=== PATIENT | female | born 1945 | race Caucasian/White ===

== ENCOUNTER 2019-07-19 06:43 | Outpatient (CLI) | payer MEDICARE, SELFPAY ==
[2019-07-19 07:26] LABS: Basophils Absolute Auto 0.1 K/mm3 (0.0-0.1); Basophils Percent Auto 2.1 % (0.2-1.2); Eosinophils Absolute Auto 0.4 K/mm3 (0-0.3); Eosinophils Percent Auto 8.1 % (0-4.4); Hematocrit 35.8 % (37.0-47.0); Hemoglobin 12.2 g/dL (12.0-15.0); Immature Granulocyte Absolute 0.01 K/mm3 (0.00-0.031); Immature Granulocyte Percent A 0.2 % (0-0.5); Lymphocytes Absolute Auto 1.81 K/mm3 (0.9-3.2); Lymphocytes Percent Auto 34.3 % (18.3-44.2); Mean Corpuscular HGB Conc 34.1 g/dl (32-36); Mean Corpuscular Hemoglobin 31.6 pg (26-34); Mean Corpuscular Volume 92.7 fl (80-100); Mean Platelet Volume 9.5 fl (7.4-10.4); Monocytes Absolute Auto 0.5 K/mm3 (0.1-0.6); Monocytes Percent Auto 9.8 % (2.6-8.5); Neutrophils Absolute Auto 2.4 K/mm3 (1.3-6.7); Neutrophils Percent Auto 45.5 % (45.5-73.1); Platelet Count Result 246 k/mm3 (150-375); Red Blood Count 3.86 M/mm3 (4.2-5.4); Red Cell Distribution Width 11.7 % (11.5-14.5); White Blood Count 5.3 K/mm3 (4.5-10.0)
[2019-07-19 07:35] LABS: Hemoglobin A1C 5.8 % (<5.7)
[2019-07-19 07:39] LABS: Alanine Aminotransferase 13 U/L (4-35); Albumin Level 4.2 g/dL (3.5-5.1); Alkaline Phosphatase 60 U/L (38-126); Aspartate Amino Transferase 22 U/L (14-36); Bilirubin,Total 0.3 mg/dL (0.2-1.3); Blood Urea Nitrogen 10 mg/dL (7-17); Calcium 9.3 mg/dL (8.4-10.2); Carbon Dioxide 30 mmol/L (22-30); Chloride 96 mmol/L (98-107); Cholesterol 202 mg/dL (0-200); Estimated Glomerular Filt Rate > 60; Glucose 93 mg/dL (65-105); HDL Direct 58 mg/dL; Potassium 4.7 mmol/L (3.4-5.0); Sodium 131 mmol/L (137-145); Triglycerides 64 mg/dL (<150)
[2019-07-19 07:50] LABS: LDL Cholesterol Direct 104 mg/dL
== END 2019-07-19 06:44 | disposition home or self-care (01) ==
PROVIDERS: PCP Internal Medicine; Visit Provider Internal Medicine
DX: E78.2 Mixed hyperlipidemia (principal); Z79.899 Other long term (current) drug therapy; I10 Essential (primary) hypertension
CPT/HCPCS: 36415; 80048; 80061; 80076; 82542; 83036; 85025

== ENCOUNTER 2019-09-07 06:54 | Outpatient (CLI) | payer MEDICARE, SELFPAY ==
[2019-09-07 07:30] LABS: Cholesterol 136 mg/dL (0-200); HDL Direct 59 mg/dL; Triglycerides 48 mg/dL (<150)
[2019-09-07 07:41] LABS: LDL Cholesterol Direct 55 mg/dL
== END 2019-09-07 06:55 | disposition home or self-care (01) ==
PROVIDERS: PCP Internal Medicine; Visit Provider Internal Medicine
DX: E78.2 Mixed hyperlipidemia (principal)
CPT/HCPCS: 36415; 80061

== ENCOUNTER 2020-01-17 06:39 | Outpatient (CLI) | payer MEDICARE, SELFPAY ==
[2020-01-17 07:44] LABS: Basophils Absolute Auto 0.1 K/mm3 (0.0-0.1); Basophils Percent Auto 1.2 % (0.2-1.2); Eosinophils Absolute Auto 0.3 K/mm3 (0-0.3); Eosinophils Percent Auto 4.8 % (0-4.4); Hematocrit 35.4 % (37.0-47.0); Hemoglobin 11.9 g/dL (12.0-15.0); Immature Granulocyte Absolute 0.02 K/mm3 (0.00-0.031); Immature Granulocyte Percent A 0.3 % (0-0.5); Lymphocytes Absolute Auto 1.72 K/mm3 (0.9-3.2); Lymphocytes Percent Auto 25.9 % (18.3-44.2); Mean Corpuscular HGB Conc 33.6 g/dl (32-36); Mean Corpuscular Hemoglobin 32.2 pg (26-34); Mean Corpuscular Volume 95.7 fl (80-100); Mean Platelet Volume 9.7 fl (7.4-10.4); Monocytes Absolute Auto 0.5 K/mm3 (0.1-0.6); Monocytes Percent Auto 7.5 % (2.6-8.5); Neutrophils Percent Auto 60.3 % (45.5-73.1); Platelet Count Result 222 k/mm3 (150-375); Red Cell Distribution Width 11.7 % (11.5-14.5); White Blood Count 6.6 K/mm3 (4.5-10.0)
[2020-01-17 07:53] LABS: Alanine Aminotransferase 13 U/L (4-35); Alkaline Phosphatase 46 U/L (38-126); Anion Gap 5 mmol/L (8-16); Aspartate Amino Transferase 30 U/L (14-36); Bilirubin,Total 0.5 mg/dL (0.2-1.3); Blood Urea Nitrogen 13 mg/dL (7-17); Calcium 9.4 mg/dL (8.4-10.2); Carbon Dioxide 28 mmol/L (22-30); Chloride 100 mmol/L (98-107); Cholesterol 156 mg/dL (0-200); Estimated Glomerular Filt Rate > 60; Glucose 96 mg/dL (65-105); HDL Direct 71 mg/dL; Sodium 133 mmol/L (137-145); Triglycerides 58 mg/dL (<150)
[2020-01-17 08:03] LABS: LDL Cholesterol Direct 62 mg/dL
[2020-01-17 08:09] LABS: Hemoglobin A1C 5.6 % (<5.7)
[2020-01-17 09:01] LABS: Folic Acid > 20.0 ng/mL (2.76->20)
[2020-01-20 23:06] LABS: Vitamin D 1,25 (OH)2 Total 26 pg/mL (18-72); Vitamin D2 1,25 (OH)2 <8 pg/mL; Vitamin D3 1,25 (OH)2 26 pg/mL
== END 2020-01-17 06:40 | disposition home or self-care (01) ==
PROVIDERS: PCP Internal Medicine; Visit Provider Internal Medicine
DX: E55.9 Vitamin D deficiency, unspecified (principal); I10 Essential (primary) hypertension; R73.03 Prediabetes; E78.2 Mixed hyperlipidemia; Z79.899 Other long term (current) drug therapy; E53.8 Deficiency of other specified B group vitamins
CPT/HCPCS: 36415; 80048; 80061; 80076; 82607; 82652; 82746; 83036; 84443; 85025

== ENCOUNTER 2020-02-05 07:24 | Outpatient (CLI) | payer MEDICARE, SELFPAY ==
--- NOTE | ~2020-02-05 | US_ITS ---
EXAMINATION: US carotid duplex BI DATE: 02/05/2020 08:30 INDICATION: Left carotid bruit TECHNIQUE: Grayscale, color Doppler, and pulsed Doppler images of the cervical carotid arteries were obtained. The degree of vessel stenosis is placed in one of the following categories: normal, <50%, 5 0-69%, >=70% but less than near-occlusion, near-occlusion, or total occlusion. Note that percent sten osis relative to normal distal artery lumen diameter is indirectly measured from velocity measurement s as described by Dilip, et al. Radiology 2003; 229:340-346. COMPARISON: None. FINDINGS: RIGHT: The right common carotid artery (CCA) peak systolic velocity (PSV) is 103 cm/s. The right internal ca rotid artery (ICA) PSV is 158 cm/s. The right ICA end-diastolic velocity (EDV) is 35 cm/s. The right ICA/CCA PSV ratio is 1.5. Grayscale and color Doppler images yield an estimate of <50% diameter reduc tion from plaque in the ICA. The external carotid artery (ECA) PSV is 110 cm/s. There is antegrade fl ow in the right vertebral artery. LEFT: The left CCA PSV is 105 cm/s. The left ICA PSV is 119 cm/s. The left ICA EDV is 27 cm/s. The left ICA /CCA PSV ratio is .1. Grayscale and color Doppler images yield an estimate of <50% diameter reduction from plaque in the ICA. The ECA PSV is 123 cm/s. There is antegrade flow in the left vertebral arter y. IMPRESSION: 1. <50% stenosis in the right internal carotid artery. 2. <50% stenosis in the left internal carotid artery. Reviewed, dictated and finalized at location H. P BREAKER
== END 2020-02-05 07:25 | disposition home or self-care (01) ==
PROVIDERS: PCP Internal Medicine; Visit Provider Internal Medicine
DX: R09.89 Other specified symptoms and signs involving the circulatory and respiratory systems (principal); I65.23 Occlusion and stenosis of bilateral carotid arteries
CPT/HCPCS: 93880

== ENCOUNTER 2020-03-06 10:34 | Outpatient (CLI) | payer MEDICARE, SELFPAY ==
--- NOTE | ~2020-03-06 | MM_ITS ---
EXAMINATION: MM screening juan BI w thu HISTORY: Screening mammogram TECHNIQUE: Craniocaudal and mediolateral oblique 3-D tomosynthesis images were obtained and synthetic 2-D images were generated. Bilateral rotated lateral CC views. CAD analysis was submitted and inter preted. COMPARISON: 11/29/2018, 04/06/2017, 02/26/2016 bilateral digital screening mammogram examinations BREAST PARENCHYMAL COMPOSITION: The breasts are heterogeneously dense, which may obscure small masses . FINDINGS: There is no evidence of suspicious mass, calcification, or architectural distortion to sugg est malignancy in either breast. There has been no suspicious interval change. IMPRESSION: 1. No mammographic evidence of malignancy. 2. Recommend routine screening mammography in one year. BI-RADS Category 1: Negative Reviewed, dictated and finalized at location A. S ASSOCIATE
== END 2020-03-06 10:35 | disposition home or self-care (01) ==
PROVIDERS: PCP Internal Medicine; Visit Provider Internal Medicine
DX: Z12.31 Encounter for screening mammogram for malignant neoplasm of breast (principal)
CPT/HCPCS: 77063; 77067

== ENCOUNTER 2020-07-13 07:15 | Outpatient (CLI) | payer MEDICARE, SELFPAY ==
[2020-07-13 08:07] LABS: Alanine Aminotransferase 15 U/L (4-35); Albumin Level 4.3 g/dL (3.5-5.1); Alkaline Phosphatase 62 U/L (38-126); Anion Gap 4 mmol/L (8-16); Aspartate Amino Transferase 25 U/L (14-36); Bilirubin,Total 0.3 mg/dL (0.2-1.3); Blood Urea Nitrogen 13 mg/dL (7-17); Calcium 9.2 mg/dL (8.4-10.2); Carbon Dioxide 32 mmol/L (22-30); Chloride 97 mmol/L (98-107); Cholesterol 156 mg/dL (0-200); Estimated Glomerular Filt Rate > 60; Glucose 96 mg/dL (65-105); HDL Direct 77 mg/dL; Potassium 4.5 mmol/L (3.4-5.0); Sodium 133 mmol/L (137-145); Triglycerides 56 mg/dL (<150)
[2020-07-13 08:18] LABS: LDL Cholesterol Direct 60 mg/dL
[2020-07-13 09:31] LABS: Hemoglobin A1C 5.7 % (<5.7)
== END 2020-07-13 07:16 | disposition home or self-care (01) ==
PROVIDERS: PCP Internal Medicine; Visit Provider Internal Medicine
DX: E55.9 Vitamin D deficiency, unspecified (principal); E78.2 Mixed hyperlipidemia; I10 Essential (primary) hypertension; Z79.899 Other long term (current) drug therapy
CPT/HCPCS: 36415; 80053; 80061; 82306; 83036

== ENCOUNTER 2020-10-29 16:31 | Outpatient (CLI) | payer MEDICARE, SELFPAY ==
--- NOTE | ~2020-10-29 | XR_ITS ---
XR knee RT min 4V DATE: 10/29/2020 16:55 INDICATION: Previous fall. Pain and swelling anteriorly and posteriorly TECHNIQUE: Eek and standing AP, Sherwood and lateral views COMPARISON: None FINDINGS: There is enthesopathy of the superior pole of the patella at the quadriceps tendon insertio n. There is slight periarticular spurring of the patella consistent with mild osteoarthritis. No fracture or dislocation or joint effusion, radiopaque intra-articular loose body or chondrocalcino sis is detected. No periosteal reaction or bone destruction. IMPRESSION: Mild patellofemoral osteoarthritis Reviewed, dictated and finalized at location A.
== END 2020-10-29 16:32 | disposition home or self-care (01) ==
LOC: ANHIMG 16:41
PROVIDERS: PCP Internal Medicine; Visit Provider Internal Medicine
DX: M25.461 Effusion, right knee (principal); M25.561 Pain in right knee; M17.11 Unilateral primary osteoarthritis, right knee
CPT/HCPCS: 73564

== ENCOUNTER 2020-11-12 09:27 | Outpatient (CLI) | payer MEDICARE, SELFPAY ==
--- NOTE | ~2020-11-12 | US_ITS ---
EXAMINATION: US soft tissue LE RT DATE: 11/12/2020 10:06 INDICATION: Right knee pain and swelling TECHNIQUE: Multiple grayscale and Doppler ultrasound images of the right knee were obtained. COMPARISON: None FINDINGS: No Allred's cyst or other abnormal fluid collections at the right popliteal fossa. No evident right kn ee joint effusion. The vessels at the right popliteal fossa are unremarkable with patent right poplit eal and gastrocnemius veins. IMPRESSION: 1. Unremarkable ultrasound of the right knee with no evident joint effusion or Allred's cyst. Reviewed, dictated and finalized at location A.
== END 2020-11-12 09:28 | disposition home or self-care (01) ==
LOC: ANHIMG 09:31
PROVIDERS: PCP Internal Medicine; Visit Provider Internal Medicine
DX: M25.461 Effusion, right knee (principal); M25.561 Pain in right knee
CPT/HCPCS: 76882

== ENCOUNTER 2020-12-03 07:45 | Outpatient (CLI) | payer MEDICARE, SELFPAY ==
--- NOTE | ~2020-12-03 | DEXA_ITS ---
Bone Density Report Name: Ngozi Zazueta Age: 75 Sex: Female Ethnicity: White Date of : 1945 Indication: postmenopausal; parental hip fracture; Referring Provider: Ann Garcia Study: Bone densitometry was performed. Exam Date: December 03, 2020 Accession number: [id number] Bone Density: Region BMD T-score Z-score Classification AP Spine (L1-L4) 0.833 -1.9 0.6 Osteopenia Femoral Neck (Left) 0.761 -0.8 1.4 Normal Total Hip (Left) 0.854 -0.7 1.2 Normal Total Hip Bilateral Avg 0.854 -0.7 1.2 Normal Femoral Neck (Right) 0.714 -1.2 1.0 Osteopenia Total Hip (Right) 0.853 -0.7 1.2 Normal World Health Organization criteria for BMD impression classify patients as: Normal (T-score at or above -1.0), Osteopenia (T-score between -1.0 and -2.5), or Osteoporosis (T-score at or below -2.5). 10-year Fracture Risk(1): Major Osteoporotic Fracture 17% Hip Fracture 8.8% Reported Risk Factors: [place] (), Neck BMD=0.714, BMI=21.0, parental fracture (1) FRAX(R) Version 3.08. Fracture probability calculated for an untreated patient. Fracture probability may be lower if the patient has received treatment. Clinical Information Provided by Patient: Parent has had a hip fracture Has used the following medications: Calcium Patient maximum height was 62 Menopause Age: 53 Does not regularly consume dairy products Onset of menses at age 10 Number of children 1 Impression: The patient has low bone mass, based on the Total Spine T-score. The patient has an estimated ten-year risk of hip fracture of 8.8% and an estimated ten-year risk of major fracture of 17%, based on the WHO FRAX algorithm. The patient has risk factors, including: parental hip fracture. Discussion: BONE DENSITY IS LOW AT ONE OR MORE SKELETAL SITES. THE PATIENT'S BMD AND CLINICAL RISK FACTORS CONTRIBUTE TO THIS PATIENT'S INCREASED RISK OF FRACTURE. This patient's lowest T-score is low at one or more skeletal sites. It meets the World Health Organization's (WHO) criteria for ?low bone mass? (T-score between -1.0 and -2.5). The patient's 10-year risk of hip fracture as calculated by FRAX exceeds the threshold where pharmacological therapy is recommended by the National Osteoporosis Foundation (NOF). However, all treatment decisions require clinical judgment and consideration of individual patient factors, including patient preferences, comorbidities, previous drug use, risk factors not captured in the FRAX model (e.g., frailty, falls, vitamin D deficiency, increased bone turnover, interval significant decline in bone density) and possible under or overestimation of fracture risk by FRAX. The patient should follow a healthful lifestyle (good nutrition with adequate calcium and vitamin D, and appropriate weight-bearing exercise). Follow-Up: Cons
== END 2020-12-03 07:46 | disposition home or self-care (01) ==
LOC: ANHIMG 07:47
PROVIDERS: PCP Internal Medicine; Visit Provider Student in an Organized Health Care Education/Training Program
DX: Z78.0 Asymptomatic menopausal state (principal); M85.88 Other specified disorders of bone density and structure, other site; M85.851 Other specified disorders of bone density and structure, right thigh
CPT/HCPCS: 77080

== ENCOUNTER 2020-12-06 06:47 | Outpatient (CLI) | payer MEDICARE, SELFPAY ==
[2020-12-06 08:00] LABS: Basophils Absolute Auto 0.1 K/mm3 (0.0-0.1); Basophils Percent Auto 1.6 % (0.2-1.2); Eosinophils Absolute Auto 0.4 K/mm3 (0-0.3); Eosinophils Percent Auto 8.1 % (0-4.4); Hematocrit 34.5 % (37.0-47.0); Hemoglobin 11.8 g/dL (12.0-15.0); Immature Granulocyte Absolute 0.01 K/mm3 (0.00-0.031); Immature Granulocyte Percent A 0.2 % (0-0.5); Lymphocytes Absolute Auto 1.74 K/mm3 (0.9-3.2); Lymphocytes Percent Auto 34.3 % (18.3-44.2); Mean Corpuscular HGB Conc 34.2 g/dl (32-36); Mean Corpuscular Hemoglobin 32.3 pg (26-34); Mean Corpuscular Volume 94.5 fl (80-100); Mean Platelet Volume 9.6 fl (7.4-10.4); Monocytes Absolute Auto 0.5 K/mm3 (0.1-0.6); Monocytes Percent Auto 10.7 % (2.6-8.5); Neutrophils Absolute Auto 2.3 K/mm3 (1.3-6.7); Neutrophils Percent Auto 45.1 % (45.5-73.1); Platelet Count Result 214 k/mm3 (150-375); Red Blood Count 3.65 M/mm3 (4.2-5.4); Red Cell Distribution Width 11.4 % (11.5-14.5); White Blood Count 5.1 K/mm3 (4.5-10.0)
[2020-12-06 08:01] LABS: Add Urine Microscopic? YES; Appearance Urine Clear (Clear); Bilirubin Urine Negative (Negative); Blood Urine 1+ (Negative); Color Urine Yellow (Yellow); Glucose Urine UA Negative (Negative); Ketones Urine Negative (Negative); Leukocyte Esterase Ur Negative LEU/UL (Negative); Mucus Urine Rare /lpf; Nitrate Urine Negative (Negative); Protein Urine Negative (Negative); Specific Grav Ur 1.015 (1.001-1.035); Squamous Epithelial Cell Urine Rare /hpf (Few); Urobilinogen Urine Negative mg/dL (<2.0); WBC Urine 0-3 /hpf
[2020-12-06 08:16] LABS: Anion Gap 7 mmol/L (8-16); Blood Urea Nitrogen 16 mg/dL (7-17); Calcium 9.4 mg/dL (8.4-10.2); Carbon Dioxide 28 mmol/L (22-30); Chloride 100 mmol/L (98-107); Cholesterol 151 mg/dL (0-200); Estimated Glomerular Filt Rate > 60; Glucose 102 mg/dL (65-110); HDL Direct 73 mg/dL; Potassium 4.4 mmol/L (3.4-5.0); Sodium 135 mmol/L (137-145); Triglycerides 51 mg/dL (<150)
[2020-12-06 08:27] LABS: LDL Cholesterol Direct 58 mg/dL
[2020-12-06 08:41] LABS: Hemoglobin A1C 5.6 % (<5.7)
[2020-12-06 08:54] LABS: Free T4 Free Thyroxine 0.91 ng/mL (0.78-2.19)
== END 2020-12-06 06:48 | disposition home or self-care (01) ==
LOC: ANHLAB 06:51
PROVIDERS: PCP Internal Medicine; Visit Provider Internal Medicine
DX: R73.03 Prediabetes (principal); E78.2 Mixed hyperlipidemia; Z51.81 Encounter for therapeutic drug level monitoring; Z79.899 Other long term (current) drug therapy; I10 Essential (primary) hypertension
CPT/HCPCS: 36415; 80048; 80061; 81001; 83036; 84439; 84443; 85025

== ENCOUNTER 2020-12-19 12:53 | Outpatient (CLI) | payer MEDICARE, SELFPAY ==
--- NOTE | ~2020-12-19 | CT_ITS ---
EXAMINATION: CT abdomen pelvis wo con DATE: 12/19/2020 13:11 INDICATION: Other microscopic hematuria. TECHNIQUE: Computed tomography (CT) of the abdomen and pelvis was performed without intravenous contr ast. Automated exposure control and iterative reconstruction technique were employed. The dose-length product was 197.18 mGy-cm. COMPARISON: CT abdomen and pelvis 03/27/2019 FINDINGS: The visualized portions of the lung bases demonstrate mild atelectasis. No pleural effusion . The heart size is normal. No pericardial effusion. The liver is normal. There are changes of cholec ystectomy. The spleen, pancreas, adrenal glands, and left kidney are normal. There is focal cortical thinning in right kidney. There is no urolithiasis. There are no dilated loops of bowel. The appendix is not visualized. There are no pathologically enlarged lymph nodes. There is no free intraperitonea l fluid. There is severe thoracic spondylosis and moderate lumbar spondylosis. IMPRESSION: 1. No etiology for hematuria. Reviewed, dictated and finalized at location A.
== END 2020-12-19 12:54 | disposition home or self-care (01) ==
LOC: ANHIMG 12:57
PROVIDERS: PCP Internal Medicine; Visit Provider Internal Medicine
DX: R31.29 Other microscopic hematuria (principal)
CPT/HCPCS: 74176

== ENCOUNTER 2021-02-11 07:02 | Outpatient (CLI) | payer MEDICARE, SELFPAY ==
--- NOTE | ~2021-02-11 | CT_ITS ---
EXAMINATION: CT abdomen pelvis w con DATE: 02/11/2021 08:00 INDICATION: Microscopic hematuria. TECHNIQUE: Computed tomography (CT) of the abdomen and pelvis was performed with 100 mL Omnipaque 350 intravenous contrast. Automated exposure control and iterative reconstruction technique were employe d. The dose-length product was 375.25 mGy-cm. COMPARISON: CT abdomen and pelvis 12/19/2020 FINDINGS: The visualized portions of the lung bases demonstrate mild atelectasis. No pleural effusion . The heart size is normal. No pericardial effusion. There is mild intrahepatic biliary duct dilatati on, likely secondary to cholecystectomy. The spleen, pancreas, and adrenal glands are normal. There i s focal cortical thinning of right kidney. There are cysts in left kidney measuring up to 5 mm. The u reters are not opacified, but are normal. There is diverticulosis of the colon without evidence of di verticulitis. There are no dilated loops of bowel. The appendix is not visualized. The periuterine ve ins and left ovarian vein are enlarged, consistent with pelvic venous insufficiency. There are no pat hologically enlarged lymph nodes. There is no free intraperitoneal fluid. There is moderate thoracolu mbar spondylosis. IMPRESSION: 1. No etiology for hematuria. Reviewed, dictated and finalized at location A. E CDL DRIVER
[2021-02-11 07:47] LABS: Estimated Glomerular Filt Rate > 60
== END 2021-02-11 07:03 | disposition home or self-care (01) ==
PROVIDERS: PCP Internal Medicine; Visit Provider Urology
DX: R31.29 Other microscopic hematuria (principal)
CPT/HCPCS: 74177; Q9967

== ENCOUNTER 2021-04-08 08:14 | Outpatient (CLI) | payer MEDICARE, SELFPAY ==
--- NOTE | ~2021-04-08 | MM_ITS ---
EXAMINATION: MM screening [facility] BI w thu HISTORY: Screening mammogram TECHNIQUE: Craniocaudal and mediolateral oblique 3-D tomosynthesis images were obtained and synthetic 2-D images were generated. CAD analysis was submitted and interpreted. COMPARISON: 03/06/2020, 11/29/2018, 04/06/2017 BREAST PARENCHYMAL COMPOSITION: There are scattered areas of fibroglandular density. FINDINGS: There is no evidence of suspicious mass, calcification, or architectural distortion to sugg est malignancy in either breast. There has been no suspicious interval change. IMPRESSION: 1. No mammographic evidence of malignancy. 2. Recommend routine screening mammography in one year. BI-RADS Category 1: Negative Reviewed, dictated and finalized at location A. EILLANCE SYSTEMS ENGINEER
== END 2021-04-08 08:15 | disposition home or self-care (01) ==
PROVIDERS: PCP Internal Medicine; Visit Provider Student in an Organized Health Care Education/Training Program
DX: Z12.31 Encounter for screening mammogram for malignant neoplasm of breast (principal)
CPT/HCPCS: 77063; 77067

== ENCOUNTER 2021-04-15 06:53 | Outpatient (CLI) | payer MEDICARE, OTHER, SELFPAY ==
[2021-04-15 08:39] LABS: Anion Gap 3 mmol/L (8-16); Blood Urea Nitrogen 13 mg/dL (7-17); Calcium 9.2 mg/dL (8.4-10.2); Carbon Dioxide 30 mmol/L (22-30); Chloride 98 mmol/L (98-107); Cholesterol 156 mg/dL (0-200); Estimated Glomerular Filt Rate > 60; Glucose 97 mg/dL (65-110); HDL Direct 64 mg/dL; Potassium 4.4 mmol/L (3.4-5.0); Sodium 131 mmol/L (137-145); Triglycerides 45 mg/dL (<150)
[2021-04-15 08:49] LABS: LDL Cholesterol Direct 58 mg/dL
[2021-04-15 08:50] LABS: Hemoglobin A1C 5.6 % (<5.7)
== END 2021-04-15 06:54 | disposition home or self-care (01) ==
PROVIDERS: PCP Internal Medicine; Visit Provider Internal Medicine
DX: R73.03 Prediabetes (principal); I10 Essential (primary) hypertension; E78.5 Hyperlipidemia, unspecified
CPT/HCPCS: 36415; 80048; 80061; 83036

== ENCOUNTER 2021-06-23 10:04 | Emergency (ER) | payer MEDICARE, OTHER, SELFPAY ==
--- NOTE | ~2021-06-23 | XR_ITS ---
EXAMINATION: XR hip LT min 2V EXAM DATE: 06/23/2021 10:50 INDICATION: No known recent injury provided at this time. Pain of the left hip. TECHNIQUE: Left hip frontal, 'frog leg' projections for interpretation. There is no prior study for comparison. FINDINGS: Smooth left hip femoral head contour, no radiographic evidence of avascular necrosis. Ther e is mild to moderate left hip primary osteoarthritis. There are no acute fractures or dislocations i dentified. There is no subcutaneous gas. The soft tissue is unremarkable. There are no radiopaque foreign bodies. IMPRESSION: Mild to moderate left hip osteoarthritis. No acute findings. Reviewed, dictated and finalized at location A.
[2021-06-23 10:17] VITALS: BP 169/59; PULSE 60; RESP 18; TEMP 37.1; O2SAT 98
[2021-06-23] MEDS: KETOROLAC 30 MG/ML VIAL (*BKC) IM (12:16)
--- NOTE | 2021-06-23 12:29 | ED.LOWEXIN ---
HPI - Extremity Injury (Lower) General Chief Complaint: Extremity Injury, Lower Stated Complaint: Left Hip Pain Time Seen by Provider: 06/23/21 11:45 Source: patient History of Present Illness HPI Narrative: Patient presents with left hip pain. His first hip pain for the past couple days is generally worse in the morning and gets better throughout the day as she moves. She called her primary care doctor over the weekend he prescribed her some muscle relaxers however it did not help so she came to the ER for evaluation. Denies any traumas or falls. Reports it is difficult to bear weight due to pain. She has not attempted any other medications other than the muscle relaxer. Related Data Home Medications Medication Instructions Recorded Confirmed propafenone 150 mg tablet 150 mg PO Q12H tablet 02/04/19 06/03/21 multivitamin 1 tablet PO DAILY 07/28/19 06/03/21 calcium carbonate 500 mg calcium 500 mg PO DAILY tablet 01/26/20 06/03/21 (1,250 mg) tablet Allergies Allergy/AdvReac Type Severity Reaction Status Date / Time No Known Allergies Allergy Verified 06/23/21 11:42 Review of Systems Review of Systems: CONSTITUTIONAL: Denies fever, chills, or sweats. EYES: Denies visual changes, redness, or discharge. ENT: Denies rhinorrhea, congestion, sore throat, or otalgia. CARDIOVASCULAR: Denies chest pain, palpitations, or edema. RESPIRATORY: Denies cough or dyspnea. GASTROINTESTINAL: Denies abdominal pain, nausea, vomiting, or diarrhea. GENITOURINARY: Denies dysuria or hematuria. SKIN: Denies rash or itching. MUSCULOSKELETAL: Denies back pain, or myalgia. NEUROLOGIC: Denies headache, numbness, dizziness, or weakness. PSYCHIATRIC: Denies anxiety or depression. All systems reviewed & are unremarkable except as noted in HPI and below PMFSH Past Medical History Medical History A-fib Benign essential hypertension BMI 20.0-20.9, adult BMI 21.0-21.9, adult Colon cancer screening Contusion of right knee Encounter for Medicare annual wellness exam Encounter for routine adult health examination without abnormal findings Follow up GERD (gastroesophageal reflux disease) Hearing loss Hyperlipidemia Idiopathic hypotension Left carotid bruit Microscopic hematuria On intermediate drug therapy Pre-diabetes Right bundle branch block Right knee pain Swelling of right knee joint URI (upper respiratory infection) Vitamin B12 deficiency Vitamin D deficiency Surgical History Surgical History History of hand surgery History of tubal ligation Hx of appendectomy Hx of cholecystectomy Hx of tonsillectomy Family History Family History Mother Family history of congestive heart failure Family history of congenital heart disease Hypertension Hyperlipemia Father Acute myocardial infarction Sibling Family history of atrial fibrillation Social History Social History Years smoked: 20 Smoking status: Former smoker Smoking end date: 03/16/80 Alcohol intake: current Substance use: never Exam Narrative: GENERAL: Well-appearing, well-nourished, and in no acute distress. HEAD: Normocephalic, atraumatic. EYES: PERRLA and EOMI. ENT: Nares clear, no rhinorrhea or epistaxis. Mucous membranes moist. NECK: Supple. No masses. No JVD EXTREMITIES: Normal range of motion. No edema. Mild diffuse tenderness of the left hip SKIN: Warm, dry, no rash. NEURO: No focal deficits. Alert and oriented x3. PSYCH: Normal mood and affect. Course Vital Signs Vital signs: Vital Signs Temperature 37.1 C 06/23/21 10:17 Pulse Rate 60 06/23/21 10:17 Respiratory Rate 18 06/23/21 10:17 Blood Pressure 169/59 H 06/23/21 10:17 Pulse Oximetry 98 06/23/21 10:17 Temperature 37.1 C 06/23/21 10:17 Pulse Rate
== END 2021-06-23 12:46 | disposition home or self-care (01) ==
PROVIDERS: Emergency Provider Emergency Medicine; PCP Internal Medicine
DX: M16.12 Unilateral primary osteoarthritis, left hip (principal); I48.91 Unspecified atrial fibrillation; I10 Essential (primary) hypertension; K21.9 Gastro-esophageal reflux disease without esophagitis; E78.5 Hyperlipidemia, unspecified; R73.03 Prediabetes; E53.8 Deficiency of other specified B group vitamins; E55.9 Vitamin D deficiency, unspecified; Z87.891 Personal history of nicotine dependence; Z79.01 Long term (current) use of anticoagulants
CPT/HCPCS: 73502; 96372; 99283; J1885

== ENCOUNTER 2021-07-08 12:31 | Outpatient (CLI) | payer MEDICARE, OTHER, SELFPAY ==
--- NOTE | ~2021-07-08 | XR_ITS ---
EXAMINATION: XR lg joint inject/asp w image DATE: 07/08/2021 13:18 INDICATION: Left hip pain. TECHNIQUE: A time-out was performed to verify the patient's name, date of , and procedure to b e performed. The procedure including the risks, benefits, and alternatives was discussed with the pat ient. Risks discussed included bleeding and infection. The patient understood the risks and agreed to proceed. The skin overlying the left hip joint was prepped and draped in usual sterile fashion. An esthetic was administered with 1% lidocaine subcutaneously. A 22 G needle was advanced under fluoros copic guidance into the joint. Injection of 1 mL of Omnipaque 240 confirmed intra-articular position of the needle. Subsequently, injectate consisting of 5 mL 1% lidocaine and 2 mL 10 mg/mm Kenalog wa s instilled. The needle was removed and the entry site was cleaned and dressed. There were no immed iate complications. Fluoroscopy exposure time was 0.1 minutes. The total number of images was 2. FINDINGS: Real-time fluoroscopy demonstrates the needle in the left hip joint. Patient's pain prior t o procedure:9/10. Patient's pain following the procedure: 0/10. IMPRESSION: 1. Fluoroscopy guided left hip joint injection of local anesthetic and steroid with decrease in the p atient's presenting pain. Reviewed, dictated and finalized at location A. IMPRESSION: 1. Fluoroscopy guided left hip joint injection of local anesthetic and steroid with decrease in the patient's presenting pain.
== END 2021-07-08 12:32 | disposition home or self-care (01) ==
LOC: ANHIMG 12:36
PROVIDERS: PCP Internal Medicine; Visit Provider Orthopaedic Surgery
DX: M25.552 Pain in left hip (principal)
CPT/HCPCS: 20610; 77002; J3301; Q9966

== ENCOUNTER 2021-07-25 12:31 | Outpatient (CLI) | payer MEDICARE, OTHER, SELFPAY ==
--- NOTE | ~2021-07-25 | MR_ITS ---
EXAMINATION: MR hip LT wo con DATE: 07/25/2021 13:43 INDICATION: Left hip pain. TECHNIQUE: Magnetic resonance imaging (MRI) of the left hip was performed without intravenous contras t. Sequences included axial and coronal PD-weighted FS FSE and axial T1-weighted FSE of the pelvis. S equences of the hip included 2D FIESTA, T1-weighted fast GRE, and axial, coronal, and sagittal PD-trenton ghted FS FSE. COMPARISON: Left hip radiographs 06/23/2021, CT abdomen and pelvis 02/11/2021 FINDINGS: Bones/cartilage: There is thoracolumbar dextrocurvature. There is severe lumbar spondylosis. There is moderate osteoar thritis of the hips with deep partial thickness cartilage loss. Labrum: There are tears of the acetabular sanjuanita bilaterally. Fluid: There is no hip joint effusion. There is mild bilateral trochanteric bursitis. Soft tissues: There is mild tendinopathy of the hamstring origins bilaterally. The iliopsoas tendons are normal. Th ere is mild right gluteus minimus and gluteus medius tendinopathy. There is moderate left gluteus min imus tendinopathy and mild left gluteus medius tendinopathy. IMPRESSION: 1. Moderate osteoarthritis of the hips. Reviewed, dictated and finalized at location A.
== END 2021-07-25 12:32 | disposition home or self-care (01) ==
PROVIDERS: PCP Internal Medicine; Visit Provider Internal Medicine
DX: M47.816 Spondylosis without myelopathy or radiculopathy, lumbar region (principal); M16.0 Bilateral primary osteoarthritis of hip
CPT/HCPCS: 73721

== ENCOUNTER 2021-09-02 06:45 | Outpatient (CLI) | payer MEDICARE, OTHER, SELFPAY ==
[2021-09-02 08:17] LABS: Basophils Absolute Auto 0.1 K/mm3 (0.0-0.1); Basophils Percent Auto 1.3 % (0.2-1.2); Eosinophils Absolute Auto 0.2 K/mm3 (0-0.3); Eosinophils Percent Auto 3.6 % (0-4.4); Hematocrit 36.2 % (37.0-47.0); Hemoglobin 11.8 g/dL (12.0-15.0); Lymphocytes Absolute Auto 1.75 K/mm3 (0.9-3.2); Lymphocytes Percent Auto 32.7 % (18.3-44.2); Mean Corpuscular HGB Conc 32.6 g/dl (32-36); Mean Corpuscular Hemoglobin 31.9 pg (26-34); Mean Corpuscular Volume 97.8 fl (80-100); Mean Platelet Volume 9.6 fl (7.4-10.4); Monocytes Absolute Auto 0.6 K/mm3 (0.1-0.6); Monocytes Percent Auto 10.5 % (2.6-8.5); Neutrophils Absolute Auto 2.8 K/mm3 (1.3-6.7); Neutrophils Percent Auto 51.9 % (45.5-73.1); Platelet Count Result 230 k/mm3 (150-375); Red Cell Distribution Width 12.2 % (11.5-14.5); White Blood Count 5.4 K/mm3 (4.5-10.0)
[2021-09-02 08:51] LABS: Free T4 Free Thyroxine 1.03 ng/mL (0.78-2.19); Vitamin D 25 Hydroxy 62.3 ng/mL
[2021-09-02 10:32] LABS: Hemoglobin A1C 5.7 % (<5.7)
[2021-09-02 10:38] LABS: Alanine Aminotransferase 12 U/L (6-35); Albumin Level 4.2 g/dL (3.5-5.1); Alkaline Phosphatase 56 U/L (38-126); Anion Gap 4 mmol/L (8-16); Aspartate Amino Transferase 23 U/L (14-36); Bilirubin,Total 0.2 mg/dL (0.2-1.3); Blood Urea Nitrogen 12 mg/dL (7-17); Carbon Dioxide 29 mmol/L (22-30); Chloride 101 mmol/L (98-107); Cholesterol 151 mg/dL (0-200); Estimated Glomerular Filt Rate > 60; Glucose 91 mg/dL (65-110); HDL Direct 76 mg/dL; Potassium 4.3 mmol/L (3.4-5.0); Sodium 134 mmol/L (137-145); Triglycerides 53 mg/dL (<150)
[2021-09-02 10:51] LABS: LDL Cholesterol Direct 49 mg/dL
[2021-09-02 12:14] LABS: Thyroid Stimulating Hormone 0.728 uIU/mL (0.465-4.680)
[2021-09-02 12:54] LABS: Folic Acid > 20.0 ng/mL (2.76->20); Vitamin B12 > 1000.0 pg/mL (239-931)
== END 2021-09-02 06:46 | disposition home or self-care (01) ==
LOC: ANHLAB 06:49
PROVIDERS: PCP Internal Medicine; Visit Provider Internal Medicine
DX: R73.03 Prediabetes (principal); E78.2 Mixed hyperlipidemia; E53.8 Deficiency of other specified B group vitamins; E55.9 Vitamin D deficiency, unspecified; Z79.899 Other long term (current) drug therapy; Z13.29 Encounter for screening for other suspected endocrine disorder; I10 Essential (primary) hypertension
CPT/HCPCS: 36415; 80053; 80061; 82306; 82607; 82746; 83036; 84439; 84443; 85025

== ENCOUNTER 2021-09-05 09:16 | Outpatient (CLI) | payer MEDICARE, OTHER, SELFPAY ==
[2021-09-05 10:39] LABS: Iron 105 ug/dL (37-170)
[2021-09-05 10:48] LABS: Percent Iron Saturation 29 % (20-50)
== END 2021-09-05 09:17 | disposition home or self-care (01) ==
PROVIDERS: PCP Internal Medicine; Visit Provider Internal Medicine
DX: D64.9 Anemia, unspecified (principal)
CPT/HCPCS: 36415; 82728; 83540; 83550

== ENCOUNTER 2021-09-30 07:48 | Outpatient (CLI) | payer MEDICARE, OTHER, SELFPAY ==
[2021-09-30 09:18] LABS: Urine Cotinine NEGATIVE
== END 2021-09-30 07:49 | disposition home or self-care (01) ==
PROVIDERS: PCP Internal Medicine; Visit Provider Orthopaedic Surgery
DX: Z01.818 Encounter for other preprocedural examination (principal); M16.12 Unilateral primary osteoarthritis, left hip
CPT/HCPCS: 80307; 87081

== ENCOUNTER 2021-10-16 16:21 | Inpatient (IN) | payer MEDICARE, OTHER, SELFPAY ==
--- NOTE | 2021-09-30 07:55 | PC.NURSE ---
Report to the Outpatient Waiting Room, entrance under the green pavilion located off [facility], at time _0600_ on date _10/15/21_. OR Time: _0730_. - You and your visitor will be asked a series of questions to screen for COVID 19 for your protection. - Only one visitor is allowed at this time. - The patient visitor is requested to leave or wait in car when not with patient. - A mask is required within the hospital. Patients may have clear liquids (water, carbonated beverages, clear teas, apple juice) until 3 hours prior to surgery (0430) with a maximum of 20 ounces. - No food from midnight until time of surgery Take the following medications with a SIP of water the morning of surgery: _CARVEDILOL, TYLENOL OR TRAMADOL IF NEEDED _ Medications to discontinue per DR. TROTTER - ASK @ 10/03/21 APPT REGARDING ELIQUIS __ Medications to discontinue per ANESTHESIA - VITAMINS/SUPPLEMENTS 3 DAYS PRIOR TO SURGERY, Date to take last dose 10/11/21_ Please no make-up, nail german, hairspray, perfume, deodorant, or body powder the day of surgery. No jewelry (including any body piercings) or valuables the day of surgery, leave them at home. Please take a shower or bath the night before, or the morning of, surgery with an antibacterial soap. Wear comfortable, loose fitting clothing. - Jewelry must be removed prior to entering the operating room. Rings and piercings that are not removed may be cut off. - The hospital will not accept responsibility for valuables. - Please leave all valuables, including medications, at home the day of surgery. If you are going home after surgery, a licensed driver retraining instructor must drive you home. - NO public transportation without another adult. - We recommend that an adult stay with you for 24 hours following discharge. - We also recommend that you do not drive, make important decision, drink alcoholic beverages, or take any drugs that were not prescribed by your health care provider for at least 24 hours after your discharge time. Follow any additional instructions given to you from your surgeon. If you or anyone in your household have experienced Covid symptoms in the past week, please notify your surgeon or the nurse liaison at the phone number below for possible testing. Instructions given to ____PT and asked if any additional questions and then verbalized understanding. Patient advised to call surgeon office or pre surgery nurse liaison [phone] if any additional questions.
[2021-09-30 08:24] VITALS: BP 150/64; PULSE 58; RESP 18; TEMP 37.1; O2SAT 97; BMI 20.1
--- NOTE | 2021-10-14 11:29 | WPDANESEPPF ---
Anes - Initial Pre Proc Eval Procedure: Operation Date: 10/15/21 07:30 Proposed Procedures p Left Total Hip Arthroplasty Anterior Approach - Phil Guy MD Date/Time: 10/14/21 11:29 Surgeon: Phil Guy MD Pre Op Diagnosis: oa left hip Patient Data Age: 76 Gender: F Height: 1.56 m Weight: 49.1 kg Last Vital Signs Temp 37.1 C 09/30/21 08:24 Pulse 58 L 09/30/21 08:24 Resp 18 09/30/21 08:24 BP 150/64 H 09/30/21 08:24 Pulse Ox 97 09/30/21 08:24 O2 Del Method Room Air 09/30/21 08:24 Allergies Allergy/AdvReac Type Severity Reaction Status Date / Time No Known Allergies Allergy Verified 10/03/21 09:21 Home Medications Medication Instructions Recorded Confirmed Type apixaban 5 mg tablet (Eliquis) 5 mg PO BID #60 tabs 07/13/19 09/30/21 Rx tramadol 50 mg tablet See Rx Instructions PO Q6H PRN 07/01/21 09/30/21 Rx pain #50 tabs cholecalciferol (vitamin D3) 25 25 mcg PO QAM 07/03/21 09/30/21 History mcg (1,000 unit) capsule acetaminophen 500 mg tablet 1,000 mg PO Q6H PRN Pain 09/30/21 09/30/21 History calcium carbonate 600 mg calcium 600 mg PO QAM 09/30/21 09/30/21 History (1,500 mg) tablet (Calcium) carvedilol 25 mg tablet 25 mg BID 09/30/21 09/30/21 History cyanocobalamin (vitamin B-12) 1,000 mcg PO QAM 09/30/21 09/30/21 History 1,000 mcg capsule fluticasone propionate 50 2 spray intranasal DAILY PRN 09/30/21 09/30/21 History mcg/actuation nasal Congestion spray,suspension (Flonase Allergy Relief) lisinopril 5 mg tablet 5 mg QAM 09/30/21 09/30/21 History multivitamin with minerals-folic 2 tablet PO QAM 09/30/21 09/30/21 History acid 200 mcg chewable tablet (Womens Daily Gummies) rosuvastatin 10 mg tablet 10 mg HS 09/30/21 09/30/21 History Patient hx anesthesia problems: none Family hx anesthesia problems: none Results Review: All pre-operative results and documents have been reviewed as part of the pre-operative evaluation. [facility] Past Medical History Medical History A-fib Anemia Arthritis Arthritis of left hip Benign essential hypertension Bilateral carotid bruits BMI 20.0-20.9, adult BMI 21.0-21.9, adult Colon cancer screening Contusion of right knee DJD (degenerative joint disease), multiple sites Encounter for Medicare annual wellness exam Encounter for routine adult health examination without abnormal findings Follow up GERD (gastroesophageal reflux disease) Hearing loss Heart disease High cholesterol Hyperlipidemia Idiopathic hypotension Left carotid bruit Left hip pain Microscopic hematuria On filler leaf cutter long drug therapy Pre-diabetes Right bundle branch block Right knee pain SI (sacroiliac) pain Swelling of right knee joint URI (upper respiratory infection) Vitamin B12 deficiency Vitamin D deficiency Surgical History Surgical History History of hand surgery History of tubal ligation Hx of appendectomy Hx of cholecystectomy Hx of tonsillectomy Family History Family History Mother Family history of congestive heart failure Family history of congenital heart disease Hypertension Hyperlipemia Thyroid disorder Father Acute myocardial infarction Diabetes mellitus Hypertension Sibling Family history of atrial fibrillation Social History Social History Smoking packs per day: 1 Smoking cigarettes per day: 20.0 Years smoked: 20 Smoking pack-years: 20.00 Smoking status: Former smoker Tobacco type: cigarettes Second hand tobacco smoke exposure: No Smoking end date: 03/16/80 Additional smoking assessment comments: PT DENIES ALL FORMS OF TOBACCO USE Alcohol intake: current Alcohol use details: STATES MAYBE 1-2 DRINKS A MONTH Substance use: current Substance us
[2021-10-15] VITALS (18 sets, daily range): BP systolic 80–156; BP diastolic 42–58; PULSE 49–80; RESP 12–18; TEMP 36.1–37; O2SAT 93–100
[2021-10-15] MEDS: LACTATED RINGERS 1,000 ML 30 ML IV CONT ×2 (06:35→10:28)
[2021-10-15] MEDS: ACETAMINOPHEN 500 MG TABLET 1000 MG PO (06:38)
[2021-10-15] MEDS: TRANEXAMIC ACID 1,000MG/ISO100 1,000 MG/100 ML BAG 200 MG IVPB (06:38)
--- NOTE | 2021-10-15 07:15 | WPDHPUPDATE1 ---
History and Physical Update Update Date/Time: 10/15/21 07:15 History and Physical has been reviewed, including an updated exam of the patient. There are NO changes in the patient's condition. Risks, benefits, and alternatives have been discussed and questions answered. Patient agrees to proceed with procedure.
--- NOTE | 2021-10-15 07:16 | WPDHPUPDATE1 ---
History and Physical Update Update Date/Time: 10/15/21 07:16 History and Physical has been reviewed, including an updated exam of the patient. There are NO changes in the patient's condition. Risks, benefits, and alternatives have been discussed and questions answered. Patient agrees to proceed with procedure.
[2021-10-15] MEDS: ceFAZolin 2 GM/D5W 50 ML 2 GM/50 ML BAG IVPB (07:25)
--- NOTE | 2021-10-15 10:37 | P.OP_ITS ---
Procedure Note - Detailed Date of Procedure 10/15/21 Pre-op Diagnosis oa left hip Post-op Diagnosis Same Procedure Performed Left hip replacement through an anterior approach with fluoroscopic assistance Surgeon Phil Guy MD Underwriting Specialist Tristin Harmon Anesthesia General Description of Procedure The patient was identified, proper side identified, and then taken to the operating room. After general anesthesia with endotracheal intubation, michs then transferred over to the [place] table positioning supine in the usual manner for an anterior hip procedure. Positioning was assessed fluoroscopically after which the left hip and thigh was prepped and draped in the usual sterile fashion. 10 cc of the arthroplasty solution was injected into the subcutaneous tissue over the TFL muscle belly. Longitudinal incision was made over the muscle belly. Subcutaneous tissue was sharply dissected down to the TFL fascia which was incised in line with the fibers the TFL. The TFL was retracted laterally and the rectus femoris medially. The rectus fascia was divided. The branches of the anterior femoral circumflex artery were identified and cauterized allowing for access to the hip capsule. Pericapsular fatty tissue was removed. The capsule was divided in an inverted T-fashion. The neck cut was made one fingerbreadth above the level of the lesser trochanter. Head fragment was removed and the acetabulum cleared of debris. Acetabulum was sequentially reamed under fluoroscopic visualization up to 45mm. A 46 millimeter G7 cup was inserted under fluoroscopic visualization in approximately 40? of abduction and 15? of anteversion following the patient's anatomy. The liner for the size 32 head was placed. The femur was then delivered up into the wound with the appropriate releases. The proximal femur was prepared for the size eight microplasty high offset stem and a trial reduction was undertaken. Overall alignment was assessed fluoroscopically in the AP and lateral views noting it to be satisfactory. Trial components were removed. The wound was irrigated with pulsatile lavage. The real size eight high offset micro plasty stem was then seated. This construct with a size 32, minus three head gave excellent mosque of leg lengths and stability so the real size 32 minus three head was attached to the neck of the femoral component after it had been cleaned and dried. Hip was again reduced and stability assessed, and it was noted to be stable. 3 minute dilute Betadine wash/soak was carried out. After final lavage of the wound, the periarticular tissues were injected with an additional 50 cc of the arthroplasty solution. Surgicel powder was used during the closure. The capsule was reapproximated with #2 Vicryl suture, the TFL fascia with 0 looped PDS suture, the subcu with two of strata fix in the deeper layers and two of strata fix subcuticular stitch. Tissue adhesive was used for the skin. Sterile dressing was applied. He tolerated the procedure well. He was transferred back to a bed and taken to recovery area in stable condition. There were no known intraoperative complications. Estimated blood loss was 700 cc; 350 cc were given back via Cell Saver. She received perioperative antibiotics. Estimated Blood Loss -700.0 (350 cc cell Saver return) Urine Output -150.0 Drains No Packing No Pathology None sent Complications No immediate complications Condition Stable Disposition PACU
[2021-10-15] MEDS: fentaNYL CITRATE INJ (*CRX) 100 MCG/2 ML VIAL 25 MCG IV PUSH ×5 (10:44→12:34)
--- NOTE | 2021-10-15 12:50 | ADMGEN ---
This patient, Ngozi Zazueta, was admitted to Medical Room 249-01. Patient/family oriented to hospital policies and general routines including ID bracelet, bed and alarms, visiting hours, pain management, procedures, bathroom and other care routines, personal items, smoking policy, room service/diet, and visiting hours. Information on how to activate the Rapid Response Team has been discussed. Patient/Family are encouraged to report perceived risks to care and to ask questions if they do not understand what they are told or what they should do.
[2021-10-15] MEDS: SODIUM CHLORIDE 0.9% IV 1,000 ML 125 ML IV CONT ×2 (14:49→21:31)
--- NOTE | 2021-10-15 15:32 | PM.IMCN ---
Assessment and Plan Assessment and plan (1) Orthostatic hypotension: Code(s): I95.1 - Orthostatic hypotension Status: Acute Assessment and Plan: - Q shift orthostatic BP - monitor H&H - monitor BP frequently - avoid narcotics while blood pressure is low. - Avoid lisinopril if blood pressures less than 110/60 - avoid Coreg if blood pressures less than 110/60 - continue with IV fluids for now. May consider bolusing the patient if her blood pressure does not improve. (2) S/P total left hip arthroplasty: Code(s): Z96.642 - Presence of left artificial hip joint Status: Acute Assessment and Plan: - postop care per Dr. Guy - pain management per Dr. Guy - DVT prophylaxis per Dr. Guy - Monitor site for any signs and symptoms of bleeding and or infection (3) Hyperlipidemia: Qualifiers: Hyperlipidemia type: mixed hyperlipidemia Qualified Code(s): E78.2 - Mixed hyperlipidemia Code(s): E78.5 - Hyperlipidemia, unspecified Status: Acute Assessment and Plan: - Continue with Crestor - monitor BMP (4) Benign essential hypertension: Code(s): I10 - Essential (primary) hypertension Status: Acute Assessment and Plan: - the patient has orthostatic blood pressure at this time - Parameters were placed on lisinopril and Coreg to hold blood pressure medicine if her blood pressures less than 110/60. (5) A-fib: Qualifiers: Atrial fibrillation type: unspecified Qualified Code(s): I48.91 - Unspecified atrial fibrillation Code(s): I48.91 - Unspecified atrial fibrillation Status: Acute Assessment and Plan: - Patient recently had an ablation - hold Coreg if blood pressures less than 110/60 - hold Coreg if heart rate less than 60. - Her Eliquis was continued per Ortho HPI Data of Consult Consult date: 10/15/21 Requesting Physician: Phil Guy MD Primary Care Provider: Alexei Valdez MD Consult Narrative Narrative: Ngozi Zazueta is a 76 year old female With a history of chronic severe pain to the anterior lateral left hip status post left total hip replacement today per Dr. Guy through the anterior approach. It was noticed that the patient's blood pressure was 80/40 when she was attempting to get up out of bed postoperatively. The patient felt dizzy at the time. When she was placed back in bed she felt somewhat better. The patient stated that she has not eaten anything today. She typically takes lisinopril for her blood pressure. She also takes Xarelto and she stated that she took that this morning. No drainage was noted from her dressing on the left anterior view. No hematoma was noted either. Orthopedic was called as per nurse and her IV fluids were increased. H&H was ordered and is pending. The hospitalist group was asked to consult on the surgical patient. Review of Systems Review of Systems: All systems reviewed & are unremarkable except as noted in HPI and below Constitutional: Constitutional: Reports as per HPI and Reports no additional constitutional complaints Eyes: Eyes: Reports as per HPI and Reports no additional eye complaints ENT: Reports system reviewed and no additional complaints, except as documented and Reports Normal hearing present Cardiovascular: Cardiovascular: Reports no additional cardiovascular complaints Respiratory: Respiratory: Reports no additional respiratory complaints and Reports no additional respiratory complaints Gastrointestinal: Gastrointestinal: Reports as per HPI and Reports no additional gastrointestinal complaints Musculoskeletal: Musculoskeletal: Reports no additional musculoskeletal complaints Integumentary/Breasts: Skin/Breast: Reports system reviewed and no additional complaints, except as docu and Reports as per HPI Neurologic: Reports system reviewed and no additional complaints, except as documented, Reports as per HPI and Reports Normal hea
[2021-10-15 15:33] LABS: Hemoglobin 10.2 g/dL (12.0-15.0)
--- NOTE | 2021-10-15 15:35 | PCPTNOTE ---
Attempted PT evaluation, Per RN, patient unable to transfer at this time due to low BP. Will Follow.
[2021-10-15] MEDS: SENNA/DOCUSATE SODIUM TABLET 2 TAB PO (17:13)
[2021-10-15] MEDS: ROSUVASTATIN 10 MG TABLET BY MOUTH (21:31)
[2021-10-15] MEDS: KETOROLAC 15 MG/ML VIAL (*BKC) IV PUSH (21:31)
[2021-10-15] MEDS: carvediloL 25 MG TABLET BY MOUTH (21:32)
[2021-10-16] VITALS (14 sets, daily range): BP systolic 120–136; BP diastolic 30–59; PULSE 73–98; RESP 16–17; TEMP 36.2–37; O2SAT 97–100
--- NOTE | ~2021-10-16 | XR_ITS ---
EXAMINATION: XR surgery orthopedic DATE: 10/15/2021 09:54 INDICATION: Anterior approach left total hip arthroplasty TECHNIQUE: A fluoroscopic images of the left hip were obtained during procedure performed by Dr. Guy . Radiologist was not present for the imaging or procedure. The amount of fluoroscopy time used durin g this procedure was 0.3 minutes. COMPARISON: 10/03/2021 FINDINGS: Interval placement of a noncemented left total hip arthroplasty which appears well seated in near-santos tomic alignment. No fractures identified. Expected soft tissue gas at the operative bed. IMPRESSION: 1. Fluoroscopy utilized during left total hip arthroplasty. See procedure note for further detail. Reviewed, dictated and finalized at location A.
--- NOTE | ~2021-10-16 | XR_ITS ---
EXAMINATION: XR hip LT min 2V DATE: 10/15/2021 10:43 INDICATION: Total left hip arthroplasty. Postop. TECHNIQUE: 2 views of left hip were obtained. COMPARISON: Left hip radiographs 10/03/2021 FINDINGS: There is a total left hip arthroplasty in near-anatomic alignment. No fracture. There is ga s in the soft tissues, consistent with recent surgery. IMPRESSION: 1. Total left hip arthroplasty in near-anatomic alignment. Reviewed, dictated and finalized at location A.
[2021-10-16] MEDS: KETOROLAC 15 MG/ML VIAL (*BKC) IV PUSH ×3 (03:44→16:18)
[2021-10-16] MEDS: ACETAMINOPHEN 325 MG TABLET 650 MG PO (03:45)
[2021-10-16 05:38] LABS: Basophils Absolute Auto 0.1 K/mm3 (0.0-0.1); Basophils Percent Auto 0.3 % (0.2-1.2); Eosinophils Percent Auto 0.1 % (0-4.4); Hematocrit 25.5 % (37.0-47.0); Hemoglobin 8.2 g/dL (12.0-15.0); Immature Granulocyte Absolute 0.09 K/mm3 (0.00-0.031); Immature Granulocyte Percent A 0.6 % (0-0.5); Lymphocytes Absolute Auto 1.46 K/mm3 (0.9-3.2); Lymphocytes Percent Auto 9.2 % (18.3-44.2); Mean Corpuscular HGB Conc 32.2 g/dl (32-36); Mean Corpuscular Hemoglobin 32.2 pg (26-34); Mean Platelet Volume 10.2 fl (7.4-10.4); Monocytes Absolute Auto 1.3 K/mm3 (0.1-0.6); Monocytes Percent Auto 8.4 % (2.6-8.5); Neutrophils Absolute Auto 12.9 K/mm3 (1.3-6.7); Neutrophils Percent Auto 81.4 % (45.5-73.1); Platelet Count Result 144 k/mm3 (150-375); Red Blood Count 2.55 M/mm3 (4.2-5.4); White Blood Count 15.9 K/mm3 (4.5-10.0)
[2021-10-16 06:01] LABS: Anion Gap 7 mmol/L (8-16); Blood Urea Nitrogen 12 mg/dL (7-17); Calcium 7.5 mg/dL (8.4-10.2); Carbon Dioxide 23 mmol/L (22-30); Chloride 97 mmol/L (98-107); Estimated CRCL calculation 51 ml/min; Estimated Glomerular Filt Rate > 60; Glucose 114 mg/dL (65-110); Potassium 4.1 mmol/L (3.4-5.0); Sodium 127 mmol/L (137-145)
[2021-10-16] MEDS: SODIUM CHLORIDE 0.9% IV 1,000 ML 125 ML IV CONT (06:15)
[2021-10-16] MEDS: MULTIVITS W-FE,MIN CHEWABLE TABLET 2 TABLET PO (08:39)
[2021-10-16] MEDS: CALCIUM CARBONATE (OSCAL) 500 MG TABLET PO (08:39)
[2021-10-16] MEDS: APIXABAN 5 MG TABLET PO ×2 (08:39→16:19)
[2021-10-16] MEDS: CYANOCOBALAMIN 1,000 MCG TABLET 1000 MCG PO (08:39)
[2021-10-16] MEDS: SENNA/DOCUSATE SODIUM TABLET 2 TAB PO ×2 (08:39→16:19)
[2021-10-16] MEDS: CHOLECALCIFEROL 1,000 UNITS TABLET 1000 UNITS PO (08:39)
[2021-10-16] MEDS: polyethylene glycoL 3350 17 GM POWD.PACK PO (08:40)
[2021-10-16 11:18] LABS: Hematocrit 24.1 % (37.0-47.0); Hemoglobin 7.9 g/dL (12.0-15.0)
[2021-10-16 11:26] LABS: Sodium 125 mmol/L (137-145)
--- NOTE | 2021-10-16 12:55 | P.PNAN_ITS ---
Anes - Prog Note Post-Op Date/Time: 10/16/21 12:55 Cardiovascular status: normal Respiratory status: normal Airway patency: baseline Mental status: baseline Post-Op hydration status: normal Vital Signs: Last Vital Signs Temp 97.6 F 10/16/21 10:48 Pulse 81 10/16/21 10:48 Resp 16 10/16/21 10:48 BP 135/50 L 10/16/21 12:32 Pulse Ox 99 10/16/21 10:48 O2 Del Method Room Air 10/16/21 08:40 O2 Flow Rate 6 10/15/21 10:55 Pain Score (VAS): 03/25 I/O: Intake & Output 10/15/21 10/16/21 10/16/21 23:59 07:59 15:59 Intake Total 1780 1000 240 Output Total 150 400 Balance 1630 600 240 Laboratory Tests 10/16/21 10:38 10/16/21 10:38 10/15/21 10/16/21 10/16/21 15:22 04:10 04:10 WBC 15.9 H RBC 2.55 L Hgb 10.2 L 8.2 L Hct 31.0 L 25.5 L MCV 100.0 MCH 32.2 MCHC 32.2 RDW 12.0 Plt Count 144 L MPV 10.2 Immature Gran % (Auto) 0.6 H Neut % (Auto) 81.4 H Lymph % (Auto) 9.2 L Bledsoe % (Auto) 8.4 Eos % (Auto) 0.1 Baso % (Auto) 0.3 Lymph # (Auto) 1.46 Bledsoe # (Auto) 1.3 H Eos # (Auto) 0.0 Baso # (Auto) 0.1 Abs Immat Gran (auto) 0.09 H Absolute Neuts (auto) 12.9 H Absolute Nucleated RBC 0.0 Nucleated RBC % 0.0 Sodium 127 L Potassium 4.1 Chloride 97 L Carbon Dioxide 23 Anion Gap 7 L BUN 12 Creatinine 0.60 L Estim Creat Clear Calc 51 Estimated GFR > 60 Glucose 114 H Calcium 7.5 L 10/16/21 10/16/21 10:38 10:38 WBC RBC Hgb 7.9 L Hct 24.1 L MCV MCH MCHC RDW Plt Count MPV Immature Gran % (Auto) Neut % (Auto) Lymph % (Auto) Bledsoe % (Auto) Eos % (Auto) Baso % (Auto) Lymph # (Auto) Bledsoe # (Auto) Eos # (Auto) Baso # (Auto) Abs Immat Gran (auto) Absolute Neuts (auto) Absolute Nucleated RBC Nucleated RBC % Sodium 125 L Potassium Chloride Carbon Dioxide Anion Gap BUN Creatinine Estim Creat Clear Calc Estimated GFR Glucose Calcium Post-procedural complaints: none Patient Feedback: Patient satisfied with anesthetic care.
--- NOTE | 2021-10-16 15:57 | P.PNIM_ITS ---
Progress Note: A&P Assessment and Plan (1) S/P total left hip arthroplasty: Code(s): Z96.642 - Presence of left artificial hip joint Status: Acute Assessment and Plan: Patient underwent left hip total replacement on 10/15/2021 * Tolerated procedure well * Management per Orthopedic surgery (2) Orthostatic hypotension: Code(s): I95.1 - Orthostatic hypotension Status: Acute Assessment and Plan: Patient noted to be orthostatic postoperatively * Continue to monitor orthostatics each shift. Not evaluated yet today. * Initiate MED hose * Patient has been adequately rehydrated. * Implement fall precautions * Hold carvedilol and lisinopril (3) Anemia: Code(s): D64.9 - Anemia, unspecified Status: Acute Assessment and Plan: H&H declined from baseline postoperatively * Hgb 7.9 today * Monitor H&H closely to ensure remaining stable. Recheck this afternoon * Suspect secondary to surgical blood loss, may also have component of hemodilution due to IV fluids * No evidence of active bleeding * Patient reports recent outpatient stool occult blood test was negative within the past month. (4) Hyponatremia: Code(s): E87.1 - Hypo-osmolality and hyponatremia Status: Acute Assessment and Plan: Baseline sodium appears to be 134-135. * Sodium declined from baseline at 125 today * May be due to excess IV fluids, however patient does not appear hypervolemic. * She has been appropriately rehydrated therefore will discontinue IV fluids * Recheck sodium this afternoon. Fluid restriction implemented until repeat sodium is resulted to assess overall sodium trend * Evaluate urine electrolytes. * Continue to monitor sodium levels closely (5) Benign essential hypertension: Code(s): I10 - Essential (primary) hypertension Status: Acute Assessment and Plan: Blood pressures running low * Hold lisinopril and carvedilol * Monitor BP trends (6) A-fib: Qualifiers: Atrial fibrillation type: unspecified Qualified Code(s): I48.91 - Unspecified atrial fibrillation Code(s): I48.91 - Unspecified atrial fibrillation Status: Acute Assessment and Plan: Rate is controlled * Patient had recent cardiac ablation * Carvedilol on hold * Continue Eliquis Subjective Date/time seen: 10/16/21 15:57 Interval history: Date of service: 10/16/2021 Ngozi Zazueta is a 76-year-old female with a history of atrial fibrillation on chronic anticoagulation, anemia, hypertension, GERD, hyperlipidemia, prediabetes, who is seen in consultation for medical management following left total hip arthroplasty. She tolerated the procedure well and her pain is controlled at this time. She states when she is resting and the chair she has no pain. If she gets up or moves around her pain increases to 2-4/10. This morning with a certain exercises increased up to 8/10. She does endorse some abdominal pain states this is because she ate a big mac burger for lunch. She denies nausea or vomiting. States her last bowel movement was 3 days ago. Yesterday when she tried to stand up she felt very dizzy and lightheaded and was nauseous. Today upon standing or with positional changes, she did not have any symptoms of dizziness or lightheadedness. Review of Systems Review of Systems: All systems reviewed & are unremarkable except as noted in HPI and below Exam Narrative: General: Well-nourished, well-appearing 76-ye
--- NOTE | 2021-10-16 15:57 | PM.IMPN ---
Progress Note: A&P Assessment and Plan (1) S/P total left hip arthroplasty: Code(s): Z96.642 - Presence of left artificial hip joint Status: Acute Assessment and Plan: Patient underwent left hip total replacement on 10/15/2021 Tolerated procedure well Management per Orthopedic surgery (2) Orthostatic hypotension: Code(s): I95.1 - Orthostatic hypotension Status: Acute Assessment and Plan: Patient noted to be orthostatic postoperatively Continue to monitor orthostatics each shift. Not evaluated yet today. Initiate MED hose Patient has been adequately rehydrated. Implement fall precautions Hold carvedilol and lisinopril (3) Anemia: Code(s): D64.9 - Anemia, unspecified Status: Acute Assessment and Plan: H&H declined from baseline postoperatively Hgb 7.9 today Monitor H&H closely to ensure remaining stable. Recheck this afternoon Suspect secondary to surgical blood loss, may also have component of hemodilution due to IV fluids No evidence of active bleeding Patient reports recent outpatient stool occult blood test was negative within the past month. (4) Hyponatremia: Code(s): E87.1 - Hypo-osmolality and hyponatremia Status: Acute Assessment and Plan: Baseline sodium appears to be 134-135. Sodium declined from baseline at 125 today May be due to excess IV fluids, however patient does not appear hypervolemic. She has been appropriately rehydrated therefore will discontinue IV fluids Recheck sodium this afternoon. Fluid restriction implemented until repeat sodium is resulted to assess overall sodium trend Evaluate urine electrolytes. Continue to monitor sodium levels closely (5) Benign essential hypertension: Code(s): I10 - Essential (primary) hypertension Status: Acute Assessment and Plan: Blood pressures running low Hold lisinopril and carvedilol Monitor BP trends (6) A-fib: Qualifiers: Atrial fibrillation type: unspecified Qualified Code(s): I48.91 - Unspecified atrial fibrillation Code(s): I48.91 - Unspecified atrial fibrillation Status: Acute Assessment and Plan: Rate is controlled Patient had recent cardiac ablation Carvedilol on hold Continue Eliquis Subjective Date/time seen: 10/16/21 15:57 Interval history: Date of service: 10/16/2021 Ngozi Zazueta is a 76-year-old female with a history of atrial fibrillation on chronic anticoagulation, anemia, hypertension, GERD, hyperlipidemia, prediabetes, who is seen in consultation for medical management following left total hip arthroplasty. She tolerated the procedure well and her pain is controlled at this time. She states when she is resting and the chair she has no pain. If she gets up or moves around her pain increases to 2-4/10. This morning with a certain exercises increased up to 8/10. She does endorse some abdominal pain states this is because she ate a big mac burger for lunch. She denies nausea or vomiting. States her last bowel movement was 3 days ago. Yesterday when she tried to stand up she felt very dizzy and lightheaded and was nauseous. Today upon standing or with positional changes, she did not have any symptoms of dizziness or lightheadedness. Review of Systems Review of Systems: All systems reviewed & are unremarkable except as noted in HPI and below Exam Narrative: General: Well-nourished, well-appearing 76-year-old female, sitting up in bed, comfortable, NARD Neuro: awake, alert and oriented x4, speech clear, no focal neuro deficits noted HEENMT: normocephalic, atraumatic, EOMI, sclerae anicteric Respiratory: clear to auscultation bilaterally, nonlabored breathing Cardio: regular rate, regular rhythm with S1-S2 Abdomen: nondistended, normoactive bowel sounds, soft, nontender to palpation Extremities: Left hip nontender to palpation, left mid thigh slightly tende
--- NOTE | 2021-10-16 16:01 | PM.PNORT ---
Progress Note: A&P Assessment and Plan (1) S/P total left hip arthroplasty: Code(s): Z96.642 - Presence of left artificial hip joint Status: Acute Plan 76-year-old female postop day 1 after total left hip replacement with Dr. Guy. Did have some orthostatic hypotension after surgery yesterday. Lab results this morning shows she is fairly anemic, hyponatremic and she has some lower diastolic blood pressures. Her blood pressure medications have been held due to orders from the hospitalist. I think it would be best for her to stay an extra night for observation. Plan discharge home for tomorrow morning. Eliquis for DVT prophylaxis. Additional Plan Appreciate hospitalist consult Subjective Subjective Date/Time Seen: 10/16/21 12:00 Post Op day: 1 Principal diagnosis: s/p total left hip arthroplasty Interval history: 76-year-old female postop day 1 after total left hip arthroplasty with Dr. Guy. She did get a bit of orthostatic hypotension during the therapy session after surgery. Today, she was able to complete her therapy session without issue. She denies any pain in the hip. Review of Systems Constitutional: Constitutional: Reports as per HPI Exam Const: General: comfortable and no acute distress Resp: Effort & Inspection: normal respiratory effort GI: Inspection: non-distended Skin: General skin exam: normal color Extrem: Other: Exam of the left hip reveals a clean and dry surgical dressing. The left leg is longer than the right leg but only by about 1 cm when reviewing the x-rays. The left ASIS is higher in position when compared to the right ASIS. There is a pelvic imbalance that is also contributing to this leg length discrepancy. No appreciable edema of the left lower extremity. Neurovascular status unremarkable. Calves negative. Psych: Mental Status: mental status grossly normal Objective Data Vital Signs Vital Signs: Vital Signs - 24 hr 10/15/21 18:38 10/15/21 20:00 10/15/21 21:32 Temperature 98.1 F 98.6 F Pulse Rate 73 80 72 Respiratory Rate 16 18 Blood Pressure 130/58 L 125/56 L Pulse Oximetry 97 98 Oxygen Delivery 10/15/21 21:52 10/16/21 02:00 10/16/21 06:00 Temperature 98.6 F 98.6 F 98.6 F Pulse Rate 80 76 98 Respiratory Rate 18 16 16 Blood Pressure 125/56 L 120/58 L 121/37 L Pulse Oximetry 98 99 98 Oxygen Delivery 10/16/21 06:02 10/16/21 07:46 10/16/21 08:12 Temperature 98 F Pulse Rate 73 Respiratory Rate 16 Blood Pressure 128/59 L 126/41 L Pulse Oximetry 98 Oxygen Delivery Room Air 10/16/21 08:13 10/16/21 08:15 10/16/21 08:15 Temperature 98 F 98 F 98 F Pulse Rate 86 86 84 Respiratory Rate 16 16 16 Blood Pressure 125/45 L 126/30 L 136/44 L Pulse Oximetry 100 100 98 Oxygen Delivery 10/16/21 08:17 10/16/21 08:40 10/16/21 10:48 Temperature 97.6 F Pulse Rate 81 Respiratory Rate 16 Blood Pressure 130/44 L Pulse Oximetry 99 Oxygen Delivery Room Air Room Air 10/16/21 12:32 10/16/21 14:16 Temperature 97.1 F L Pulse Rate 77 Respiratory Rate 16 Blood Pressure 135/50 L 125/35 L Pulse Oximetry 98 Oxygen Delivery Intake/Output Intake/Output: Intake & Output 10/13/21 10/14/21 10/15/21 10/16/21 23:59 23:59 23:59 23:59 Intake Total 1930 2329 Output Total 150 400 Balance 1780 1929 Meds/Results Medications: Active Medications Generic Name Dose Route Start Last Admin Trade Name Freq PRN Reason Stop Dose Admin Acetaminophen 650 mg 10/15/21 13:07 10/16/21 03:45 Acetaminophen 325 Mg Tablet PO 650 mg Q6H PRN Administration Mild Pain (1-3) or Fever Hydrocodone Bitart/Acetaminophen 1 tab 10/15/21 13:07 Hydrocodone/Acetaminophen (*Crx) 5-325 Mg Tablet PO Q3H PRN Pain Rated 4-6 Hydrocodone Bitart/Acetaminophen 2 tab 10/15/21 13:07 Hydrocodone/Acetaminophen (*Crx) 5-325 Mg Tablet PO Q6H PRN Pain Rated 7-10 Apixaban 5 mg 10/16/21 09:0
[2021-10-16 17:09] LABS: Hematocrit 23.6 % (37.0-47.0); Hemoglobin 7.7 g/dL (12.0-15.0)
[2021-10-16 17:12] LABS: Sodium 125 mmol/L (137-145)
[2021-10-16 19:32] LABS: Sodium Urine Random < 5 meq/L
[2021-10-16] MEDS: HYDROcodone/acetaminophen (*CRX) 5-325 MG TABLET 1 TAB PO (21:56)
[2021-10-16] MEDS: ROSUVASTATIN 10 MG TABLET BY MOUTH (21:56)
[2021-10-16 23:46] LABS: Hematocrit 23.5 % (37.0-47.0); Hemoglobin 7.8 g/dL (12.0-15.0)
[2021-10-16 23:59] LABS: Sodium 128 mmol/L (137-145)
[2021-10-17 03:45] VITALS: BP 132/42; PULSE 86; RESP 18; TEMP 37.1; O2SAT 94
[2021-10-17 06:41] LABS: Hematocrit 22.8 % (37.0-47.0); Hemoglobin 7.5 g/dL (12.0-15.0); Immature Platelet Fraction Pct 3.6 % (0.9-11.2); Mean Corpuscular HGB Conc 32.9 g/dl (32-36); Mean Corpuscular Hemoglobin 32.6 pg (26-34); Mean Corpuscular Volume 99.1 fl (80-100); Platelet Count Result 126 k/mm3 (150-375); Red Cell Distribution Width 12.1 % (11.5-14.5); White Blood Count 10.7 K/mm3 (4.5-10.0)
[2021-10-17 06:46] LABS: Anion Gap 3 mmol/L (8-16); Blood Urea Nitrogen 10 mg/dL (7-17); Calcium 7.8 mg/dL (8.4-10.2); Carbon Dioxide 27 mmol/L (22-30); Chloride 101 mmol/L (98-107); Estimated CRCL calculation 51 ml/min; Estimated Glomerular Filt Rate > 60; Glucose 100 mg/dL (65-110); Sodium 131 mmol/L (137-145)
[2021-10-17 07:55] VITALS: BP 143/47; PULSE 85; RESP 16; TEMP 36.3; O2SAT 94
[2021-10-17 07:56] VITALS: BP 92/73; PULSE 89; RESP 16; TEMP 36.3; O2SAT 96
[2021-10-17 07:57] VITALS: BP 132/41; PULSE 91; RESP 16; TEMP 36.3; O2SAT 98
[2021-10-17 08:00] VITALS: BP 143/47; PULSE 85; RESP 16; TEMP 36.3; O2SAT 94
[2021-10-17] MEDS: HYDROcodone/acetaminophen (*CRX) 5-325 MG TABLET 2 TAB PO (08:41)
[2021-10-17] MEDS: CYANOCOBALAMIN 1,000 MCG TABLET 1000 MCG PO (09:45)
[2021-10-17] MEDS: polyethylene glycoL 3350 17 GM POWD.PACK PO (09:45)
[2021-10-17] MEDS: CHOLECALCIFEROL 1,000 UNITS TABLET 1000 UNITS PO (09:45)
[2021-10-17] MEDS: CALCIUM CARBONATE (OSCAL) 500 MG TABLET PO (09:45)
[2021-10-17] MEDS: MULTIVITS W-FE,MIN CHEWABLE TABLET 2 TABLET PO (09:46)
[2021-10-17] MEDS: APIXABAN 5 MG TABLET PO (09:46)
[2021-10-17] MEDS: SENNA/DOCUSATE SODIUM TABLET 2 TAB PO (09:46)
--- NOTE | 2021-10-17 11:10 | PM.DS ---
DS: Admitting Diagnosis Discharge Date 10/17/2021 Admitting Diagnosis Left hip osteoarthritis DS: Discharge Diagnosis Discharge Diagnosis (1) S/P total left hip arthroplasty: Code(s): Z96.642 - Presence of left artificial hip joint Status: Acute Assessment and Plan: 76-year-old female postop day 2 after left total hip arthroplasty with Dr. Guy. Overall doing well and participating with therapy without any dizziness. Incision site is clean and dry. Continue Eliquis for DVT prophylaxis. She was given a prescription for oxycodone for pain relief, will hold tramadol while taking this. Plan to see her in the office in 2 weeks for wound check. She will call the office with any further questions or concerns prior to this follow-up. (2) Anemia: Code(s): D64.9 - Anemia, unspecified Status: Acute Assessment and Plan: Hemoglobin 10.2 on 10/15/2021 Hemoglobin checked at 8.2 postoperatively (10/16/2021). Surgical blood loss estimated at 700 cc with 350 cc returned, may also have component of hemodilution due to IV fluids No evidence of active bleeding Recent outpatient stool occult blood test was negative within the past month. Hemoglobin 7.9 on 10/17/2021 at 1215, returning to baseline (3) Hyponatremia: Code(s): E87.1 - Hypo-osmolality and hyponatremia Status: Acute Assessment and Plan: She has been appropriately rehydrated therefore will discontinue IV fluids Fluid restriction implemented. Repeat sodium this morning was 131, trending back to baseline Urine electrolytes are WNL. (4) Orthostatic hypotension: Code(s): I95.1 - Orthostatic hypotension Status: Acute Assessment and Plan: Participated well with therapy this morning without any complaints. MED grove applied. (5) A-fib: Qualifiers: Atrial fibrillation type: unspecified Qualified Code(s): I48.91 - Unspecified atrial fibrillation Code(s): I48.91 - Unspecified atrial fibrillation Status: Acute Assessment and Plan: Rate is controlled Patient had recent cardiac ablation Continue Eliquis DS: Summary Hospital Course Reason for hospitalization: Observation after outpatient procedure Hospital Course: 68-year-old female admitted for observation after left total hip arthroplasty with Dr. Guy. She did have some orthostatic hypotension while participating with therapy during the day of surgery. Hospitalist was consulted due to history of atrial fibrillation. She was found to have a hemoglobin of 8.2 and hyponatremia on 10/16/2021. She was asymptomatic on 10/16/2021 and had no signs of acute bleeding. Hyponatremia improved on 10/17/2021 and hemoglobin has stayed relatively consistent. She has been participating with therapy without any feelings of dizziness and continues to remain asymptomatic. Status at Discharge Functional status at discharge: uses cane/walker Overall status at discharge: patient is progressing back to baseline Time Spent with Patient Time attestation: Total time spent providing and/or coordinating discharge services: Time spent: Less than 30 minutes Exam Const: General: comfortable and no acute distress Eyes: General: appearance normal, both eyes and all related structures Neck: Neck: supple Resp: Effort & Inspection: normal respiratory effort Cardio: Rate: regular rate GI: Inspection: non-distended Skin: General skin exam: normal color Extrem: Other: Exam of the left hip reveals a clean and dry surgical dressing. The left ASIS is higher in position when compared to the right ASIS. There is a pelvic imbalance that is also contributing to leg length discrepancy. No appreciable edema of the left lower extremity. Neurovascular status unremarkable. Calves negative. Psych: Mental Status: mental status grossly normal DS: Data Data Completed and Pending Labs on day of discharge: Labs from last 24 hours 10/17/21 10/17/21 10/16/21
[2021-10-17 12:39] LABS: Hematocrit 24.6 % (37.0-47.0); Hemoglobin 7.9 g/dL (12.0-15.0)
[2021-10-17 13:35] VITALS: BP 125/45; PULSE 78; RESP 16; TEMP 36.3; O2SAT 98
--- NOTE | 2021-10-17 16:41 | P.PNIM_ITS ---
Progress Note: A&P Assessment and Plan (1) S/P total left hip arthroplasty: Code(s): Z96.642 - Presence of left artificial hip joint Status: Acute Assessment and Plan: Patient underwent left hip total replacement on 10/15/2021 * Tolerated procedure well * Management per Orthopedic surgery (2) Orthostatic hypotension: Code(s): I95.1 - Orthostatic hypotension Status: Acute Assessment and Plan: Patient noted to be orthostatic postoperatively * Symptoms resolved and BP stable * Continue MED hose * Patient was adequately rehydrated. Encourage PO fluid intake * Implement fall precautions * carvedilol and lisinopril held (3) Anemia: Code(s): D64.9 - Anemia, unspecified Status: Acute Assessment and Plan: H&H declined from baseline postoperatively * H&H monitored q6h with eventual upward trend * Suspect secondary to surgical blood loss, may also have component of hemodilution due to IV fluids * No evidence of ongoing blood loss * Patient reports recent outpatient stool occult blood test was negative within the past month. (4) Hyponatremia: Code(s): E87.1 - Hypo-osmolality and hyponatremia Status: Acute Assessment and Plan: Baseline sodium appears to be 134-135. * Sodium declined from baseline down to 125 * May be due to excess IV fluids, however patient did not appear hypervolemic. * Sodium with upward trend following discontinuation of IV fluids * 131 today (5) Benign essential hypertension: Code(s): I10 - Essential (primary) hypertension Status: Acute Assessment and Plan: Blood pressures running low * Hold lisinopril and carvedilol * Monitor BP trends (6) A-fib: Qualifiers: Atrial fibrillation type: unspecified Qualified Code(s): I48.91 - Unspecified atrial fibrillation Code(s): I48.91 - Unspecified atrial fibrillation Status: Acute Assessment and Plan: Rate is controlled * Patient had recent cardiac ablation * Carvedilol on hold * Continue Kathleen Subjective Date/time seen: 10/17/21 10:00 Interval history: Date of service: 10/17/2021 Ngozi Zazueta is a 76-year-old female with a history of atrial fibrillation on chronic anticoagulation, anemia, hypertension, GERD, hyperlipidemia, prediabetes, who is seen in consultation for medical management following left total hip arthroplasty. She feels much better today. Her pain is well controlled. She is eager for discharge home where she will be staying with her who can assist her if needed. Denies abdominal pain, nausea, vomiting, dizziness, lightheadedness. Review of Systems Review of Systems: All systems reviewed & are unremarkable except as noted in HPI and below Exam Narrative: General: Well-nourished, well-appearing 76-year-old female, sitting up in bed, comfortable, NARD Neuro: awake, alert and oriented x4, speech clear, no focal neuro deficits noted HEENMT: normocephalic, atraumatic, EOMI, sclerae anicteric Respiratory: clear to auscultation bilaterally, nonlabored breathing Cardio: regular rate, regular rhythm with S1-S2 Abdomen: nondistended, normoactive bowel sounds, soft, nontender to palpation Extremities: Left hip nontender to palpation, bilateral lower extremities without edema, erythema, or tenderness to palpation, DP pulses 2+ bilaterally Skin: no rashes or lesions, warm and dry Psych: appropriate mood and affect, judgment and insight in
--- NOTE | 2021-10-17 16:41 | PM.IMPN ---
Progress Note: A&P Assessment and Plan (1) S/P total left hip arthroplasty: Code(s): Z96.642 - Presence of left artificial hip joint Status: Acute Assessment and Plan: Patient underwent left hip total replacement on 10/15/2021 Tolerated procedure well Management per Orthopedic surgery (2) Orthostatic hypotension: Code(s): I95.1 - Orthostatic hypotension Status: Acute Assessment and Plan: Patient noted to be orthostatic postoperatively Symptoms resolved and BP stable Continue MED hose Patient was adequately rehydrated. Encourage PO fluid intake Implement fall precautions carvedilol and lisinopril held (3) Anemia: Code(s): D64.9 - Anemia, unspecified Status: Acute Assessment and Plan: H&H declined from baseline postoperatively H&H monitored q6h with eventual upward trend Suspect secondary to surgical blood loss, may also have component of hemodilution due to IV fluids No evidence of ongoing blood loss Patient reports recent outpatient stool occult blood test was negative within the past month. (4) Hyponatremia: Code(s): E87.1 - Hypo-osmolality and hyponatremia Status: Acute Assessment and Plan: Baseline sodium appears to be 134-135. Sodium declined from baseline down to 125 May be due to excess IV fluids, however patient did not appear hypervolemic. Sodium with upward trend following discontinuation of IV fluids 131 today (5) Benign essential hypertension: Code(s): I10 - Essential (primary) hypertension Status: Acute Assessment and Plan: Blood pressures running low Hold lisinopril and carvedilol Monitor BP trends (6) A-fib: Qualifiers: Atrial fibrillation type: unspecified Qualified Code(s): I48.91 - Unspecified atrial fibrillation Code(s): I48.91 - Unspecified atrial fibrillation Status: Acute Assessment and Plan: Rate is controlled Patient had recent cardiac ablation Carvedilol on hold Continue Ieshais Subjective Date/time seen: 10/17/21 10:00 Interval history: Date of service: 10/17/2021 Ngozi Zazueta is a 76-year-old female with a history of atrial fibrillation on chronic anticoagulation, anemia, hypertension, GERD, hyperlipidemia, prediabetes, who is seen in consultation for medical management following left total hip arthroplasty. She feels much better today. Her pain is well controlled. She is eager for discharge home where she will be staying with her who can assist her if needed. Denies abdominal pain, nausea, vomiting, dizziness, lightheadedness. Review of Systems Review of Systems: All systems reviewed & are unremarkable except as noted in HPI and below Exam Narrative: General: Well-nourished, well-appearing 76-year-old female, sitting up in bed, comfortable, NARD Neuro: awake, alert and oriented x4, speech clear, no focal neuro deficits noted HEENMT: normocephalic, atraumatic, EOMI, sclerae anicteric Respiratory: clear to auscultation bilaterally, nonlabored breathing Cardio: regular rate, regular rhythm with S1-S2 Abdomen: nondistended, normoactive bowel sounds, soft, nontender to palpation Extremities: Left hip nontender to palpation, bilateral lower extremities without edema, erythema, or tenderness to palpation, DP pulses 2+ bilaterally Skin: no rashes or lesions, warm and dry Psych: appropriate mood and affect, judgment and insight intact Objective Data Vital Signs Vital Signs: Vital Signs - 24 hr 10/16/21 18:14 10/16/21 19:15 10/16/21 19:43 Temperature 97.1 F L 97.5 F L 97.5 F L Pulse Rate 81 74 74 Respiratory Rate 16 17 17 Blood Pressure 126/45 L 128/40 L 128/40 L Pulse Oximetry 99 98 98 Oxygen Delivery 10/16/21 19:44 10/16/21 19:44 10/16/21 23:10 Temperature 98 F Pulse Rate 90 Respiratory Rate 17 Blood Pressure 126/34 L 134/37 L 135/44 L Pulse Oximetry 97 [employer]xygen [employer]
== END 2021-10-17 14:25 | disposition home or self-care (01) | DRG 470 ==
LOC: ANHSURGERY 16:26 → ANH2MED 16:26
PROVIDERS: Physician Assistant; Admitting Provider Orthopaedic Surgery; PCP Internal Medicine; Visit Provider Nurse Practitioner
PROC: 0SRB04A Replacement of Left Hip Joint with Ceramic on Polyethylene Synthetic Substitute, Uncemented, Open Approach (ICD-10-PCS; CPT 27130; principal; 2021-10-15 07:30)
DX: M16.12 Unilateral primary osteoarthritis, left hip (principal); I48.20 Chronic atrial fibrillation, unspecified; E87.1 Hypo-osmolality and hyponatremia; D62 Acute posthemorrhagic anemia; I10 Essential (primary) hypertension; I95.1 Orthostatic hypotension; I45.10 Unspecified right bundle-branch block; E78.00 Pure hypercholesterolemia, unspecified; E78.5 Hyperlipidemia, unspecified; K21.9 Gastro-esophageal reflux disease without esophagitis; E53.8 Deficiency of other specified B group vitamins; E55.9 Vitamin D deficiency, unspecified; R73.03 Prediabetes; R09.89 Other specified symptoms and signs involving the circulatory and respiratory systems; Z87.891 Personal history of nicotine dependence; Z79.899 Other long term (current) drug therapy
CPT/HCPCS: 36415; 73502; 80048; 82570; 84295; 84300; 85014; 85018; 85025; 85027; 85055; 86850; 86900; 86901; 97110; 97116; 97161; 97165; 97530; 97535; 99199; A9270; C1776; J0131; J0171; J0690; J1100; J1170; J1885; J2250; J2270; J2370; J2405; J2704; J2710; J2795; J3010; J7030; J7120

== ENCOUNTER 2022-01-24 08:10 | Outpatient (CLI) | payer MEDICARE, OTHER, SELFPAY ==
[2022-01-24 08:49] LABS: Basophils Percent Auto 0.8 % (0.2-1.2); Eosinophils Absolute Auto 0.1 K/mm3 (0-0.3); Eosinophils Percent Auto 2.1 % (0-4.4); Hematocrit 34.1 % (37.0-47.0); Hemoglobin 11.2 g/dL (12.0-15.0); Lymphocytes Absolute Auto 1.48 K/mm3 (0.9-3.2); Mean Corpuscular HGB Conc 32.8 g/dl (32-36); Mean Corpuscular Hemoglobin 29.9 pg (26-34); Mean Corpuscular Volume 90.9 fl (80-100); Mean Platelet Volume 9.6 fl (7.4-10.4); Monocytes Absolute Auto 0.4 K/mm3 (0.1-0.6); Monocytes Percent Auto 9.3 % (2.6-8.5); Neutrophils Absolute Auto 1.9 K/mm3 (1.3-6.7); Neutrophils Percent Auto 49.8 % (45.5-73.1); Platelet Count Result 231 k/mm3 (150-375); Red Blood Count 3.75 M/mm3 (4.2-5.4); Red Cell Distribution Width 12.8 % (11.5-14.5); White Blood Count 3.9 K/mm3 (4.5-10.0)
[2022-01-24 09:01] LABS: Alanine Aminotransferase 15 U/L (6-35); Albumin Level 4.1 g/dL (3.5-5.1); Alkaline Phosphatase 70 U/L (38-126); Anion Gap 8 mmol/L (8-16); Aspartate Amino Transferase 25 U/L (14-36); Bilirubin,Total 0.3 mg/dL (0.2-1.3); Blood Urea Nitrogen 9 mg/dL (7-17); Calcium 8.9 mg/dL (8.4-10.2); Carbon Dioxide 25 mmol/L (22-30); Chloride 101 mmol/L (98-107); Cholesterol 143 mg/dL (0-200); Estimated Glomerular Filt Rate > 60; Glucose 97 mg/dL (65-110); HDL Direct 64 mg/dL; Potassium 4.2 mmol/L (3.4-5.0); Sodium 134 mmol/L (137-145); Triglycerides 55 mg/dL (<150)
[2022-01-24 09:12] LABS: LDL Cholesterol Direct 59 mg/dL
[2022-01-24 10:47] LABS: Vitamin D 25 Hydroxy 54.5 ng/mL
[2022-01-28 04:43] LABS: Homocysteine 11.7 umol/L (<10.4)
== END 2022-01-24 08:11 | disposition home or self-care (01) ==
PROVIDERS: PCP Internal Medicine; Visit Provider Internal Medicine
DX: R73.03 Prediabetes (principal); E55.9 Vitamin D deficiency, unspecified; R79.89 Other specified abnormal findings of blood chemistry; E78.2 Mixed hyperlipidemia; I10 Essential (primary) hypertension
CPT/HCPCS: 36415; 80053; 80061; 82306; 83036; 83090; 85025

== ENCOUNTER 2022-03-06 08:45 | Outpatient (RCR) | payer MEDICARE, OTHER, SELFPAY ==
--- NOTE | 2021-12-11 17:19 | BUPTOPEVAL1 ---
Assessment and note entered by Olivia Wei, PT Evaluation Information Assessment Status Evaluation Diagnosis L THR Subjective Information notes slight back pain but resolves with sitting. Reported Pain Level Pain Score 4: Self Report Assessment PT Clinical Summary Pt presents s/p L THR 8 weeks ago. Pain is mild, ambulation is functional and safe currently. Pt demo's significantly decreased RLE length compared to LLE with right shoe build up, right inominate upslip in standing and supine with corresponding compensatory spinal curvature. Lumbopelvic strength diminished robert glute med and max musculature. Currently unable to perform muscle energy technique to realign pelvis as post-op restrictions include no resisted abd of left hip. However discussed with pt placing therapy on hold until able to perform these activities for pelvic realignment, then assessing shoe build up for needed changes while strengthening musculature to hold pelvis in place. Plan of Care Interventions Check Out for Orthotic/Pr,Electrical Stimulation, Gait Training,Manual Therapy,Neuro Re-education, Therapeutic Activities,Therapeutic Exercise PT Services Indicated Yes Treatment Frequency and 2x weekly x 4 weeks Duration These treatments will address the objective and functional deficits as defined above. The patient will be advanced safely and appropriately in order for the patient to progress towards his/her prior level of function. Additional exercises will be introduced and as well as a comprehensive home exercise program upon discharge, if needed, ?to ensure carryover of functional gains achieved in the clinic. This treatment plan has been reviewed and agreement upon by the patient.
--- NOTE | 2022-01-21 16:51 | BUPTOPEVAL1 ---
Assessment and note entered by Olivia Wei, PT Evaluation Information Assessment Status Re-evaluation Diagnosis L THR Subjective Information Pt notes had right sided back paain with standing and walking at [place] this last weekend Noted also withsitting in the car felt like she was sitting on bone Reported Pain Level Pain Score 0: Self Report Additional Pain Score Comments Pt notes had increased right sided back pain this weekend with standing and walking on a trip Assessment PT Clinical Summary Pt demo's improved gait and mobility, increased hip strength and glute med and max. Discussed at length modification of ADLs to allow activities within restrictions. Also reports has not worn her boots secondary to increased pain when wearing these. Pt cont to have right sided back pain varying intensities depending on activities. Also cont to demo upslip of right inominate with right shoe build up and is addressing removal of build up slowly to align pelvis. Pt would benefit from continued therapy at a decreased frequency to continue improving strength of core and alignment as shoe build up is adjusted. Plan of Care Interventions Check Out for Orthotic/Pr,Electrical Stimulation, Gait Training,Hot Pack/Cold Pack,Manual Therapy, Neuro Re-education,Therapeutic Activities, Therapeutic Exercise PT Services Indicated Yes Treatment Frequency and 1x weekly x 6 weeks Duration These treatments will address the objective and functional deficits as defined above. The patient will be advanced safely and appropriately in order for the patient to progress towards his/her prior level of function. Additional exercises will be introduced and as well as a comprehensive home exercise program upon discharge, if needed, ?to ensure carryover of functional gains achieved in the clinic. This treatment plan has been reviewed and agreement upon by the patient.
--- NOTE | 2022-03-04 15:50 | PCPTNOTE ---
Patient called & cancelled scheduled appointment this date due to scheduling conflict. Has rescheduled to later in the week
--- NOTE | 2022-03-06 11:35 | PTOPPROG ---
Assessment and note entered by Olivia Wei, PT Assessment Status Progress Report Diagnosis L THR Subjective Information Feels like 90-95% since beginning of therapy. Notes before when first getting out of bed in the morning, use to hobble down the hallway but now walking is smoother. Notes going to fast will start to limp. Assessment PT Clinical Summary Pt has attended therapy consistently for leg length discrepancy s/p left THR. Evaluation shows right pelvic inominate upslip accounting for significant amount of leg length discrepancy. Over her POC we have focused on decreasing her pain in her back, improving ROM and strength of her left hip and core, and realignment of her pelvis. We have been systematically removing portions of her heel lift, assessing, and progressing her pelvic alignment with the changes in her shoe height. We have had her pelvic position correct showing improvement in leg length from 3 cm difference to 1 cm difference allowing a reduction in her shoe lift. Today she continues to show right pelvic upslip, and decreased strength as well as decreased hip extension effecting her gait. We discussed rn critical care coinciding with PT POC to further advance correction of pelvic position. Pt reports feeling 90-95% improvement overall, but would benefit from continued therapy to continue improving ambulation, pelvic alignment, and appropriate ROM to meet her goals and return to PLOF Plan of Care PT Services Indicated Yes Treatment Frequency and 1x weekly x 6 weeks Duration These treatments will address the objective and functional deficits as defined above. The patient will be advanced safely and appropriately in order for the patient to progress towards his/her prior level of function. Additional exercises will be introduced and as well as a comprehensive home exercise program upon discharge, if needed, ?to ensure carryover of functional gains achieved in the clinic. This treatment plan has been reviewed and agreement upon by the patient.
--- NOTE | 2022-03-13 14:56 | PCPTNOTE ---
This treatment is being continued on visit number [id number]. Please see documentation on both accounts to view progress. Completed interventions, outcomes, and problems have been marked as Inactive to facilitate the copying of the Care plan routine for recurring accounts.
== END 2022-03-10 23:59 | disposition home or self-care (01) ==
LOC: ANHGOSHPT 08:45
PROVIDERS: PCP Internal Medicine; Visit Provider Orthopaedic Surgery
DX: M21.70 Unequal limb length (acquired), unspecified site (principal)
CPT/HCPCS: 97014; 97110; 97112; 97116; 97140; 97162; 97530; G0283

== ENCOUNTER 2022-03-27 08:00 | Outpatient (RCR) | payer MEDICARE, OTHER, SELFPAY ==
--- NOTE | 2022-03-13 14:56 | PCPTNOTE ---
The treatment documented on this account is a continuation of the treatment documented on visit number [id number]. Please see documentation on both accounts to view progress. The Plan of Care has been transitioned and updated within the new V#. I have addressed and agree with the discipline specific Problems, Interventions, and Goals for the current certification period. Completed interventions, outcomes, and problems have been marked as Inactive to facilitate the copying of the Care plan routine for recurring accounts.
--- NOTE | 2022-04-01 07:58 | PCPTNOTE ---
Patient called to cancel this date due to illness.
--- NOTE | 2022-04-17 13:30 | PTOPDC ---
Assessment and note entered by Olivia Wei, PT Assessment Status Discharge Diagnosis Left total hip replacement, with right leg length discrepancy Subjective Information 90-95% improvement overall. Reports feels back pain every now and then is her biggest issue. States she can do [phone] steps a day. Reported Pain Level Pain Score 0: Self Report Assessment PT Clinical Summary Pt reports feeling 90-95% improved overall. Her shoe lift has reduced from 2.5 cm to 0.5 cm with correction of right inominate upslip 80%. Cont to demo right upslip that has remained unchanged for multiple sessions. Pt demo's improving strength in lumbopelvic and hip musculature, demo's appropriate knowledge of mobility, ROM, and HEP. Reports she is able to do 7-10,000 steps daily and is able to perform all her activities with a few small positional modifications. Pt has met all her therapy goals as well thus pt is being discharged from her current POC at this time.
== END 2022-04-18 11:45 | disposition home or self-care (01) ==
LOC: ANHGOSHPT 08:00
PROVIDERS: PCP Internal Medicine; Visit Provider Orthopaedic Surgery
DX: M21.70 Unequal limb length (acquired), unspecified site (principal)
CPT/HCPCS: 97110; 99199

== ENCOUNTER 2022-05-12 12:31 | Outpatient (CLI) | payer MEDICARE, OTHER, SELFPAY ==
--- NOTE | ~2022-05-12 | US_ITS ---
EXAMINATION: US pelvic complete w TV DATE: 05/12/2022 13:21 INDICATION: Postmenopausal bleeding Comparison:Postmenopausal bleeding. TECHNIQUE: Multiple transabdominal and endovaginal sonographic images of the pelvis performed. FINDINGS: The uterus measures 4.4 x 1.7 x 3.4 cm. The endometrial complex measures 3.6 mm. The ovaries are not visualized, likely atrophic. There is no free fluid in the pelvis. There are no abnormal masses seen on either side. IMPRESSION: 1. Unremarkable pelvic ultrasound. Reviewed, dictated and finalized at location B. 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
== END 2022-05-12 12:32 | disposition home or self-care (01) ==
LOC: ANHIMG 12:32
PROVIDERS: PCP Internal Medicine; Visit Provider Registered Nurse
DX: N95.0 Postmenopausal bleeding (principal)
CPT/HCPCS: 76830; 76856

== ENCOUNTER 2022-05-21 09:26 | Outpatient (CLI) | payer MEDICARE, OTHER, SELFPAY ==
--- NOTE | ~2022-05-21 | MM_ITS ---
EXAMINATION: MM screening [facility] BI w thu HISTORY: Screening mammogram TECHNIQUE: Craniocaudal and mediolateral oblique 3-D tomosynthesis images were obtained and synthetic 2-D images were generated. CAD analysis was submitted and interpreted. COMPARISON: 04/08/2021, 03/06/2020, 11/29/2018 BREAST PARENCHYMAL COMPOSITION: There are scattered areas of fibroglandular density. FINDINGS: RIGHT BREAST: There are grouped calcifications in the posterior third of the upper outer quadrant of the breast 7 cm from the nipple. LEFT BREAST: No suspicious mass, calcification, or architectural distortion are identified to suggest malignancy. There has been no suspicious interval change. IMPRESSION: 1. Right breast calcifications. 2. Magnification views are recommended. BI-RADS Category 0: Incomplete: Needs additional imaging evaluation. Reviewed, dictated and finalized at location A. 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
== END 2022-05-21 09:27 | disposition home or self-care (01) ==
LOC: ANHIMG 09:28
PROVIDERS: PCP Internal Medicine; Visit Provider Registered Nurse
DX: Z12.31 Encounter for screening mammogram for malignant neoplasm of breast (principal); R92.8 Other abnormal and inconclusive findings on diagnostic imaging of breast
CPT/HCPCS: 77063; 77067

== ENCOUNTER 2022-06-04 13:12 | Outpatient (CLI) | payer MEDICARE, OTHER, SELFPAY ==
--- NOTE | ~2022-06-04 | MM_ITS ---
EXAMINATION: MM diagnostic juan RT w thu HISTORY: Follow-up right breast calcifications TECHNIQUE: Additional 3-D tomosynthesis images of the right breast were performed and synthetic 2-D i mages were generated. CAD analysis was submitted and interpreted. COMPARISON: Comparison to multiple prior studies sequentially, with oldest reviewed study dated 02/13. BREAST PARENCHYMAL COMPOSITION: The breasts are heterogeneously dense, which may obscure small masses FINDINGS: There is a cluster of indeterminate calcifications in the upper outer quadrant of the right breast posteriorly. These are likely benign with suggestion of some layering on the medial lateral v iew. No suspicious masses or architectural distortion. IMPRESSION: 1. Probable benign right breast calcifications. 2. Recommend 6 month follow-up diagnostic right mammogram BI-RADS category 3, probably benign findings. Reviewed, dictated and finalized at location A.
== END 2022-06-04 13:13 | disposition home or self-care (01) ==
LOC: ANHIMG 13:14
PROVIDERS: PCP Internal Medicine; Visit Provider Registered Nurse
DX: R92.8 Other abnormal and inconclusive findings on diagnostic imaging of breast (principal)
CPT/HCPCS: 77061; 77065; G0279

== ENCOUNTER 2022-07-10 07:07 | Outpatient (CLI) | payer MEDICARE, OTHER, SELFPAY ==
[2022-07-10 08:12] LABS: Alanine Aminotransferase 17 U/L (6-35); Albumin Level 4.3 g/dL (3.5-5.1); Alkaline Phosphatase 69 U/L (38-126); Anion Gap 2 mmol/L (8-16); Aspartate Amino Transferase 26 U/L (14-36); Bilirubin,Total 0.6 mg/dL (0.2-1.3); Blood Urea Nitrogen 12 mg/dL (7-17); Calcium 9.5 mg/dL (8.4-10.2); Carbon Dioxide 35 mmol/L (22-30); Chloride 100 mmol/L (98-107); Cholesterol 151 mg/dL (0-200); Estimated Glomerular Filt Rate > 60; Glucose 97 mg/dL (65-110); HDL Direct 72 mg/dL; Potassium 4.4 mmol/L (3.4-5.0); Sodium 137 mmol/L (137-145); Triglycerides 67 mg/dL (<150)
[2022-07-10 08:23] LABS: Hemoglobin A1C 5.8 % (<5.7)
[2022-07-10 08:24] LABS: Iron 133 ug/dL (37-170)
[2022-07-10 08:34] LABS: Percent Iron Saturation 34 % (20-50)
[2022-07-10 08:35] LABS: LDL Cholesterol Direct 54 mg/dL
[2022-07-10 08:41] LABS: Free T4 Free Thyroxine 0.97 ng/mL (0.78-2.19)
== END 2022-07-10 07:08 | disposition home or self-care (01) ==
LOC: ANHLAB 07:09
PROVIDERS: PCP Internal Medicine; Visit Provider Internal Medicine
DX: D50.9 Iron deficiency anemia, unspecified (principal); Z79.899 Other long term (current) drug therapy; Z13.29 Encounter for screening for other suspected endocrine disorder; E78.2 Mixed hyperlipidemia; R73.03 Prediabetes; I10 Essential (primary) hypertension
CPT/HCPCS: 36415; 80053; 80061; 82728; 83036; 83540; 83550; 84439; 84443

== ENCOUNTER 2022-07-23 07:31 | Outpatient (CLI) | payer MEDICARE, OTHER, SELFPAY ==
--- NOTE | ~2022-07-23 | US_ITS ---
EXAMINATION: US carotid duplex BI DATE: 07/23/2022 08:02 INDICATION: Atherosclerosis. History of carotid bruit. TECHNIQUE: Grayscale, color Doppler, and pulsed Doppler images of the cervical carotid arteries were obtained. The degree of vessel stenosis is placed in one of the following categories: normal, <50%, 5 0-69%, >=70% but less than near-occlusion, near-occlusion, or total occlusion. Note that percent sten osis relative to normal distal artery lumen diameter is indirectly measured from velocity measurement s as described by Dilip, et al. Radiology 2003; 229:340-346. Notes: Normal: Peak systolic velocity <125 centimeters/sec and no plaque <50%. Peak systolic velocity <125 ( EDV <40; ICA/CCA PSV ratio <2.0; used these factors only a tandem lesions or low cardiac output or co ntralateral disease) 50-69 %: PSV 125-230 (EDV 40-100; ratio 2-4) >= 70% but less than near occlusion: PSV greater than 230 (EDV > 100; ratio> 4.0) Near Occlusion: PSV that is variable; markedly narrowed lumen Occlusion: Absent flow on color/spectral Doppler and no lumen on cardenas scale. COMPARISON: None. FINDINGS: RIGHT: The right common carotid artery (CCA) peak systolic velocity (PSV) is 112 cm/s. The right internal ca rotid artery (ICA) PSV is 107 cm/s. The right ICA end-diastolic velocity (EDV) is 24 cm/s. The right ICA/CCA PSV ratio is 1.0. The external carotid artery (ECA) PSV is 137 cm/s. There is antegrade flow in the right vertebral artery. LEFT: The left CCA PSV is 103 cm/s. The left ICA PSV is 119 cm/s. The left ICA EDV is 33 cm/s. The left ICA /CCA PSV ratio is 1.2. The ECA PSV is 132 cm/s. There is antegrade flow in the left vertebral artery . IMPRESSION: 1. Less than 50% stenosis in the right internal carotid artery by sonographic criteria. 2. Less than 50% stenosis in the left internal carotid artery by sonographic criteria. Reviewed, dictated and finalized at location B. IMPRESSION: 1. Less than 50% stenosis in the right internal carotid artery by sonographic c nikoseria. 2. Less than 50% stenosis in the left internal carotid artery by sonographic cr chelsi.
== END 2022-07-23 07:32 | disposition home or self-care (01) ==
PROVIDERS: PCP Internal Medicine; Visit Provider Internal Medicine
DX: R09.89 Other specified symptoms and signs involving the circulatory and respiratory systems (principal); I65.23 Occlusion and stenosis of bilateral carotid arteries
CPT/HCPCS: 93880

== ENCOUNTER 2022-12-05 08:31 | Outpatient (CLI) | payer MEDICARE, OTHER, SELFPAY ==
--- NOTE | ~2022-12-05 | MM_ITS ---
EXAMINATION: MM diagnostic juan RT w thu HISTORY: Follow-up right breast calcifications TECHNIQUE: Additional 3-D tomosynthesis images of the right breast were performed and synthetic 2-D i mages were generated. CAD analysis was submitted and interpreted. COMPARISON: Comparison to multiple prior studies sequentially, with oldest reviewed study dated 04/06. BREAST PARENCHYMAL COMPOSITION: The breasts are heterogeneously dense, which may obscure small masses FINDINGS: There is a cluster of indeterminate calcifications in the upper outer quadrant of the right breast wh ich have increased in number and density compared with most recent examination. There are no associat ed masses. There is no architectural distortion. IMPRESSION: 1. Increasing number and density of clustered indeterminate right breast calcifications, upper outer quadrant. 2. Stereotactic right breast biopsy recommended. BI-RADS category 4, suspicious findings. Reviewed, dictated and finalized at location A. IMPRESSION: 1. Increasing number and density of clustered indeterminate right breast calcif ications, upper outer quadrant. 2. Stereotactic right breast biopsy recommended. BI-RADS category 4, suspicious findings.
--- NOTE | ~2022-12-05 | DEXA_ITS ---
Bone Density Report Name: VINNY MARTINEZ Age: 77 Sex: Female Ethnicity: White Date of : 1945 Indication: osteopenia; parental hip fracture; postmenopausal Referring Provider: SANDRA BETH Study: Bone densitometry was performed. Exam Date: December 05, 2022 Accession number: [id number] Bone Density: Region BMD T-score Z-score Classification AP Spine(L1-L4) 0.896 -1.4 1.3 Osteopenia Femoral Neck (Right) 0.712 -1.2 1.1 Osteopenia Total Hip (Right) 0.836 -0.9 1.2 Normal World Health Organization criteria for BMD impression classify patients as: Normal (T-score at or above -1.0), Osteopenia (T-score between -1.0 and -2.5), or Osteoporosis (T-score at or below -2.5). 10-year Fracture Risk(1): Major Osteoporotic Fracture 19% Hip Fracture 10% Reported Risk Factors: [place] (), Neck BMD=0.712, BMI=21.0, parental fracture (1) FRAX(R) Version 3.08. Fracture probability calculated for an untreated patient. Fracture probability may be lower if the patient has received treatment. Previous Exams: Region Exam Age BMD T-score BMD Change BMD Change Date g/cm2 vs Baseline vs Previous AP Spine (L1-L4) 12/05/2022 77 0.896 -1.4 0.063 (7.6%)* 0.063 (7.6%)* 12/03/2020 75 0.833 -1.9 Total Hip(Right) 12/05/2022 77 0.836 -0.9 -0.017 (-2.0%) -0.017 (-2.0%) 12/03/2020 75 0.853 -0.7 *Denotes significance at 95% confidence level, LSC for AP Spine = 0.022 g/cm2, LSC for Total Hip = 0.027 g/cm2 Clinical Information Provided by Patient: Parent has had a hip fracture Has used the following medications: Vitamin D, Calcium Patient maximum height was 62 Menopause Age: 53 Onset of menses at age 12 Number of children 1 Impression: The patient has low bone mass, based on the Total Spine T-score. The patient has an estimated ten-year risk of hip fracture of 10% and an estimated ten-year risk of major fracture of 19%, based on the WHO FRAX algorithm. The patient has risk factors, including: parental hip fracture. No significant bone loss was observed. Discussion: BONE DENSITY IS LOW AT ONE OR MORE SKELETAL SITES. THE PATIENT'S BMD AND CLINICAL RISK FACTORS CONTRIBUTE TO THIS PATIENT'S INCREASED RISK OF FRACTURE. This patient's lowest T-score is low at one or more skeletal sites. It meets the World Health Organization's (WHO) criteria for ?low bone mass? (T-score between -1.0 and -2.5). The patient's 10-year risk of hip fracture as calculated by FRAX exceeds the threshold where pharmacological therapy is recom
== END 2022-12-05 08:32 | disposition home or self-care (01) ==
LOC: ANHIMG 08:32
PROVIDERS: PCP Internal Medicine; Visit Provider Registered Nurse
DX: Z78.0 Asymptomatic menopausal state (principal); R92.8 Other abnormal and inconclusive findings on diagnostic imaging of breast; M85.88 Other specified disorders of bone density and structure, other site; M85.851 Other specified disorders of bone density and structure, right thigh
CPT/HCPCS: 77061; 77065; 77080; G0279

== ENCOUNTER 2022-12-17 06:42 | Outpatient (CLI) | payer MEDICARE, OTHER, SELFPAY ==
[2022-12-17 07:42] LABS: Basophils Absolute Auto 0.1 K/mm3 (0.0-0.1); Eosinophils Absolute Auto 0.2 K/mm3 (0-0.3); Eosinophils Percent Auto 4.5 % (0-4.4); Hematocrit 33.3 % (37.0-47.0); Hemoglobin 10.7 g/dL (12.0-15.0); Immature Granulocyte Absolute 0.01 K/mm3 (0.00-0.031); Immature Granulocyte Percent A 0.2 % (0-0.5); Lymphocytes Absolute Auto 1.72 K/mm3 (0.9-3.2); Lymphocytes Percent Auto 33.4 % (18.3-44.2); Mean Corpuscular HGB Conc 32.1 g/dl (32-36); Mean Corpuscular Hemoglobin 32.1 pg (26-34); Mean Platelet Volume 9.6 fl (7.4-10.4); Monocytes Absolute Auto 0.6 K/mm3 (0.1-0.6); Monocytes Percent Auto 12.2 % (2.6-8.5); Neutrophils Absolute Auto 2.5 K/mm3 (1.3-6.7); Neutrophils Percent Auto 48.7 % (45.5-73.1); Platelet Count Result 214 k/mm3 (150-375); Red Blood Count 3.33 M/mm3 (4.2-5.4); Red Cell Distribution Width 11.5 % (11.5-14.5); White Blood Count 5.2 K/mm3 (4.5-10.0)
[2022-12-17 07:52] LABS: Hemoglobin A1C 5.4 % (<5.7)
[2022-12-17 07:53] LABS: Alanine Aminotransferase 15 U/L (6-35); Albumin Level 3.9 g/dL (3.5-5.1); Alkaline Phosphatase 65 U/L (38-126); Anion Gap 5 mmol/L (8-16); Aspartate Amino Transferase 28 U/L (14-36); Bilirubin,Total 0.5 mg/dL (0.2-1.3); Blood Urea Nitrogen 13 mg/dL (7-17); Calcium 8.9 mg/dL (8.4-10.2); Carbon Dioxide 29 mmol/L (22-30); Chloride 103 mmol/L (98-107); Cholesterol 141 mg/dL (0-200); Estimated Glomerular Filt Rate > 60; Glucose 98 mg/dL (65-110); HDL Direct 62 mg/dL; Potassium 3.9 mmol/L (3.4-5.0); Sodium 137 mmol/L (137-145); Triglycerides 52 mg/dL (<150)
[2022-12-17 08:04] LABS: LDL Cholesterol Direct 61 mg/dL
[2022-12-17 08:58] LABS: Free T4 Free Thyroxine 0.98 ng/mL (0.78-2.19)
== END 2022-12-17 06:43 | disposition home or self-care (01) ==
LOC: ANHLAB 06:44
PROVIDERS: PCP Internal Medicine; Visit Provider Internal Medicine
DX: R73.03 Prediabetes (principal); I10 Essential (primary) hypertension; Z79.899 Other long term (current) drug therapy; Z13.29 Encounter for screening for other suspected endocrine disorder; E78.5 Hyperlipidemia, unspecified; E55.9 Vitamin D deficiency, unspecified
CPT/HCPCS: 36415; 80053; 80061; 82306; 83036; 84439; 84443; 85025

== ENCOUNTER 2023-01-13 12:32 | Outpatient (CLI) | payer MEDICARE, OTHER, SELFPAY ==
--- NOTE | ~2023-01-13 | MM_ITS ---
EXAMINATION: MM stereotactic bx RT, MM post biopsy diagnostic RT, MM stereotactic specimen RT DATE: 01/13/2023 14:18 (accession [id number]), 01/13/2023 14:22 (accession [id number]), 01/13 14:22 (accession [id number]) INDICATION: Indeterminate calcifications of the upper outer quadrant of the right breast. Stereotacti c core biopsy is requested evaluate for malignancy. TECHNIQUE AND FINDINGS: The risks and potential benefits of the procedure were discussed with the patient including bleeding and infection. A time out was performed to verify the patient's name, date of and site of proce dure to be performed. The patient was placed in the prone position with the right breast in craniocau letty compression, and the area of interest was localized and targeted utilizing digital imaging with s tereotaxis. After sterile preparation of the skin, 2.5 cc of 1% lidocaine were utilized for local anesthesia at t he skin puncture site and 17 of 1% lidocaine with epinephrine were utilized for deeper local anesthes ia about the biopsy site. A 9G [employer] vacuum assisted biopsy needle was advanced to the level of the c alcification of interest from a cephalad approach utilizing stereotactic guidance and a total of six tissue core biopsies were obtained. A specimen radiograph demonstrates that the calcifications of interest are included within the tissue cores. A tissue marker clip was then placed at the biopsy site. The needle was removed and hemostas is was achieved. A sterile bandage was applied. The patient tolerated procedure well and there was no evidence of immediate complication. Tissue cores were submitted to surgical pathology for histologic analysis. A 2-view right unilateral digital mammogram was obtained post procedure and this demonstrates that th e tissue marker clip is in expected position. IMPRESSION: 1. Successful stereotactic biopsy of calcifications in the upper quadrant of the right breast, follow ed by tissue marker clip placement. Reviewed, dictated and finalized at location A. IMPRESSION: 1. Successful stereotactic biopsy of calcifications in the upper quadrant of th e right breast, followed by tissue marker clip placement. IMPRESSION: 1. Successful stereotactic biopsy of calcifications in the upper quadrant of th e right breast, followed by tissue marker clip placement.
== END 2023-01-13 12:33 | disposition home or self-care (01) ==
LOC: ANHIMG 12:34
PROVIDERS: PCP Internal Medicine; Visit Provider Physician Assistant Surgical
DX: D05.91 Unspecified type of carcinoma in situ of right breast (principal); N63.10 Unspecified lump in the right breast, unspecified quadrant; R92.8 Other abnormal and inconclusive findings on diagnostic imaging of breast
CPT/HCPCS: 19081; 77065; 88305; 88360

== ENCOUNTER 2023-01-26 15:49 | Outpatient (CLI) | payer MEDICARE, OTHER, SELFPAY ==
[2023-01-26 16:08] LABS: Basophils Absolute Auto 0.1 K/mm3 (0.0-0.1); Basophils Percent Auto 1.2 % (0.2-1.2); Eosinophils Absolute Auto 0.3 K/mm3 (0-0.3); Eosinophils Percent Auto 4.9 % (0-4.4); Hematocrit 36.3 % (37.0-47.0); Immature Granulocyte Absolute 0.01 K/mm3 (0.00-0.031); Immature Granulocyte Percent A 0.2 % (0-0.5); Lymphocytes Absolute Auto 2.49 K/mm3 (0.9-3.2); Lymphocytes Percent Auto 37.8 % (18.3-44.2); Mean Corpuscular HGB Conc 33.1 g/dl (32-36); Mean Corpuscular Hemoglobin 32.3 pg (26-34); Mean Corpuscular Volume 97.6 fl (80-100); Mean Platelet Volume 9.1 fl (7.4-10.4); Monocytes Absolute Auto 0.6 K/mm3 (0.1-0.6); Monocytes Percent Auto 8.5 % (2.6-8.5); Neutrophils Absolute Auto 3.1 K/mm3 (1.3-6.7); Neutrophils Percent Auto 47.4 % (45.5-73.1); Platelet Count Result 220 k/mm3 (150-375); Red Blood Count 3.72 M/mm3 (4.2-5.4); Red Cell Distribution Width 11.4 % (11.5-14.5); White Blood Count 6.6 K/mm3 (4.5-10.0)
[2023-01-26 16:58] LABS: Alanine Aminotransferase 16 U/L (6-35); Albumin Level 4.6 g/dL (3.5-5.1); Alkaline Phosphatase 70 U/L (38-126); Anion Gap 10 mmol/L (8-16); Aspartate Amino Transferase 33 U/L (14-36); Bilirubin,Total 0.4 mg/dL (0.2-1.3); Blood Urea Nitrogen 13 mg/dL (7-17); Calcium 9.6 mg/dL (8.4-10.2); Carbon Dioxide 26 mmol/L (22-30); Chloride 102 mmol/L (98-107); Estimated Glomerular Filt Rate > 60; Glucose 90 mg/dL (65-110); Potassium 3.8 mmol/L (3.4-5.0); Sodium 138 mmol/L (137-145)
[2023-01-26 18:22] LABS: Iron 75 ug/dL (37-170)
[2023-01-26 18:31] LABS: Percent Iron Saturation 21 % (20-50)
== END 2023-01-26 15:50 | disposition home or self-care (01) ==
LOC: ANHLAB 15:53
PROVIDERS: PCP Internal Medicine; Visit Provider Internal Medicine Hematology & Oncology
DX: D64.9 Anemia, unspecified (principal)
CPT/HCPCS: 36415; 80053; 82728; 83540; 83550; 85025

== ENCOUNTER 2023-01-29 11:09 | Outpatient (CLI) | payer MEDICARE, OTHER, SELFPAY ==
--- NOTE | 2023-01-29 14:15 | ECG_ITS ---
Measurements Intervals [place] Rate: 67 P: 73 RI: 183 QRS: 94 QRSD: 128 T: 30 QT: 405 QTc: 430 Interpretive Statements SINUS RHYTHM RIGHT BUNDLE BRANCH BLOCK BASELINE ARTIFACT- I, II, III, AVR, AVL, AVF, V4-V6 ABNORMAL ECG NO PREVIOUS ECG AVAILABLE FOR COMPARISON Electronically Signed On 01-29-2023 14:38:08 BLOCK BREAKER by Jayesh Mayo D.O.
== END 2023-01-29 11:10 | disposition home or self-care (01) ==
PROVIDERS: PCP Internal Medicine; Visit Provider Surgery
DX: Z01.818 Encounter for other preprocedural examination (principal); I10 Essential (primary) hypertension; R94.31 Abnormal electrocardiogram [ECG] [EKG]
CPT/HCPCS: 93005

== ENCOUNTER 2023-02-02 08:57 | Outpatient (CLI) | payer MEDICARE, OTHER, SELFPAY ==
--- NOTE | ~2023-02-02 | MM_ITS ---
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 The patient verbalized understanding and gave consent. Timeout procedure was performed. With the breast in craniocaudal compression with biopsy grid over the superolateral aspect of the rig ht breast, the skin was prepared with sterile Betadine. 1% lidocaine local anesthetic was administere d. A Magseed needle was introduced from a superior approach at the area of the biopsy marker. Craniocaudal and mediolateral mammographic exposures confirmed appropriate needle position. The Magseed was deplo yed successfully through the needle and the needle withdrawn. Final ML and CC projections confirm the maxillary intermittently associated with the biopsy marker in the posterior upper outer quadrant of the right breast. COMPARISON: 01/13/2023 stereotactic biopsy 12/05/2022 diagnostic right mammogram IMPRESSION: Successful mammographically guided Magseed placement, posterior upper outer quadrant of r ight breast Reviewed, dictated and finalized At Location A. Reviewed, dictated and finalized at location A. ALT ENGINEER IMPRESSION: Successful mammographically guided Magseed placement, posterior upp er outer quadrant of right breast
== END 2023-02-02 08:58 | disposition home or self-care (01) ==
PROVIDERS: PCP Internal Medicine; Visit Provider Physician Assistant Surgical
DX: D05.11 Intraductal carcinoma in situ of right breast (principal)
CPT/HCPCS: 19281; A4648

== ENCOUNTER 2023-02-04 03:11 | Day surgery (SDC) | payer MEDICARE, OTHER, SELFPAY ==
--- NOTE | 2023-01-27 13:47 | PC.NURSE ---
Report to the Outpatient Waiting Room, entrance under the green pavilion located off [facility], at time _0630 on date ___02/04/23____. Planned Procedure Time: _0830 . Time changes happen often and if your time is changed the preop area will call you the afternoon before. - You and your visitor will be asked to self-screen and do not enter if you have any COVID symptoms. - A mask is optional within the hospital at this time. Patients may have clear liquids (water, carbonated beverages, clear teas, apple juice) until 3 hours prior to surgery with a maximum of 20 ounces. - No food from midnight until time of surgery - Infants may have breast milk until 4 hours before surgery, formula 6 hours prior to surgery. - Children will be allowed to drink immediately following surgery. If applicable, please bring a bottle or sippy cup to assist with drinking. Juice, water, soda, and popsicles are readily available. For infants on formula, please bring formula the day of surgery. Pacifiers are allowed. Take the following medications with a SIP of water the morning of surgery: ___CARVEDILOL, DO NOT STOP ANY OF YOUR OTHER PRESCRIPTION MEDICATIONS PRIOR TO SURGERY ?EXCEPT THE FOLLOWING Medications to discontinue per physician _HAVING A PROCEDURE 02/02/23 INST TO HOLD ASPIRIN AND PLAVIX 5 DAYS PRE OP.LAST DOSE 01/27/23____HOLD ALL VITAMINS 3 DAYS PRE OP PER ANESTHESIA LAST DOSE 01/31/23 Please no make-up, nail maori, hairspray, perfume, deodorant, or body powder the day of surgery. No jewelry (including any body piercings) or valuables the day of surgery, leave them at home. Please take a shower or bath the night before, or the morning of, surgery with an antibacterial soap. Wear comfortable, loose fitting clothing. Children are encouraged to wear pajamas. - Jewelry must be removed prior to entering the operating room. Rings and piercings that are not removed may be cut off. - The hospital will not accept responsibility for valuables. - Please leave all valuables, including medications, at home the day of surgery. If you are going home after surgery, a licensed electric lift truck driver must drive you home. - NO public transportation without another adult if you receive anesthesia. - We recommend that an adult stay with you for 24 hours following discharge. - We also recommend that you do not drive, make important decision, drink alcoholic beverages, or take any drugs that were not prescribed by your health care provider for at least 24 hours after your discharge time. For Pediatric surgeries, we recommend two adults accompany the child home. Follow any additional instructions given to you from your surgeon. If you or anyone in your household have experienced Covid symptoms in the past week, please notify your surgeon or the nurse liaison at the phone number below for possible testing. Telephone instructions given to __PATIENT and asked if any additional questions and then verbalized understanding. Patient advised to call surgeon office or pre surgery nurse liaison [phone] if any additional questions.
[2023-01-27 14:12] VITALS: BMI 20.1
[2023-02-04] VITALS (9 sets, daily range): BP systolic 139–186; BP diastolic 43–78; PULSE 56–87; RESP 12–22; TEMP 36.1–37; O2SAT 96–98; BMI 20.3
--- NOTE | ~2023-02-04 | MM_ITS ---
MM_FAXITRON_MG DATE: 02/04/2023 09:55 INDICATION: Right partial mastectomy post Magseed localization TECHNIQUE: Single digital mammographic exposure of surgical soft tissue specimen COMPARISON: None FINDINGS: Soft tissue mass density, multiple microcalcifications, biopsy marker and Magseed are prese nt within the surgical soft tissue specimen IMPRESSION: Successful surgical excision Reviewed, dictated and finalized at Location A. Reviewed, dictated and finalized at location A. LEY WIRE INSTALLER
--- NOTE | 2023-02-04 07:07 | WPDANESEPPF ---
Anes - Initial Pre Proc Eval Procedure: Operation Date: 02/04/23 08:30 Proposed Procedures p Right Breast Lumpectomy with Mag Seed Localization - Ashli Banuelos MD Date/Time: 02/04/23 07:07 Surgeon: Ashli Banuelos MD Pre Op Diagnosis: right breast mass Patient Data Age: 77 Gender: F Height: 1.57 m Weight: 49.9 kg Allergies Allergy/AdvReac Type Severity Reaction Status Date / Time No Known Allergies Allergy Verified 01/30/23 12:40 Home Medications Medication Instructions Recorded Confirmed Type cholecalciferol (vitamin D3) 25 25 mcg PO QAM 07/03/21 01/30/23 History mcg (1,000 unit) capsule acetaminophen 500 mg tablet 1,000 mg PO Q6H PRN Pain 09/30/21 01/30/23 History calcium carbonate 600 mg calcium 1,200 mg PO QAM 09/30/21 01/30/23 History (1,500 mg) tablet (Calcium) cyanocobalamin (vitamin B-12) 1,000 mcg PO QAM 09/30/21 01/30/23 History 1,000 mcg capsule fluticasone propionate 50 2 spray intranasal DAILY PRN 09/30/21 01/30/23 History mcg/actuation nasal Congestion spray,suspension (Flonase Allergy Relief) multivitamin with minerals-folic 2 tablet PO QAM 09/30/21 01/30/23 History acid 200 mcg chewable tablet (Womens Daily Gummies) rosuvastatin 10 mg tablet See Rx Instructions .Route 08/28/22 01/30/23 Rx .COMPLEX #90 tabs carvedilol 12.5 mg tablet See Rx Instructions .Route 01/07/23 01/30/23 Rx .COMPLEX #180 tabs losartan 25 mg tablet See Rx Instructions .Route 01/07/23 01/30/23 Rx .COMPLEX #90 tabs aspirin 81 mg tablet,delayed 81 mg PO DAILY 01/19/23 01/30/23 History release clopidogrel 75 mg tablet (Plavix) 75 mg PO DAILY 01/19/23 01/30/23 History Patient hx anesthesia problems: none Family hx anesthesia problems: none Results Review: All pre-operative results and documents have been reviewed as part of the pre-operative evaluation. [facility] Past Medical History Medical History A-fib Anemia Arthritis Arthritis of left hip Benign essential hypertension Bilateral carotid bruits BMI 20.0-20.9, adult BMI 21.0-21.9, adult Chest pain Chronic GERD Colon cancer screening Contusion of right knee DJD (degenerative joint disease), multiple sites Encounter for Medicare annual wellness exam Encounter for routine adult health examination with abnormal findings Encounter for routine adult health examination without abnormal findings Facial rash Follow up GERD (gastroesophageal reflux disease) Hearing loss Heart disease High cholesterol Hyperlipidemia Idiopathic hypotension Iron deficiency anemia Left carotid bruit Left hip pain Microscopic hematuria On care home drug therapy Pre-diabetes Right bundle branch block Right knee pain SI (sacroiliac) pain Swelling of right knee joint URI (upper respiratory infection) Vitamin B12 deficiency Vitamin D deficiency Surgical History Surgical History H/O cardiac radiofrequency ablation H/O cataract extraction History of hand surgery History of tubal ligation Hx of appendectomy Hx of cholecystectomy Hx of tonsillectomy S/P total left hip arthroplasty anterior approach 10/17/2021 Family History Family History Mother Family history of congestive heart failure Family history of congenital heart disease Hypertension Hyperlipemia Thyroid disorder Father Acute myocardial infarction Diabetes mellitus Hypertension Sibling Family history of atrial fibrillation Social History Social History Social History: the patient lives with her who is the durable power managing attorney for healthcare. The patient had 1 son who at the age of 18. She is a former smoker. She denies any alcohol Except for maybe 1 or 2 alcoholic drinks a month or illicit drugs. Code
[2023-02-04] MEDS: LACTATED RINGERS 1,000 ML 30 ML IV CONT ×2 (07:35→09:51)
[2023-02-04] MEDS: ACETAMINOPHEN 500 MG TABLET 1000 MG PO (07:44)
--- NOTE | 2023-02-04 08:00 | WPDHPUPDATE1 ---
History and Physical Update Update Date/Time: 02/04/23 08:00 History and Physical has been reviewed, including an updated exam of the patient. There are NO changes in the patient's condition. Risks, benefits, and alternatives have been discussed and questions answered. Patient agrees to proceed with procedure.
[2023-02-04] MEDS: ceFAZolin 2 GM/D5W 50 ML 2 GM/50 ML BAG IVPB (08:32)
[2023-02-04] MEDS: BUPIVACAINE/EPINEPHRINE 0.5% 50 ML VIAL 30 ML INFILTRATE (09:02)
--- NOTE | 2023-02-04 09:41 | W.PM.PROC2 ---
Procedure Note - Detailed Date of Procedure 02/04/23 Pre-op Diagnosis Right breast ductal carcinoma in situ Post-op Diagnosis Same Procedure Performed Right breast lumpectomy with magseed localization Surgeon Ashli Banuelos MD Treasury Associate Kaylee Howe PA-C Anesthesia General Indications 77-year-old female who presented for evaluation for right breast ductal carcinoma in Situ.? Patient elected to proceed with breast conservation therapy with a right breast lumpectomy and Mag seed localization.? Risks of the procedure were again discussed with the patient which included but not limited to risk of bleeding, infection, positive margin, possible need for additional procedures in the future, recurrence, asymmetry, wound healing problems, scar, pain, as well as the risk of anesthesia.? All questions were answered patient has agreed to proceed. Description of Procedure Patient was identified in the pre-operative area and brought to the OR suite. She underwent tumor localization previously by IR with magseed placement. She was laid supine in the operating table and sequential compression devices were applied. General anesthesia was induced without difficulties. The right chest was prepped and draped in a sterile fashion. The sentimag probe was used to identify the area where the magseed was placed and a small elliptical incision was made overlying this area, since the seed appeared to be in very close proximity to skin. Dissection was carried down through the subcutaneous tissue into the breast tissue. The tumor was identified using sentimag probe, and a rim of normal breast tissue was excised along with the tumor as our lumpectomy specimen. Once excised, the margins were evaluated using the sentimag probe, and we found that the superior and posterior margins appeared to be closer than desired. An additional superior and posterior margins were excised and sent to pathology as fresh specimens. The lumpectomy specimen was oriented using surgical paint according to video conference specialist instructions. The specimen was placed in the faxitron and 2 radiographs were obtained and sent to Radiology for radiographic confirmation of Tumor, biopsy marker and magseed within the specimen. Once the radiographic confirmation was received, the wound was irrigated with saline and hemostasis was assured. The deep dermal layer was approximated using interrupted 3-0 vicryl followed by 4-0 monocryl for the skin. Dermabond was applied followed by a surgical bra. Patient was awoken from anesthesia and taken to the recovery area in stable condition. All needles, instruments and sponge counts were correct as reported by the operating room staff. Patient tolerated the procedure well with no immediate complications. Kaylee Howe PA-C was required for positioning and retraction throughout the entire case. Estimated Blood Loss 5 Drains No Complications No immediate complications Condition Stable Disposition PACU [facility] Billing Surgery - Charge Forward: Surgery Billing (CPT 11583, 70502 )
--- NOTE | 2023-02-04 09:42 | SUR.OPER ---
Right Breast Lumpectomy- Incision- 0855 Excision- 0918 Faxitron- 0932 Out of room- 0935 Rad Report- 0937 Received by Lab- Todd 0942 Additional Superior Margin with Ink Excision- 0925 Out of room- 0935 Received by Lab- Todd 0942 Additional Posterior Margin with Ink Excision- 0927 Out of room- 0935 Received by Lab- Todd 0942
== END 2023-02-04 11:32 | disposition home or self-care (01) ==
PROVIDERS: PCP Internal Medicine; Visit Provider Surgery
PROC: (CPT 19301; principal; 2023-02-04 08:30)
DX: D05.11 Intraductal carcinoma in situ of right breast (principal); Z17.0 Estrogen receptor positive status [ER+]; I48.91 Unspecified atrial fibrillation; E78.5 Hyperlipidemia, unspecified; E53.8 Deficiency of other specified B group vitamins; E55.9 Vitamin D deficiency, unspecified; Z87.891 Personal history of nicotine dependence
CPT/HCPCS: 19301; 76098; 88305; 88307; 88342; 88360; A9270; J0690; J1100; J2371; J2405; J2704; J3010; J7120

== ENCOUNTER 2023-03-06 10:09 | Outpatient (CLI) | payer MEDICARE, OTHER, SELFPAY ==
--- NOTE | ~2023-03-06 | MM_ITS ---
EXAMINATION: MM diagnostic juan RT w thu HISTORY: 4 weeks post lumpectomy for breast cancer. TECHNIQUE: Additional 3-D tomosynthesis images of the right breast were performed and synthetic 2-D i mages were generated. CAD analysis was submitted and interpreted. COMPARISON: 12/05/2022 BREAST PARENCHYMAL COMPOSITION: The breasts are heterogeneously dense, which may obscure small masses FINDINGS: There are lumpectomy changes in the upper outer quadrant of the right breast posteriorly wi th interval resection of calcifications in this location. There is asymmetry in the area of surgery, likely postoperative. There is mild overlying skin thickening, also likely postoperative. IMPRESSION: 1. Probable benign postoperative changes in the area of previous recent lumpectomy in the upper outer quadrant posteriorly. 2. Recommend 6 month follow-up diagnostic right mammogram BI-RADS category 3, probably benign findings. Reviewed, dictated and finalized at location A. GAGE UNDERWRITER IMPRESSION: 1. Probable benign postoperative changes in the area of previous recent lumpect natividad in the upper outer quadrant posteriorly. 2. Recommend 6 month follow-up diagnostic right mammogram BI-RADS category 3, probably benign findings.
== END 2023-03-06 10:10 | disposition home or self-care (01) ==
LOC: ANHIMG 10:10
PROVIDERS: PCP Internal Medicine; Visit Provider Radiology Radiation Oncology
DX: D05.11 Intraductal carcinoma in situ of right breast (principal)
CPT/HCPCS: 77061; 77065; G0279

== ENCOUNTER 2023-03-06 11:47 | Outpatient (CLI) | payer MEDICARE, OTHER, SELFPAY ==
--- NOTE | ~2023-03-06 | US_ITS ---
EXAMINATION: US venous doppler LE RT DATE: 03/06/2023 12:18 INDICATION: Right lower limb pain TECHNIQUE: Carson scale images without and with compression and Doppler images of the right lower extre mity veins were obtained. COMPARISON: None FINDINGS: The right common femoral vein, profunda femoral vein, femoral vein, popliteal vein, peronea l trunk, posterior tibial veins, and greater saphenous vein are patent. IMPRESSION: 1. Patent right lower extremity veins. No evidence of deep venous thrombosis. Reviewed, dictated and finalized at location B. TING MACHINE OPERATOR
== END 2023-03-06 11:48 | disposition home or self-care (01) ==
PROVIDERS: PCP Internal Medicine; Visit Provider Internal Medicine
DX: M79.89 Other specified soft tissue disorders (principal); M79.604 Pain in right leg
CPT/HCPCS: 77061; 77065; 93971; G0279

== ENCOUNTER 2023-03-12 00:15 | Day surgery (SDC) | payer MEDICARE, OTHER, SELFPAY ==
[2023-03-02 09:14] VITALS: BMI 20.1
--- NOTE | 2023-03-10 12:15 | SUR.PREOP ---
Patient called regarding upcoming procedure. Reviewed preop instructions, appointment times, and procedure prep.
[2023-03-12 08:25] VITALS: BP 97/43; PULSE 75; RESP 19; TEMP 36.3; O2SAT 99
[2023-03-12] MEDS: LACTATED RINGERS 1,000 ML 150 ML IV CONT (08:36)
--- NOTE | 2023-03-12 08:45 | WPDHPUPDATE1 ---
History and Physical Update Update Date/Time: 03/12/23 08:45 History and Physical has been reviewed, including an updated exam of the patient. There are NO changes in the patient's condition. Risks, benefits, and alternatives have been discussed and questions answered. Patient agrees to proceed with procedure.
--- NOTE | 2023-03-12 09:25 | WPDANESEPPF ---
Anes - Initial Pre Proc Eval Procedure: Operation Date: 03/12/23 09:30 Proposed Procedures p Colonoscopy - Davy Bright MD Date/Time: 03/12/23 09:25 Surgeon: Davy Bright MD Pre Op Diagnosis: other fecal abnormalities Patient Data Age: 78 Gender: F Height: 1.57 m Weight: 51.7 kg Last Vital Signs Temp 97.3 F L 03/12/23 08:25 Pulse 75 03/12/23 08:25 Resp 19 03/12/23 08:25 BP 97/43 L 03/12/23 08:25 Pulse Ox 99 03/12/23 08:25 O2 Del Method Room Air 03/12/23 08:25 Allergies Allergy/AdvReac Type Severity Reaction Status Date / Time No Known Allergies Allergy Verified 03/12/23 08:24 Home Medications Medication Instructions Recorded Confirmed Type acetaminophen 500 mg tablet 1,000 mg PO Q6H PRN Pain 09/30/21 03/06/23 History calcium carbonate 600 mg calcium 1,200 mg PO QAM 09/30/21 03/06/23 History (1,500 mg) tablet (Calcium) fluticasone propionate 50 2 spray intranasal DAILY PRN 09/30/21 03/06/23 History mcg/actuation nasal Congestion spray,suspension (Flonase Allergy Relief) multivitamin with minerals-folic 2 tablet PO QAM 09/30/21 03/06/23 History acid 200 mcg chewable tablet (Womens Daily Gummies) aspirin 81 mg tablet,delayed 81 mg PO DAILY 01/19/23 03/06/23 History release clopidogrel 75 mg tablet (Plavix) 75 mg PO DAILY 01/19/23 03/06/23 History ferrous sulfate 325 mg (65 mg 325 mg PO DAILY 03/02/23 03/06/23 History iron) tablet,delayed release carvedilol 12.5 mg tablet See Rx Instructions .Route 03/04/23 03/12/23 Rx .COMPLEX #180 tabs losartan 25 mg tablet See Rx Instructions .Route 03/04/23 03/12/23 Rx .COMPLEX #90 tabs rosuvastatin 10 mg tablet See Rx Instructions .Route 03/04/23 03/12/23 Rx .COMPLEX #90 tabs Patient hx anesthesia problems: none Family hx anesthesia problems: none Results Review: All pre-operative results and documents have been reviewed as part of the pre-operative evaluation. [facility] Past Medical History Medical History A-fib Anemia Arthritis Arthritis of left hip Benign essential hypertension Bilateral carotid bruits BMI 20.0-20.9, adult BMI 21.0-21.9, adult Chest pain Chronic GERD Colon cancer screening Contusion of right knee DJD (degenerative joint disease), multiple sites Encounter for Medicare annual wellness exam Encounter for routine adult health examination with abnormal findings Encounter for routine adult health examination without abnormal findings Facial rash Follow up GERD (gastroesophageal reflux disease) Hearing loss Heart disease High cholesterol Hyperlipidemia Idiopathic hypotension Iron deficiency anemia Left carotid bruit Left hip pain Microscopic hematuria 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 Pre-diabetes Right bundle branch block Right knee pain SI (sacroiliac) pain Swelling of right knee joint URI (upper respiratory infection) Vitamin B12 deficiency Vitamin D deficiency Surgical History Surgical History H/O cardiac radiofrequency ablation H/O cataract extraction History of hand surgery History of tubal ligation Hx of appendectomy Hx of cholecystectomy Hx of tonsillectomy S/P total left hip arthroplasty anterior approach 10/17/2021 Family History Family History Mother Family history of congestive heart failure Family history of congenital heart disease Hypertension Hyperlipemia Thyroid disorder Father Acute myocardial infarction Diabetes mellitus Hypertension Sibling Family history of atrial fibrillation Social History Social History Social History: the patient lives with her who is the durable power workers compensation defense attorney for healthcare. The patient had 1 son who at the age of 18. She is a former smoker. She denies any alcoh
[2023-03-12 09:38] VITALS: BP 117/51; PULSE 78; RESP 16; O2SAT 98
[2023-03-12 09:48] VITALS: BP 113/66; PULSE 74; RESP 18; O2SAT 100
[2023-03-12 09:58] VITALS: BP 134/54; PULSE 76; RESP 18; O2SAT 100
== END 2023-03-12 10:08 | disposition home or self-care (01) ==
PROVIDERS: PCP Internal Medicine; Visit Provider Internal Medicine Gastroenterology
PROC: 0DJD8ZZ Inspection of Lower Intestinal Tract, Via Natural or Artificial Opening Endoscopic (ICD-10-PCS; CPT 45378; principal; 2023-03-12 09:30)
DX: R19.5 Other fecal abnormalities (principal); K64.8 Other hemorrhoids; D64.9 Anemia, unspecified; I10 Essential (primary) hypertension; E78.00 Pure hypercholesterolemia, unspecified; D50.9 Iron deficiency anemia, unspecified; R73.03 Prediabetes; E55.9 Vitamin D deficiency, unspecified; K21.9 Gastro-esophageal reflux disease without esophagitis; M13.89 Other specified arthritis, multiple sites; E53.8 Deficiency of other specified B group vitamins; I48.91 Unspecified atrial fibrillation; Z90.49 Acquired absence of other specified parts of digestive tract; Z79.82 Long term (current) use of aspirin; Z79.02 Long term (current) use of antithrombotics/antiplatelets; Z87.891 Personal history of nicotine dependence; Z86.79 Personal history of other diseases of the circulatory system; Z82.49 Family history of ischemic heart disease and other diseases of the circulatory system
CPT/HCPCS: 45378; J2704; J7120

== ENCOUNTER 2023-04-28 08:34 | Outpatient (CLI) | payer MEDICARE, OTHER, SELFPAY ==
[2023-04-28 09:15] LABS: Basophils Absolute Auto 0.1 K/mm3 (0.0-0.1); Basophils Percent Auto 0.9 % (0.2-1.2); Eosinophils Absolute Auto 0.2 K/mm3 (0-0.3); Eosinophils Percent Auto 2.4 % (0-4.4); Hematocrit 35.8 % (37.0-47.0); Hemoglobin 11.7 g/dL (12.0-15.0); Immature Granulocyte Absolute 0.02 K/mm3 (0.00-0.031); Immature Granulocyte Percent A 0.3 % (0-0.5); Lymphocytes Absolute Auto 0.88 K/mm3 (0.9-3.2); Lymphocytes Percent Auto 13.1 % (18.3-44.2); Mean Corpuscular HGB Conc 32.7 g/dl (32-36); Mean Corpuscular Hemoglobin 31.4 pg (26-34); Mean Platelet Volume 9.2 fl (7.4-10.4); Monocytes Absolute Auto 0.6 K/mm3 (0.1-0.6); Monocytes Percent Auto 9.4 % (2.6-8.5); Neutrophils Percent Auto 73.9 % (45.5-73.1); Platelet Count Result 201 k/mm3 (150-375); Red Blood Count 3.73 M/mm3 (4.2-5.4); Red Cell Distribution Width 11.9 % (11.5-14.5); White Blood Count 6.7 K/mm3 (4.5-10.0)
[2023-04-28 09:25] LABS: Alanine Aminotransferase 13 U/L (6-35); Alkaline Phosphatase 68 U/L (38-126); Anion Gap 5 mmol/L (8-16); Aspartate Amino Transferase 30 U/L (14-36); Bilirubin,Total 0.3 mg/dL (0.2-1.3); Blood Urea Nitrogen 9 mg/dL (7-17); Calcium 9.2 mg/dL (8.4-10.2); Carbon Dioxide 27 mmol/L (22-30); Chloride 102 mmol/L (98-107); Cholesterol 151 mg/dL (0-200); Estimated Glomerular Filt Rate > 60; Glucose 100 mg/dL (65-110); HDL Direct 72 mg/dL; Potassium 4.1 mmol/L (3.4-5.0); Sodium 134 mmol/L (137-145); Triglycerides 62 mg/dL (<150)
[2023-04-28 09:36] LABS: LDL Cholesterol Direct 63 mg/dL
== END 2023-04-28 08:35 | disposition home or self-care (01) ==
LOC: ANHLAB 08:39
PROVIDERS: PCP Internal Medicine; Visit Provider Internal Medicine
DX: E78.2 Mixed hyperlipidemia (principal); E78.5 Hyperlipidemia, unspecified; I10 Essential (primary) hypertension
CPT/HCPCS: 36415; 80053; 80061; 85025

== ENCOUNTER 2023-05-12 11:04 | Outpatient (CLI) | payer MEDICARE, OTHER, SELFPAY ==
[2023-05-12 11:18] LABS: Basophils Absolute Auto 0.1 K/mm3 (0.0-0.1); Basophils Percent Auto 0.9 % (0.2-1.2); Eosinophils Absolute Auto 0.2 K/mm3 (0-0.3); Eosinophils Percent Auto 2.3 % (0-4.4); Hemoglobin 12.3 g/dL (12.0-15.0); Immature Granulocyte Absolute 0.02 K/mm3 (0.00-0.031); Immature Granulocyte Percent A 0.3 % (0-0.5); Lymphocytes Absolute Auto 1.17 K/mm3 (0.9-3.2); Lymphocytes Percent Auto 17.9 % (18.3-44.2); Mean Corpuscular HGB Conc 33.2 g/dl (32-36); Mean Corpuscular Volume 96.4 fl (80-100); Mean Platelet Volume 8.8 fl (7.4-10.4); Monocytes Absolute Auto 0.7 K/mm3 (0.1-0.6); Neutrophils Absolute Auto 4.5 K/mm3 (1.3-6.7); Neutrophils Percent Auto 68.6 % (45.5-73.1); Platelet Count Result 219 k/mm3 (150-375); Red Blood Count 3.84 M/mm3 (4.2-5.4); Red Cell Distribution Width 11.9 % (11.5-14.5); White Blood Count 6.5 K/mm3 (4.5-10.0)
[2023-05-12 11:21] LABS: Blood Urea Nitrogen 13 mg/dL (8-26); Carbon Dioxide 27 mmol/L (22-30); Chloride 98 mmol/L (98-109); Estimated Glomerular Filt Rate > 60; Glucose 91 mg/dL (70-105); Ionized Calcium (POC) 1.26 mmol/L (1.11-1.31); Potassium 4.5 mmol/L (3.5-4.9); Sodium 134 mmol/L (138-146)
== END 2023-05-12 11:05 | disposition home or self-care (01) ==
LOC: ANHLAB 11:06
PROVIDERS: PCP Internal Medicine; Visit Provider Internal Medicine Hematology & Oncology
DX: D64.9 Anemia, unspecified (principal)
CPT/HCPCS: 36415; 80047; 85025

== ENCOUNTER 2023-06-10 09:45 | Outpatient (RCR) | payer MEDICARE, OTHER, SELFPAY ==
--- NOTE | 2023-05-25 09:17 | OPREHPOC ---
Outpatient Therapy Plan of Care This is a Multidisciplinary Plan of Care that may contain components documented by all disciplines (PT, OT, and ST.) PT Problem 1 PT Problem #1 Knowledge Deficit PT Goal 1 Goal *indep with HEP PT Problem 2 PT Problem #2 Pain PT Goal 1 Goal 1* pt report pain at worst L hip of 4/10 2* self assessment LE functional scale of 25% limitation PT Problem 3 PT Problem #3 Impaired Flexibility PT Goal 1 Goal increase flexibility of hips to decrease imbalance R/L 1* supine hamstring length L SLR 70' 2* prone knee flexion L 135'/ anterior hip-quad length 3* supine hip rotation stretch with figure 4 stretch R = L PT Problem 4 PT Problem #4 Impaired Strength PT Goal 1 Goal increase strength of L hip to improve mobility and balance R/L 1* mat exercises 20 reps L LE with good control
--- NOTE | 2023-05-25 09:17 | PTOPEVAL1 ---
Assessment and note entered by Tamera Westbrook PT Evaluation Information Assessment Status Evaluation Diagnosis L hip pain Onset March 2023 Subjective Information gradual increase in pain, no trauma or fall; have had PT in the past after THR. L leg is longer after THR, wear shoe lift R shoe. no recent imaging; goes to chiropractor every 3 weeks for adjustments for neck, back and spine pain; Activity: retired, active, indep with all home and self care activities and do not use assistive device. Reported Pain Level Pain Score Self Report Additional Pain Score Comments pain range in the past week: 0-7/10; sharp does not last long;grabbing: posterior hip/sacrum; pain is never bad enough to make her sit down and not do anything--can keep walking and doing things increase pain: in AM when first wake up and getting out of bed; bending over to reach to ground for yard work; decrease pain: biofreeze, tylenol in AM; heat pad; hand massager; cannot take bath anymore due to issues getting in/ out tub Assessment PT Clinical Summary Ngozi has the diagnosis of L hip pain. She is s/p L THR in Dec and breast cancer with lumpectomy and radiation in . Her self assessment with LE Functional scale is 35% limitation in activity. She is active and the pain does not limit her activity level. Reports most pain when awaken in the AM. She goes to the chiropractor about every 3 weeks for back and neck adjustments and wears a shoe lift on the R side. With the evaluation: there was not any pain with palpation over low back or hip and was not able to elicit pain with any testing or motions; in standing, she has rounded posture of thoracic spine with R trunk rotation forward with slight shift of weight bearing to R side; there is imbalance with hamstring and anterior hip/quad muscle length R/L and wea
--- NOTE | 2023-06-15 11:39 | PTOPDC ---
Assessment and note entered by Tamera Westbrook, PT Discharge Information Assessment Status Discharge - Pt Not Present Diagnosis L hip pain Onset March 2023 Subjective Information canceled appointments due to doing better and not need anymore therapy; Assessment PT Clinical Summary Ngozi has received 5 PT sessions. She called today and canceled her appointments due to doing better and not need anymore therapy. The goals were not addressed. Discharge PT per pt request. Plan of Care PT Services Indicated No
== END 2023-06-15 14:28 | disposition home or self-care (01) ==
LOC: ANHPT 09:45
PROVIDERS: PCP Internal Medicine; Visit Provider Internal Medicine
DX: M25.552 Pain in left hip (principal); R29.898 Other symptoms and signs involving the musculoskeletal system
CPT/HCPCS: 97110; 97161; 97530

== ENCOUNTER 2023-08-04 13:24 | Outpatient (CLI) | payer MEDICARE, OTHER, SELFPAY ==
[2023-08-04 13:40] LABS: Basophils Absolute Auto 0.1 K/mm3 (0.0-0.1); Basophils Percent Auto 0.9 % (0.2-1.2); Eosinophils Absolute Auto 0.1 K/mm3 (0-0.3); Eosinophils Percent Auto 1.7 % (0-4.4); Hemoglobin 11.5 g/dL (12.0-15.0); Immature Granulocyte Absolute 0.01 K/mm3 (0.00-0.031); Immature Granulocyte Percent A 0.2 % (0-0.5); Lymphocytes Absolute Auto 1.49 K/mm3 (0.9-3.2); Lymphocytes Percent Auto 23.4 % (18.3-44.2); Mean Corpuscular HGB Conc 32.9 g/dl (32-36); Mean Corpuscular Hemoglobin 32.4 pg (26-34); Mean Corpuscular Volume 98.6 fl (80-100); Mean Platelet Volume 9.4 fl (7.4-10.4); Monocytes Absolute Auto 0.5 K/mm3 (0.1-0.6); Neutrophils Absolute Auto 4.2 K/mm3 (1.3-6.7); Neutrophils Percent Auto 65.8 % (45.5-73.1); Platelet Count Result 172 k/mm3 (150-375); Red Blood Count 3.55 M/mm3 (4.2-5.4); Red Cell Distribution Width 11.6 % (11.5-14.5); White Blood Count 6.4 K/mm3 (4.5-10.0)
[2023-08-04 16:39] LABS: Alanine Aminotransferase 15 U/L (6-35); Albumin Level 4.1 g/dL (3.5-5.1); Alkaline Phosphatase 54 U/L (38-126); Anion Gap 8 mmol/L (4-12); Aspartate Amino Transferase 33 U/L (14-36); Bilirubin,Total 0.4 mg/dL (0.2-1.3); Blood Urea Nitrogen 14 mg/dL (7-17); Calcium 9.1 mg/dL (8.4-10.2); Carbon Dioxide 25 mmol/L (22-30); Chloride 102 mmol/L (98-107); Estimated Glomerular Filt Rate > 60; Glucose 138 mg/dL (65-110); Potassium 4.1 mmol/L (3.4-5.0); Sodium 135 mmol/L (137-145)
== END 2023-08-04 13:25 | disposition home or self-care (01) ==
LOC: ANHLAB 13:27
PROVIDERS: PCP Internal Medicine; Visit Provider Internal Medicine Hematology & Oncology
DX: D64.9 Anemia, unspecified (principal)
CPT/HCPCS: 36415; 80053; 85025

== ENCOUNTER 2023-08-26 08:37 | Outpatient (CLI) | payer MEDICARE, OTHER, SELFPAY ==
--- NOTE | ~2023-08-26 | XR_ITS ---
AP and lateral views of the left hip Clinical history: Pain Findings: No acute fracture or dislocation is seen. Left hip arthroplasty in place. No hardware compl ication is evident. Soft tissues are unremarkable. Impression: No acute abnormality. Left hip arthroplasty in place. Reviewed, dictated and finalized at location . Impression: No acute abnormality. Left hip arthroplasty in place.
== END 2023-08-26 08:38 | disposition home or self-care (01) ==
LOC: ANHIMG 08:39
PROVIDERS: PCP Internal Medicine; Visit Provider Internal Medicine
DX: M25.552 Pain in left hip (principal); Z96.642 Presence of left artificial hip joint
CPT/HCPCS: 73502

== ENCOUNTER 2023-09-10 08:37 | Outpatient (CLI) | payer MEDICARE, OTHER, SELFPAY ==
[2023-09-10 09:16] LABS: Hemoglobin A1C 5.6 % (<5.7)
[2023-09-10 09:20] LABS: Basophils Absolute Auto 0.1 K/mm3 (0.0-0.1); Eosinophils Absolute Auto 0.1 K/mm3 (0-0.3); Eosinophils Percent Auto 1.6 % (0-4.4); Hematocrit 37.2 % (37.0-47.0); Hemoglobin 12.1 g/dL (12.0-15.0); Immature Granulocyte Absolute 0.01 K/mm3 (0.00-0.031); Immature Granulocyte Percent A 0.2 % (0-0.5); Lymphocytes Absolute Auto 1.38 K/mm3 (0.9-3.2); Lymphocytes Percent Auto 26.8 % (18.3-44.2); Mean Corpuscular HGB Conc 32.5 g/dl (32-36); Mean Corpuscular Hemoglobin 31.8 pg (26-34); Mean Corpuscular Volume 97.6 fl (80-100); Mean Platelet Volume 9.9 fl (7.4-10.4); Monocytes Absolute Auto 0.6 K/mm3 (0.1-0.6); Monocytes Percent Auto 10.9 % (2.6-8.5); Neutrophils Absolute Auto 3.1 K/mm3 (1.3-6.7); Neutrophils Percent Auto 59.5 % (45.5-73.1); Platelet Count Result 177 k/mm3 (150-375); Red Blood Count 3.81 M/mm3 (4.2-5.4); Red Cell Distribution Width 11.7 % (11.5-14.5); White Blood Count 5.1 K/mm3 (4.5-10.0)
[2023-09-10 09:21] LABS: Alanine Aminotransferase 14 U/L (6-35); Albumin Level 3.9 g/dL (3.5-5.1); Alkaline Phosphatase 53 U/L (38-126); Anion Gap 4 mmol/L (4-12); Aspartate Amino Transferase 27 U/L (14-36); Bilirubin,Total 0.4 mg/dL (0.2-1.3); Blood Urea Nitrogen 14 mg/dL (7-17); Calcium 9.2 mg/dL (8.4-10.2); Carbon Dioxide 30 mmol/L (22-30); Chloride 104 mmol/L (98-107); Cholesterol 129 mg/dL (0-200); Estimated Glomerular Filt Rate > 60; Glucose 97 mg/dL (65-110); HDL Direct 60 mg/dL; Potassium 4.4 mmol/L (3.4-5.0); Sodium 138 mmol/L (137-145); Triglycerides 44 mg/dL (<150)
[2023-09-10 09:33] LABS: LDL Cholesterol Direct 64 mg/dL
[2023-09-10 09:43] LABS: Free T4 Free Thyroxine 1.16 ng/mL (0.78-2.19)
== END 2023-09-10 08:38 | disposition home or self-care (01) ==
LOC: ANHLAB 08:40
PROVIDERS: PCP Internal Medicine; Visit Provider Internal Medicine
DX: E78.2 Mixed hyperlipidemia (principal); R73.03 Prediabetes; I10 Essential (primary) hypertension; Z79.899 Other long term (current) drug therapy; Z13.29 Encounter for screening for other suspected endocrine disorder
CPT/HCPCS: 36415; 80053; 80061; 83036; 84439; 84443; 85025

== ENCOUNTER 2023-10-02 07:19 | Outpatient (CLI) | payer MEDICARE, OTHER, SELFPAY ==
--- NOTE | ~2023-10-02 | CT_ITS ---
EXAMINATION: CT sinus wo con DATE: 10/02/2023 07:42 INDICATION: Nasal congestion TECHNIQUE: Computed tomography (CT) of the paranasal sinuses was performed without intravenous contra st. The dose-length product was 300.40 mGy-cm. Automated exposure control and iterative reconstructio n technique were employed. COMPARISON: CT dated 04/08/2018 FINDINGS: There is mucosal thickening of the maxillary and to a lesser degree ethmoid sinuses. No air -fluid levels. No periosteal reaction. Leftward nasal septal deviation. Ostiomeatal units are patent. Mastoids are pneumatized. IMPRESSION: 1. Mild sinus disease. Reviewed, dictated and finalized at location B. IMPRESSION: 1. Mild sinus disease.
== END 2023-10-02 07:20 | disposition home or self-care (01) ==
PROVIDERS: PCP Internal Medicine; Visit Provider Internal Medicine
DX: J34.89 Other specified disorders of nose and nasal sinuses (principal)
CPT/HCPCS: 70486

== ENCOUNTER 2023-11-24 10:54 | Outpatient (CLI) | payer MEDICARE, OTHER, SELFPAY ==
[2023-11-24 11:08] LABS: Basophils Absolute Auto 0.1 K/mm3 (0.0-0.1); Basophils Percent Auto 1.1 % (0.2-1.2); Eosinophils Absolute Auto 0.1 K/mm3 (0-0.3); Eosinophils Percent Auto 1.8 % (0-4.4); Hematocrit 37.1 % (37.0-47.0); Hemoglobin 12.2 g/dL (12.0-15.0); Immature Granulocyte Absolute 0.01 K/mm3 (0.00-0.031); Immature Granulocyte Percent A 0.2 % (0-0.5); Lymphocytes Absolute Auto 1.52 K/mm3 (0.9-3.2); Lymphocytes Percent Auto 26.8 % (18.3-44.2); Mean Corpuscular HGB Conc 32.9 g/dl (32-36); Mean Corpuscular Hemoglobin 31.5 pg (26-34); Mean Corpuscular Volume 95.9 fl (80-100); Mean Platelet Volume 9.3 fl (7.4-10.4); Monocytes Absolute Auto 0.5 K/mm3 (0.1-0.6); Monocytes Percent Auto 8.5 % (2.6-8.5); Neutrophils Absolute Auto 3.5 K/mm3 (1.3-6.7); Neutrophils Percent Auto 61.6 % (45.5-73.1); Platelet Count Result 191 k/mm3 (150-375); Red Blood Count 3.87 M/mm3 (4.2-5.4); Red Cell Distribution Width 11.4 % (11.5-14.5); White Blood Count 5.7 K/mm3 (4.5-10.0)
[2023-11-24 11:15] LABS: Blood Urea Nitrogen 9 mg/dL (8-26); Carbon Dioxide 26 mmol/L (22-30); Chloride 98 mmol/L (98-109); Estimated Glomerular Filt Rate > 60; Glucose 95 mg/dL (70-105); Ionized Calcium (POC) 1.21 mmol/L (1.11-1.31); Potassium 4.6 mmol/L (3.5-4.9); Sodium 135 mmol/L (138-146)
== END 2023-11-24 10:55 | disposition home or self-care (01) ==
PROVIDERS: PCP Internal Medicine; Visit Provider Internal Medicine Hematology & Oncology
DX: D64.9 Anemia, unspecified (principal)
CPT/HCPCS: 36415; 80047; 85025

== ENCOUNTER 2023-12-20 07:30 | Emergency (ER) | payer MEDICARE, OTHER, SELFPAY ==
--- NOTE | ~2023-12-20 | XR_ITS ---
EXAMINATION: XR shoulder RT min 2V DATE: 12/20/2023 07:48 INDICATION: Left shoulder pain TECHNIQUE: AP internally and externally rotated, AP oblique externally rotated and transscapular Y vi ews of the left shoulder were obtained. COMPARISON: None FINDINGS: Normal alignment. No fracture.Mild glenohumeral and acromioclavicular osteoarthritis. Surgical clips projecting over the inferolateral right chest. Soft tissues are otherwise unremarkable. Mild right a pical pleural-parenchymal scarring. IMPRESSION: Mild right glenohumeral and acromioclavicular osteoarthritis. Reviewed, dictated and finalized at location A.
[2023-12-20 07:42] VITALS: O2SAT 96
--- NOTE | 2023-12-20 07:45 | ECG_ITS ---
Test Date: 2023-12-20 08:21:59 Measurements Intervals [place] Rate: 58 P: 77 TN: 203 QRS: 97 QRSD: 138 T: 30 QT: 429 QTc: 424 Interpretive Statements SINUS BRADYCARDIA RIGHT BUNDLE BRANCH BLOCK [120+ ms QRS DURATION, UPRIGHT V1, 40+ ms S IN I/aVL/V4/V5/V6] No previous ECG available for comparison Electronically Signed On 12-20-2023 11:39:48 CDT by Aba Cross M.D.
--- NOTE | 2023-12-20 08:38 | ED.GENADULT ---
HPI - General Adult General Chief complaint: Unspecified Stated complaint: right shoulder pain Time Seen by Provider: 12/20/23 08:19 History of Present Illness HPI narrative: 78-year-old female presenting to the emergency department for evaluation for right shoulder pain. Patient does have history of arthritis states that her shoulder does often bother. Patient states she began having more pain yesterday. Patient denies any falls or injuries. Patient denies any associated chest pain or shortness of breath. Patient states he does have pain in the right shoulder that radiates up the right neck and down the right arm Related Data Home Medications Medication Instructions Recorded Confirmed acetaminophen 500 mg tablet 1,000 mg PO Q6H PRN Pain 09/30/21 11/04/23 calcium carbonate (Calcium 600) 1,200 mg PO QAM 09/30/21 11/04/23 fluticasone propionate 50 2 spray intranasal DAILY PRN 09/30/21 11/04/23 mcg/actuation nasal Congestion spray,suspension (Flonase Allergy Relief) multivitamin with minerals-folic 2 tablet PO QAM 09/30/21 11/04/23 acid 200 mcg chewable tablet (Womens Daily Gummies) aspirin 81 mg tablet,delayed 81 mg PO DAILY 01/19/23 11/04/23 release tamoxifen 20 mg tablet 20 mg PO DAILY 06/01/23 11/04/23 Allergies Allergy/AdvReac Type Severity Reaction Status Date / Time No Known Allergies Allergy Verified 12/20/23 07:31 Review of Systems Review of Systems: All systems reviewed & are unremarkable except as noted in HPI and below PMFSH Past Medical History Medical History A-fib Abnormal mammogram of right breast Adult BMI 19-24 kg/sq m Anemia Arthritis Arthritis of left hip Benign essential hypertension Bilateral carotid bruits BMI 20.0-20.9, adult BMI 21.0-21.9, adult Chest pain Chronic GERD Colon cancer screening Contusion of right knee DJD (degenerative joint disease), multiple sites Encounter for Medicare annual wellness exam Encounter for routine adult health examination with abnormal findings Encounter for routine adult health examination without abnormal findings Facial rash Follow up GERD (gastroesophageal reflux disease) Hearing loss Heart disease High cholesterol Hyperlipidemia Idiopathic hypotension Iron deficiency anemia Left carotid bruit Left hip pain Microscopic hematuria 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 Positive occult stool blood test Pre-diabetes Right bundle branch block Right knee pain SI (sacroiliac) pain Sinus congestion Swelling of right knee joint URI (upper respiratory infection) Vitamin B12 deficiency Vitamin D deficiency Surgical History Surgical History H/O cardiac radiofrequency ablation H/O cataract extraction H/O lumpectomy 02/04/2023 - right History of hand surgery History of tubal ligation Hx of appendectomy Hx of cholecystectomy Hx of tonsillectomy S/P total left hip arthroplasty anterior approach 10/17/2021 Family History Family History Mother Family history of congestive heart failure Family history of congenital heart disease Hypertension Hyperlipemia Thyroid disorder Father Acute myocardial infarction Diabetes mellitus Hypertension Sibling Family history of atrial fibrillation Social History Social History Social History: the patient lives with her who is the durable power staff attorney for healthcare. The patient had 1 son who at the age of 18. She is a former smoker. She denies any alcohol Except for maybe 1 or 2 alcoholic drinks a month or illicit drugs. Code status full code Smoking packs per day: 1 Smoking cigarettes per day: 20.0 Years smoked: 20 Smoking pack-years: 20.00 Smoking status: Former smoker Tobacco type: cigarettes Second hand tobacco smoke exposure: No Smo
[2023-12-20 09:10] VITALS: BP 118/74; PULSE 69; RESP 17; O2SAT 97
== END 2023-12-20 09:12 | disposition home or self-care (01) ==
LOC: ANHED 08:42
PROVIDERS: Emergency Provider Emergency Medicine; PCP Internal Medicine
DX: M25.511 Pain in right shoulder (principal); M19.011 Primary osteoarthritis, right shoulder; E78.00 Pure hypercholesterolemia, unspecified; K21.9 Gastro-esophageal reflux disease without esophagitis; D64.9 Anemia, unspecified; I11.9 Hypertensive heart disease without heart failure; D50.9 Iron deficiency anemia, unspecified; E55.9 Vitamin D deficiency, unspecified; E53.8 Deficiency of other specified B group vitamins; Z87.891 Personal history of nicotine dependence; Z79.82 Long term (current) use of aspirin; Z79.810 Long term (current) use of selective estrogen receptor modulators (SERMs)
CPT/HCPCS: 73030; 93005; 99283; A4565

== ENCOUNTER 2024-01-27 12:02 | Outpatient (CLI) | payer MEDICARE, OTHER, SELFPAY ==
--- NOTE | ~2024-01-27 | MM_ITS ---
EXAMINATION: MM diagnostic juan BI w thu HISTORY: Postoperative, prior right breast lumpectomy TECHNIQUE: 3-D tomosynthesis images of the breasts were performed and synthetic 2-D images were gener ated. CAD analysis was submitted and interpreted. COMPARISON: 03/06/2023,12/05/2022 BREAST PARENCHYMAL COMPOSITION:Dense: The breasts are heterogeneously dense, which may obscure small masses. FINDINGS: There are stable postoperative changes with surgical clips at the upper, outer right breast . No suspicious abnormality seen in either breast. No suspicious microcalcifications. IMPRESSION: No mammographic evidence for malignancy. BI-RADS Category 2: Benign finding(s). Reviewed, dictated and finalized at location . UIT BOARD REPAIR TECHNICIAN
== END 2024-01-27 12:03 | disposition home or self-care (01) ==
LOC: ANHIMG 12:03
PROVIDERS: PCP Internal Medicine; Visit Provider Surgery
DX: C50.411 Malignant neoplasm of upper-outer quadrant of right female breast (principal)
CPT/HCPCS: 77062; 77066; G0279

== ENCOUNTER 2024-01-28 06:50 | Outpatient (CLI) | payer MEDICARE, OTHER, SELFPAY ==
[2024-01-28 07:46] LABS: Basophils Absolute Auto 0.1 K/mm3 (0.0-0.1); Basophils Percent Auto 1.8 % (0.2-1.2); Eosinophils Absolute Auto 0.2 K/mm3 (0-0.3); Eosinophils Percent Auto 4.5 % (0-4.4); Hematocrit 36.6 % (37.0-47.0); Hemoglobin 12.1 g/dL (12.0-15.0); Immature Granulocyte Absolute 0.02 K/mm3 (0.00-0.031); Immature Granulocyte Percent A 0.4 % (0-0.5); Lymphocytes Absolute Auto 1.23 K/mm3 (0.9-3.2); Lymphocytes Percent Auto 24.2 % (18.3-44.2); Mean Corpuscular HGB Conc 33.1 g/dl (32-36); Mean Corpuscular Hemoglobin 32.1 pg (26-34); Mean Corpuscular Volume 97.1 fl (80-100); Mean Platelet Volume 9.8 fl (7.4-10.4); Monocytes Absolute Auto 0.6 K/mm3 (0.1-0.6); Monocytes Percent Auto 11.2 % (2.6-8.5); Neutrophils Percent Auto 57.9 % (45.5-73.1); Platelet Count Result 203 k/mm3 (150-375); Red Blood Count 3.77 M/mm3 (4.2-5.4); Red Cell Distribution Width 11.4 % (11.5-14.5); White Blood Count 5.1 K/mm3 (4.5-10.0)
[2024-01-28 07:57] LABS: Alanine Aminotransferase 13 U/L (6-35); Albumin Level 3.9 g/dL (3.5-5.1); Alkaline Phosphatase 67 U/L (38-126); Anion Gap 5 mmol/L (4-12); Aspartate Amino Transferase 28 U/L (14-36); Bilirubin,Total 0.3 mg/dL (0.2-1.3); Blood Urea Nitrogen 14 mg/dL (7-17); Calcium 9.1 mg/dL (8.4-10.2); Carbon Dioxide 31 mmol/L (22-30); Chloride 101 mmol/L (98-107); Cholesterol 144 mg/dL (0-200); Estimated Glomerular Filt Rate > 60; Glucose 93 mg/dL (65-110); HDL Direct 66 mg/dL; Potassium 4.4 mmol/L (3.4-5.0); Sodium 137 mmol/L (137-145); Triglycerides 45 mg/dL (<150)
[2024-01-28 08:08] LABS: LDL Cholesterol Direct 58 mg/dL
[2024-01-28 08:18] LABS: Add Urine Microscopic? YES; Appearance Urine Clear (Clear); Bacteria Urine None Seen /hpf; Bilirubin Urine Negative (Negative); Blood Urine Trace (Negative); Color Urine Yellow (Yellow); Glucose Urine UA Negative (Negative); Ketones Urine Negative (Negative); Leukocyte Esterase Ur Negative LEU/UL (Negative); Nitrate Urine Negative (Negative); Non Pathogenic Casts 0-2; Protein Urine Negative (Negative); RBC Urine 0-2 /hpf (0-2); Specific Grav Ur 1.014 (1.001-1.035); Squamous Epithelial Cell Urine Moderate /hpf (Few); Urobilinogen Urine 0.2 mg/dL (<2.0); WBC Urine 0-5 /hpf (0-3); pH Urine 5.5 (5.0-9.0)
[2024-01-28 14:31] LABS: Vitamin D 25 Hydroxy 54.2 ng/mL
== END 2024-01-28 06:51 | disposition home or self-care (01) ==
PROVIDERS: PCP Internal Medicine; Visit Provider Internal Medicine
DX: E55.9 Vitamin D deficiency, unspecified (principal); E78.5 Hyperlipidemia, unspecified; I10 Essential (primary) hypertension; Z79.899 Other long term (current) drug therapy
CPT/HCPCS: 36415; 80053; 80061; 81001; 82306; 85025

== ENCOUNTER 2024-03-02 10:50 | Outpatient (CLI) | payer MEDICARE, OTHER, SELFPAY ==
--- NOTE | ~2024-03-02 | XR_ITS ---
XR abdomen/kub 1V 03/02/2024 11:04 Indication: Painful micturition Procedure: KUB Comparison: CT dated 02/11/2021 Findings: There are multiple radiodensities in the left upper abdomen, likely splenic calcifications or bowel content. Bowel pattern is nonobstructive. Moderate colonic fecal loading. There are cholecys tectomy clips. There is a left hip arthroplasty partially visualized. There are cholecystectomy clips . Impression: 1: No acute abdominal abnormality. Reviewed, dictated and finalized at location B. DEVELOPER Impression: 1: No acute abdominal abnormality.
== END 2024-03-02 10:51 | disposition home or self-care (01) ==
PROVIDERS: PCP Internal Medicine; Visit Provider Internal Medicine
DX: R30.9 Painful micturition, unspecified (principal); R10.30 Lower abdominal pain, unspecified
CPT/HCPCS: 74018

== ENCOUNTER 2024-03-04 09:42 | Outpatient (CLI) | payer MEDICARE, OTHER, SELFPAY ==
--- NOTE | ~2024-03-04 | CT_ITS ---
CT of the Abdomen and Pelvis: Indication: Abdominal pain Technique: 2.5 mm axial scans were obtained through the abdomen and pelvis following intravenous adm inistration of 100 cc of Omnipaque 350. Dose reduction technique was used on this scan by utilizing a utomated exposure control and iterative reconstruction technique. The dose-length product (DLP) was 2 31.06 mGy-cm. COMPARISON: 02/11/2021 Findings: Scans through the lung bases are unremarkable. Intrahepatic and extrahepatic biliary dilatation is similar to prior exam, likely related to prior ch olecystectomy. No parenchymal abnormality the liver seen otherwise. The spleen, pancreas, adrenals an d kidneys are within normal limits. There are atherosclerotic calcifications of the aorta. No lympha denopathy. No bowel obstruction or bowel wall thickening. There is no evidence to suggest acute appendicitis. Images through the pelvis are mildly degraded by streak artifact from left hip arthroplasty. Urinary bladder unremarkable. No pelvic mass evident. No ascites. Impression: No acute abnormality. Chronic findings, as above. Reviewed, dictated and finalized at location . HING CONSULTANT Impression: No acute abnormality. Chronic findings, as above.
[2024-03-04 10:13] LABS: Basophils Absolute Auto 0.1 K/mm3 (0.0-0.1); Basophils Percent Auto 0.9 % (0.2-1.2); Eosinophils Absolute Auto 0.1 K/mm3 (0-0.3); Eosinophils Percent Auto 1.6 % (0-4.4); Hematocrit 36.1 % (37.0-47.0); Hemoglobin 12.2 g/dL (12.0-15.0); Immature Granulocyte Absolute 0.01 K/mm3 (0.00-0.031); Immature Granulocyte Percent A 0.2 % (0-0.5); Lymphocytes Absolute Auto 1.28 K/mm3 (0.9-3.2); Mean Corpuscular HGB Conc 33.8 g/dl (32-36); Mean Corpuscular Hemoglobin 32.1 pg (26-34); Monocytes Absolute Auto 0.6 K/mm3 (0.1-0.6); Monocytes Percent Auto 10.4 % (2.6-8.5); Neutrophils Absolute Auto 3.6 K/mm3 (1.3-6.7); Neutrophils Percent Auto 63.9 % (45.5-73.1); Platelet Count Result 185 k/mm3 (150-375); Red Cell Distribution Width 11.7 % (11.5-14.5); White Blood Count 5.6 K/mm3 (4.5-10.0)
[2024-03-04 10:16] LABS: Add Urine Microscopic? NO; Appearance Urine Clear (Clear); Bilirubin Urine Negative (Negative); Blood Urine Negative (Negative); Color Urine Yellow (Yellow); Glucose Urine UA Negative (Negative); Ketones Urine Negative (Negative); Leukocyte Esterase Ur Negative LEU/UL (Negative); Nitrate Urine Negative (Negative); Protein Urine Negative (Negative); Specific Grav Ur 1.009 (1.001-1.035)
[2024-03-04 10:59] LABS: Estimated Glomerular Filt Rate > 60
== END 2024-03-04 09:43 | disposition home or self-care (01) ==
PROVIDERS: PCP Internal Medicine; Visit Provider Internal Medicine
DX: K83.8 Other specified diseases of biliary tract (principal); R30.0 Dysuria; Z90.49 Acquired absence of other specified parts of digestive tract; Z96.642 Presence of left artificial hip joint; R10.32 Left lower quadrant pain
CPT/HCPCS: 36415; 74177; 81003; 85025; 87086; Q9967

== ENCOUNTER 2024-04-14 10:46 | Outpatient (CLI) | payer MEDICARE, OTHER, SELFPAY ==
[2024-04-14 10:59] LABS: Basophils Absolute Auto 0.1 K/mm3 (0.0-0.1); Basophils Percent Auto 0.9 % (0.2-1.2); Eosinophils Absolute Auto 0.1 K/mm3 (0-0.3); Eosinophils Percent Auto 1.6 % (0-4.4); Hematocrit 35.8 % (37.0-47.0); Hemoglobin 11.9 g/dL (12.0-15.0); Immature Granulocyte Absolute 0.02 K/mm3 (0.00-0.031); Immature Granulocyte Percent A 0.3 % (0-0.5); Mean Corpuscular HGB Conc 33.2 g/dl (32-36); Mean Corpuscular Hemoglobin 31.6 pg (26-34); Mean Corpuscular Volume 95.2 fl (80-100); Mean Platelet Volume 9.3 fl (7.4-10.4); Monocytes Absolute Auto 0.6 K/mm3 (0.1-0.6); Monocytes Percent Auto 9.3 % (2.6-8.5); Neutrophils Absolute Auto 4.5 K/mm3 (1.3-6.7); Neutrophils Percent Auto 66.9 % (45.5-73.1); Platelet Count Result 167 k/mm3 (150-375); Red Blood Count 3.76 M/mm3 (4.2-5.4); Red Cell Distribution Width 11.8 % (11.5-14.5); White Blood Count 6.7 K/mm3 (4.5-10.0)
[2024-04-14 11:02] LABS: Blood Urea Nitrogen 10 mg/dL (8-26); Carbon Dioxide 26 mmol/L (22-30); Chloride 98 mmol/L (98-109); Estimated Glomerular Filt Rate > 60; Glucose 102 mg/dL (70-105); Ionized Calcium (POC) 1.24 mmol/L (1.11-1.31); Potassium 4.1 mmol/L (3.5-4.9); Sodium 135 mmol/L (138-146)
--- OUTSIDE RECORDS SUMMARY | 2024-04-14 11:33 | XMS_ITS | Referral Summary ---
Author Organization [facility] [employer] Address [address] [place] [address] Care Team Providers Care V Belt Mold Assembler And Curer Name Role Phone Alexei Valdez MD Primary Care Provider [phone] Allergies No known active allergies Medications carvediloL (COREG) 12.5 mg tablet Take 1 tablet (12.5 mg total) by mouth 2 (two) times a day 2 Active losartan (COZAAR) 25 mg tablet Take 1 tablet (25 mg total) by mouth daily 3 Active rosuvastatin (CRESTOR) 10 mg tablet Take 1 tablet (10 mg total) by mouth daily 0 Active calcium carbonate (TUMS) 1,250 mg (500 mg elemental) chewable tablet Take 2 tablets (2,500 mg total) by mouth daily Active multivitamin tablet Take 2 tablets by mouth daily Active fluticasone propionate (FLONASE) 50 mcg/actuation nasal spray Administer 2 sprays into affected nostril(s) daily Active aspirin 81 mg enteric coated tablet Take 1 tablet (81 mg total) by mouth daily Active Active Problems Problem Noted Date Diagnosed Date Dizziness and giddiness 10/27/2023 Assessment & Plan (10/27/2023 1:06 PM CDT): This also could be due to allergies and I explained that. I am recommending no intervention unless her symptoms recur. She understands and she is fine with that. Seasonal allergic rhinitis due to pollen 024 Assessment & Plan (10/27/2023 1:06 PM CDT): Her symptoms seem to have resolved. I think most of problems are due to allergies. I did review the CT scan of her sinuses that was done on 09/28/2023. It shows some very mild maxillary sinus thickening at the base. Otherwise no significant evidence of sinusitis or obstruction. I recommended that she continue with her allergy medications. She can follow up with me as needed. Social History Tobacco Use Types Packs/Day Years Used Date Smoking Tobacco: Former Cigarettes Q uit: 1979 Smokeless Tobacco: Never Tobacco Cessation:Counseling Given: Not Answered AUDIT-C Answer Date Recorded Q1: How often do you have a drink containing alc ohol? 2-4 times a month 10/27/2023 Q2: How many drinks containi ng alcohol do you have on a typical day when you are drinking? 1 or 2 10/27/2023 Frequency of Binge Drinking Not on file 10/14 Personal Safety Answer Date Recorded Getting School Help Needed Not on file 10/04 Comments Unknown Sex and Gender Information Value Date Recorded Sex Assigned at Not on file Legal Sex Female 8:37 PM MYSTERY SHOPPER Gender Identity Not on file Sexual Orientation Not on file Last Filed Vital Signs Vital Sign Reading Time Taken Comments Blood Pressure 173/71 10/02/2012 11:54 PM CDT Pulse 58 10/02/2012 11:54 PM CDT Temperature 36.4 ??C (97.6 ??F) 10/02/2012 11:54 PM C DT Respiratory Rate 20 10/27/2023 11:20 AM CDT Oxygen Saturation 96% 10/02/2012 11:54 PM CDT Inhaled Oxygen Concentration - - Weight 49.4 kg (109 lb) 10/27/2023 11:20 AM CDT Height 157.5 cm (5' 2 ) 10/27/2023 11:20 AM CDT Body Mass Index 19.94 10/27/2023 11:20 AM CDT Plan of Treatment Not [place] [address] Care Teams V Belt Mold Assembler And Curer Relationship Specialty Start Date End Date Alexei Valdez MD [address] [place] [address] PCP - General Internal Medicine 10/05/23
--- OUTSIDE RECORDS SUMMARY | 2024-04-14 11:33 | XMS_ITS | Clinical Summary ---
Author Organization [facility] [employer] Address [address] [place] [address] Care Team Providers Care Industrial Truck Mechanic Name Role Phone Alexei Valdez MD Primary Care Provider + Allergies No known active allergies Medications clopidogreL (PLAVIX) 75 mg Tablet Take 75 mg by mouth daily. Active carvediloL (COREG) 12.5 mg tablet Take 12.5 mg by mouth 2 times daily with meals. Active aspirin (ECOTRIN EC) 81 mg Tablet, Delayed Release (E.C.) Take 81 mg by mouth daily. Active losartan (COZAAR) 25 mg tablet Take 25 mg by mouth daily. Active rosuvastatin (CRESTOR) 10 mg tablet Take 10 mg by mouth daily. Active calcium as carbonate (CALCI-CHEW) 1,250 mg (500 mg elemental) Tablet, Chewable Take 2 Tablets by mouth daily. Active cyanocobalamin 1,000 mcg Tablet Take 1,000 mcg by mouth daily. Active multivitamin (DAILY-SHERMAN) tablet Take 2 Tablets by mouth daily. Active acetaminophen (TYLENOL) 325 mg tablet Take 650 mg by mouth every 4 hours as needed for Pain. Active fluticasone propionate (FLONASE) 50 mcg/spray [place], Suspension nasal inhaler Administer 2 Sprays in each nostril daily. Active anastrozole (Arimidex) 1 mg tablet Take 1 Tablet (1 mg) by mouth daily. 30 Tablet Active Active Problems No known active problems Encounters Date Type Department Care Team Description 04/14/2024 11:00 AM PASSENGER SCREENER Office Visit [facility] Oncology and Hematology - [place] [address] [place] [id number] Abdifatah Ladd MD Chronic anemia (Primary Dx) 04/07/2024 External Device Data ST[facility] ABSTRACTION Provider, Abstract 04/06/2024 External Device Data ST[facility] ABSTRACTION Provider, Abstract 04/05/2024 External Device Data ST[facility] ABSTRACTION Provider, Abstract 03/04/2024 Telephone [facility] Oncology and Hematology [facility] [address] [place] [address] Abdifatah Ladd MD UTI Concerns from Last 3 Months Social History Tobacco Use Types Packs/Day Years Used Date Smoking Tobacco: Former Cigarettes Smokeless Tobacco: Never Tobacco Cessation:Counseling Given: Not Answered Alcohol Use Standard Drinks/Week Comments Not Currently 0 (1 standard drink = 0.6 oz pur e alcohol) Comments Unknown Sex and Gender Information Value Date Recorded Sex Assigned at Not on file Legal Sex Female 3:33 PM PASSENGER SCREENER Gender Identity Not on file Sexual Orientation Not on file Last Filed Vital Signs Vital Sign Reading Time Taken Comments Blood Pressure 121/61 04/14/2024 10:59 AM PASSENGER SCREENER Pulse 61 04/14/2024 10:59 AM PASSENGER SCREENER Temperature 36.8 ??C (98.2 ??F) 04/14/2024 10:[address] Respiratory Rate 15 04/14/2024 10:59 AM PASSENGER SCREENER Oxygen Saturation 96% 04/14/2024 10:59 AM PASSENGER SCREENER Inhaled Oxygen Concentration - - Weight 50.9 kg (112 lb 3.2 oz) 04/14/2024 10:59 AM PASSENGER SCREENER Height 157.5 cm (5' 2 ) 01/26/2023 3:05 PM PASSENGER SCREENER Body Mass Index 20.52 01/26/2023 3:05 PM PASSENGER SCREENER Plan of Treatment Upcoming Encounters Date Type Department Care Team (Late st Contact Info) Description 07/06/2024 10:00 AM CDT Office Visit [facility] Oncology and Hematology [facility] [address] [place] [address] Lisa Tanner MD [address] [place] [address] Health Maintenance Due Date Last Done Comments DTAP/TDAP/TD VACCINES (1 - Tdap) 1964 Traditional Medicare (ACO) A nnual Wellness Visit 1964 PNEUMOCOCCAL VACCINE 65+ YEA RS (1 of 1 - PCV) 1993 ZOSTER VACCINE (1 of 2) 1993 RSV VACCINE (60+ or ) (1 - 1-dose 75+ series) 2018 INFLUENZA VACCINE (#1) 2023 12/20/2017 OSTEOPOROSIS SCREENING Completed 3, 12/03/2020, 11/29/2018 COLORECTAL SCREENING Discontinued 03/12/2023 Colorectal Cancer Screening Discontinued FIT-DNA Q 3 years Discontinued FIT/FOBT Q 1 year Discontinued Flex Sig/CT Colonography Q 5 years Discontinued Insurance [facility] Address: [address] [facility] [place], [place] [id number] [place] [address] MEDICARE PART A AND B Care Teams Industrial Truck Mechanic Relationship Specialty Start Date End Date Alexei Valdez MD [address] [place] [id number] PCP - General Internal Medicine 01/26/23
--- OUTSIDE RECORDS SUMMARY | 2024-04-14 11:33 | XMS_ITS | Encounter Summary ---
Author Organization [facility] Address [address] [place] [address]. [place], [place] [phone] [place] [address] Care Team Providers Care Svp Chief Marketing Officer Name Role Phone Alexei Valdez MD Primary Care Provider [phone] Dano Edwards MD Unavailable [phone] Encounter Details Date Type Department Care Team (Late Contact Info) Description 06/22/2019 [facility] at [address] [address] [place] Social History Tobacco Use Types Packs/Day Years Used Date Smoking Tobacco: Former Cigarettes 1 20 0 06/10/1959 - 06/10/1979 Smokeless Tobacco: Never Alcohol Use Standard Drinks/Week Comments Yes 0 (1 standard drink = 0.6 oz pur e alcohol) AUDIT-C Answer Date Recorded Frequency of Alcohol Consumption Monthly or less 06/10/2019 Average Number of Drinks Not on file 020 Frequency of Binge Drinking Not on file 05/15 Comments No Sex and Gender Information Value Date Recorded Sex Assigned at Not on file Legal 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 No / Unsure 06/10/2019 8:04 AM CDT documented as of this encounter Plan of Treatment Upcoming Encounters Date Type Department Care Team (Late st Contact Info) Description 08/19/2024 10:30 AM CDT Office [facility], [address] [place] [address] Halie Zepeda NP-C [facility]. [address] [place] [address] 03/02/2025 9:00 AM TEACHER INSTRUMENTAL Office Visit [facility] [place] [address] Sarah Biggs PA 3 [facility] [address] [place], [place] [phone] documented as of this encounter Procedures Procedure Name Priority Date/Time Associated Diagnosis Comments THYROXINE, FREE (FT4) Routine 06/06/2019 PROTIME (OUTSIDE LAB) Routine 06/05/2017 BASIC METABOLIC PANEL Routine 06/05/2017 THYROID STIM HORMONE TSH Routine 06/05/2017 MAGNESIUM Routine 06/05/2017 documented in this encounter Results * THYROXINE, FREE (FT4) (06/06/2019) FREE T4 1.28 0.82 - 1.77 06/06/2019 [facility] Edited Resul t - Final * MAGNESIUM (06/05/2017) Pathologist [facility] MAGNESIUM 2.1 1.6 - 2.3 06/05/2017 us [facility] Final Result * THYROID STIM HORMONE, TSH (06/05/2017) TSH 1.280 0.45 - 4.500 06/05/2017 us Doc [facility] Edited Resul t - Final * PROTIME (OUTSIDE LAB) (06/05/2017) PROTIME 10.5 INR 1.0 06/05/2017 us Doc [facility]-OUTSIDE/ABSTRACTED Edite d Result - Final * (ABNORMAL) BASIC METABOLIC PANEL (06/05/2017) SODIUM S/P/B 139 POTASSIUM S/P/B 4.8 CO2 26 CHLORIDE S/P/B 99 GLUCOSE 110 mg/dL CALCIUM S/P/B 9.7 BUN 14 CREATININE S/P/B 0.73 0.5 - 1.0 EGFR AFR. AMER. 94(A) <=90 EGFR NON-AFR. AMER. 81 <=90 06/05/2017 us Doc [facility] Edited Resul t - Final documented in this encounter Visit Diagnoses Not on filedocumented in this encounter Care Teams Svp Chief Marketing Officer Relationship Specialty Start Date End Date Alexei Valdez MD [address] [facility] [address] [place] [address] PCP - General INTERNAL MEDICINE 04/12/19 Dano Edwards MD 3 [facility] [address] [place] [address] [employer] Technologist CARDIOVASCULAR DISEASE 05/25/19 documented as of this encounter
--- OUTSIDE RECORDS SUMMARY | 2024-04-14 11:33 | XMS_ITS | Clinical Summary ---
Author Organization [facility] [employer] Address [address] [place] [address] Care Team Providers Care Tube Pusher Name Role Phone Alexei Valdez MD Primary Care Provider [phone] Allergies No known active allergies Medications carvediloL [...] can follow up with me as needed. Surgical History Surgery Date Site/Laterality Comments BREAST LUMPECTOMY TOTAL HIP ARTHROPLASTY CARDIAC ELECTROPHYSIOLOGY MAPPING AND ABLATION CHOLECYSTECTOMY TUBAL LIGATION APPENDECTOMY Medical History Medical History Date Comments Allergic rhinitis Cancer (CMS/HCC) (HCC) Heart disease A-fib (CMS/HCC) (HCC) Hypertension History of radiation therapy Sinusitis Dizziness Ear problems Family History Medical History Relation Name Comments Heart disease Brother Heart disease Father Heart disease Mother Relation Name Status Comments Brother Father Mother Social History Tobacco Use Types Packs/Day Years [...] on file Legal Sex Female 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 Gender Identity Not on file Sexual Orientation Not on file Obstetrics History Last Filed Vital Signs Vital Sign Reading [...] 10/27/2023 11:20 AM CDT Plan of Treatment Health Maintenance Due Date Last Done Comments Depression Screening 1945 Fall Risk Assessment 1945 Osteoporosis Screening-Bone Density Scan 1943 Hepatitis B Screening 1961 Well Visit 65+ 2008 Zoster Vaccine (2 of 3) 06/14/2018 04/19/2018, 12/25 Covid-19 Vaccine (2023-2 5 season) 2023 12/02/2022, 12/12/2021, 08/06/2021, Additional history exists Influenza Vaccine (#1) 2023 , 12/07/2021, 11/04/2020, Additional history exists DTaP/Tdap/Td Vaccine (2 - Td or Tdap) 01/13/2032 01/12/2022 Pneumococcal vaccine 65+ Completed 017, 12/23/2014, 12/04/2013 Insurance MEDICARE [facility] [address] Care Teams Tube Pusher Relationship Specialty Start Date End Date Alexei Valdez MD [address] [facility] [address] INTERNAL MEDICINE [address] [place], [place] [phone] PCP - General Internal Medicine 10/05/23
--- OUTSIDE RECORDS SUMMARY | 2024-04-14 11:33 | XMS_ITS | Encounter Summary ---
Author Organization [facility] Address [address] [place] [address]. [place] [address] [place] [address] Care Team Providers Care Signal Tester Name Role Phone Alexei Valdez MD Primary Care Provider [phone] Dano Edwards MD Unavailable [phone] Encounter Details Date Type Department Care Team (Late st Contact Info) Description 11/25/2022 Hospital Orders Only [facility] Anesthesia [place], [place] [phone] Gonsalo Rosales MD [address] [address] Anesthesia Record Procedure Summary Procedure Name Responsible Anesthesiologist Anesthesia Start Time Anesthesia Stop Time XA LEFT ATRIAL APPENDAGE CLOSURE 11/25/22 1357 11/25/22 1521 Events Date Time Event Comment 11/25/2022 1357 An Start Patient ID and consent checked and patient reassessed. 1521 ANES Record on Paper 1521 An Stop Meds * Agents No agents on file. * Blood No blood administrations on file. Lines, Drains, and Airways Type Details Placement Removal Arterial Line Placement Date: 05/14 11/04; Placement Time: 758 (created via procedure documentation); Placed Outside of This Facility?: No; Size: 20; Orientation: Left; Location: Radial; Site Prep: Chlorhexidine; Local Anesthetic: None; Insertion Attempts: 1; Patient Tolerance: Tolerated well; Removal Date: 11/25/22; Removal Time: 222605/31/21 0759 by Ishaan Live MD 11/25/22 2227 by Automatic Discharge Provider Venous Sheath 11/25/22; 1424; No; Maximum Sterile Technique used, Fluoroscopy, Hand hygiene, Chlorhexidine skin prep; Injectable; 8 (venous); Right; Femoral; 1; Fluoroscopy, X-ray; Sutured; Tolerated well; Intact 11/25/22 1424 by Sasha Carlton RN 11/25/22 1505 by Sasha Carlton RN documented in this encounter Social History Tobacco Use Types Packs/Day Years Used Date Smoking Tobacco: Former Cigarettes 1 20 0 06/10/1959 - 06/10/1979 Smokeless Tobacco: Never Alcohol Use Standard Drinks/Week Comments Yes 0 (1 standard drink = 0.6 oz pur e alcohol) 1 a week AUDIT-C Answer Date Recorded Frequency of Alcohol Consumption Monthly or less 06/10/2019 Average Number of Drinks Not on file 020 Frequency of Binge Drinking Not on file 05/15 Comments No Sex and Gender Information Value Date Recorded Sex Assigned at Not on file Legal Sex Female 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 Answer Date of Assessment Author Status No 05/01/2021 1:10 PM HYDROELECTRIC MECHANIC Activ e * Do you have serious difficulty walking or climbing stairs? Answer Date of Assessment Author Status No 05/01/2021 1:10 PM HYDROELECTRIC MECHANIC Yen Guevara RN Active * Do you have difficulty dressing or bathing? Answer Date of Assessment Author Status No 05/01/2021 1:10 PM Yen Carey RN Active * Because of a physical, mental, or emotional condition, do you have difficulty doing errands alone such as visiting a doctor's office or shopping? Answer Date of Assessment Author Status No 05/01/2021 1:10 PM Yen Carey RN Active documented as of this encounter Mental Status * Because of a physical, mental, or emotional condition, do you have serious difficulty concentrating, remembering, or making decisions? Answer Entry Date Author Status No 05/01/2021 1:10 PM HYDROELECTRIC MECHANIC Yen Guevara RN Active documented in this encounter Plan of Treatment Upcoming Encounters Date Type Department Care Team (Late st Contact Info) Description 08/19/2024 10:30 AM CDT Office Visit [facility], [address] [place] [address] Halie Zepeda, PHYSICAL THERAPIST CLINIC DIRECTOR-C [facility]. [address] [place], [place] [address] 03/02/2025 9:00 AM HYDROELECTRIC MECHANIC Office Visit [facility], [facility] [address] [place], [place] [address] Sarah Biggs PA 3 [facility] [address] [place], [place] [phone] documented as of this encounter Goals Goal Patient Goal Type Associated Problems Recent Progress Patient-Stated? Author Health - patient able to perform ADLs independently General No Kei Jc RN documented as of this encounter Visit Diagnoses Not on filedocumented in this encounter Care Teams Signal Tester Relationship Specialty Start Date End Date Alexei Valdez MD [address] [facility] [address] [place] [address] PCP - General INTERNAL MEDICINE 04/12/19 Dano Edwards MD 3 [facility] [address] [place] [phone] [employer] Manual Equipment Mechanic CARDIOVASCULAR DISEASE 05/25/19 documented as of this encounter
--- OUTSIDE RECORDS SUMMARY | 2024-04-14 11:33 | XMS_ITS | Encounter Summary ---
Author Organization [facility] Address [address] [facility] [place] [address] Care Team Providers Care Machine Container Washer Name Role Phone Unavailable Primary Care Provider Unavailabl e Encounter Details Date Type Department Care Team (Late st Contact Info) Description 11/10/2023 Lab Requisition [facility] - DermPath Lab [address] [place] [phone] Bhumi Saavedra PA [address] [place] [address] Social History Tobacco Use Types Packs/Day Years Used Date Smoking Tobacco: Never Assessed Sex and Gender Information Value Date Recorded Sex Assigned at Not on file Gender Identity Not on file Sexual Orientation Not on file documented as of this encounter Plan of Treatment Not on file documented as of this encounter Procedures Procedure Name Priority Date/Time Associated Diagnosis Comments DERMATOPATHOLOGY Routine 11/10/2023 9:24 AM CDT documented in this encounter Results * DERMATOPATHOLOGY (11/10/2023 9:24 AM CDT) Case Report Dermatopathology Report ? Case: [id number] ? Authorizing Provider: ??Bhumi Saavedra PA ?Collected: ? 11/10/2023 09:24 AM ? Ordering Location: ? [facility] - ??Received: ?11/11/2023 11:28 AM ? DermPath Lab ? Pathologist: ? Phyllis Larson MD ? Specimen: ?Skin, right upper calf ? 4 1:57 PM CDT DERMATOPATHOLOGY LABORATORY Final Diagnosis Specimen A. 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 The specimen consists of a shave biopsy measuring 10x9x1 mm. Jar 0. 4 1:57 PM CDT DERMATOPATHOLOGY LABORATORY Microscopic Description Specimen A. SKIN, right upper calf: The epidermis shows parakeratosis, full thickness disorderly maturation of keratinocytes, mitoses at different levels, and dyskeratotic cells. 4 1:57 PM CDT DERMATOPATHOLOGY LABORATORY Disclaimer An external and internal positive and negative controls are appropriate for the histochemical, immunohistochemical and immunofluorescence stain(s) in this case (if any), except where stated explicitly. The performance characteristics of the stain(s) cited in this report were developed and its performance characteristic determined by the Dermatopathology Laboratory at [facility], directed by Dr. Dee Dee Myles. These tests need not be, and therefore are not, approved by the [place] Food and Drug Administration. The tests are used for clinical purposes. Billing Codes Specimen Charges Stain Charges 48559 1 4 1:57 PM CDT DERMATOPATHOLOGY LABORATORY Embedded Images 4 1:57 PM CDT DERMATOPATHOLOGY LABORATORY Pathology/Cytolo gy TISSUE SPECIMEN FROM SKIN / Unknown 11/10/2023 9:24 AM CDT 11/11/2023 11:28 AM CDT [facility] - PATHOLOGY/CYTO LOGY ORDERABLES DERMATOPATHOLOGY LABORATORY [facility] - Department of Dermatology [address], [address] [phone] documented in this encounter Visit Diagnoses Not on filedocumented in this encounter
--- OUTSIDE RECORDS SUMMARY | 2024-04-14 11:33 | XMS_ITS | Referral Summary ---
Author Organization [facility] [employer] Address [address] [place] [address] Care Team Providers Care Crossbow Maker Name Role Phone Unavailable Primary Care Provider Unavailabl e Source Comments [facility],non-owned Affiliates and Associated Physician Practices is amultiple site organization consisting of ambulatory clinics and hospital sitesin [place], [place], [place] and [place]. This disclosure is being madepursuant to the Care Everywhere program and may not contain all information available regarding this patient. Last updated 17.[facility] [employer] Allergies No known active allergies Medications Be aware that medications may not be up to date on this document. Always verify current medications with the patient. No known medications Immunizations Name Administration Dates Next Due INFLUENZA VACCINE, HIGH-DOSE , QUADR. (FLUZONE HIGH-DOSE QUADRIVALENT; 65Y+), 0.7 ML (HD-IIV4) 12/20/2017 Social History Tobacco Use Types Packs/Day Years Used Date Smoking Tobacco: Never Assessed Sex and Gender Information Value Date Recorded Sex Assigned at Not on file Gender Identity Not on file Sexual Orientation Not on file Plan of Treatment Not on file
--- OUTSIDE RECORDS SUMMARY | 2024-04-14 11:33 | XMS_ITS | Clinical Summary ---
Author Organization [facility] [employer] Address [address] [place] [address] Care Team Providers Care Privacy Officer Name Role Phone Unavailable Primary Care Provider Unavailabl e Source Comments [facility],non-owned Affiliates and Associated Physician Practices is amultiple site organization consisting of ambulatory clinics and hospital sitesin [place], [place], [place] and [place]. This disclosure is being madepursuant to the Care Everywhere program and may not contain all information available regarding this patient. Last updated 17.[facility] [employer] Allergies No known active allergies Medications Be [...] Orientation Not on file Plan of Treatment Health Maintenance Due Date Last Done Comments BONE DENSITY TESTING 1945 MEDICARE AWV ? 12 MONTHS 1945 DTAP/TDAP/TD VACCINES (1 - Tdap) 1962 PNEUMOCOCCAL VACCINE 50+ (1 of 1 - PCV) 1993 ZOSTER VACCINE (1 of 2) 1993 Respiratory Syncytial Virus (RSV) Vaccine Pt: or over 60 yrs (1 - 1-dose 75+ series) 2018 COVID-19 VACCINE (2023-2 5 season) 2023 INFLUENZA VACCINE (#1) 2023 12/20/2017 DEPRESSION SCREENING 03/16/2024 HEPATITIS B VACCINE Aged Out No longe r eligible based on patient's age to complete this topic HIB VACCINE Aged Out No longer eligi ble based on patient's age to complete this topic HPV VACCINE Aged Out No longer eligi ble based on patient's age to complete this topic MENINGOCOCCAL (Group B) VACCINE Aged Out No longer eligible based on patient's age to complete this topic MENINGOCOCCAL VACCINE Aged Out No joel noé eligible based on patient's age to complete this topic
--- OUTSIDE RECORDS SUMMARY | 2024-04-14 11:33 | XMS_ITS | Encounter Summary ---
Author Organization [facility] Address [address] [place] [address] Care Team Providers Care Ophthalmic Pathologist Name Role Phone Alexei Valdez MD Primary Care Provider + Encounter Details Date Type Department Care Team (Late st Contact Info) Description 04/14/2024 11:00 AM SILL WORKER Office Visit [facility] Oncology and Hematology - [place] [address] [facility] [address] [place] [address] Abdifatah Ladd MD [address] [facility] [address] [place] [address] Chronic anemia (Primary Dx) Social History Tobacco Use Types Packs/Day Years Used Date Smoking Tobacco: Former Cigarettes Smokeless Tobacco: Never Tobacco Cessation:Counseling Given: Not Answered Alcohol Use Standard Drinks/Week Comments Not Currently 0 (1 standard drink = 0.6 oz pur e alcohol) Comments Unknown Sex and Gender Information Value Date Recorded Sex Assigned at Not on file Legal Sex Female 3:33 PM SILL WORKER Gender Identity Not on file Sexual Orientation Not on file documented as of this encounter Last Filed Vital Signs Vital Sign Reading Time Taken Comments Blood Pressure 121/61 04/14/2024 10:59 AM SILL WORKER Pulse 61 04/14/2024 10:59 AM SILL WORKER Temperature 36.8 ??C (98.2 ??F) 04/14/2024 10:[address] Respiratory Rate 15 04/14/2024 10:59 AM SILL WORKER Oxygen Saturation 96% 04/14/2024 10:59 AM SILL WORKER Inhaled Oxygen Concentration - - Weight 50.9 kg (112 lb 3.2 oz) 04/14/2024 10:59 AM SILL WORKER Height - - Body Mass Index 20.52 01/26/2023 3:05 PM SILL WORKER documented in this encounter Plan of Treatment Upcoming Encounters Date Type Department Care Team (Late st Contact Info) Description 07/06/2024 10:00 AM CDT Office Visit [facility] Oncology and Hematology - [place] [address] [place] [address] Lisa Tanner MD [address] [place] [address] Scheduled Orders Name Type Priority Associated Diagnoses Orde r Schedule CBC WITH DIFFERENTIAL Lab Stat Chronic anemia Expected: 07/07/2024, Expires: 04/14/2025 BASIC METABOLIC PANEL Lab Stat Chronic anemia Expected: 07/07/2024, Expires: 04/14/2025 documented as of this encounter Visit Diagnoses Diagnosis Chronic anemia- Primary Anemia, unspecified documented in this encounter Care Teams Ophthalmic Pathologist Relationship Specialty Start Date End Date Alexei Valdez MD [address] [place] [phone] PCP - General Internal Medicine 01/26/23 documented as of this encounter
--- OUTSIDE RECORDS SUMMARY | 2024-04-14 11:33 | XMS_ITS | Patient Health Summary ---
Author Organization [facility] Address [address] [place] [address] Care Team Providers Care Internal Communications Writer Name Role Phone Unavailable Primary Care Provider Unavailabl e Note from [facility],non-owned Affiliates and Associated Physician Practices is amultiple site organization consisting of ambulatory clinics and hospital sitesin [place], [place], [place] and [place]. This disclosure is being madepursuant to the Care Everywhere program and may not contain all information available regarding this patient. Last updated 17.[facility] Allergies No known active allergies Medications Be aware that medications may not be up to date on this document. Always verify current medications with the patient. No known medications Immunizations * INFLUENZA VACCINE, HIGH-DOSE, QUADR. (FLUZONE HIGH-DOSE QUADRIVALENT; 65Y+), 0.7 ML (HD-IIV4)(Given 12/20/2017) Social History Tobacco Use Types Packs/Day Years Used Date Smoking Tobacco: Never Assessed Sex and Gender Information Value Date Recorded Sex Assigned at Not on file Gender Identity Not on file Sexual Orientation Not on file Procedures * DERMATOPATHOLOGY(Performed 11/10/2023) * DERMATOPATHOLOGY(Performed 06/20/2020) Results * DERMATOPATHOLOGY (11/10/2023 9:24 AM CDT) Only the most recent of2 resultswithin the time period is included. Case Report Dermatopathology Report ? Case: [id number] ? Authorizing Provider: ??Bhumi Saavedra PA ?Collected: [...] SITU (MILLS'S DISEASE) (D04.71) 4 1:57 PM CDT DERMATOPATHOLOGY LABORATORY Clinical History R/O SCC 4 1:57 PM CDT DERMATOPATHOLOGY LABORATORY Gross Description Specimen A: Received is one formalin filled container labeled with the patient's name and designated right upper calf. The specimen consists of a shave biopsy measuring 10x9x1 mm. Jar 0. 1:57 PM CDT DERMATOPATHOLOGY LABORATORY Microscopic Description Specimen A. SKIN, right upper calf: The epidermis shows parakeratosis, full thickness disorderly maturation of keratinocytes, mitoses at different levels, and dyskeratotic cells. 1:57 PM CDT DERMATOPATHOLOGY LABORATORY Disclaimer An external and internal positive and negative controls are appropriate for the histochemical, immunohistochemical and immunofluorescence stain(s) in this case (if any), except where stated explicitly. The performance characteristics of the stain(s) cited in this report were developed and its performance characteristic determined by the Dermatopathology Laboratory at [facility], directed by Dr. Dee Dee Myles. These tests need not be, and therefore are not, approved by the [place] Food and Drug Administration. The tests are used for clinical purposes. Billing Codes Specimen Charges Stain Charges 22840 1 1:57 PM CDT DERMATOPATHOLOGY LABORATORY Embedded Images 1:57 PM CDT DERMATOPATHOLOGY LABORATORY Pathology/Cytolo gy TISSUE SPECIMEN FROM SKIN / Unknown 11/10/2023 9:24 AM CDT 11/11/2023 11:28 AM CDT [facility] - PATHOLOGY/CYTO LOGY ORDERABLES DERMATOPATHOLOGY LABORATORY [facility] - Department of Dermatology [address], [address] [phone]
--- OUTSIDE RECORDS SUMMARY | 2024-04-14 11:33 | XMS_ITS | Clinical Summary ---
Author Organization [facility] Address [address] [place] [address]. [place], [place] [address] [place] [address] Care Team Providers Care Numerical Control Nesting Operator Name Role Phone Alexei Valdez MD Primary Care Provider [phone] Dano Edwards MD Unavailable [phone] Allergies No known active allergies Medications Calcium Carbonate-Vit D-Min (CALCIUM 1200 OR) Take 2 tablets by mouth daily. Active vitamin B-12 (CYANOCOBALAMIN ) 1000 mcg tablet Take 1 tablet (1,000 mcg total) by mouth daily. Active acetaminophen (TYLENOL) 500 MG tablet Take 1 tablet (500 mg total) by mouth daily. Active Multiple Vitamins-Minera ls (MULTIVITAMIN WOMEN OR) Take 2 tablets by mouth daily. Active rosuvastatin 10 MG tablet Take 1 tablet (10 mg total) by mouth daily. 07/28/2019 Active carvedilol 12.5 MG tablet Take 1 tablet (12.5 mg total) by mouth 2 (two) times daily. 60 tablet 3 05/02/2021 Active losartan (COZAAR) 25 MG tablet Take 1 tablet (25 mg total) by mouth daily. 07/25/2022 Active aspirin EC (ECOTRIN) 81 MG tablet Take 1 tablet (81 mg total) by mouth daily. Active Multiple Vitamin (MULTI-VITAMIN) tablet Take 2 tablets by mouth daily. Active tamoxifen (NOLVADEX) 20 MG tablet Take 1 tablet by mouth daily. Active Active Problems Problem Noted Date Diagnosed Date Dizziness and giddiness 10/27/2023 Seasonal allergic rhinitis due to pollen 024 Breast cancer greater than 0 .1 cm and less than or equal to 0.5 cm in greatest dimension ([facility]) 02/13/2023 Presence of Watchman left atrial appendage closu re device 11/25/2022 Primary hypertension 05/17/2021 Dyslipidemia 05/17/2021 Atrial fibrillation status p ost cardioversion ([facility]) 05/01/2021 Paroxysmal atrial fibrillation ([facility]) 06/10/2019 Bilateral carotid artery stenosis 06/10/2019 Precordial pain 06/10/2019 Encounters Date Type Department Care Team Description 02/25/2024 9:15 AM OUTSIDE RIGGER Office [facility] THREE [facility], [address] [address] Ramses Alvarez MD Atrial Fibrillation; Follow Up 02/25/2024 Travel from Last 3 Months Family History Medical History Relation Comments Heart Disease Brother 2 Heart Attack Father Heart Disease Father Heart Disease Mother Relation Status Comments Brother 1 Alive Brother 2 Father (Age 47) Maternal Grandfather Maternal Grandmother (Age 84) Mother (Age 92) Paternal Grandfather (Age 80s) Paternal Grandmother (Age 80s) Social History Tobacco Use Types Packs/Day Years Used Date Smoking Tobacco: Former Cigarettes 1 20 0 06/10/1959 - 08/20/1979 Smokeless Tobacco: Never Tobacco Cessation:Counseling Given: Not [...] on file Legal Sex Female 4:20 PM OUTSIDE RIGGER Gender Identity Not on file Sexual Orientation Not on file Occupation Industry Job Start Date Job End Date Not on file Not on file Not on file Not on file Last Filed Vital Signs Vital Sign Reading Time Taken Comments Blood Pressure 130/62 02/25/2024 9:09 AM OUTSIDE RIGGER Pulse 61 02/25/2024 9:09 AM OUTSIDE RIGGER Temperature 37.1 ??C (98.7 ??F) 05/17/2023 4:13 PM CS T Respiratory Rate 27 05/17/2023 7:40 PM OUTSIDE RIGGER Oxygen Saturation 96% 02/25/2024 9:09 AM OUTSIDE RIGGER Inhaled Oxygen Concentration - - Weight 50.8 kg (112 lb) 02/25/2024 9:09 AM OUTSIDE RIGGER Height 157.5 cm (5' 2 ) 02/25/2024 9:09 AM OUTSIDE RIGGER Body Mass Index 20.49 02/25/2024 9:09 AM OUTSIDE RIGGER Plan of Treatment Upcoming Encounters Date Type Department Care Team (Late st Contact Info) Description 08/19/2024 10:30 AM CDT Office Visit [facility], [facility] [address] [place], [place] [id number] Halie Zepeda NP-C Three [facility]. [address] [place] [address] 03/02/2025 9:00 AM OUTSIDE RIGGER Office Visit [facility], [facility] [address] [place] [address] Sarah Biggs PA [address] [facility] [address] [place], [place] [phone] Health Maintenance Due Date Last Done Comments DTaP, Tdap and Td Vaccines (1 - Tdap) 1964 Annual Medicare Wellness Visit 2008 Dexa Scan (General) 2008 RSV Immunization or 60+ Years (1 - 1-dose 75+ series) 2018 Zoster Vaccines (2 of 3) 06/14/2018 04/19/2018, 12/14 COVID-19 Vaccine ( season) 2023 01/04/2021, 05/15/2020, 04/12/2020 Influenza Adult (#1) 2023 11/13/2019, 12/12/2018, 12/20/2017, Additional history exists Pneumococcal Vaccine: 65+ Years Completed 12/27/2016, 12/23/2014 Meningococcal B Vaccine Aged Out No l onger eligible based on patient's age to complete this topic Meningococcal Vaccine Aged Out No joel noé eligible based on patient's age to complete this topic RSV Immunizations Under 20 Months Aged Out No longer eligible based on patient's age to complete this topic Goals Goal Patient Goal Type Associated Problems Recent Progress Patient-Stated? Author Health - patient able to perform ADLs independently General No Kei Jc RN Medical Devices Implanted Type Area Central Office Operator Supervisor Device Identifier Shelf Expiration Date Model / Serial / Lot Watchman Flx [place] Closure 20mm-11/25/2022 Implanted:Qty: 1 on 11/25/2022 by Steven Hollingsworth MD Closure Device Pixel [employer] [id number] / / Insurance MEDICARE Member Subscriber Plan / Payer ( fective 2011-Present) Name:Ngozi Zazueta Relation to Subscriber:Self Name:Ngozi Zazueta Payer ID:Not on file Group ID:Not on file Type:Indemnity Address: ATTN CLAIMS [address] MEDICARE [facility] Advance Directives Documents on File Type Date Recorded Patient Deputy Attorney General Expl anation Power of Senior Electrical Engineer 05/30/2021 POA FOR HE ALTHCARE 2021 * Full Code (Latest Code Status on File) Date Activated Date Inactivated Comments 05/01/2021 4:12 PM 05/02/2021 12:20 PM * Full Code Date Activated Date Inactivated Comments 05/01/2021 8:54 AM 05/01/2021 4:12 PM Care Teams Numerical Control Nesting Operator Relationship Specialty Start Date End Date Alexei Valdez MD [address] [facility] [address] [place] [phone] PCP - General INTERNAL MEDICINE 04/12/19 Dano Edwards MD 3 [facility] [address] [place] [phone] [place] Etiologist CARDIOVASCULAR DISEASE 05/25/19
== END 2024-04-14 10:47 | disposition home or self-care (01) ==
LOC: ANHLAB 10:48
PROVIDERS: PCP Internal Medicine; Visit Provider Internal Medicine Hematology & Oncology
DX: D64.9 Anemia, unspecified (principal)
CPT/HCPCS: 36415; 80047; 85025

== ENCOUNTER 2024-06-01 06:47 | Outpatient (CLI) | payer MEDICARE, OTHER, SELFPAY ==
--- OUTSIDE RECORDS SUMMARY | 2024-06-01 06:50 | XMS_ITS | Clinical Summary ---
Author Organization [facility] Address [address] [place] [address] Care Team Providers Care Packaging Associate Name Role Phone Alexei Valdez MD Primary [...] Pain. Active fluticasone propionate (FLONASE) 50 mcg/spray [place], Suspension nasal inhaler Administer 2 Sprays in each nostril daily. Active anastrozole (Arimidex) 1 mg tablet Take 1 Tablet (1 mg) by mouth daily. 90 Tablet 3 Active Active Problems No known active problems Encounters Date Type Department Care Team Description 05/03/2024 External Device Data STL ABSTRACTION Provider, Abstract 04/25/2024 Refill [facility] [address] [place] [address] Abdifatah Ladd MD 04/15/2024 Orders Only [facility] [address] [place] [address] Abdifatah Ladd MD 04/14/2024 11:00 AM SERVICE ENGINEER Office Visit [facility] [address] [place] [address] Abdifatah Ladd MD Chronic anemia (Primary Dx) 04/07/2024 External Device Data STL ABSTRACTION Provider, Abstract 04/06/2024 External Device Data STL ABSTRACTION Provider, Abstract 04/05/2024 External Device Data STL ABSTRACTION Provider, Abstract 03/04/2024 Telephone [facility] [address] [place] [address] Abdifatah Ladd MD UTI Concerns from Last [...] on file Legal Sex Female 3:33 PM SERVICE ENGINEER Gender Identity Not on file Sexual Orientation Not on file Last Filed Vital Signs Vital Sign Reading Time Taken Comments Blood Pressure 121/61 04/14/2024 10:59 AM SERVICE ENGINEER Pulse 61 04/14/2024 10:59 AM SERVICE ENGINEER Temperature 36.8 C (98.2 F) 04/14/2024 10:59 AM SERVICE ENGINEER Respiratory Rate 15 04/14/2024 10:59 AM SERVICE ENGINEER Oxygen Saturation 96% 04/14/2024 10:59 AM SERVICE ENGINEER Inhaled Oxygen Concentration - - Weight 50.9 kg (112 lb 3.2 oz) 04/14/2024 10:59 AM SERVICE ENGINEER Height 157.5 cm (5' 2 ) 01/26/2023 3:05 PM SERVICE ENGINEER Body Mass Index 20.52 01/26/2023 3:05 PM SERVICE ENGINEER Plan of Treatment Upcoming Encounters Date Type Department Care Team (Late st Contact Info) Description 07/06/2024 10:00 AM CDT [facility] [place] [address] [place] [address] Lisa Tanner MD [address] [place] [address] Health Maintenance Due Date Last Done Comments DTAP/TDAP/TD VACCINES (1 - Tdap) 1964 Traditional Medicare (ACO) A nnual Wellness Visit 1962 PNEUMOCOCCAL VACCINE 50+ YEA RS (1 of 1 - PCV) 1993 ZOSTER VACCINE (1 of 2) 1993 RSV VACCINE (60+ or ) (1 - 1-dose 75+ series) 2018 INFLUENZA VACCINE (#1) 2023 12/20/2017 OSTEOPOROSIS SCREENING Completed , 12/03/2020, 11/29/2018 COLORECTAL SCREENING Discontinued 03/12/2023 Colorectal Cancer Screening Discontinued FIT-DNA Q 3 years Discontinued FIT/FOBT Q 1 year Discontinued Flex Sig/CT Colonography Q 5 years Discontinued Procedures Procedure Name Priority Date/Time Associated Diagnosis Comments BASIC METABOLIC PANEL Routine 04/14/2024 12:38 PM SERVICE ENGINEER CBC WITH AUTODIFFERENTIAL Routine 2024 12:31 PM SERVICE ENGINEER from Last 3 Months Results * BASIC METABOLIC PANEL (04/14/2024 12:38 PM SERVICE ENGINEER) Blood Abdifatah Ladd MD CHEMISTRY ORDERABLES Final Resu lt * CBC WITH AUTODIFFERENTIAL (04/14/2024 12:31 PM SERVICE ENGINEER) Blood Abdifatah Ladd MD HEMATOLOGY ORDERABLES Final Res ult from Last 3 Months Insurance [employer] Member Subscriber Plan / Payer (Ef fective 2021-Present) Name:Ngozi Zazueta Relation to Subscriber:Self Name:Ngozi Zazueta Payer ID:Not on file Group ID:Not on file Type:[facility] Address: [address] Member Subscriber Plan / Payer (Ef fective 2019-Present) Name:Ngozi Zazueta Relation to Subscriber:Self Name:Ngozi Zazueta Payer ID:Not on file Group ID:Not on file Type:[place] Address: [address] [id number] MEDICARE PART A AND B Care Teams Packaging Associate Relationship Specialty Start Date End Date Alexei Valdez MD [address] [place] [address] PCP - General Internal Medicine 01/26/23
--- OUTSIDE RECORDS SUMMARY | 2024-06-01 06:50 | XMS_ITS | Clinical Summary ---
Author Organization [facility] [employer] Address [address] [place] [address] Care Team Providers Care Building Inspector Name Role Phone Alexei Valdez MD Primary Care Provider [phone] Allergies No known active allergies Medications carvediloL [...] Medical History Date Comments Allergic rhinitis Cancer (HCC) Heart disease A-fib (HCC) Hypertension History of radiation therapy Sinusitis [...] on file Legal Sex Female 8:37 PM SANITATION WORKER CLEANING EQUIPMENT Gender Identity Not on file Sexual Orientation Not on file Obstetrics History Last Filed Vital Signs Vital Sign Reading Time Taken Comments Blood Pressure 173/71 10/02/2012 11:54 PM CDT Pulse 58 10/02/2012 11:54 PM CDT Temperature 36.4 C (97.6 F) 10/02/2012 11:54 PM CDT Respiratory Rate 20 10/27/2023 11:20 AM CDT [...] of 3) 06/14/2018 04/19/2018, 12/25 Covid-19 Vaccine (7 - 4-2 5 season) 2023 12/02/2022, 12/12/2021, 08/06/2021, Additional history exists Influenza Vaccine (#1) 2023 , 12/07/2021, 11/04/2020, Additional history exists DTaP/Tdap/Td Vaccine (2 - Td or Tdap) 01/13/2032 01/12/2022 Pneumococcal vaccine 65+ Completed 017, 12/23/2014, 12/04/2013 Insurance MEDICARE [place] [address] [address] [id number] Care Teams Building Inspector Relationship Specialty Start Date End Date Alexei Valdez MD PCP - General Internal Medicine 10/05/23
--- OUTSIDE RECORDS SUMMARY | 2024-06-01 06:50 | XMS_ITS | Clinical Summary ---
Author Organization [facility] Address [address] [place] [address] Care Team Providers Care Applications Programmer Name Role Phone Unavailable Primary Care Provider Unavailabl e Source Comments [facility],non-owned Affiliates and Associated Physician Practices is amultiple site organization consisting of ambulatory clinics and hospital sitesin [place], [place], [place] and [place]. This disclosure is being madepursuant to the Care Everywhere program and may not contain all information available regarding this patient. Last updated 17.[facility] Allergies No known active allergies Medications Be [...] Comments BONE DENSITY TESTING 1945 MEDICARE AWV 12 MONTHS 1945 DTAP/TDAP/TD VACCINES (1 - [...] to complete this topic MENINGOCOCCAL (Group B) VACC INE SHARED DECISION-MAKING Aged Out No longer eligibl e based on patient's age to complete this topic MENINGOCOCCAL GROUPS A/C/Y/W VACCINE Aged Out No longer eligible b ased on patient's age to complete this topic
--- OUTSIDE RECORDS SUMMARY | 2024-06-01 06:50 | XMS_ITS | Referral Summary ---
Author Organization [facility] [employer] Address [address] [place] [address] Care Team Providers Care Rapier Insertion Loom Fixer Name Role Phone Alexei Valdez MD Primary Care Provider [phone] Allergies No known active allergies Medications carvediloL [...] on file Legal Sex Female 8:37 PM MANAGER OF MERCHANDISING Gender Identity Not on file Sexual Orientation [...] Plan of Treatment [place] [address] [address] [id number] Care Teams Rapier Insertion Loom Fixer Relationship Specialty Start Date End Date Alexei Valdez MD PCP - General Internal Medicine 10/05/23
--- OUTSIDE RECORDS SUMMARY | 2024-06-01 06:50 | XMS_ITS | Encounter Summary ---
Author Organization [facility] Address [facility] [place] [address] Care Team Providers Care Physical Therapy Director Name Role Phone Alexei Valdez MD Primary Care Provider [phone] Dano Edwards MD Unavailable [phone] Encounter Details Date Type Department Care Team (Late st Contact Info) Description 11/25/2022 Hospital Orders Only [facility] [place], [place] [address] Gonsalo Rosales MD [address] [phone] Anesthesia Record Procedure Summary Procedure Name Responsible [...] Time: 222605/31/21 0759 by Ishaan Live MD 09/12/23 2227 by Automatic Discharge Provider Venous Sheath [...] on file Legal Sex Female 4:20 PM WOOD HEEL ATTACHER Gender Identity Not on file Sexual Orientation Not on file Occupation Industry Job Start Date Job End Date Not on file Not on file Not on file Not on file documented as of this encounter Functional Status * RETIRED Are you deaf or do you have serious difficulty hearing Answer Date of Assessment Author Status No 05/01/2021 1:10 PM WOOD HEEL ATTACHER Activ e * RETIRED Are you blind or do you have serious difficulty seeing, even when wearing glasses? Answer Date of Assessment Author Status No 05/01/2021 1:10 PM WOOD HEEL ATTACHER Activ e * Do you have serious difficulty walking or climbing stairs? Answer Date of Assessment Author Status No 05/01/2021 1:10 PM WOOD HEEL ATTACHER Yen Guevara RN Active * Do you [...] Date Author Status No 05/01/2021 1:10 PM WOOD HEEL ATTACHER Yen Guevara RN Active documented in this encounter Plan of Treatment Upcoming Encounters Date Type Department Care Team (Late st Contact Info) Description 08/19/2024 10:30 AM CDT Office Visit [facility], [address] [place], [place] [address] Halie Zepeda, OIL WELL SERVICE OPERATOR-C Three [facility]. [address] [place], [place] [address] 03/02/2025 9:00 AM WOOD HEEL ATTACHER Office Visit [facility], [facility] [address] [place], [place] [address] Sarah Biggs PA 3 [facility] [address] [place], [place] [phone] documented as of this encounter Goals Goal Patient Goal Type Associated Problems Recent Progress Patient-Stated? Author Health - patient able to perform ADLs independently General No Kei Jc RN documented as of this encounter Visit Diagnoses Not on filedocumented in this encounter Care Teams Physical Therapy Director Relationship Specialty Start Date End Date Alexei Valdez MD [address] [place] [phone] PCP - General INTERNAL MEDICINE 04/12/19 Dano Edwards MD 3 [facility] [place] [address] [place] [phone] Mar Lin Fur Examiner CARDIOVASCULAR DISEASE 05/25/19 documented as of this encounter
--- OUTSIDE RECORDS SUMMARY | 2024-06-01 06:50 | XMS_ITS | Encounter Summary ---
Author Organization [facility] Address [address] [place] [address] Care Team Providers Care Securities Supervisor Name Role Phone Unavailable Primary Care Provider Unavailabl e Encounter Details Date Type Department Care Team (Late st Contact Info) Description 11/10/2023 Lab Requisition [facility] - DermPath Lab [address] [place] [phone] Bhumi Saavedra PA [address] [place] [address] Social History Tobacco Use Types Packs/Day Years [...] 9:24 AM CDT) Case Report Dermatopathology Report Case: [id number] Authorizing Provider: Bhumi Saavedra PA Collected: 11/10/2023 09:24 AM Ordering Location: [facility] Physician [facility] - Received: 11/11/2023 11:28 AM DermPath Lab Pathologist: Phyllis Larson MD Specimen: Skin, right upper calf 1:57 PM CDT DERMATOPATHOLOGY LABORATORY Final Diagnosis Specimen A. 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 Dee Dee Myles. These tests need not be, and therefore are not, approved by the [place] Food and Drug Administration. The tests are used for clinical purposes. Billing Codes Specimen Charges Stain Charges 05486 1 1:57 PM CDT DERMATOPATHOLOGY LABORATORY Embedded Images 1:57 PM CDT DERMATOPATHOLOGY LABORATORY Pathology/Cytolo gy TISSUE SPECIMEN FROM SKIN / Unknown 11/10/2023 9:24 AM CDT 11/11/2023 11:28 AM CDT [facility] - PATHOLOGY/CYTO LOGY ORDERABLES DERMATOPATHOLOGY LABORATORY [facility] - Department of Dermatology [address], [address] [phone] documented in this encounter Visit Diagnoses Not on filedocumented in this encounter
--- OUTSIDE RECORDS SUMMARY | 2024-06-01 06:50 | XMS_ITS | Clinical Summary ---
Author Organization [facility] Address [facility] [place] [address] Care Team Providers Care Skirt Maker Name Role Phone Alexei Valdez MD Primary Care Provider [phone] Dano Edwards MD Unavailable [phone] Allergies No known active allergies Medications [...] equal to 0.5 cm in greatest dimension (CMS/HCC [facility]/HCC) 02/13/2023 Presence of Watchman left atrial appendage closu re device 11/25/2022 Primary hypertension 05/17/2021 Dyslipidemia 05/17/2021 Atrial fibrillation status p ost cardioversion ([facility]) 05/01/2021 Paroxysmal atrial fibrillation ([facility]) 06/10/2019 Bilateral carotid artery stenosis 06/10/2019 Precordial pain 06/10/2019 Family History Medical History Relation Comments Heart [...] on file Legal Sex Female 4:20 PM ROLLING MACHINE TENDER Gender Identity Not on file Sexual Orientation Not on file Occupation Industry Job Start Date Job End Date Not on file Not on file Not on file Not on file Last Filed Vital Signs Vital Sign Reading Time Taken Comments Blood Pressure 130/62 02/25/2024 9:09 AM ROLLING MACHINE TENDER Pulse 61 02/25/2024 9:09 AM ROLLING MACHINE TENDER Temperature 37.1 C (98.7 F) 05/17/2023 4:13 PM ROLLING MACHINE TENDER Respiratory Rate 27 05/17/2023 7:40 PM ROLLING MACHINE TENDER Oxygen Saturation 96% 02/25/2024 9:09 AM ROLLING MACHINE TENDER Inhaled Oxygen Concentration - - Weight 50.8 kg (112 lb) 02/25/2024 9:09 AM ROLLING MACHINE TENDER Height 157.5 cm (5' 2 ) 02/25/2024 9:09 AM ROLLING MACHINE TENDER Body Mass Index 20.49 02/25/2024 9:09 AM ROLLING MACHINE TENDER Plan of Treatment Upcoming Encounters Date Type Department Care Team (Late st Contact Info) Description 08/19/2024 10:30 AM CDT [facility] [address] [place] [address] Halie Zepeda, BAND ATTACHER-C Three [facility]. [address] [place] [address] 03/02/2025 9:00 AM ROLLING MACHINE TENDER Office [facility], [address] [place] [address] Sarah Biggs PA 3 [facility] [address] [place], [place] [phone] Health Maintenance Due Date Last Done Comments [...] patient able to perform ADLs independently General Kei Zelaya RN Medical Devices Implanted Type Area Developing Machine Operator Device Identifier Shelf Expiration Date Model / Serial / Lot Watchman Flx [place] Closure 20mm-11/25/2022 Implanted:Qty: 1 on 11/25/2022 by Steven Hollingsworth MD Closure Device [id number] [id number] / / Insurance MEDICARE MEDICARE [facility] Advance Directives Documents on File Type Date Recorded Patient Desktop Publisher Expl anation Power of Certified Welder 05/30/2021 POA FOR HE ALTHCARE 2021 * Full Code (Latest Code Status on File) Date Activated Date Inactivated Comments 05/01/2021 4:12 PM 05/02/2021 12:20 PM * Full Code Date Activated Date Inactivated Comments 05/01/2021 8:54 AM 05/01/2021 4:12 PM Care Teams Skirt Maker Relationship Specialty Start Date End Date Alexei Valdez MD [address] [facility] [address] [place] [address] PCP - General INTERNAL MEDICINE 04/12/19 Dano Edwards MD 3 [facility] [address] [place] [address] [employer] Salesperson CARDIOVASCULAR DISEASE 05/25/19
--- OUTSIDE RECORDS SUMMARY | 2024-06-01 06:50 | XMS_ITS | Encounter Summary ---
Author Organization [facility] Address [address] [place] [address] Care Team Providers Care School Bus Dispatcher Name Role Phone Alexei Valdez MD Primary Care Provider [phone] Dano Edwards MD Unavailable [phone] Encounter Details Date Type Department Care Team (Late Contact Info) Description 06/22/2019 Abstract [facility] at [address] [address] Madie Granados [place] Social History Tobacco Use Types Packs/Day Years [...] on file Legal Sex Female 4:20 PM RIGGER APPRENTICE Gender Identity Not on file Sexual Orientation [...] Encounters Date Type Department Care Team (Late Contact Info) Description 08/19/2024 10:30 AM CDT Office Visit [facility] THREE [facility], [place] [place] [address] Halie Zepeda NP-C Three [facility]. [address] [place] [address] 03/02/2025 9:00 AM RIGGER APPRENTICE Office Visit [facility] THREE [facility], [address] [place] [address] Sarah Biggs PA 3 [facility] [address] [place], [place] [id number] documented as of this encounter Procedures Procedure Name Priority Date/Time Associated Diagnosis Comments THYROXINE, FREE (FT4) Routine 06/06/2019 PROTIME (OUTSIDE LAB) Routine 06/05/2017 BASIC METABOLIC PANEL Routine 06/05/2017 THYROID STIM HORMONE TSH Routine 06/05/2017 MAGNESIUM Routine 06/05/2017 documented in this encounter Results * THYROXINE, FREE (FT4) (06/06/2019) [facility] FREE T4 1.28 0.82 - 1.77 06/06/2019 us Doc [facility] Abstract LABORATORY Edited Resul t - Final * MAGNESIUM (06/05/2017) [facility] MAGNESIUM 2.1 1.6 - 2.3 06/05/2017 us [...] on filedocumented in this encounter Care Teams School Bus Dispatcher Relationship Specialty Start Date End Date Alexei Valdez MD [address] [facility] [address] [place] [address] PCP - General INTERNAL MEDICINE 04/12/19 Dano Edwards MD 3 [facility] [address] [place] [address] [place] Threshing Machine Operator CARDIOVASCULAR DISEASE 05/25/19 documented as of this encounter
[2024-06-01 07:28] LABS: Basophils Absolute Auto 0.1 K/mm3 (0.0-0.1); Basophils Percent Auto 1.2 % (0.2-1.2); Eosinophils Absolute Auto 0.2 K/mm3 (0-0.3); Eosinophils Percent Auto 3.7 % (0-4.4); Hematocrit 37.4 % (37.0-47.0); Hemoglobin 12.3 g/dL (12.0-15.0); Immature Granulocyte Absolute 0.02 K/mm3 (0.00-0.031); Immature Granulocyte Percent A 0.4 % (0-0.5); Lymphocytes Percent Auto 30.4 % (18.3-44.2); Mean Corpuscular HGB Conc 32.9 g/dl (32-36); Mean Corpuscular Hemoglobin 31.1 pg (26-34); Mean Corpuscular Volume 94.7 fl (80-100); Mean Platelet Volume 9.7 fl (7.4-10.4); Monocytes Absolute Auto 0.6 K/mm3 (0.1-0.6); Monocytes Percent Auto 12.4 % (2.6-8.5); Neutrophils Absolute Auto 2.6 K/mm3 (1.3-6.7); Neutrophils Percent Auto 51.9 % (45.5-73.1); Platelet Count Result 190 k/mm3 (150-375); Red Blood Count 3.95 M/mm3 (4.2-5.4); Red Cell Distribution Width 11.8 % (11.5-14.5); White Blood Count 4.9 K/mm3 (4.5-10.0)
[2024-06-01 07:30] LABS: Add Urine Microscopic? NO; Appearance Urine Clear (Clear); Bilirubin Urine Negative (Negative); Blood Urine Negative (Negative); Color Urine Yellow (Yellow); Glucose Urine UA Negative (Negative); Ketones Urine Negative (Negative); Leukocyte Esterase Ur Negative LEU/UL (Negative); Nitrate Urine Negative (Negative); Protein Urine Negative (Negative); Specific Grav Ur 1.007 (1.001-1.035); Urobilinogen Urine 0.2 mg/dL (<2.0)
[2024-06-01 07:37] LABS: Hemoglobin A1C 5.9 % (<5.7)
[2024-06-01 07:39] LABS: Alanine Aminotransferase 17 U/L (6-35); Alkaline Phosphatase 61 U/L (38-126); Anion Gap 7 mmol/L (4-12); Aspartate Amino Transferase 27 U/L (14-36); Bilirubin,Total 0.3 mg/dL (0.2-1.3); Blood Urea Nitrogen 10 mg/dL (7-17); Calcium 9.2 mg/dL (8.4-10.2); Carbon Dioxide 29 mmol/L (22-30); Chloride 99 mmol/L (98-107); Cholesterol 132 mg/dL (0-200); Estimated Glomerular Filt Rate > 60; Glucose 98 mg/dL (65-110); HDL Direct 68 mg/dL; Sodium 135 mmol/L (137-145); Triglycerides 45 mg/dL (<150)
[2024-06-01 07:50] LABS: LDL Cholesterol Direct 47 mg/dL
[2024-06-01 07:54] LABS: Free T4 Free Thyroxine 1.09 ng/dL (0.78-2.19)
== END 2024-06-01 06:48 | disposition home or self-care (01) ==
LOC: ANHLAB 06:48
PROVIDERS: PCP Internal Medicine; Visit Provider Internal Medicine
DX: E78.5 Hyperlipidemia, unspecified (principal); I10 Essential (primary) hypertension; R73.03 Prediabetes; D50.9 Iron deficiency anemia, unspecified; Z13.29 Encounter for screening for other suspected endocrine disorder; Z79.899 Other long term (current) drug therapy
CPT/HCPCS: 36415; 80053; 80061; 81003; 83036; 84439; 84443; 85025

== ENCOUNTER 2024-07-02 09:54 | Outpatient (CLI) | payer MEDICARE, OTHER, SELFPAY ==
--- NOTE | ~2024-07-02 | US_ITS ---
EXAMINATION: US carotid duplex BI DATE: 07/02/2024 10:31 INDICATION: Symptoms and signs involving circulatory system TECHNIQUE: Grayscale, color Doppler, and pulsed Doppler images of the cervical carotid arteries were obtained. The degree of vessel stenosis is placed in one of the following categories: normal, <50%, 5 0-69%, >=70% but less than near-occlusion, near-occlusion, or total occlusion. Note that percent sten osis relative to normal distal artery lumen diameter is indirectly measured from velocity measurement s as described by Dilip, et al. Radiology 2003; 229:340-346. Notes: Normal: Peak systolic velocity <125 centimeters/sec and no plaque <50%. Peak systolic velocity <125 ( EDV <40; ICA/CCA PSV ratio <2.0; used these factors only a tandem lesions or low cardiac output or co ntralateral disease) 50-69 %: PSV 125-230 (EDV 40-100; ratio 2-4) >= 70% but less than near occlusion: PSV greater than 230 (EDV > 100; ratio> 4.0) Near Occlusion: PSV that is variable; markedly narrowed lumen Occlusion: Absent flow on color/spectral Doppler and no lumen on cardenas scale. COMPARISON: Ultrasound dated 07/23/2022. FINDINGS: RIGHT: The right common carotid artery (CCA) peak systolic velocity (PSV) is 98 cm/s. The right internal car otid artery (ICA) PSV is 138 cm/s. The right ICA end-diastolic velocity (EDV) is 29 cm/s. The right I CA/CCA PSV ratio is 1.4. The external carotid artery (ECA) PSV is 134 cm/s. There is antegrade flow i n the right vertebral artery. LEFT: The left CCA PSV is 92 cm/s. The left ICA PSV is 142 cm/s. The left ICA EDV is 30 cm/s. The left ICA/ CCA PSV ratio is 1.5. The ECA PSV is 129 cm/s. There is antegrade flow in the left vertebral artery. IMPRESSION: 1. 50-69% stenosis in the right internal carotid artery by sonographic criteria. 2. 50-69% stenosis in the left internal carotid artery by sonographic criteria. Reviewed, dictated and finalized at location A. IMPRESSION: 1. 50-69% stenosis in the right internal carotid artery by sonographic criteria . 2. 50-69% stenosis in the left internal carotid artery by sonographic criteria.
--- OUTSIDE RECORDS SUMMARY | 2024-07-02 09:58 | XMS_ITS | Clinical Summary ---
Author Organization [facility] Address [address] [place] [address] Care Team Providers Care Manager Registration Name Role Phone Alexei Valdez MD Primary [...] Pain. Active fluticasone propionate (FLONASE) 50 mcg/spray [place], Suspension nasal inhaler Administer 2 Sprays in each nostril daily. Active anastrozole (Arimidex) 1 mg tablet Take 1 Tablet (1 mg) by mouth daily. 90 Tablet 3 Active Active Problems No known active problems Encounters Date Type Department Care Team Description 06/29/2024 Telephone [facility] Oncology and Hematology - [place] [address] [facility] [address] [place] [address] Abdifatah Ladd MD Breast Concerns 05/03/2024 External Device Data STL ABSTRACTION Provider, Abstract 04/25/2024 Refill [facility] Oncology and Hematology [facility] [address] [place] [address] Abdifatah Ladd MD 04/15/2024 Orders Only [facility] Oncology and Hematology [facility] [address] [place] [address] Abdifatah Ladd MD 04/14/2024 11:00 AM GAS METER READER Office Visit [facility] Oncology and Hematology [facility] [address] [place] [address] Abdifatah Ladd MD Chronic anemia (Primary Dx) 04/07/2024 External Device Data STL ABSTRACTION Provider, Abstract 04/06/2024 External Device Data STL ABSTRACTION Provider, Abstract 04/05/2024 External Device Data STL ABSTRACTION Provider, Abstract from Last 3 Months Social History Tobacco Use Types Packs/Day Years Used Date Smoking Tobacco: Former Cigarettes Smokeless Tobacco: Never Tobacco Cessation:Counseling Given: Not Answered Alcohol Use Standard Drinks/Week Comments Not Currently 0 (1 standard drink = 0.6 oz pur e alcohol) Comments Unknown Sex and Gender Information Value Date Recorded Sex Assigned at Not on file Legal Sex Female 3:33 PM GAS METER READER Gender Identity Not on file Sexual Orientation Not on file Last Filed Vital Signs Vital Sign Reading Time Taken Comments Blood Pressure 121/61 04/14/2024 10:59 AM GAS METER READER Pulse 61 04/14/2024 10:59 AM GAS METER READER Temperature 36.8 C (98.2 F) 04/14/2024 10:59 AM GAS METER READER Respiratory Rate 15 04/14/2024 10:59 AM GAS METER READER Oxygen Saturation 96% 04/14/2024 10:59 AM GAS METER READER Inhaled Oxygen Concentration - - Weight 50.9 kg (112 lb 3.2 oz) 04/14/2024 10:59 AM GAS METER READER Height 157.5 cm (5' 2 ) 01/26/2023 3:05 PM GAS METER READER Body Mass Index 20.52 01/26/2023 3:05 PM GAS METER READER Plan of Treatment Upcoming Encounters Date Type Department Care Team (Late st Contact Info) Description 07/06/2024 10:00 AM CDT Office Visit [facility] Oncology and Hematology - [place] [address] [place] [address] Lisa Tanner MD [address] [place] [address] Health Maintenance Due Date Last [...] BASIC METABOLIC PANEL Routine 04/14/2024 12:38 PM GAS METER READER CBC WITH AUTODIFFERENTIAL Routine 2024 12:31 PM GAS METER READER from Last 3 Months Results * BASIC METABOLIC PANEL (04/14/2024 12:38 PM GAS METER READER) Blood Abdifatah Ladd MD CHEMISTRY ORDERABLES Final Resu lt * CBC WITH AUTODIFFERENTIAL (04/14/2024 12:31 PM GAS METER READER) Blood Abdifatah Ladd MD HEMATOLOGY ORDERABLES Final Res ult from Last 3 Months Insurance [employer] Member Subscriber Plan / Payer (Ef fective 2021-Present) Name:Ngozi Zazueta Relation to Subscriber:Self Name:Ngozi Zazueta Payer ID:Not on file Group ID:Not on file Type:[facility] Address: [address] Member Subscriber Plan / Payer (Ef fective 2019-Present) Name:Ngozi Zazueta Relation to Subscriber:Self Name:Ngozi Zzaueta Payer ID:Not on file Group ID:Not on file Type:[place] Address: [address] [id number] MEDICARE PART A AND B Care Teams Manager Registration Relationship Specialty Start Date End Date Alexei Valdez MD [address] [place] [address] PCP - General Internal Medicine 01/26/23
--- OUTSIDE RECORDS SUMMARY | 2024-07-02 09:58 | XMS_ITS | Clinical Summary ---
Author Organization [facility] Address [address] [place] [address] Care Team Providers Care Field Irrigation Worker Name Role Phone Unavailable Primary Care Provider Unavailabl e Source Comments [facility],non-owned Affiliates and Associated Physician Practices is amultiple site organization consisting of ambulatory clinics and hospital sitesin [place], [place], [place] and [place]. This disclosure is being madepursuant to the Care Everywhere program and may not contain all information available regarding this patient. Last updated 17.[facility] Allergies No known active allergies Medications * Be aware that medications may not be up to date on this document. Alwaysverify current medications with the patient. No known medications Immunizations Immunization Administration Dates Next Due INFLUENZA VACCINE, HIGH-DOSE , QUADR. (FLUZONE HIGH-DOSE QUADRIVALENT; 65Y+), 0.7 ML (HD-IIV4) 12/20/2017 Social History Tobacco Use Types Packs/Day Years Used Date Smoking Tobacco: Never Assessed Comments Unknown Sex and Gender Information Value Date Recorded Sex Assigned at Not on file Legal Sex Female 10:20 AM CDT Gender Identity Not on file Sexual Orientation [...] 2018 COVID-19 VACCINE (2023-2 5 season) 2023 DEPRESSION SCREENING 03/16/2024 INFLUENZA VACCINE (Season Ended) 2024 12/21/19 18 HEPATITIS B VACCINE Aged Out No longe [...] on patient's age to complete this topic Insurance MEDICARE MEDICARE [facility] [address] [place] [id number] MEDICARE MEDICARE COMMERCIAL [facility] MEDICARE COMMERCIAL GENERIC Member Subscriber Plan / Payer (Ef fective for All Dates) Name:Ngozi Martinez Member ID:Not on file Relation to Subscriber:Self Name:Ngozi Martinez Subscriber ID:Not on file Payer ID:Not on file Group ID:Not on file Type:Commercial Address: [facility] MEDICARE COMMERCIAL GENERIC [facility] RISK
--- OUTSIDE RECORDS SUMMARY | 2024-07-02 09:58 | XMS_ITS | Encounter Summary ---
Author Organization [facility] Address [facility] [place] [address] Care Team Providers Care Visual Merchandising Assistant Name Role Phone Alexei Valdez MD Primary Care Provider [phone] Dano Edwards MD Unavailable [phone] Encounter Details Date Type Department Care Team (Late st Contact Info) Description 11/25/2022 Hospital Orders Only [facility] Anesthesia [place], [place] [address] Gonsalo Rosales MD [address] [id number] Anesthesia Record Procedure Summary Procedure Name Responsible [...] on file Legal Sex Female 4:20 PM TALKING BOOKS LIBRARY CLERK Gender Identity Not on file Sexual Orientation Not on file Occupation Industry Job Start Date Job End Date Not on file Not on file Not on file Not on file documented as of this encounter Functional Status * RETIRED Are you deaf or do you have serious difficulty hearing Answer Date of Assessment Author Status No 05/01/2021 1:10 PM TALKING BOOKS LIBRARY CLERK Activ e * RETIRED Are you blind or do you have serious difficulty seeing, even when wearing glasses? Answer Date of Assessment Author Status No 05/01/2021 1:10 PM TALKING BOOKS LIBRARY CLERK Activ e * Do you have serious difficulty walking or climbing stairs? Answer Date of Assessment Author Status No 05/01/2021 1:10 PM TALKING BOOKS LIBRARY CLERK Yen Guevara RN Active * Do you have difficulty dressing or bathing? Answer Date of Assessment Author Status No 05/01/2021 1:10 PM Yen Carey RN Active * Because of a physical, mental, or emotional condition, do you have difficulty doing errands alone such as visiting a doctor's office or shopping? Answer Date of Assessment Author Status No 05/01/2021 1:10 PM TALKING BOOKS LIBRARY CLERK Yen Guevara RN Active * Calculated C-SSRS Risk Score (Lifetime/Recent) Answer Date of Assessment Author Status No Risk Indicated 11/25/2022 8:52 AM CDT Lindsay Schaefer RN Active * [place] Suicide Severity Rating Scale (Screener/Recent Self-Report) Question Answer Date of Assessment Author Status 1. Wish to be (Past 1 Month) No 11/25/2022 8:52 AM JESUST Tammy Schaefer RN Ac tive 2. Non-Specific Active Suicidal Thoughts (Past 1 Month) No 11/25/2022 8:52 AM CDT Tammy Schaefer RN Ac tive 6. Suicidal Behavior (Lifetime) No 11/25/2022 8:52 AM CDT Tammy Schaefer RN Ac tive documented as of this encounter Mental Status * Because of a physical, mental, or emotional condition, do you have serious difficulty concentrating, remembering, or making decisions? Answer Entry Date Author Status No 05/01/2021 1:10 PM TALKING BOOKS LIBRARY CLERK Yen Guevara RN Active documented in this encounter Plan of Treatment Upcoming Encounters Date Type Department Care Team (Late st Contact Info) Description 08/19/2024 10:30 AM CDT [facility] [address] [place] [address] Halie Zepeda, MECHANICAL COMMISSIONING ENGINEER-C [facility]. [facility] [address] [place] [address] 03/02/2025 10:15 AM TALKING BOOKS LIBRARY CLERK Office Visit [facility], [place] [place] [address] Sarah Biggs PA 3 [facility] [address] [place], [place] [address] documented as of this encounter Goals Goal Patient Goal Type Associated Problems Recent Progress Patient-Stated? Author Health - patient able to perform ADLs independently General No Kei Jc RN documented as of this encounter Visit Diagnoses Not on filedocumented in this encounter Care Teams Visual Merchandising Assistant Relationship Specialty Start Date End Date Alexei Valdez MD [address] [place] [address] PCP - General INTERNAL MEDICINE 04/12/19 Dano Edwards MD 3 [facility] [address] [place] [address] [place] Radiographer Cardiac Catheterization CARDIOVASCULAR DISEASE 05/25/19 documented as of this encounter
--- OUTSIDE RECORDS SUMMARY | 2024-07-02 09:58 | XMS_ITS | Encounter Summary ---
Author Organization [facility] Address [facility] [place] [address] Care Team Providers Care Set Up Operator Tool Name Role Phone Unavailable Primary Care Provider Unavailabl e Encounter Details Date Type Department Care Team (Late st Contact Info) Description 11/10/2023 Lab Requisition [facility] DermPath Lab [address] [place] [address] Bhumi Saavedra PA [address] [place] [address] Social History Tobacco Use Types Packs/Day Years [...] AM CDT) Case Report Dermatopathology Report Case: [id number] Authorizing Provider: Bhumi Saavedra PA Collected: 11/10/2023 09:24 AM Ordering Location: [facility] - Received: 11/11/2023 11:28 AM DermPath Lab [...] characteristic determined by the Dermatopathology Laboratory at [facility], directed by Dr. Dee Dee Myles. These tests need not be, and therefore are not, approved by the [place] Food and Drug Administration. The tests are used for clinical purposes. Billing Codes Specimen Charges Stain Charges 05858 1 1:57 PM CDT DERMATOPATHOLOGY LABORATORY Embedded Images 1:57 PM CDT DERMATOPATHOLOGY LABORATORY Pathology/Cytolo gy TISSUE SPECIMEN FROM SKIN / Unknown 11/10/2023 9:24 AM CDT 11/11/2023 11:28 AM CDT us [facility] - PATHOLOGY/CYTOLOGY ORDERAB LES Final Result DERMATOPATHOLOGY LABORATORY [facility] - Department of Dermatology [address], [address] Floor [address] [phone] documented in this encounter Visit Diagnoses Not on filedocumented in this encounter
--- OUTSIDE RECORDS SUMMARY | 2024-07-02 09:58 | XMS_ITS | Clinical Summary ---
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 11/25/2022 Primary hypertension 05/17/2021 Dyslipidemia 05/17/2021 Atrial fibrillation status p ost cardioversion ([facility]) 05/01/2021 Paroxysmal atrial fibrillation ([facility]) 06/10/2019 Bilateral carotid artery stenosis 06/10/2019 Precordial [...] on file Legal Sex Female 4:20 PM PIZZA CHEF Gender Identity Not on file Sexual Orientation Not on file Occupation Industry Job Start Date Job End Date Not on file Not on file Not on file Not on file Last Filed Vital Signs Vital Sign Reading Time Taken Comments Blood Pressure 130/62 02/25/2024 9:09 AM PIZZA CHEF Pulse 61 02/25/2024 9:09 AM PIZZA CHEF Temperature 37.1 C (98.7 F) 05/17/2023 4:13 PM PIZZA CHEF Respiratory Rate 27 05/17/2023 7:40 PM PIZZA CHEF Oxygen Saturation 96% 02/25/2024 9:09 AM PIZZA CHEF Inhaled Oxygen Concentration - - Weight 50.8 kg (112 lb) 02/25/2024 9:09 AM PIZZA CHEF Height 157.5 cm (5' 2 ) 02/25/2024 9:09 AM PIZZA CHEF Body Mass Index 20.49 02/25/2024 9:09 AM PIZZA CHEF Plan of Treatment Upcoming Encounters Date Type Department Care Team (Late st Contact Info) Description 08/19/2024 10:30 AM CDT [facility] [address] [place] [address] Halie Zepeda, GLOBAL SAFETY OFFICER-C Three [facility]. [address] [place] [address] 03/02/2025 10:15 AM PIZZA CHEF Office [facility] [address] [place] [address] Sarah Biggs PA 3 [facility] [address] [place], [place] [phone] Health Maintenance Due Date Last Done Comments DTaP, Tdap and Td Vaccines ( 1 - Tdap) 1962 Annual Medicare Wellness Visit 2008 Dexa Scan (General) 2008 RSV Immunization or 60+ Years (1 - 1-dose 75+ series) 2018 Zoster Vaccines (2 of 3) 06/14/2018 019, 12/25/2010 COVID-19 Vaccine (4 - 2023-2 5 season) 2023 01/04/2021, 05/15/2020, 04/12/2020 Pneumococcal Vaccine: 50+ Years Completed 12/27/2016, 12/23/2014 Meningococcal B Vaccine Aged Out No l onger eligible based on patient's age to complete this topic Meningococcal Vaccine Aged Out No joel noé eligible based on patient's age to complete this topic RSV Immunizations Under 20 Months Aged Out No longer eligible b ased on patient's age to complete this topic Goals Goal Patient Goal Type Associated Problems Recent Progress Patient-Stated? Author Health - patient able to perform ADLs independently General No Kei Jc, RN Medical Devices Implanted Type Area Dehairer Device Identifier Shelf Expiration Date Model / Serial / Lot Watchman Flx [place] Closure 20mm-11/25/2022 Implanted:Qty: 1 on 11/25/2022 by Steven Hollingsworth MD Closure Device milabent [id number] / / Insurance MEDICARE MEDICARE [facility] [place] [address] Advance Directives Documents on File Type Date Recorded Patient Commercial Engineer Expl anation Power of Manager Library 05/30/2021 POA FOR HE ALTHCARE 2021 * Full Code (Latest Code Status on File) Date Activated Date Inactivated Comments 05/01/2021 4:12 PM 05/02/2021 12:20 PM * Full Code Date Activated Date Inactivated Comments 05/01/2021 8:54 AM 05/01/2021 4:12 PM Care Teams Service Member Relationship Specialty Start Date End Date Alexei Valdez MD [address] [facility] [address] [place] [phone] PCP - General INTERNAL MEDICINE 04/12/19 Dano Edwards MD 3 [facility] [address] [place] [phone] [place] Electronic Funds Transfer Coordinator CARDIOVASCULAR DISEASE 05/25/19
--- OUTSIDE RECORDS SUMMARY | 2024-07-02 09:58 | XMS_ITS | Encounter Summary ---
Author Organization [facility] Address [address] [place] [address] Care Team Providers Care Model Maker Plastic Name Role Phone Alexei Valdez MD Primary Care Provider [phone] Dano Edwards MD Unavailable [phone] Encounter Details Date Type Department Care Team (Late Contact Info) Description 06/22/2019 Abstract [facility] at [address] [address] Madie Granados [place] Social History Tobacco Use Types Packs/Day Years [...] on file Legal Sex Female 4:20 PM UTILITY SUPERVISOR BOAT AND PLANT Gender Identity Not on file Sexual Orientation [...] Description 08/19/2024 10:30 AM CDT Office Visit [facility], [address] [place] [address] Halie Zepeda NP-C Three [facility]. [address] [place] [address] 03/02/2025 10:15 AM UTILITY SUPERVISOR BOAT AND PLANT Office Visit [facility], [address] [place] [address] Sarah Biggs PA 3 [facility] [address] [place], [place] [phone] documented as of this encounter Procedures Procedure Name Priority Date/Time Associated Diagnosis Comments THYROXINE, FREE (FT4) Routine 06/06/2019 PROTIME (OUTSIDE LAB) Routine 06/05/2017 BASIC METABOLIC PANEL Routine 06/05/2017 THYROID STIM HORMONE TSH Routine 06/05/2017 MAGNESIUM Routine 06/05/2017 documented in this encounter Results * THYROXINE, FREE (FT4) (06/06/2019) [facility] FREE T4 1.28 0.82 - 1.77 06/06/2019 us Doc [facility] Abstract LABORATORY Edited Resul t - Final * MAGNESIUM (06/05/2017) [facility] MAGNESIUM 2.1 1.6 - 2.3 06/05/2017 [...] on filedocumented in this encounter Care Teams Model Maker Plastic Relationship Specialty Start Date End Date Alexei Valdez MD [address] [facility] [address] [place] [address] PCP - General INTERNAL MEDICINE 04/12/19 Dano Edwards MD 3 [facility] [address] [place] [address] [place] Linoleum Tile Floor Layer CARDIOVASCULAR DISEASE 05/25/19 documented as of this encounter
--- OUTSIDE RECORDS SUMMARY | 2024-07-02 09:58 | XMS_ITS | Referral Summary ---
Author Organization [facility] Address [address] [place] [address] Care Team Providers Care Steel Welder Name Role Phone Alexei Valdez MD Primary Care Provider [phone] Allergies No known active allergies Medications carvediloL [...] on file Legal Sex Female 8:37 PM SCHOOL JANITOR Gender Identity Not on file Sexual Orientation [...] Plan of Treatment [place] [address] [address] [place] [id number] Care Teams Steel Welder Relationship Specialty Start Date End Date Alexei Valdez MD PCP - General Internal Medicine 10/05/23
--- OUTSIDE RECORDS SUMMARY | 2024-07-02 09:58 | XMS_ITS | Clinical Summary ---
Author Organization [facility] Address [address] [place] [address] Care Team Providers Care Base Loader Name Role Phone Alexei Valdez MD Primary Care Provider Allergies No known active allergies Medications carvediloL [...] on file Legal Sex Female 8:37 PM BONUS CLERK Gender Identity Not on file Sexual [...] 06/14/2018 04/19/2018, 12/25 Covid-19 Vaccine (7 - 2023-2 5 season) 2023 12/02/2022, 12/12/2021, 08/06/2021, Additional history exists Influenza Vaccine (Season Ended) 2024 11/27/2022, 12/07/2021, 11/04/2020, Additional history exists DTaP/Tdap/Td Vaccine (2 - Td or Tdap) 01/13/2032 01/12/2022 Pneumococcal vaccine 65+ Completed 017, 12/23/2014, 12/04/2013 Insurance MEDICARE [facility] [place] [address] [address] [place] [id number] Care Teams Base Loader Relationship Specialty Start Date End Date Alexei Valdez MD PCP - General Internal Medicine 10/05/23
== END 2024-07-02 09:55 | disposition home or self-care (01) ==
PROVIDERS: PCP Internal Medicine; Visit Provider Internal Medicine
DX: R09.89 Other specified symptoms and signs involving the circulatory and respiratory systems (principal); I65.23 Occlusion and stenosis of bilateral carotid arteries
CPT/HCPCS: 93880

== ENCOUNTER 2024-07-06 09:32 | Outpatient (CLI) | payer MEDICARE, OTHER, SELFPAY ==
[2024-07-06 09:47] LABS: Basophils Absolute Auto 0.1 K/mm3 (0.0-0.1); Basophils Percent Auto 1.3 % (0.2-1.2); Eosinophils Absolute Auto 0.1 K/mm3 (0-0.3); Eosinophils Percent Auto 2.4 % (0-4.4); Hematocrit 36.2 % (37.0-47.0); Immature Granulocyte Absolute 0.01 K/mm3 (0.00-0.031); Immature Granulocyte Percent A 0.2 % (0-0.5); Lymphocytes Absolute Auto 1.44 K/mm3 (0.9-3.2); Lymphocytes Percent Auto 26.2 % (18.3-44.2); Mean Corpuscular HGB Conc 33.1 g/dl (32-36); Mean Corpuscular Hemoglobin 31.3 pg (26-34); Mean Corpuscular Volume 94.3 fl (80-100); Mean Platelet Volume 9.2 fl (7.4-10.4); Monocytes Absolute Auto 0.6 K/mm3 (0.1-0.6); Monocytes Percent Auto 11.3 % (2.6-8.5); Neutrophils Absolute Auto 3.2 K/mm3 (1.3-6.7); Neutrophils Percent Auto 58.6 % (45.5-73.1); Platelet Count Result 193 k/mm3 (150-375); Red Blood Count 3.84 M/mm3 (4.2-5.4); Red Cell Distribution Width 11.6 % (11.5-14.5); White Blood Count 5.5 K/mm3 (4.5-10.0)
[2024-07-06 09:50] LABS: Blood Urea Nitrogen 11 mg/dL (8-26); Carbon Dioxide 29 mmol/L (22-30); Chloride 100 mmol/L (98-109); Estimated Glomerular Filt Rate > 60; Glucose 80 mg/dL (70-105); Ionized Calcium (POC) 1.26 mmol/L (1.11-1.31); Potassium 4.2 mmol/L (3.5-4.9); Sodium 138 mmol/L (138-146)
--- OUTSIDE RECORDS SUMMARY | 2024-07-06 10:33 | XMS_ITS | Encounter Summary ---
Author Organization [facility] Address [address] [place] [address] Care Team Providers Care Fashion Intern Name Role Phone Alexei Valdez MD Primary Care Provider + Encounter Details Date Type Department Care Team (Late st Contact Info) Description 07/06/2024 Abstract [facility] Oncology and Hematology - [address] [address] Scanning, Provider Social History Tobacco Use Types Packs/Day Years Used Date Smoking Tobacco: Former Cigarettes Smokeless Tobacco: Never Alcohol Use Standard Drinks/Week Comments Not Currently 0 (1 standard drink = 0.6 oz pur e alcohol) Comments Unknown Sex and Gender Information Value Date Recorded Sex Assigned at Not on file Legal Sex Female 3:33 PM INSIDE PLANT SUPERVISOR Gender Identity Not on file Sexual Orientation Not on file documented as of this encounter Plan of Treatment Not on file documented as of this encounter Visit Diagnoses Not on filedocumented in this encounter Care Teams Fashion Intern Relationship Specialty Start Date End Date Alexei Valdez MD [address] [place] [address] PCP - General Internal Medicine 01/26/23 documented as of this encounter
--- OUTSIDE RECORDS SUMMARY | 2024-07-06 10:33 | XMS_ITS | Referral Summary ---
Author Organization [facility] [employer] Address [address] [place] [address] Care Team Providers Care Commutator Inspector Name Role Phone Alexei Valdez MD Primary Care Provider [phone] Allergies No known active allergies Medications carvediloL [...] on file Legal Sex Female 8:37 PM BRANCH ACCOUNT MANAGER Gender Identity Not on file Sexual Orientation [...] Plan of Treatment [place] [address] [address] [id number] Care Teams Commutator Inspector Relationship Specialty Start Date End Date Alexei Valdez MD PCP - General Internal Medicine 10/05/23
--- OUTSIDE RECORDS SUMMARY | 2024-07-06 10:33 | XMS_ITS | Clinical Summary ---
Author Organization [facility] [employer] [facility] Address [address] [place] [address] Care Team Providers Care Supervisor Poultry Hatchery Name Role Phone Alexei Valdez MD Primary [...] Pain. Active fluticasone propionate (FLONASE) 50 mcg/spray [place], Suspension nasal inhaler Administer 2 Sprays in each nostril daily. Active Active Problems No known active problems Encounters Date Type Department Care Team Description 07/06/2024 10:00 AM CDT Office Visit [facility] Oncology and Hematology - [address] [place] [address] Lisa Tanner MD Arrived 07/06/2024 Abstract [facility] Oncology and Hematology - [address] [place] [address] Scanning, Provider 07/06/2024 Abstract [facility] Oncology and Hematology [facility] [address] [place] [address] Abdifatah Ladd MD 06/29/2024 Telephone [facility] Oncology and Hematology [facility] [address] [place] [address] Abdifatah Ladd MD Breast Concerns 05/03/2024 External Device Data STL ABSTRACTION Provider, Abstract 04/25/2024 Refill [facility] Oncology and Hematology [facility] [address] [place] [address] Abdifatah Ladd MD 04/15/2024 Orders Only [facility] Oncology and Hematology [facility] [address] [place] [address] Abdifatah Ladd MD 04/14/2024 11:00 AM SUPERINTENDENT GENERATING PLANT Office Visit [facility] Oncology and Hematology [facility] [address] [place] [address] Abdifatah Ladd MD Chronic anemia (Primary Dx) [...] on file Legal Sex Female 3:33 PM SUPERINTENDENT GENERATING PLANT Gender Identity Not on file Sexual Orientation Not on file Last Filed Vital Signs Vital Sign Reading Time Taken Comments Blood Pressure 125/60 07/06/2024 10:00 AM CDT Pulse 58 07/06/2024 10:00 AM CDT Temperature 36.8 C (98.3 F) 07/06/2024 10:00 AM CDT Respiratory Rate 15 07/06/2024 10:0 0 AM CDT Oxygen Saturation 96% 07/06/2024 10: 00 AM CDT Inhaled Oxygen Concentration - - Weight 52.5 kg (115 lb 12.8 oz) 025 10:00 AM CDT Height 157.5 cm (5' 2 ) 01/26/2023 3:05 PM SUPERINTENDENT GENERATING PLANT Body Mass Index 21.18 01/26/2023 3:05 PM SUPERINTENDENT GENERATING PLANT Plan of Treatment Health Maintenance Due Date Last Done Comments DTAP/TDAP/TD VACCINES (1 - Tdap) 1964 Traditional Medicare (ACO) A nnual Wellness Visit 1964 PNEUMOCOCCAL VACCINE 50+ YEA RS (1 of 1 - PCV) 1993 ZOSTER VACCINE (1 of 2) 1993 RSV VACCINE (60+ or ) (1 - 1-dose 75+ series) 2018 INFLUENZA VACCINE (#1) 2023 12/20/2017 OSTEOPOROSIS SCREENING 12/06/2027 3, 12/03/2020, 11/29/2018 COLORECTAL SCREENING Discontinued 03/12/2023 Colorectal Cancer Screening Discontinued FIT-DNA Q 3 years Discontinued FIT/FOBT Q 1 year Discontinued Flex Sig/CT Colonography Q 5 years Discontinued Procedures Procedure Name Priority Date/Time Associated Diagnosis Comments BASIC METABOLIC PANEL Routine 04/14/2024 12:38 PM SUPERINTENDENT GENERATING PLANT CBC WITH AUTODIFFERENTIAL Routine 2024 12:31 PM SUPERINTENDENT GENERATING PLANT from Last 3 Months Results * BASIC METABOLIC PANEL (04/14/2024 12:38 PM SUPERINTENDENT GENERATING PLANT) Blood Abdifatah Ladd MD CHEMISTRY ORDERABLES Final Resu lt * CBC WITH AUTODIFFERENTIAL (04/14/2024 12:31 PM SUPERINTENDENT GENERATING PLANT) Blood Abdifatah Ladd MD HEMATOLOGY ORDERABLES Final Res ult from Last 3 Months Insurance [facility] Address: [address] MEDICARE PART A AND B Care Teams Supervisor Poultry Hatchery Relationship Specialty Start Date End Date Alexei Valdez MD [address] [place] [address] PCP - General Internal Medicine 01/26/23
--- OUTSIDE RECORDS SUMMARY | 2024-07-06 10:33 | XMS_ITS | Clinical Summary ---
Author Organization [facility] [employer] Address [address] [place] [address] Care Team Providers Care Press Reader Name Role Phone Alexei Valdez MD Primary Care Provider [phone] Allergies No known active allergies Medications carvediloL [...] on file Legal Sex Female 8:37 PM ELECTRONICS INSPECTOR Gender Identity Not on file Sexual Orientation [...] 65+ Completed 017, 12/23/2014, 12/04/2013 Insurance MEDICARE [facility] [place] [address] [address] [id number] Care Teams Press Reader Relationship Specialty Start Date End Date Alexei Valdez MD PCP - General Internal Medicine 10/05/23
--- OUTSIDE RECORDS SUMMARY | 2024-07-06 10:34 | XMS_ITS | Encounter Summary ---
Author Organization [facility] Address [facility] [place] [address] Care Team Providers Care Tandem Operator Name Role Phone Unavailable Primary Care Provider Unavailabl e Encounter Details Date Type Department Care Team (Late st Contact Info) Description 11/10/2023 Lab Requisition [facility] DermPath Lab [address] [place] [address] Bhumi Saavedra PA [address] [place] [address] Social History Tobacco Use Types Packs/Day Years [...] AM CDT) Case Report Dermatopathology Report Case: [id number] Authorizing Provider: Bhumi Saavedra PA Collected: 11/10/2023 09:24 AM Ordering Location: [facility] - Received: 11/11/2023 11:28 AM [...] characteristic determined by the Dermatopathology Laboratory at [facility], directed by Dr. Dee Dee Myles. These tests need not be, and therefore are not, approved by the [place] Food and Drug Administration. The tests are used for clinical purposes. Billing Codes Specimen Charges Stain Charges 37994 1 1:57 PM CDT DERMATOPATHOLOGY LABORATORY Embedded Images 1:57 PM CDT DERMATOPATHOLOGY LABORATORY Pathology/Cytolo gy TISSUE SPECIMEN FROM SKIN / Unknown 11/10/2023 9:24 AM CDT 11/11/2023 11:28 AM CDT us [facility] - PATHOLOGY/CYTOLOGY ORDERAB LES Final Result DERMATOPATHOLOGY LABORATORY [facility] - Department of Dermatology [address], [address] Floor [address] [phone] documented in this encounter Visit Diagnoses Not on filedocumented in this encounter
--- OUTSIDE RECORDS SUMMARY | 2024-07-06 10:34 | XMS_ITS | Encounter Summary ---
Author Organization [facility] Address [facility] [place] [address] Care Team Providers Care Library Specialist Name Role Phone Alexei Valdez MD Primary Care Provider [phone] Dano Edwards MD Unavailable [phone] Encounter Details Date Type Department Care Team (Late st Contact Info) Description 11/25/2022 Hospital Orders Only [facility] Anesthesia [place], [place] [address] Gonsalo Rosales MD [address] [phone] Anesthesia Record Procedure Summary Procedure Name Responsible [...] on file Legal Sex Female 4:20 PM CANE WEIGHER Gender Identity Not on file Sexual Orientation Not on file Occupation Industry Job Start Date Job End Date Not on file Not on file Not on file Not on file documented as of this encounter Functional Status * RETIRED Are you deaf or do you have serious difficulty hearing Answer Date of Assessment Author Status No 05/01/2021 1:10 PM CANE WEIGHER Activ e * RETIRED Are you blind or do you have serious difficulty seeing, even when wearing glasses? Answer Date of Assessment Author Status No 05/01/2021 1:10 PM CANE WEIGHER Activ e * Do you have serious difficulty walking or climbing stairs? Answer Date of Assessment Author Status No 05/01/2021 1:10 PM CANE WEIGHER Yen Guevara RN Active * Do you have difficulty dressing or bathing? Answer Date of Assessment Author Status No 05/01/2021 1:10 PM Yen Carey RN Active * Because of a physical, mental, or emotional condition, do you have difficulty doing errands alone such as visiting a doctor's office or shopping? Answer Date of Assessment Author Status No 05/01/2021 1:10 PM CANE WEIGHER Yen Guevara RN Active * Calculated C-SSRS Risk Score (Lifetime/Recent) Answer Date of Assessment Author Status No Risk Indicated 11/25/2022 8:52 AM CDT Lindsay Schaefer RN Active * [place] Suicide Severity Rating Scale (Screener/Recent Self-Report) Question [...] Date Author Status No 05/01/2021 1:10 PM CANE WEIGHER Yen Guevara RN Active documented in this encounter Plan of Treatment Upcoming Encounters Date Type Department Care Team (Late st Contact Info) Description 08/19/2024 10:30 AM CDT Office Visit [facility], [facility] [address] [place] [address] Halie Zepeda, HYDRAULIC PRESS SERVICER-C [facility]. [facility] [address] [place] [address] 03/02/2025 10:15 AM CANE WEIGHER Office Visit [facility], [address] [place] [address] Sarah Biggs PA 3 [facility] [address] [place], [place] [id number] documented as of this encounter Goals Goal Patient Goal Type Associated Problems Recent Progress Patient-Stated? Author Health - patient able to perform ADLs independently General No Kei Jc RN documented as of this encounter Visit Diagnoses Not on filedocumented in this encounter Care Teams Library Specialist Relationship Specialty Start Date End Date Alexei Valdez MD [address] [place] [address] PCP - General INTERNAL MEDICINE 04/12/19 Dano Edwards MD 3 [facility] [address] [place] [address] Joffre Pharmacist Helper CARDIOVASCULAR DISEASE 05/25/19 documented as of this encounter
--- OUTSIDE RECORDS SUMMARY | 2024-07-06 10:34 | XMS_ITS | Encounter Summary ---
Author Organization [facility] Address [address] [place] [address] Care Team Providers Care Streetcar Dispatcher Name Role Phone Alexei Valdez MD Primary Care Provider + Encounter Details Date Type Department Care Team (Late st Contact Info) Description 07/06/2024 10:00 AM CDT Office Visit [facility] Oncology and Hematology - Son[address] [place] [address] Lisa Tanner MD [address] [place] [address] Arrived Social History Tobacco Use Types Packs/Day Years Used Date Smoking Tobacco: Former Cigarettes Smokeless Tobacco: Never Tobacco Cessation:Counseling Given: Not Answered Alcohol Use Standard Drinks/Week Comments Not Currently 0 (1 standard drink = 0.6 oz pur e alcohol) Comments Unknown Sex and Gender Information Value Date Recorded Sex Assigned at Not on file Legal Sex Female 3:33 PM GUITAR REPAIR TECHNICIAN Gender Identity Not on file Sexual Orientation [...] 12.8 oz) 025 10:00 AM CDT Height - - Body Mass Index 21.18 01/26/2023 3:05 PM GUITAR REPAIR TECHNICIAN documented in this encounter Plan of Treatment Not on file documented as of this encounter Visit Diagnoses Not on filedocumented in this encounter Care Teams Streetcar Dispatcher Relationship Specialty Start Date End Date Alexei Valdez MD [address] [place] [address] PCP - General Internal Medicine 01/26/23 documented as of this encounter
--- OUTSIDE RECORDS SUMMARY | 2024-07-06 10:34 | XMS_ITS | Clinical Summary ---
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 11/25/2022 Primary hypertension 05/17/2021 Dyslipidemia 05/17/2021 Atrial fibrillation status p ost cardioversion ([facility]) 05/01/2021 Paroxysmal atrial fibrillation ([facility]) 06/10/2019 Bilateral carotid artery stenosis 06/10/2019 Precordial [...] on file Legal Sex Female 4:20 PM OCC MED PHYSICIAN Gender Identity Not on file Sexual Orientation Not on file Occupation Industry Job Start Date Job End Date Not on file Not on file Not on file Not on file Last Filed Vital Signs Vital Sign Reading Time Taken Comments Blood Pressure 130/62 02/25/2024 9:09 AM OCC MED PHYSICIAN Pulse 61 02/25/2024 9:09 AM OCC MED PHYSICIAN Temperature 37.1 C (98.7 F) 05/17/2023 4:13 PM OCC MED PHYSICIAN Respiratory Rate 27 05/17/2023 7:40 PM OCC MED PHYSICIAN Oxygen Saturation 96% 02/25/2024 9:09 AM OCC MED PHYSICIAN Inhaled Oxygen Concentration - - Weight 50.8 kg (112 lb) 02/25/2024 9:09 AM OCC MED PHYSICIAN Height 157.5 cm (5' 2 ) 02/25/2024 9:09 AM OCC MED PHYSICIAN Body Mass Index 20.49 02/25/2024 9:09 AM OCC MED PHYSICIAN Plan of Treatment Upcoming Encounters Date Type Department Care Team (Late st Contact Info) Description 08/19/2024 10:30 AM CDT [facility] [address] [place] [address] Halie Zepeda, SOFTWARE PROGRAMMER-C [facility]. [facility] [address] [place] [address] 03/02/2025 10:15 AM OCC MED PHYSICIAN Office [facility] [address] [place] [address] Sarah Biggs PA 3 [facility] [address] [place], [place] [id number] Health Maintenance Due Date Last Done Comments [...] Jc, RN Medical Devices Implanted Type Area Mower Sharpener Device Identifier Shelf Expiration Date Model / Serial / Lot Watchman Flx [place] Closure 20mm-11/25/2022 Implanted:Qty: 1 on 11/25/2022 by Steven Hollingsworth MD Closure Device [employer] AMY [id number] / / Insurance MEDICARE MEDICARE [facility] Advance Directives Documents on File Type Date Recorded Patient Data Support Specialist Expl anation Power of Stage Rigger 05/30/2021 POA FOR HE ALTHCARE 2021 * Full Code (Latest Code Status on File) Date Activated Date Inactivated Comments 05/01/2021 4:12 PM 05/02/2021 12:20 PM * Full Code Date Activated Date Inactivated Comments 05/01/2021 8:54 AM 05/01/2021 4:12 PM Care Teams Paint Crew Supervisor Relationship Specialty Start Date End Date Alexei Valdez MD [address] [facility] [place] [address] PCP - General INTERNAL MEDICINE 04/12/19 Dano Edwards MD 3 [facility] [address] [place] [address] [place] Exercise Manager CARDIOVASCULAR DISEASE 05/25/19
--- OUTSIDE RECORDS SUMMARY | 2024-07-06 10:34 | XMS_ITS | Encounter Summary ---
Author Organization [facility] Address [address] [place] [address] Care Team Providers Care Loan Service Officer Name Role Phone Alexei Valdez MD Primary Care Provider [phone] Dano Edwards MD Unavailable [phone] Encounter Details Date Type Department Care Team (Late Contact Info) Description 06/22/2019 Abstract [facility] at [address] [address] Madie Granados [place] Social History Tobacco Use Types Packs/Day Years [...] on file Legal Sex Female 4:20 PM FINANCIAL RESERVE CLERK Gender Identity Not on file Sexual [...] Description 08/19/2024 10:30 AM CDT Office Visit [facility], [address] [place] [address] Halie Zepeda NP-C [facility]. [address] [place] [address] 03/02/2025 10:15 AM FINANCIAL RESERVE CLERK Office Visit [facility], [address] [place] [address] Sarah Biggs PA 3 [facility] [address] [place], [place] [phone] documented as of this encounter Procedures Procedure Name Priority Date/Time Associated Diagnosis Comments THYROXINE, FREE (FT4) Routine 06/06/2019 PROTIME (OUTSIDE LAB) Routine 06/05/2017 BASIC METABOLIC PANEL Routine 06/05/2017 THYROID STIM HORMONE TSH Routine 06/05/2017 MAGNESIUM Routine 06/05/2017 documented in this encounter Results * THYROXINE, FREE (FT4) (06/06/2019) [facility] FREE T4 1.28 0.82 - 1.77 06/06/2019 us Doc [facility] Abstract LABORATORY Edited Resul t - Final * MAGNESIUM (06/05/2017) [facility] MAGNESIUM 2.1 1.6 - 2.3 06/05/2017 [...] on filedocumented in this encounter Care Teams Loan Service Officer Relationship Specialty Start Date End Date Alexei Valdez MD [address] [facility] [address] [place] [address] PCP - General INTERNAL MEDICINE 04/12/19 Dano Edwards MD 3 [facility] [address] [place] [address] [place] Plumber And Tinner CARDIOVASCULAR DISEASE 05/25/19 documented as of this encounter
--- OUTSIDE RECORDS SUMMARY | 2024-07-06 10:34 | XMS_ITS | Encounter Summary ---
Author Organization [facility] Address [address] [place] [address] Care Team Providers Care Rail Manager Name Role Phone Alexei Valdez MD Primary Care Provider + Encounter Details Date Type Department Care Team (Late st Contact Info) Description 07/06/2024 Abstract [facility] Oncology and Hematology - Sonu [address] [facility] [address] [place] [address] Abdifatah Ladd MD [address] [facility] [address] [place] [address] Social History Tobacco Use Types Packs/Day Years Used Date Smoking Tobacco: Former Cigarettes Smokeless Tobacco: Never Alcohol Use Standard Drinks/Week Comments Not Currently 0 (1 standard drink = 0.6 oz pur e alcohol) Comments Unknown Sex and Gender Information Value Date Recorded Sex Assigned at Not on file Legal Sex Female 3:33 PM INVASIVE PHYSICIAN Gender Identity Not on file Sexual Orientation Not on file documented as of this encounter Plan of Treatment Not on file documented as of this encounter Visit Diagnoses Not on filedocumented in this encounter Care Teams Rail Manager Relationship Specialty Start Date End Date Alexei Valdez MD [address] [place] [address] PCP - General Internal Medicine 01/26/23 documented as of this encounter
--- OUTSIDE RECORDS SUMMARY | 2024-07-06 10:34 | XMS_ITS | Clinical Summary ---
Author Organization [facility] [employer] Address [address] [place] [address] Care Team Providers Care Forest Supervisor Name Role Phone Unavailable Primary Care Provider Unavailabl e Source Comments [facility] [employer],non-owned Affiliates and Associated Physician Practices is amultiple site organization consisting of ambulatory clinics and hospital sitesin [place], [place], [place] and [place]. This disclosure is being madepursuant to the Care Everywhere program and may not contain all information available regarding this patient. Last updated 17.[facility] [employer] Allergies No known active allergies Medications * [...] complete this topic Insurance MEDICARE MEDICARE [facility] [place] [address] MEDICARE MEDICARE COMMERCIAL [facility] MEDICARE COMMERCIAL GENERIC Member Subscriber Plan / Payer (Ef fective for All Dates) Name:Ngozi Martinez Member ID:Not on file Relation to Subscriber:Self Name:Ngozi Martinez Subscriber ID:Not on file Payer ID:Not on file Group ID:Not on file Type:Commercial Address: [facility] MEDICARE COMMERCIAL GENERIC [facility] SPECIALTY RISK
== END 2024-07-06 09:33 | disposition home or self-care (01) ==
LOC: ANHLAB 09:33
PROVIDERS: PCP Internal Medicine; Visit Provider Internal Medicine Hematology & Oncology
DX: D64.9 Anemia, unspecified (principal)
CPT/HCPCS: 36415; 80047; 85025

== ENCOUNTER 2024-07-06 10:58 | Outpatient (CLI) | payer MEDICARE, OTHER, SELFPAY ==
--- NOTE | ~2024-07-06 | XR_ITS ---
AP and lateral views of the right hip Clinical history: Pain Findings: No acute fracture or dislocation is seen. Osseous alignment is anatomic.] Hip joint is inta ct. Soft tissues are unremarkable. Impression: No significant abnormality is seen. Reviewed, dictated and finalized at location . Impression: No significant abnormality is seen.
--- OUTSIDE RECORDS SUMMARY | 2024-07-06 12:54 | XMS_ITS | Encounter Summary ---
Author Organization [facility] Address [facility] [place] [address] Care Team Providers Care Terminal Worker Name Role Phone Alexei Valdez MD Primary Care Provider [phone] Dano Edwards MD Unavailable [phone] Encounter Details Date Type Department Care Team (Late st Contact Info) Description 11/25/2022 Hospital Orders Only [facility] Anesthesia [place], [place] [id number] Gonsalo Rosales MD [address] [id number] Anesthesia Record Procedure Summary Procedure Name Responsible [...] on file Legal Sex Female 4:20 PM PLEATING MACHINE OPERATOR Gender Identity Not on file Sexual Orientation Not on file Occupation Industry Job Start Date Job End Date Not on file Not on file Not on file Not on file documented as of this encounter Functional Status * RETIRED Are you deaf or do you have serious difficulty hearing Answer Date of Assessment Author Status No 05/01/2021 1:10 PM PLEATING MACHINE OPERATOR Activ e * RETIRED Are you blind or do you have serious difficulty seeing, even when wearing glasses? Answer Date of Assessment Author Status No 05/01/2021 1:10 PM PLEATING MACHINE OPERATOR Activ e * Do you have serious difficulty walking or climbing stairs? Answer Date of Assessment Author Status No 05/01/2021 1:10 PM PLEATING MACHINE OPERATOR Yen Guevara RN Active * Do you have difficulty dressing or bathing? Answer Date of Assessment Author Status No 05/01/2021 1:10 PM Yen Carey RN Active * Because of a physical, mental, or emotional condition, do you have difficulty doing errands alone such as visiting a doctor's office or shopping? Answer Date of Assessment Author Status No 05/01/2021 1:10 PM PLEATING MACHINE OPERATOR Yen Guevara RN Active * Calculated C-SSRS Risk Score (Lifetime/Recent) Answer Date of Assessment Author Status No Risk Indicated 11/25/2022 8:52 AM CDT Lindsay Schaefer RN Active * [place]lette Suicide Severity Rating Scale (Screener/Recent Self-Report) Question [...] Date Author Status No 05/01/2021 1:10 PM PLEATING MACHINE OPERATOR Yen Guevara RN Active documented in this encounter Plan of Treatment Upcoming Encounters Date Type Department Care Team (Late st Contact Info) Description 08/19/2024 10:30 AM CDT Office Visit [facility], [facility] [address] [place] [address] Halie Zepeda, TRANSFER CONTROLLER-C [facility]. [facility] [address] [place] [address] 03/02/2025 10:15 AM PLEATING MACHINE OPERATOR Office Visit [facility], [address] [place] [address] Sarah Biggs PA 3 [facility] [address] [place], [place] [address] documented as of this encounter Goals Goal Patient Goal Type Associated Problems Recent Progress Patient-Stated? Author Health - patient able to perform ADLs independently General No Kei Jc RN documented as of this encounter Visit Diagnoses Not on filedocumented in this encounter Care Teams Terminal Worker Relationship Specialty Start Date End Date Alexei Valdez MD [address] [place] [address] PCP - General INTERNAL MEDICINE 04/12/19 Dano Edwards MD 3 [facility] [address] [place] [address] Okarche Pinsetter Mechanic Helper CARDIOVASCULAR DISEASE 05/25/19 documented as of this encounter
--- OUTSIDE RECORDS SUMMARY | 2024-07-06 12:54 | XMS_ITS | Encounter Summary ---
Author Organization [facility] [employer] [facility] Address [address] [place] [address] Care Team Providers Care Hospitality Manager Name Role Phone Alexei Valdez MD Primary Care Provider + Encounter Details Date Type Department Care Team (Late Contact Info) Description 07/06/2024 Abstract [facility] Oncology and Hematology - [address] [place] [address] Scanning, Provider Social History Tobacco Use Types Packs/Day Years Used Date Smoking Tobacco: Former Cigarettes Smokeless Tobacco: Never Alcohol Use Standard Drinks/Week Comments Not Currently 0 (1 standard drink = 0.6 oz pur e alcohol) Comments Unknown Sex and Gender Information Value Date Recorded Sex Assigned at Not on file Legal Sex Female 3:33 PM MALT LOADER Gender Identity Not on file Sexual Orientation Not on file documented as of this encounter Plan of Treatment Upcoming Encounters Date Type Department Care Team (Late Contact Info) Description 07/25/2024 4:30 PM CDT Telephone Check Up [facility] Oncology and Hematology - [address] [place] [address] Abdifatah Ladd MD [address] [facility] [address] [place] [address] documented as of this encounter Visit Diagnoses Not on filedocumented in this encounter Care Teams Hospitality Manager Relationship Specialty Start Date End Date Alexei Valdez MD [address] [place] [address] PCP - General Internal Medicine 01/26/23 documented as of this encounter
--- OUTSIDE RECORDS SUMMARY | 2024-07-06 12:54 | XMS_ITS | Encounter Summary ---
Author Organization [facility] Address [address] [place] [address] Care Team Providers Care Household Refrigeration Mechanic Name Role Phone Alexei Valdez MD Primary Care Provider + Reason for Visit * Reason Comments Follow Up Encounter Details Date Type Department Care Team (Late st Contact Info) Description 07/06/2024 10:00 AM CDT Office Visit [facility] Oncology and Hematology - [address] [place] [address] Lisa Tanner MD [address] [place] [address] Ductal carcinoma in situ (DCIS) of right breast (Primary Dx) Social History Tobacco Use Types Packs/Day Years Used Date Smoking Tobacco: Former Cigarettes Smokeless Tobacco: Never Tobacco Cessation:Counseling Given: Not Answered Alcohol Use Standard Drinks/Week Comments Not Currently 0 (1 standard drink = 0.6 oz pur e alcohol) Comments Unknown Sex and Gender Information Value Date Recorded Sex Assigned at Not on file Legal Sex Female 3:33 PM SURVEY RODMAN Gender Identity Not on file Sexual Orientation [...] Body Mass Index 21.18 01/26/2023 3:05 PM SURVEY RODMAN documented in this encounter Progress Notes * Lisa Tanner MD - 07/06/2024 10:19 AM CDT HEMATOLOGY / ONCOLOGY PROGRESS NOTE Patient Identification: Name: Ngozi Zazueta Age: 79 y.o. Sex: female : 1945 DIAGNOSIS DCIS of the right breast status post stereotactic biopsy of upper outer quadrant calcifications done on January 13, 2023. Pathology showed DCIS with ER 80% positive WI negative Ki-67 10 to 20% positive and HER2/yusuf positive. CURRENT TREATMENT NONE TREATMENT HISTORY Patient completed radiation therapy on April 27, 2023. Tamoxifen 20 mg daily started May 12, 2023. Tamoxifen was placed on hold due to atrial fibrillation in August 2023. Patient discontinued tamoxifen in March 2024 due to UTI and vaginal dryness. She was started on anastrozole 1 mg daily in 03/2024. However, patient stopped it in 04/2024 due to joint swelling and pain. She is not on any ER target therapy per her decision. Patient also noted right breast rash on 06/28/24. She saw her breast surgeon Dr. Banuelos on 06/30/24.It was thought to be dermatitis and topical treatment was prescribed. Dr. Banuelos also ordered mammogram to rule out underlying lesions. Right breast mammogram and ultrasound is scheduled for 07/18/24 and then she will followup with Dr. Banuelos. Right breast skin erythema has completely resolved now without any intervention. SUBJECTIVE Patient came to the office for follow-up visit. She started taking tamoxifen but discontinued due to frequent UTI and vaginal dryness. Denies any night sweats fevers and chills. No other new complaints. Review of system Constitutional: Patient did not mention fevers, sweats, weight and appetite stable, denies any tiredness and fatigue HEENT: Patient did not mention sinus congestion, hearing or vision problems Respiratory: Patient did not mention cough, dyspnea, wheeze Cardiovascular: Patient did not mention chest pain, exertional chest pressure/discomfort, nausea, syncope, shortness of breath GI: Patient did not mention constipation, diarrhea, dsyphagia, reflux symptoms, vomiting, melena : Patient did not mention dysuria, frequency, incontinence, urgency Integumentary system: no lymphadenopathy, sweats, flushing Musculoskeletal: Complain of lower extremity muscle cramping Neurological: Patient did not mention blurry or disturbed vision, numbness/weakness, dizziness Skin: No lumps, bumps or rashes. 12 point review of system was reviewed Objective: Vital signs in last 24 hours: As per nursing note Exam: HEENT: Atraumatic, external ears normal, nose normal, oropharynx moist, no pharyngeal exudates. no sinus tenderness Neck- normal range of motion, no tenderness, supple Respiratory: No respiratory distress, normal breath sounds, no rales, no wheezing Breasts: Right breast post biopsy changes in the upper outer quadrant. No lymphadenopathy. Left breast no masses or lymphadenopathy. Cardiovascular: Normal rate, normal rhythm, no murmurs, no gallops, no rubs GI: Soft, nondistended, normal bowel sounds, nontender, no splenomegaly, no hepatomegaly, no mass, no rebound, no guarding : No costovertebral angle tenderness Musculoskeletal: No edema, no tenderness, no deformities. Back- no tenderness Integument: Well hydrated, no rash, Digits and nails inspection normal Lymphatic: No lymphadenopathy noted Neurologic: Alert & oriented x 3, CN 2-12 normal, normal motor function, normal sensory function, no focal deficits noted Bilateral breast examination showed postoperative changes in the right breast without any masses and lymphadenopathy. Exam as above [facility] Labs from January 26 showed creatinine 0.6 total bilirubin 0.4 iron 75 saturation 21% ferritin 37.9 WBC 6.6 hemoglobin 12 platelet 220,000 Labs from May 12 showed WBC 6.5 hemoglobin 12.3 platelet 219,000 creatinine 0.7 Labs from November 23 showed WBC 5.7 hemoglobin 12.2 platelet 1 91,000 creatinine 0.7 Labs from April 14 showed hemoglobin 11.9 creatinine 0.8 Assessment: Plan: DCIS of the right breast- Patient is status post stereotactic biopsy of upper outer quadrant calcifications on January 13, 2023. Pathology showed DCIS with ER 80% positive WI negative Ki-67 10 to 20% positive and HER2/yusuf positive. Patient is status post lumpectomy done January 28, 2023. Patient status post radiation therapy treatment completed April 27, 2023. Tamoxifen 20 mg daily was started on May 12, 2023. Tamoxifen was placed on hold in August 2023 by emergency vehicle driver due to atrial fibrillation. Patient retried tamoxifen and discontinued in mid March2024 due to frequent UTI and vaginal dryness. There is no evidence of relapse of disease on my examination. Mammogram done on January 27, 2024 showed no evidence of disease. She was started on anastrozole 1 mg daily in 03/2024. However, patient stopped it in 04/2024 due to joint swelling and pain. She is not on any ER target therapy per her decision. Patient also noted right breast rash on 06/28/24. She saw her breast surgeon Dr. Banuelos on 06/30/24.It was thought to be dermatitis and topical treatment was prescribed. Dr. Banuelos also ordered mammogram to rule out underlying lesions. Right breast mammogram and ultrasound is scheduled for 07/18/24 and then she will followup with Dr. Banuelos. Right breast skin erythema has completely resolved now without any intervention. She will have phone follow up with Dr. Ladd end of 07/2024 to review right breast mammogram and ultrasound results. Anemia. Stable. She stopped taking iron due to constipation. Osteopenia. Continue vitamin D. Atrial fibrillation. Status post ablation and Watchman procedure. She is on aspirin and will follow-up with the emergency vehicle driver. Telephone visit with Dr. Ladd end of 07/2024. 07/06/2024 documented in this encounter Plan of Treatment Upcoming Encounters Date Type Department Care Team (Late st Contact Info) Description 07/25/2024 4:30 PM CDT Telephone Check Up [facility] Oncology and Hematology - [address] [facility] [address] [place] [address] Abdifatah Ladd MD [address] [facility] [address] [place] [address] documented as of this encounter Visit Diagnoses Diagnosis Ductal carcinoma in situ (DCIS) of right breast- Primary documented in this encounter Care Teams Household Refrigeration Mechanic Relationship Specialty Start Date End Date Alexei Valdez MD [address] [place] [address] PCP - General Internal Medicine 01/26/23 documented as of this encounter
--- OUTSIDE RECORDS SUMMARY | 2024-07-06 12:54 | XMS_ITS | Clinical Summary ---
Author Organization [facility] [employer] Address [address] [place] [address] Care Team Providers Care Smoking Pipe Liner Name Role Phone Alexei Valdez MD Primary Care Provider [phone] Allergies No known active allergies Medications carvediloL [...] on file Legal Sex Female 8:37 PM CAMPUS DEAN Gender Identity Not on file Sexual Orientation [...] 65+ Completed 017, 12/23/2014, 12/04/2013 Insurance MEDICARE [facility] [place] [address] [address] [id number] Care Teams Smoking Pipe Liner Relationship Specialty Start Date End Date Alexei Valdez MD PCP - General Internal Medicine 10/05/23
--- OUTSIDE RECORDS SUMMARY | 2024-07-06 12:54 | XMS_ITS | Clinical Summary ---
Author Organization [facility] Address [facility] [place] [address] Care Team Providers Care Social Work Therapist Name Role Phone Alexei Valdez MD Primary Care Provider [phone] Dano Edwards MD Unavailable [phone] Allergies No known active allergies Medications [...] to 0.5 cm in greatest dimension (CMS/HCC [facility]/HCC) 02/13/2023 Presence of Watchman left atrial appendage closu re device 11/25/2022 Primary hypertension 05/17/2021 Dyslipidemia 05/17/2021 Atrial fibrillation status p ost cardioversion ([facility]) 05/01/2021 Paroxysmal atrial fibrillation ([facility]) 06/10/2019 Bilateral carotid artery stenosis 06/10/2019 [...] on file Legal Sex Female 4:20 PM GAS FITTER HELPER Gender Identity Not on file Sexual Orientation Not on file Occupation Industry Job Start Date Job End Date Not on file Not on file Not on file Not on file Last Filed Vital Signs Vital Sign Reading Time Taken Comments Blood Pressure 130/62 02/25/2024 9:09 AM GAS FITTER HELPER Pulse 61 02/25/2024 9:09 AM GAS FITTER HELPER Temperature 37.1 C (98.7 F) 05/17/2023 4:13 PM GAS FITTER HELPER Respiratory Rate 27 05/17/2023 7:40 PM GAS FITTER HELPER Oxygen Saturation 96% 02/25/2024 9:09 AM GAS FITTER HELPER Inhaled Oxygen Concentration - - Weight 50.8 kg (112 lb) 02/25/2024 9:09 AM GAS FITTER HELPER Height 157.5 cm (5' 2 ) 02/25/2024 9:09 AM GAS FITTER HELPER Body Mass Index 20.49 02/25/2024 9:09 AM GAS FITTER HELPER Plan of Treatment Upcoming Encounters Date Type Department Care Team (Late st Contact Info) Description 08/19/2024 10:30 AM CDT Office [facility], [address] [place] [address] Halie Zepeda, NURSING DIRECTOR-C [facility]. [address] [place] [address] 03/02/2025 10:15 AM GAS FITTER HELPER Office Visit [facility], [address] [place] [address] Sarah Biggs PA 3 [facility] [address] [place], [place] [id number] Health Maintenance Due Date Last Done Comments [...] Jc, RN Medical Devices Implanted Type Area Food And Beverage Cashier Device Identifier Shelf Expiration Date Model / Serial / Lot Watchman Flx [place] Closure 20mm-11/25/2022 Implanted:Qty: 1 on 11/25/2022 by Steven Hollingsworth MD Closure Device Applyful AMY [id number] / / Insurance MEDICARE MEDICARE [facility] Advance Directives Documents on File Type Date Recorded Patient Manager Sap Expl anation Power of Performance Test Architect 05/30/2021 POA FOR HE ALTHCARE 2021 * Full Code (Latest Code Status on File) Date Activated Date Inactivated Comments 05/01/2021 4:12 PM 05/02/2021 12:20 PM * Full Code Date Activated Date Inactivated Comments 05/01/2021 8:54 AM 05/01/2021 4:12 PM Care Teams Social Work Therapist Relationship Specialty Start Date End Date Alexei Valdez MD [address] [facility] [address] [place] [address] PCP - General INTERNAL MEDICINE 04/12/19 Dano Edwards MD 3 [facility] [address] [place] [id number] [place] Adding Machine Mechanic CARDIOVASCULAR DISEASE 05/25/19
--- OUTSIDE RECORDS SUMMARY | 2024-07-06 12:54 | XMS_ITS | Referral Summary ---
Author Organization [facility] [employer] Address [address] [place] [address] Care Team Providers Care Education Sales Consultant Name Role Phone Alexei Valdez MD Primary [...] on file Legal Sex Female 8:37 PM HAZARDOUS WASTE MANAGEMENT SPECIALIST Gender Identity Not on file Sexual Orientation [...] Plan of Treatment [place] [address] [address] [id number] Care Teams Education Sales Consultant Relationship Specialty Start Date End Date Alexei Valdez MD PCP - General Internal Medicine 10/05/23
--- OUTSIDE RECORDS SUMMARY | 2024-07-06 12:54 | XMS_ITS | Encounter Summary ---
Author Organization [facility] [employer] [facility] Address [address] [place] [address] Care Team Providers Care Mri Technician Name Role Phone Alexei Valdez MD Primary Care Provider + Encounter Details Date Type Department Care Team ([facility] Contact Info) Description 07/06/2024 Abstract [facility] Oncology and Hematology [address] [place] [address] Abdifatah Ladd MD [facility] [employer] [address] [place] [address] Social History Tobacco Use Types Packs/Day Years Used Date Smoking Tobacco: Former Cigarettes Smokeless Tobacco: Never Alcohol Use Standard Drinks/Week Comments Not Currently 0 (1 standard drink = 0.6 oz pur e alcohol) Comments Unknown Sex and Gender Information Value Date Recorded Sex Assigned at Not on file Legal Sex Female 3:33 PM GIFT OFFICER Gender Identity Not on file Sexual Orientation Not on file documented as of this encounter Plan of Treatment Upcoming Encounters Date Type Department Care Team (Late Contact Info) Description 07/25/2024 4:30 PM CDT Telephone Check Up [facility] Oncology and Hematology [address] [place] [address] Abdifatah Ladd MD [address] [facility] [address] [place] [address] documented as of this encounter Visit Diagnoses Not on filedocumented in this encounter Care Teams Mri Technician Relationship Specialty Start Date End Date Kopjas, Alexei Tj, MD [address] [place] [address] PCP - General Internal Medicine 01/26/23 documented as of this encounter
--- OUTSIDE RECORDS SUMMARY | 2024-07-06 12:54 | XMS_ITS | Encounter Summary ---
Author Organization [facility] Address [address] [place] [address] Care Team Providers Care Building Consultant Name Role Phone Alexei Valdez MD Primary Care Provider [phone] Dano Edwards MD Unavailable [phone] Encounter Details Date Type Department Care Team (Late Contact Info) Description 06/22/2019 Abstract [facility] at [address] [address] Madie Granados ID Social History Tobacco Use Types Packs/Day Years [...] on file Legal Sex Female 4:20 PM FORENSIC PSYCHIATRIST Gender Identity Not on file Sexual Orientation [...] Description 08/19/2024 10:30 AM CDT Office Visit [facility], [address] [place] [address] Halie Zepeda NP-C Three [facility]. [address] [place] [address] 03/02/2025 10:15 AM FORENSIC PSYCHIATRIST Office Visit [facility], [address] [place] [address] Sarah Biggs PA [address] [facility] [address] [place], [place] [id number] documented as of this encounter Procedures Procedure Name Priority Date/Time Associated Diagnosis Comments THYROXINE, FREE (FT4) Routine 06/06/2019 PROTIME (OUTSIDE LAB) Routine 06/05/2017 BASIC METABOLIC PANEL Routine 06/05/2017 THYROID STIM HORMONE TSH Routine 06/05/2017 MAGNESIUM Routine 06/05/2017 documented in this encounter Results * THYROXINE, FREE (FT4) (06/06/2019) [facility] FREE T4 1.28 0.82 - 1.77 06/06/2019 us Doc [facility] Abstract LABORATORY Edited Resul t - Final * MAGNESIUM (06/05/2017) [facility] MAGNESIUM 2.1 1.6 - 2.3 06/05/2017 us [...] on filedocumented in this encounter Care Teams Building Consultant Relationship Specialty Start Date End Date Alexei Valdez MD [address] [facility] [address] [place] [address] PCP - General INTERNAL MEDICINE 04/12/19 Dano Edwards MD 3 [facility] [address] [place] [address] [employer] Water Service Dispatcher CARDIOVASCULAR DISEASE 05/25/19 documented as of this encounter
--- OUTSIDE RECORDS SUMMARY | 2024-07-06 12:54 | XMS_ITS | Clinical Summary ---
Author Organization [facility] Address [address] [place] [address] Care Team Providers Care Seasonal Driver Name Role Phone Alexei Valdez MD Primary [...] Pain. Active fluticasone propionate (FLONASE) 50 mcg/spray [place], Suspension nasal inhaler Administer 2 Sprays in each nostril daily. Active Active Problems No known active problems Encounters Date Type Department Care Team Description 07/06/2024 10:00 AM CDT Office Visit [facility] Oncology and Hematology - [address] [place] [address] Lisa Tanner MD Ductal carcinoma in situ (DCIS) of right breast (Primary Dx) 07/06/2024 Abstract [facility] [address] Scanning, Provider 07/06/2024 Abstract [facility] [address] [place] [phone] Abdifatah Ladd MD 06/29/2024 Telephone [facility] [address] [place] [phone] Abdifatah Ladd MD Breast Concerns 05/03/2024 External Device Data STL ABSTRACTION Provider, Abstract 04/25/2024 Refill [facility] [address] [place] [phone] Abdifatah Ladd MD 04/15/2024 Orders Only [place] [address] [address] [place] [phone] Abdifatah Ladd MD 04/14/2024 11:00 AM PRINT SHOP HELPER Office Visit [facility] [address] [place] [phone] Abdifatah Ladd MD Chronic anemia (Primary Dx) [...] on file Legal Sex Female 3:33 PM PRINT SHOP HELPER Gender Identity Not on file Sexual [...] cm (5' 2 ) 01/26/2023 3:05 PM PRINT SHOP HELPER Body Mass Index 21.18 01/26/2023 3:05 PM PRINT SHOP HELPER Plan of Treatment Upcoming Encounters Date Type Department Care Team (Late st Contact Info) Description 07/25/2024 4:30 PM CDT Telephone Check Up [facility] Oncology and Hematology - [place] [address] [facility] [address] [place] [address] Abdifatah Ladd MD [address] [facility] [address] [place] [address] Health Maintenance Due Date Last [...] BASIC METABOLIC PANEL Routine 04/14/2024 12:38 PM PRINT SHOP HELPER CBC WITH AUTODIFFERENTIAL Routine 2024 12:31 PM PRINT SHOP HELPER from Last 3 Months Results * BASIC METABOLIC PANEL (04/14/2024 12:38 PM PRINT SHOP HELPER) Blood us Abdifatah Ladd MD CHEMISTRY ORDERABLES Final Resu lt * CBC WITH AUTODIFFERENTIAL (04/14/2024 12:31 PM PRINT SHOP HELPER) Blood Abdifatah Ladd MD HEMATOLOGY ORDERABLES Final Res ult from Last 3 Months Insurance [facility] Member Subscriber Plan / Payer (Ef fective 2021-Present) Name:Ngozi Zazueta Relation to Subscriber:Self Name:Ngozi Zazueta Payer ID:Not on file Group ID:Not on file Type:[facility] Address: [address] Member Subscriber Plan / Payer (Ef fective 2019-Present) Name:Ngozi Zazueta Relation to Subscriber:Self Name:Ngozi Zazueta Payer ID:Not on file Group ID:Not on file Type:[place] Address: [address] [id number] MEDICARE PART A AND B Care Teams Seasonal Driver Relationship Specialty Start Date End Date Alexei Valdez MD [address] [place] [address] PCP - General Internal Medicine 01/26/23
--- OUTSIDE RECORDS SUMMARY | 2024-07-06 12:54 | XMS_ITS | Encounter Summary ---
Author Organization [facility] Address [facility] [place] [address] Care Team Providers Care Supervisor Fryer Farm Name Role Phone Unavailable Primary Care Provider Unavailabl e Encounter Details Date Type Department Care Team (Late st Contact Info) Description 11/10/2023 Lab Requisition [facility] Lab [address] [place] [address] Bhumi Saavedra PA [address] [place] [address] Social History Tobacco Use Types Packs/Day Years [...] AM CDT) Case Report Dermatopathology Report Case: [id number] Authorizing Provider: Bhumi Saavedra PA Collected: 11/10/2023 09:24 AM Ordering Location: [facility] - Received: 11/11/2023 11:28 [...] characteristic determined by the Dermatopathology Laboratory at [facility], directed by Dr. Dee Dee Myles. These tests need not be, and therefore are not, approved by the [place] Food and Drug Administration. The tests are used for clinical purposes. Billing Codes Specimen Charges Stain Charges 92838 1 1:57 PM CDT DERMATOPATHOLOGY LABORATORY Embedded Images 1:57 PM CDT DERMATOPATHOLOGY LABORATORY Pathology/Cytolo gy TISSUE SPECIMEN FROM SKIN / Unknown 11/10/2023 9:24 AM CDT 11/11/2023 11:28 AM CDT us B[facility] - PATHOLOGY/CYTOLOGY ORDERAB LES Final Result DERMATOPATHOLOGY LABORATORY [facility] - Department of Dermatology [address], [address] Floor [address] [phone] documented in this encounter Visit Diagnoses Not on filedocumented in this encounter
--- OUTSIDE RECORDS SUMMARY | 2024-07-06 12:54 | XMS_ITS | Clinical Summary ---
Author Organization [facility] [employer] Address [address] [place] [address] Care Team Providers Care Line Patrolman Name Role Phone Unavailable Primary Care Provider Unavailabl e Source Comments [facility] [employer],non-owned Affiliates and Associated Physician Practices is amultiple site organization consisting of ambulatory clinics and hospital sitesin [place], [place], [place] and [place]. This disclosure is being madepursuant to the Care Everywhere program and may not contain all information available regarding this patient. Last updated 17.[facility] Allergies No known active allergies Medications * [...] to complete this topic Insurance MEDICARE MEDICARE [facility] ATT[facility] [place] [id number] MEDICARE MEDICARE COMMERCIAL [facility] MEDICARE COMMERCIAL GENERIC Member Subscriber Plan / Payer (Ef fective for All Dates) Name:Ngozi Martinez Member ID:Not on file Relation to Subscriber:Self Name:Ngozi Martinez Subscriber ID:Not on file Payer ID:Not on file Group ID:Not on file Type:Commercial Address: [facility] MEDICARE COMMERCIAL GENERIC [facility] SPECIALTY RISK
== END 2024-07-06 10:59 | disposition home or self-care (01) ==
PROVIDERS: PCP Internal Medicine; Visit Provider Internal Medicine
DX: M25.551 Pain in right hip (principal)
CPT/HCPCS: 73502

== ENCOUNTER 2024-07-11 12:30 | Outpatient (CLI) | payer MEDICARE, OTHER, SELFPAY ==
--- NOTE | ~2024-07-11 | CT_ITS ---
EXAMINATION: CTA neck DATE: 07/11/2024 13:10 INDICATION: Abnormal findings on diagnostic imaging. Atherosclerosis and stenosis at the bilateral ca rotid bulbs on prior ultrasound. TECHNIQUE: Computed tomographic angiography (CTA) of the neck was performed with 100 mL Omnipaque-350 intravenous contrast. Multiplanar reconstructions and maximum intensity projection 3D-reconstruction s were created by the technologist on a separate workstation. Automated exposure control and iterativ e reconstruction technique were employed. The dose-length product was 520.75 mGy-cm. COMPARISON: Ultrasound dated 07/02/2024 FINDINGS: Visualized portion of the thoracic aorta and the great vessels arising from the arch are normal in ca liber with small amount of scattered atherosclerotic plaque with no hematoma significant stenosis and with no dissection. The bilateral vertebral arteries are codominant and without evident atherosclero tic plaque. There is small amount of atherosclerotic plaque with 0% stenosis of both the right and le ft carotid bulbs relative to normal distal artery lumen diameter (NASCET criteria). The elevated [place] seen on the prior ultrasound aren't found relatively distally along the internal carotid arterie s and may be artifact of some tortuosity to the vessels. Severe cervical spondylosis. Small amount of nonhemodynamically significant atherosclerotic plaque along the lateral carotid siphons. Visualized portion of the brain and cerebral arteries are otherwise unremarkable. Cervical soft tissues are unre markable. Mild emphysema and mild biapical pleural-parenchymal scarring. IMPRESSION: 1. Small amount of atherosclerotic plaque with 0% stenosis of the right and left carotid bulbs relati ve to normal distal artery lumen diameter (NASCET criteria). Reviewed, dictated and finalized at location B. IMPRESSION: 1. Small amount of atherosclerotic plaque with 0% stenosis of the right and lef t carotid bulbs relative to normal distal artery lumen diameter (NASCET criteri a).
--- OUTSIDE RECORDS SUMMARY | 2024-07-11 14:09 | XMS_ITS | Clinical Summary ---
Author Organization [facility] - [facility] Address [facility] [place] [address] Care Team Providers Care Sliver Handler Name Role Phone Alexei Valdez MD Primary Care Provider [phone] Dano Edwards MD Unavailable [phone] Allergies No known active allergies Medications [...] to 0.5 cm in greatest dimension (CMS/HCC [facility]/HCC) 02/13/2023 Presence of Watchman left atrial appendage closu re device 11/25/2022 Primary hypertension 05/17/2021 Dyslipidemia 05/17/2021 Atrial fibrillation status p ost cardioversion ([facility]) 05/01/2021 Paroxysmal atrial fibrillation ([facility]) 06/10/2019 Bilateral carotid artery stenosis 06/10/2019 Precordial [...] on file Legal Sex Female 4:20 PM BILLING MANAGER Gender Identity Not on file Sexual Orientation Not on file Occupation Industry Job Start Date Job End Date Not on file Not on file Not on file Not on file Last Filed Vital Signs Vital Sign Reading Time Taken Comments Blood Pressure 130/62 02/25/2024 9:09 AM BILLING MANAGER Pulse 61 02/25/2024 9:09 AM BILLING MANAGER Temperature 37.1 C (98.7 F) 05/17/2023 4:13 PM BILLING MANAGER Respiratory Rate 27 05/17/2023 7:40 PM BILLING MANAGER Oxygen Saturation 96% 02/25/2024 9:09 AM BILLING MANAGER Inhaled Oxygen Concentration - - Weight 50.8 kg (112 lb) 02/25/2024 9:09 AM BILLING MANAGER Height 157.5 cm (5' 2 ) 02/25/2024 9:09 AM BILLING MANAGER Body Mass Index 20.49 02/25/2024 9:09 AM BILLING MANAGER Plan of Treatment Upcoming Encounters Date Type Department Care Team (Late st Contact Info) Description 08/19/2024 10:30 AM CDT [facility] [address] [place] [address] Halie Zepeda, SPOUT TENDER-C [facility]. [address] [place] [address] 03/02/2025 10:15 AM BILLING MANAGER Office Visit [facility] [address] [place] [address] Sarah Biggs PA 3 [facility] [address] [place], [place] [phone] Health Maintenance Due Date Last Done Comments [...] Jc, RN Medical Devices Implanted Type Area Oil Well Drilling Manager Device Identifier Shelf Expiration Date Model / Serial / Lot Watchman Flx [place] Closure 20mm-11/25/2022 Implanted:Qty: 1 on 11/25/2022 by Steven Hollingsworth MD Closure Device [employer] Mobile AMY [id number] / / Insurance MEDICARE MEDICARE [facility] Advance Directives Documents on File Type Date Recorded Patient Biomedical Engineering Supervisor Expl anation Power of Repacker 05/30/2021 POA FOR HE ALTHCARE 2021 * Full Code (Latest Code Status on File) Date Activated Date Inactivated Comments 05/01/2021 4:12 PM 05/02/2021 12:20 PM * Full Code Date Activated Date Inactivated Comments 05/01/2021 8:54 AM 05/01/2021 4:12 PM Care Teams Sliver Handler Relationship Specialty Start Date End Date Alexei Valdez MD [address] [facility] [address] [place] [phone] PCP - General INTERNAL MEDICINE 04/12/19 Dano Edwards MD 3 [facility] [address] [place] [phone] Union Senior Training Specialist CARDIOVASCULAR DISEASE 05/25/19
--- OUTSIDE RECORDS SUMMARY | 2024-07-11 14:09 | XMS_ITS | Encounter Summary ---
Author Organization [facility] Address [address] [place] [address] Care Team Providers Care Mining Manager Name Role Phone Alexei Valdez MD Primary Care Provider [phone] Dano Edwards MD Unavailable [phone] Encounter Details Date Type Department Care Team (Late Contact Info) Description 06/22/2019 Abstract [facility] at [address] [address] [place] Social History Tobacco Use Types Packs/Day Years [...] on file Legal Sex Female 4:20 PM IC DESIGNER CUSTOM Gender Identity Not on file Sexual Orientation [...] Description 08/19/2024 10:30 AM CDT Office Visit [facility], [address] [place] [address] Halie Zepeda NP-C Three [facility]. [address] [place] [address] 03/02/2025 10:15 AM IC DESIGNER CUSTOM Office Visit [facility], [address] [place] [address] Sarah Biggs PA 3 [facility] [address] [place], [place] [phone] documented as of this encounter Procedures Procedure Name Priority Date/Time Associated Diagnosis Comments THYROXINE, FREE (FT4) Routine 06/06/2019 PROTIME (OUTSIDE LAB) Routine 06/05/2017 BASIC METABOLIC PANEL Routine 06/05/2017 THYROID STIM HORMONE TSH Routine 06/05/2017 MAGNESIUM Routine 06/05/2017 documented in this encounter Results * THYROXINE, FREE (FT4) (06/06/2019) [facility] FREE T4 1.28 0.82 - 1.77 06/06/2019 us Doc [facility] Abstract LABORATORY Edited Resul t - Final * MAGNESIUM (06/05/2017) [facility] MAGNESIUM 2.1 1.6 - 2.3 06/05/2017 [...] on filedocumented in this encounter Care Teams Mining Manager Relationship Specialty Start Date End Date Alexei Valdez MD [address] [facility] [address] [place] [address] PCP - General INTERNAL MEDICINE 04/12/19 Dano Edwards MD 3 [facility] [address] [place] [address] Apache Coloring Machine Operator CARDIOVASCULAR DISEASE 05/25/19 documented as of this encounter
--- OUTSIDE RECORDS SUMMARY | 2024-07-11 14:09 | XMS_ITS | Encounter Summary ---
Author Organization [facility] Address [address] [place] [address] Care Team Providers Care Family Literacy Coordinator Name Role Phone Alexei Valdez MD Primary Care Provider + Encounter Details Date Type Department Care Team ([facility] Contact Info) Description 07/06/2024 Orders Only [facility] Oncology and Hematology [address] [place] [address] Abdifatah Ladd MD [facility] [employer] [address] [place] [address] Social History Tobacco Use Types Packs/Day Years Used Date Smoking Tobacco: Former Cigarettes Smokeless Tobacco: Never Alcohol Use Standard Drinks/Week Comments Not Currently 0 (1 standard drink = 0.6 oz pur e alcohol) Comments Unknown Sex and Gender Information Value Date Recorded Sex Assigned at Not on file Legal Sex Female 3:33 PM PIANO REGULATOR INSPECTOR Gender Identity Not on file Sexual Orientation Not on file documented as of this encounter Plan of Treatment Upcoming Encounters Date Type Department Care Team (Late Contact Info) Description 07/25/2024 4:30 PM CDT Telephone Check Up [facility] Oncology and Hematology [address] [place] [address] Abdifatah Ladd MD [address] [employer] [address] [place] [address] documented as of this encounter Procedures Procedure Name Priority Date/Time Associated Diagnosis Comments BASIC METABOLIC PANEL Routine 07/06/2024 1:45 PM CDT CBC MIXED CELL DIFFERENTIAL Routine 07/06/2024 1:10 PM CDT documented in this encounter Results * BASIC METABOLIC PANEL (07/06/2024 1:45 PM CDT) Blood us Abdifatah Ladd MD CHEMISTRY ORDERABLES Final Resu lt * CBC MIXED CELL DIFFERENTIAL (07/06/2024 1:10 PM CDT) Blood us Abdifatah Ladd MD HEMATOLOGY ORDERABLES Final Res ult documented in this encounter Visit Diagnoses Not on filedocumented in this encounter Care Teams Family Literacy Coordinator Relationship Specialty Start Date End Date Alexei Valdez MD [address] [place] [phone] PCP - General Internal Medicine 01/26/23 documented as of this encounter
--- OUTSIDE RECORDS SUMMARY | 2024-07-11 14:09 | XMS_ITS | Referral Summary ---
Author Organization [facility] [employer] Address [address] [place] [address] Care Team Providers Care Downstream Biomanufacturing Technician Name Role Phone Alexei Valdez MD Primary Care Provider [phone] Allergies No known active allergies Medications carvediloL [...] on file Legal Sex Female 8:37 PM WILL CALL CLERK Gender Identity Not on file Sexual [...] Plan of [place] [address] [address] [place] [id number] Care Teams Downstream Biomanufacturing Technician Relationship Specialty Start Date End Date Alexei Valdez MD PCP - General Internal Medicine 10/05/23
--- OUTSIDE RECORDS SUMMARY | 2024-07-11 14:09 | XMS_ITS | Clinical Summary ---
Author Organization [facility] Address [address] [place] [address] Care Team Providers Care State Fire Marshal Name Role Phone Alexei Valdez MD Primary [...] Pain. Active fluticasone propionate (FLONASE) 50 mcg/spray [place], Suspension nasal inhaler Administer 2 Sprays in each nostril daily. Active Active Problems No known active problems Encounters Date Type Department Care Team Description 07/06/2024 10:00 AM CDT Office Visit [facility] Oncology and Hematology - [place] [address] [place] [address] Lisa Tanner MD Ductal carcinoma in situ (DCIS) of right breast (Primary Dx) 07/06/2024 Orders Only [facility] Oncology and [facility] [address] Abdifatah Ladd MD 07/06/2024 Abstract [facility] Oncology and [facility] [address] [place] [address] Scanning, Provider 07/06/2024 Abstract [facility] Oncology and [facility] [address] Abdifatah Ladd MD 06/29/2024 Telephone [facility] Oncology and [facility] [address] Abdifatah Ladd MD Breast Concerns 05/03/2024 External Device Data ST[place] ABSTRACTION Provider, Abstract 04/25/2024 Refill [facility] Oncology [facility] [address] Abdifatah Ladd MD 04/15/2024 Orders Only [facility] Oncology and [facility] [address] [place] [phone] Abdifatah Ladd MD 04/14/2024 11:00 AM SONG WRITER Office Visit [facility] Oncology [facility] [address] [place] [phone] Abdifatah Ladd MD Chronic anemia (Primary Dx) from Last 3 Months Social History Tobacco Use Types Packs/Day Years Used Date Smoking Tobacco: Former Cigarettes Smokeless Tobacco: Never Tobacco Cessation:Counseling Given: Not Answered Alcohol Use Standard Drinks/Week Comments Not Currently 0 (1 standard drink = 0.6 oz pur e alcohol) Comments Unknown Sex and Gender Information Value Date Recorded Sex Assigned at Not on file Legal Sex Female 3:33 PM SONG WRITER Gender Identity Not on file Sexual Orientation [...] cm (5' 2 ) 01/26/2023 3:05 PM SONG WRITER Body Mass Index 21.18 01/26/2023 3:05 PM SONG WRITER Plan of Treatment Upcoming Encounters Date Type Department Care Team (Late st Contact Info) Description 07/25/2024 4:30 PM CDT Telephone Check Up [facility] Oncology and Hematology - [place] [address] [facility] [address] [place] [address] Abdifatah Ladd MD [address] [facility] [address] [place] [address] Health Maintenance Due Date Last Done Comments DTAP/TDAP/TD VACCINES (1 - Tdap) 1962 PNEUMOCOCCAL VACCINE 50+ YEA RS (1 of 1 - PCV) 1993 ZOSTER VACCINE (1 of 2) 1993 RSV VACCINE (60+ or ) (1 - 1-dose 75+ series) 2018 INFLUENZA VACCINE (#1) 2023 12/20/2017 OSTEOPOROSIS SCREENING 12/06/2027 , 12/03/2020, 11/29/2018 COLORECTAL SCREENING Discontinued 03/12/2023 Colorectal Cancer Screening Discontinued FIT-DNA Q 3 years Discontinued FIT/FOBT Q 1 year Discontinued Flex Sig/CT Colonography Q 5 years Discontinued Procedures Procedure Name Priority Date/Time Associated Diagnosis Comments BASIC METABOLIC PANEL Routine 07/06/2024 1:45 PM CDT CBC MIXED CELL DIFFERENTIAL Routine 06/15 1:10 PM CDT BASIC METABOLIC PANEL Routine 04/14/2024 12:38 PM SONG WRITER CBC WITH AUTODIFFERENTIAL Routine 2024 12:31 PM SONG WRITER from Last 3 Months Results * BASIC METABOLIC PANEL (07/06/2024 1:45 PM CDT) Only the most recent of2 resultswithin the time period is included. Blood us Abdifatah Ladd MD CHEMISTRY ORDERABLES Final Resu lt * CBC MIXED CELL DIFFERENTIAL (07/06/2024 1:10 PM CDT) Blood us Abdifatah Ladd MD HEMATOLOGY ORDERABLES Final Res ult * CBC WITH AUTODIFFERENTIAL (04/14/2024 12:31 PM SONG WRITER) Blood us Abdifatah Ladd MD HEMATOLOGY ORDERABLES Final Res ult from Last 3 Months Insurance [facility] MEDICARE PART A AND B Care Teams State Fire Marshal Relationship Specialty Start Date End Date Alexei Valdez MD [address] [place] [address] PCP - General Internal Medicine 01/26/23
--- OUTSIDE RECORDS SUMMARY | 2024-07-11 14:09 | XMS_ITS | Clinical Summary ---
Author Organization [facility] [employer] Address [address] [place] [address] Care Team Providers Care Gear Machine Operator General Name Role Phone Alexei Valdez MD Primary Care Provider [phone] Allergies No known active allergies Medications carvediloL [...] on file Legal Sex Female 8:37 PM LOCOMOTIVE CRANE OPERATOR Gender Identity Not on file Sexual [...] 65+ Completed 017, 12/23/2014, 12/04/2013 Insurance MEDICARE [facility] [place] [address] [address] [place] [id number] Care Teams Gear Machine Operator General Relationship Specialty Start Date End Date Alexei Valdez MD PCP - General Internal Medicine 10/05/23
--- OUTSIDE RECORDS SUMMARY | 2024-07-11 14:09 | XMS_ITS | Encounter Summary ---
Author Organization [facility] Address [facility] [place] [address] Care Team Providers Care Stenocaptioner Name Role Phone Unavailable Primary Care Provider Unavailabl e Encounter Details Date Type Department Care Team (Late st Contact Info) Description 11/10/2023 Lab Requisition [facility] Lab [address] [place] [address] Bhumi Saavedra PA [address] [place] [address] Social History Tobacco Use Types Packs/Day Years [...] AM CDT) Case Report Dermatopathology Report Case: [id number] Authorizing Provider: Bhumi Saavedra PA Collected: 11/10/2023 09:24 AM Ordering Location: [facility] - Received: 11/11/2023 11:28 AM [...] characteristic determined by the Dermatopathology Laboratory at [facility], directed by Dr. Dee Dee Myles. These tests need not be, and therefore are not, approved by the [place] Food and Drug Administration. The tests are used for clinical purposes. Billing Codes Specimen Charges Stain Charges 89640 1 1:57 PM CDT DERMATOPATHOLOGY LABORATORY Embedded Images 1:57 PM CDT DERMATOPATHOLOGY LABORATORY Pathology/Cytolo gy TISSUE SPECIMEN FROM SKIN / Unknown 11/10/2023 9:24 AM CDT 11/11/2023 11:28 AM CDT us [facility] - PATHOLOGY/CYTOLOGY ORDERAB LES Final Result DERMATOPATHOLOGY LABORATORY [facility] - Department of Dermatology [address], [address] [phone] documented in this encounter Visit Diagnoses Not on filedocumented in this encounter
--- OUTSIDE RECORDS SUMMARY | 2024-07-11 14:09 | XMS_ITS | Encounter Summary ---
Author Organization [facility] Address [facility] [place] [address] Care Team Providers Care Net Software Developer Name Role Phone Alexei Valdez MD Primary Care Provider [phone] Dano Edwards MD Unavailable [phone] Encounter Details Date Type Department Care Team (Late st Contact Info) Description 11/25/2022 Hospital Orders Only [facility] Anesthesia [address] [place], [place] [address] Gonsalo Rosales MD [address] [phone] Anesthesia Record Procedure Summary Procedure Name Responsible [...] on file Legal Sex Female 4:20 PM FILLING CARRIER Gender Identity Not on file Sexual Orientation Not on file Occupation Industry Job Start Date Job End Date Not on file Not on file Not on file Not on file documented as of this encounter Functional Status * RETIRED Are you deaf or do you have serious difficulty hearing Answer Date of Assessment Author Status No 05/01/2021 1:10 PM FILLING CARRIER Activ e * RETIRED Are you blind or do you have serious difficulty seeing, even when wearing glasses? Answer Date of Assessment Author Status No 05/01/2021 1:10 PM FILLING CARRIER Activ e * Do you have serious difficulty walking or climbing stairs? Answer Date of Assessment Author Status No 05/01/2021 1:10 PM FILLING CARRIER Yen Guevara RN Active * Do you have difficulty dressing or bathing? Answer Date of Assessment Author Status No 05/01/2021 1:10 PM Yen Carey RN Active * Because of a physical, mental, or emotional condition, do you have difficulty doing errands alone such as visiting a doctor's office or shopping? Answer Date of Assessment Author Status No 05/01/2021 1:10 PM FILLING CARRIER Yen Guevara RN Active * Calculated C-SSRS Risk Score (Lifetime/Recent) Answer Date of Assessment Author Status No Risk Indicated 11/25/2022 8:52 AM CDT Lindsay Schaefer RN Active * [place] Suicide Severity Rating Scale (Screener/Recent Self-Report) Question [...] Date Author Status No 05/01/2021 1:10 PM FILLING CARRIER Yen Guevara RN Active documented in this encounter Plan of Treatment Upcoming Encounters Date Type Department Care Team (Late st Contact Info) Description 08/19/2024 10:30 AM CDT Office Visit [facility], [facility] [address] [place] [address] Halie Zepeda, BLOCK LAYER-C [facility]. [facility] [address] [place] [address] 03/02/2025 10:15 AM FILLING CARRIER Office Visit [facility], [address] [place] [address] Sarah Biggs PA 3 [facility] [address] [place], [place] [address] documented as of this encounter Goals Goal Patient Goal Type Associated Problems Recent Progress Patient-Stated? Author Health - patient able to perform ADLs independently General No Kei Jc RN documented as of this encounter Visit Diagnoses Not on filedocumented in this encounter Care Teams Net Software Developer Relationship Specialty Start Date End Date Alexei Valdez MD [address] [place] [address] PCP - General INTERNAL MEDICINE 04/12/19 Dano Edwards MD 3 [facility] [address] [place] [address] [place] Structural Architect CARDIOVASCULAR DISEASE 05/25/19 documented as of this encounter
--- OUTSIDE RECORDS SUMMARY | 2024-07-11 14:09 | XMS_ITS | Clinical Summary ---
Author Organization [facility] [employer] Address [address] [place] [address] Care Team Providers Care Internal Affairs Investigator Name Role Phone Unavailable Primary Care Provider Unavailabl e Source Comments [facility] [employer],non-owned Affiliates and Associated Physician Practices is amultiple site organization consisting of ambulatory clinics and hospital sitesin [place], [place], [place] and [place]. This disclosure is being madepursuant to the Care Everywhere program and may not contain all information available regarding this patient. Last updated 17.[facility] [employer] Allergies No known active allergies Medications * [...] to complete this topic Insurance MEDICARE MEDICARE [facility] [place] [id number] MEDICARE MEDICARE COMMERCIAL [facility] MEDICARE COMMERCIAL GENERIC Member Subscriber Plan / Payer (Ef fective for All Dates) Name:Ngozi Martinez Member ID:Not on file Relation to Subscriber:Self Name:Ngozi Martinez Subscriber ID:Not on file Payer ID:Not on file Group ID:Not on file Type:Commercial Address: [facility] MEDICARE COMMERCIAL GENERIC [facility] SPECIALTY RISK
== END 2024-07-11 12:31 | disposition home or self-care (01) ==
PROVIDERS: PCP Internal Medicine; Visit Provider Internal Medicine
DX: I70.8 Atherosclerosis of other arteries (principal); E78.2 Mixed hyperlipidemia; I10 Essential (primary) hypertension; R93.89 Abnormal findings on diagnostic imaging of other specified body structures
CPT/HCPCS: 70498; Q9967

== ENCOUNTER 2024-07-18 12:41 | Outpatient (CLI) | payer MEDICARE, OTHER, SELFPAY ==
--- NOTE | ~2024-07-18 | MM_ITS ---
EXAMINATION: MM diagnostic juan RT w thu HISTORY: Malignant neoplasm of the right breast status post lumpectomy and radiation therapy TECHNIQUE: Additional 3-D tomosynthesis images of the right breast were performed and synthetic 2-D i mages were generated. CAD analysis was submitted and interpreted. COMPARISON: Comparison to multiple prior studies sequentially, with oldest reviewed study dated 12/16. BREAST PARENCHYMAL COMPOSITION: Dense: The breasts are heterogeneously dense, which may obscure small masses FINDINGS: There are post surgical changes in the upper outer quadrant of the right breast posteriorly with surgical clips. There are no suspicious masses or calcifications. IMPRESSION: 1. No evidence for malignancy in the right breast. 2. Routine yearly screening mammogram and regular clinical breast examination are recommended. BI-RADS Category 2: Benign finding(s). Reviewed, dictated and finalized at location A. IMPRESSION: 1. No evidence for malignancy in the right breast. 2. Routine yearly screening mammogram and regular clinical breast examination a re recommended. BI-RADS Category 2: Benign finding(s).
--- OUTSIDE RECORDS SUMMARY | 2024-07-18 13:03 | XMS_ITS | Encounter Summary ---
Author Organization [facility] Address [facility] [place] [address] Care Team Providers Care Oncology Consultant Name Role Phone Alexei Valdez MD Primary Care Provider [phone] Dano Edwards MD Unavailable [phone] Encounter Details Date Type Department Care Team (Late st Contact Info) Description 11/25/2022 Hospital Orders Only [facility] Anesthesia [address] [place], [place] [address] Gonsalo Rosales MD [address] [id number] Anesthesia Record Procedure Summary Procedure Name Responsible [...] on file Legal Sex Female 4:20 PM AIRPLANE PILOT CHIEF Gender Identity Not on file Sexual Orientation Not on file Occupation Industry Job Start Date Job End Date Not on file Not on file Not on file Not on file documented as of this encounter Functional Status * RETIRED Are you deaf or do you have serious difficulty hearing Answer Date of Assessment Author Status No 05/01/2021 1:10 PM AIRPLANE PILOT CHIEF Activ e * RETIRED Are you blind or do you have serious difficulty seeing, even when wearing glasses? Answer Date of Assessment Author Status No 05/01/2021 1:10 PM AIRPLANE PILOT CHIEF Activ e * Do you have serious difficulty walking or climbing stairs? Answer Date of Assessment Author Status No 05/01/2021 1:10 PM AIRPLANE PILOT CHIEF Yen Guevara RN Active * Do you have difficulty dressing or bathing? Answer Date of Assessment Author Status No 05/01/2021 1:10 PM Yen Carey RN Active * Because of a physical, mental, or emotional condition, do you have difficulty doing errands alone such as visiting a doctor's office or shopping? Answer Date of Assessment Author Status No 05/01/2021 1:10 PM AIRPLANE PILOT CHIEF Yen Guevara RN Active * Calculated C-SSRS Risk Score (Lifetime/Recent) Answer Date of Assessment Author Status No Risk Indicated 11/25/2022 8:52 AM CDT Lidnsay Schaefer RN Active * [place] Suicide Severity Rating Scale (Screener/Recent Self-Report) Question [...] Date Author Status No 05/01/2021 1:10 PM AIRPLANE PILOT CHIEF Yen Guevara RN Active documented in this encounter Plan of Treatment Upcoming Encounters Date Type Department Care Team (Late st Contact Info) Description 08/19/2024 10:30 AM CDT Office Visit [facility], [facility] [address] [place] [address] Halie Zepeda, DAYCARE PROVIDER-C [facility]. [facility] [address] [place] [address] 03/02/2025 10:15 AM AIRPLANE PILOT CHIEF Office Visit [facility], [address] [place] [address] Sarah Biggs PA 3 [facility] [address] [place], [place] [address] documented as of this encounter Goals Goal Patient Goal Type Associated Problems Recent Progress Patient-Stated? Author Health - patient able to perform ADLs independently General No Kei Jc RN documented as of this encounter Visit Diagnoses Not on filedocumented in this encounter Care Teams Oncology Consultant Relationship Specialty Start Date End Date Alexei Valdez MD [address] [place] [address] PCP - General INTERNAL MEDICINE 04/12/19 Dano Edwards MD 3 [facility] [address] [place] [address] [place] Biometrics Professor CARDIOVASCULAR DISEASE 05/25/19 documented as of this encounter
--- OUTSIDE RECORDS SUMMARY | 2024-07-18 13:03 | XMS_ITS | Referral Summary ---
Author Organization [facility] Address [address] [place] [address] Care Team Providers Care Bioinformatics Associate Name Role Phone Alexei Valdez MD Primary Care Provider [phone] Allergies No known active allergies Medications carvediloL [...] on file Legal Sex Female 8:37 PM GAUGE AND WEIGH MACHINE OPERATOR Gender Identity Not on file [...] Plan of Treatment [place] [address] [address] [id number] Care Teams Bioinformatics Associate Relationship Specialty Start Date End Date Alexei Valdez MD PCP - General Internal Medicine 10/05/23
--- OUTSIDE RECORDS SUMMARY | 2024-07-18 13:03 | XMS_ITS | Clinical Summary ---
Author Organization [facility] Address [address] [place] [address] Care Team Providers Care Director Educational Radio Name Role Phone Unavailable Primary Care Provider Unavailabl e Source Comments [facility],non-owned Affiliates and Associated Physician Practices is amultiple site organization consisting of ambulatory clinics and hospital sitesin [place], [place], [place] and [place]. This disclosure is being madepursuant to the Care Everywhere program and may not contain all information available regarding this patient. Last updated 17.[facility] Allergies No known active allergies Medications * [...] to complete this topic Insurance MEDICARE MEDICARE [facility]N [facility] [place] [id number] MEDICARE MEDICARE COMMERCIAL [facility] MEDICARE COMMERCIAL GENERIC Member Subscriber Plan / Payer (Ef fective for All Dates) Name:Ngozi Martinez Member ID:Not on file Relation to Subscriber:Self Name:Ngozi Martinez Subscriber ID:Not on file Payer ID:Not on file Group ID:Not on file Type:Commercial Address: [facility] MEDICARE COMMERCIAL GENERIC [facility] SPECIALTY RISK
--- OUTSIDE RECORDS SUMMARY | 2024-07-18 13:03 | XMS_ITS | Clinical Summary ---
Author Organization [facility] Address [address] [place] [address] Care Team Providers Care Associate Java Developer Name Role Phone Alexei Valdez MD [...] Pain. Active fluticasone propionate (FLONASE) 50 mcg/spray [place], Suspension nasal inhaler Administer 2 Sprays in each nostril daily. Active Active Problems No known active problems Encounters Date Type Department Care Team Description 07/06/2024 10:00 AM CDT Office Visit [facility] Oncology and Hematology - [address] [place] [address] Lisa Tanner MD Ductal carcinoma in situ (DCIS) of right breast (Primary Dx) 07/06/2024 Orders Only [facility] Oncology and [facility] [address] [place] [phone] Abdifatah Ladd MD 07/06/2024 Abstract [facility] and [facility] [address] Scanning, Provider 07/06/2024 Abstract [facility] Oncology and [facility] [address] [place] [phone] Abdifatah Ladd MD 06/29/2024 Telephone [facility] Oncology [facility] [address] [place] [phone] Abdifatah Ladd MD Breast Concerns 05/03/2024 External Device Data [facility] ABSTRACTION Provider, Abstract 04/25/2024 Refill [facility] [address] [place] [phone] Abdifatah Ladd MD from Last 3 Months Social History Tobacco Use Types Packs/Day Years Used Date Smoking Tobacco: Former Cigarettes Smokeless Tobacco: Never Tobacco Cessation:Counseling Given: Not Answered Alcohol Use Standard Drinks/Week Comments Not Currently 0 (1 standard drink = 0.6 oz pur e alcohol) Comments Unknown Sex and Gender Information Value Date Recorded Sex Assigned at Not on file Legal Sex Female 3:33 PM SADDLE AND HARNESS MAKER Gender Identity Not on file Sexual Orientation [...] cm (5' 2 ) 01/26/2023 3:05 PM SADDLE AND HARNESS MAKER Body Mass Index 21.18 01/26/2023 3:05 PM SADDLE AND HARNESS MAKER Plan of Treatment Upcoming Encounters Date Type Department Care Team (Late st Contact Info) Description 07/25/2024 4:30 PM CDT Telephone Check Up [facility] Oncology and Hematology - [place] [address] [facility] [address] [place] [address] Abdifatah Ladd MD [address] [facility] [address] [place] [address] Health Maintenance Due Date Last [...] CELL DIFFERENTIAL Routine 07/06/2024 1:10 PM CDT from Last 3 Months Results * BASIC METABOLIC PANEL (07/06/2024 1:45 PM CDT) Blood us Abdifatah Ladd MD CHEMISTRY ORDERABLES Final Resu lt * CBC MIXED CELL DIFFERENTIAL (07/06/2024 1:10 PM CDT) Blood Abdifatah Ladd MD HEMATOLOGY ORDERABLES Final Res ult from Last 3 Months Insurance [employer] [facility] Address: [address] [place] [address] [facility] Member Subscriber Plan / Payer (Ef fective 2019-Present) Name:Ngozi Zazueta Relation to Subscriber:Self Name:Ngozi Zazueta Payer ID:Not on file Group ID:Not on file Type:[place] Address: [address] [id number] MEDICARE PART A AND B Care Teams Associate Java Developer Relationship Specialty Start Date End Date Alexei Valdez MD [address] [place] [address] PCP - General Internal Medicine 01/26/23
--- OUTSIDE RECORDS SUMMARY | 2024-07-18 13:03 | XMS_ITS | Clinical Summary ---
Author Organization [facility] Address [facility] [place] [address] Care Team Providers Care Corrosion Prevention Metal Sprayer Name Role Phone Alexei Valdez MD Primary Care Provider [phone] Dano Edwards MD Unavailable [phone] Allergies No known active allergies Medications [...] to 0.5 cm in greatest dimension (CMS/HCC [facility]/HCC) 02/13/2023 Presence of Watchman left atrial appendage closu re device 11/25/2022 Primary hypertension 05/17/2021 Dyslipidemia 05/17/2021 Atrial fibrillation status p ost cardioversion ([facility]) 05/01/2021 Paroxysmal atrial fibrillation ([facility]) 06/10/2019 Bilateral carotid artery stenosis 06/10/2019 [...] on file Legal Sex Female 4:20 PM FUNCTIONAL SKILLS TUTOR Gender Identity Not on file Sexual Orientation Not on file Occupation Industry Job Start Date Job End Date Not on file Not on file Not on file Not on file Last Filed Vital Signs Vital Sign Reading Time Taken Comments Blood Pressure 130/62 02/25/2024 9:09 AM FUNCTIONAL SKILLS TUTOR Pulse 61 02/25/2024 9:09 AM FUNCTIONAL SKILLS TUTOR Temperature 37.1 C (98.7 F) 05/17/2023 4:13 PM FUNCTIONAL SKILLS TUTOR Respiratory Rate 27 05/17/2023 7:40 PM FUNCTIONAL SKILLS TUTOR Oxygen Saturation 96% 02/25/2024 9:09 AM FUNCTIONAL SKILLS TUTOR Inhaled Oxygen Concentration - - Weight 50.8 kg (112 lb) 02/25/2024 9:09 AM FUNCTIONAL SKILLS TUTOR Height 157.5 cm (5' 2 ) 02/25/2024 9:09 AM FUNCTIONAL SKILLS TUTOR Body Mass Index 20.49 02/25/2024 9:09 AM FUNCTIONAL SKILLS TUTOR Plan of Treatment Upcoming Encounters Date Type Department Care Team (Late st Contact Info) Description 08/19/2024 10:30 AM CDT [facility] [address] [place] [address] Halie Zepeda, ELECTROPLATING WORKER-C Three [facility]. [address] [place] [address] 03/02/2025 10:15 AM FUNCTIONAL SKILLS TUTOR Office [facility] [address] [place] [address] Sarah Biggs PA 3 [facility] [address] [place], [place] [phone] Health Maintenance Due Date Last Done Comments [...] Jc, RN Medical Devices Implanted Type Area Basin Finish Operator Tig Welder Device Identifier Shelf Expiration Date Model / Serial / Lot Watchman Flx [place] Closure 20mm-11/25/2022 Implanted:Qty: 1 on 11/25/2022 by Steven Hollingsworth MD Closure Device Crossbar AMY [id number] / / Insurance MEDICARE MEDICARE [facility] Advance Directives Documents on File Type Date Recorded Patient Assistant Center Director Expl anation Power of Teacher Dancing 05/30/2021 POA FOR HE ALTHCARE 2021 * Full Code (Latest Code Status on File) Date Activated Date Inactivated Comments 05/01/2021 4:12 PM 05/02/2021 12:20 PM * Full Code Date Activated Date Inactivated Comments 05/01/2021 8:54 AM 05/01/2021 4:12 PM Care Teams Corrosion Prevention Metal Sprayer Relationship Specialty Start Date End Date Alexei Valdez MD [address] [facility] [facility] [address] [place] [address] PCP - General INTERNAL MEDICINE 04/12/19 Dano Edwards MD 3 [facility] [address] [place] [address] [place] Allergist/Md CARDIOVASCULAR DISEASE 05/25/19
--- OUTSIDE RECORDS SUMMARY | 2024-07-18 13:03 | XMS_ITS | Encounter Summary ---
Author Organization [facility] Address [address] [facility] [place] [address] Care Team Providers Care Pin Drafting Machine Operator Name Role Phone Unavailable Primary Care Provider Unavailabl e Encounter Details Date Type Department Care Team (Late st Contact Info) Description 11/10/2023 Lab Requisition [facility] [address] [place] [address] Bhumi Saavedra PA [address] [place] [address] Social History Tobacco Use Types Packs/Day Years [...] AM CDT) Case Report Dermatopathology Report Case: [id number] Authorizing Provider: Bhumi Saavedra PA Collected: 11/10/2023 09:24 AM Ordering Location: [facility] - Received: 11/11/2023 11:28 [...] characteristic determined by the Dermatopathology Laboratory at [facility], directed by Dr. Dee Dee Mylse. These tests need not be, and therefore are not, approved by the [place] Food and Drug Administration. The tests are used for clinical purposes. Billing Codes Specimen Charges Stain Charges 13068 1 1:57 PM CDT DERMATOPATHOLOGY LABORATORY Embedded Images 1:57 PM CDT DERMATOPATHOLOGY LABORATORY Pathology/Cytolo gy TISSUE SPECIMEN FROM SKIN / Unknown 11/10/2023 9:24 AM CDT 11/11/2023 11:28 AM CDT us [facility] - PATHOLOGY/CYTOLOGY ORDERAB LES Final Result DERMATOPATHOLOGY LABORATORY [facility] - Department of Dermatology [address], [address] [phone] documented in this encounter Visit Diagnoses Not on filedocumented in this encounter
--- OUTSIDE RECORDS SUMMARY | 2024-07-18 13:03 | XMS_ITS | Clinical Summary ---
Author Organization [facility] Address [address] [place] [address] Care Team Providers Care Motorcycle Police Officer Name Role Phone Alexei Valdez MD Primary Care Provider [phone] Allergies No known active allergies Medications carvediloL [...] on file Legal Sex Female 8:37 PM CABLE INSTALLER REPAIRER Gender Identity Not on file Sexual Orientation [...] 65+ Completed 017, 12/23/2014, 12/04/2013 Insurance MEDIC[place] [address] [address] [id number] Care Teams Motorcycle Police Officer Relationship Specialty Start Date End Date Alexei Valdez MD PCP - General Internal Medicine 10/05/23
--- OUTSIDE RECORDS SUMMARY | 2024-07-18 13:03 | XMS_ITS | Encounter Summary ---
Author Organization [facility] Address [address] [place] [address] Care Team Providers Care Track Walker Name Role Phone Alexei Valdez MD Primary Care Provider [phone] Dano Edwards MD Unavailable [phone] Encounter Details Date Type Department Care Team (Late Contact Info) Description 06/22/2019 Abstract [facility] at [address] [address] [place] Social History Tobacco Use Types Packs/Day Years [...] on file Legal Sex Female 4:20 PM STATISTICAL REPORTING ANALYST Gender Identity Not on file Sexual Orientation [...] Description 08/19/2024 10:30 AM CDT Office Visit [facility], [address] [place] [address] Halie Zepeda NP-C Three [facility]. [address] [place] [address] 03/02/2025 10:15 AM STATISTICAL REPORTING ANALYST Office Visit [facility], [address] [place] [address] Sarah Biggs PA 3 [facility] [address] [place], [place] [phone] documented as of this encounter Procedures Procedure Name Priority Date/Time Associated Diagnosis Comments THYROXINE, FREE (FT4) Routine 06/06/2019 PROTIME (OUTSIDE LAB) Routine 06/05/2017 BASIC METABOLIC PANEL Routine 06/05/2017 THYROID STIM HORMONE TSH Routine 06/05/2017 MAGNESIUM Routine 06/05/2017 documented in this encounter Results * THYROXINE, FREE (FT4) (06/06/2019) [facility] FREE T4 1.28 0.82 - 1.77 06/06/2019 us Doc [facility] Abstract LABORATORY Edited Resul t - Final * MAGNESIUM (06/05/2017) [facility] MAGNESIUM 2.1 1.6 - 2.3 06/05/2017 [...] on filedocumented in this encounter Care Teams Track Walker Relationship Specialty Start Date End Date Alexei Valdez MD [address] [facility] [address] [place] [address] PCP - General INTERNAL MEDICINE 04/12/19 Dano Edwards MD 3 [facility] [address] [place] [address] [employer] Library Assistant CARDIOVASCULAR DISEASE 05/25/19 documented as of this encounter
== END 2024-07-18 12:42 | disposition home or self-care (01) ==
LOC: ANHIMG 12:41
PROVIDERS: PCP Internal Medicine; Visit Provider Surgery
DX: C50.911 Malignant neoplasm of unspecified site of right female breast (principal); R23.4 Changes in skin texture; R92.333 Mammographic heterogeneous density, bilateral breasts
CPT/HCPCS: 77061; 77065; G0279

== ENCOUNTER 2024-10-13 06:57 | Outpatient (CLI) | payer MEDICARE, OTHER, SELFPAY ==
--- OUTSIDE RECORDS SUMMARY | 2024-10-13 07:00 | XMS_ITS | Clinical Summary ---
Author Organization [facility] Address [facility] [place] [address] Care Team Providers Care Hand Compositor Name Role Phone Alexei Valdez MD Primary Care Provider [phone] Dano Edwards MD Unavailable [phone] Allergies No known active allergies Medications Calcium Carbonate-Vit D-Min (CALCIUM 1200 OR) Take 2 tablets by mouth daily. Active vitamin B-12 (CYANOCOBALAMIN ) 1000 mcg tablet Take 1 tablet (1,000 mcg total) by mouth daily. Active acetaminophen (TYLENOL) 500 MG tablet Take 1 tablet (500 mg total) by mouth daily. Active rosuvastatin 10 MG [...] Take 2 tablets by mouth daily. Active Active Problems Problem Noted Date Diagnosed Date Dizziness and giddiness 10/27/2023 Seasonal allergic rhinitis due to pollen 024 Breast cancer greater than 0 .1 cm and less than or equal to 0.5 cm in greatest dimension (CMS/HCC HHS/HCC) 02/13/2023 Presence of Watchman left atrial appendage closu re device 11/25/2022 Primary hypertension 05/17/2021 Dyslipidemia 05/17/2021 Atrial fibrillation status p ost cardioversion ([facility]) 05/01/2021 Paroxysmal atrial fibrillation ([facility]) 06/10/2019 Bilateral carotid artery stenosis 06/10/2019 Precordial pain 06/10/2019 Encounters Date Type Department Care Team Description 08/19/2024 10:30 AM CDT Office Visit [facility], [address] [address] Halie Zepeda NP-C Follow Up; Atrial Fibrillation; Hypertension; Lipids 08/19/2024 Travel 08/18/2024 Orders Only [facility], [address] [address] Nusrat Scanlon MA from Last 3 Months Immunizations Immunization Administration Dates Next Due Fluzone High Dose - >Age 65 (Prefilled Syringe) 11/13/2019,12/12/2018,12/20/2017 Influenza (Generic) 12/27/2016, 4,12/13/2012,2011 Influenza Adult (Generic) 11/04/2020,,12/20/2017,2015,12/23/2014 Pneumococcal (Generic) 12/04/2013 Pneumococcal (Pneumovax 23) 12/27/2016 Pneumococcal (Prevnar 13) 12/23/2014 Shingrix 08/13/2018 Zoster (Zostavax) [address] Unt/0.65Ml 04/19/2018, Family History Medical History Relation Comments Heart [...] on file Legal Sex Female 4:20 PM DISTRIBUTION OPERATIONS SUPERVISOR Gender Identity Not on file Sexual Orientation Not on file Occupation Industry Job Start Date Job End Date Not on file Not on file Not on file Not on file Last Filed Vital Signs Vital Sign Reading Time Taken Comments Blood Pressure 140/68 08/19/2024 10:19 AM CDT Pulse 60 08/19/2024 10:19 AM CDT Temperature 37.1 C (98.7 F) 05/17/2023 4:13 PM DISTRIBUTION OPERATIONS SUPERVISOR Respiratory Rate 27 05/17/2023 7:40 PM DISTRIBUTION OPERATIONS SUPERVISOR Oxygen Saturation 98% 08/19/2024 10:19 AM CDT Inhaled Oxygen Concentration - - Weight 52.2 kg (115 lb) 08/19/2024 10:19 AM CDT Height 157.5 cm (5' 2) 08/19/2024 10:19 AM CDT Body Mass Index 21.03 08/19/2024 10:19 AM CDT Plan of Treatment Upcoming Encounters Date Type Department Care Team (Late st Contact Info) Description 03/02/2025 10:15 AM DISTRIBUTION OPERATIONS SUPERVISOR Office Visit [facility], [facility] [address] [place] [address] Sarah Biggs PA [address] [facility] [address] [place] [address] 08/01/2025 9:00 AM CDT Appointment [facility] Non [place]vasive [place] [address] Halie Zepeda, GRILL ATTENDANT-C Three [facility]. [facility] [address] [place] [address] 08/29/2025 10:00 AM CDT Office Visit [facility], [facility] [address] [place], [place] [id number] Nahum Guadalupe MD Three [facility]. [facility] [address] [place] [address] Health Maintenance Due Date Last Done Comments DTaP, Tdap and Td Vaccines ( 1 - Tdap) 1964 Annual Medicare Wellness Visit 2008 Dexa Scan (General) 2008 RSV Immunization or 60+ Years (1 - 1-dose 75+ series) 2018 Zoster Vaccines (3 of 3) 10/08/2018 019, 04/19/2018, 12/25/2010 COVID-19 Vaccine (2023-2 5 season) 2023 01/04/2021, 05/15/2020, 04/12/2020 Pneumococcal [...] Jc RN Medical Devices Implanted Type Area Direct Service Professional Device Identifier Shelf Expiration Date Model / Serial / Lot Watchman Flx [place] Closure 20mm-11/25/2022 Implanted:Qty: 1 on 11/25/2022 by Steven Hollingsworth MD Closure Device [employer] AMY [id number] / / [place] [address] Advance Directives Documents on File Type Date Recorded Patient Inclined Railway Operator Expl anation Power of Electrical Engineering Technician 05/30/2021 POA FOR HE ALTHCARE 2021 * Full Code (Latest Code Status on File) Date Activated Date Inactivated Comments 05/01/2021 4:12 PM 05/02/2021 12:20 PM * Full Code Date Activated Date Inactivated Comments 05/01/2021 8:54 AM 05/01/2021 4:12 PM Care Teams Hand Compositor Relationship Specialty Start Date End Date Alexei Valdez MD [address] [place] [address] PCP - General INTERNAL MEDICINE 04/12/19 Dano Edwards MD 3 [facility] [address] [place] [address] [place] Metal Tube Cutter CARDIOVASCULAR DISEASE 05/25/19
--- OUTSIDE RECORDS SUMMARY | 2024-10-13 07:00 | XMS_ITS | Encounter Summary ---
Author Organization [facility] Address [facility] [address] Care Team Providers Care Paper Deliverer Name Role Phone Unavailable Primary Care Provider Unavailabl e Encounter Details Date Type Department Care Team (Late st Contact Info) Description 11/10/2023 Lab Requisition [facility] Derm[facility] Lab [address] [place] [address] Bhumi Saavedra PA [address] [place] [address] Social History Tobacco Use Types Packs/Day Years [...] AM CDT) Case Report Dermatopathology Report Case: [id number] Authorizing Provider: Bhumi Saavedra PA Collected: 11/10/2023 09:24 AM Ordering Location: [facility] - Received: 11/11/2023 11:28 AM DermPath Lab Pathologist: Phyllis Larson MD Specimen: Skin, right upper calf 1:57 PM CDT DERMATOPATHOLOGY LABORATORY Final Diagnosis Specimen A. 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 Billing Codes Specimen Charges Stain Charges 95889 1 1:57 PM CDT DERMATOPATHOLOGY LABORATORY Embedded Images 1:57 PM CDT DERMATOPATHOLOGY LABORATORY Pathology/Cytolo gy TISSUE SPECIMEN FROM SKIN / Unknown 11/10/2023 9:24 AM CDT 11/11/2023 11:28 AM CDT us [facility] - PATHOLOGY/CYTOLOGY ORDERAB LES Final Result DERMATOPATHOLOGY LABORATORY [facility] - Department of Dermatology [address], [address] Floor [address] [phone] documented in this encounter Visit Diagnoses Not on filedocumented in this encounter
--- OUTSIDE RECORDS SUMMARY | 2024-10-13 07:00 | XMS_ITS | Clinical Summary ---
Author Organization [facility] My Pick Box Address [address] [place] [address] Care Team Providers Care Bee Raiser Name Role Phone Alexei Valdez MD Primary Care Provider [phone] Allergies No known active allergies Medications carvediloL [...] on file Legal Sex Female 8:37 PM COUNTER HELPER Gender Identity Not on file Sexual [...] 11:20 AM CDT Height 157.5 cm (5' 2) 10/27/2023 11:20 AM CDT Body Mass Index [...] 08/06/2021, Additional history exists Influenza Vaccine (#1) 2024 , 12/07/2021, 11/04/2020, Additional history exists DTaP/Tdap/Td Vaccine (2 - Td or Tdap) 01/13/2032 01/12/2022 Pneumococcal vaccine 65+ Completed 017, 12/23/2014, 12/04/2013 Insurance MEDICARE [place] [address] [address] [id number] Care Teams Bee Raiser Relationship Specialty Start Date End Date Alexei Valdez MD PCP - General Internal Medicine 10/05/23
--- OUTSIDE RECORDS SUMMARY | 2024-10-13 07:00 | XMS_ITS | Encounter Summary ---
Author Organization [facility] Address [address] [place] [address] Care Team Providers Care Plaster Mixer Name Role Phone Alexei Valdez MD Primary Care Provider [phone] Dano Edwards MD Unavailable [phone] Encounter Details Date Type Department Care Team (Late Contact Info) Description 06/22/2019 Abstract [facility] at [address] [address] Madie Granados [place] Social History Tobacco Use Types Packs/Day Years [...] on file Legal Sex Female 4:20 PM SIGN FABRICATOR Gender Identity Not on file Sexual Orientation [...] Department Care Team (Late Contact Info) Description 03/02/2025 10:15 AM SIGN FABRICATOR Office Visit [facility] THREE [facility], [place] [place] [address] Sarah Biggs PA 3 [facility] [address] [place] [address] 08/01/2025 9:00 AM CDT Appointment [facility] Non Invasive Cardiology [address] [facility] [place] [address] Halie Zepeda NP-C Three [facility]. [address] [place] [address] 08/29/2025 10:00 AM CDT Office Visit [facility] THREE [facility], [address] [place] [address] Nahum Guadalupe MD Three [facility]. [address] [place], [place] [address] documented as of this encounter Procedures Procedure [...] Resul t - Final * MAGNESIUM (06/05/2017) MAGNESIUM 2.1 1.6 - 2.3 06/05/2017 us Doc [facility] LABORATORY Final Result * THYROID STIM HORMONE, TSH (06/05/2017) Pathologist [facility] TSH 1.280 0.45 - 4.500 06/05/2017 us Doc [facility] LABORAT[facility] Edited Resul t - Final * PROTIME (OUTSIDE LAB) (06/05/2017) Pathologist [facility] PROTIME 10.5 INR 1.0 06/05/2017 us [facility] Abstract LAB-OUTSIDE/ABSTRACTED Edite d Result - Final * (ABNORMAL) BASIC METABOLIC PANEL (06/05/2017) Pathologist [facility] SODIUM S/P/B 139 POTASSIUM S/P/B 4.8 CO2 26 CHLORIDE S/P/B 99 GLUCOSE 110 mg/dL CALCIUM S/P/B 9.7 BUN 14 CREATININE S/P/B 0.73 0.5 - 1.0 EGFR AFR. AMER. 94(A) <=90 EGFR NON-AFR. AMER. 81 <=90 06/05/2017 us Doc [facility] LABORATORY Edited Resul t - Final documented in this encounter Visit Diagnoses Not on filedocumented in this encounter Care Teams Plaster Mixer Relationship Specialty Start Date End Date Alexei Valdez MD [address] [facility] [address] [place] [phone] PCP - General INTERNAL MEDICINE 04/12/19 Dano Edwards MD 3 [facility] [address] [place] [address] Josemanuel Assembly Line Supervisor CARDIOVASCULAR DISEASE 05/25/19 documented as of this encounter
--- OUTSIDE RECORDS SUMMARY | 2024-10-13 07:00 | XMS_ITS | Referral Summary ---
Author Organization [facility] Address [address] [place] [address] Care Team Providers Care Physical Education Professor Name Role Phone Alexei Valdez MD Primary [...] on file Legal Sex Female 8:37 PM INSPECTOR AIR CARRIER Gender Identity Not on file Sexual [...] Plan of Treatment [place] [address] [address] [id number] Care Teams Physical Education Professor Relationship Specialty Start Date End Date Alexei Valdez MD PCP - General Internal Medicine 10/05/23
--- OUTSIDE RECORDS SUMMARY | 2024-10-13 07:00 | XMS_ITS | Clinical Summary ---
Author Organization [facility] Address [address] [place] [address] Care Team Providers Care Synthetic Plasterer Name Role Phone Alexei Valdez MD Primary [...] Pain. Active fluticasone propionate (FLONASE) 50 mcg/spray [place], Suspension nasal inhaler Administer 2 Sprays in each nostril daily. Active Active Problems No known active problems Encounters Date Type Department Care Team Description 09/28/2024 External Device Data ST[facility] ABSTRACTION Provider, Abstract 09/28/2024 External Device Data ST[facility] ABSTRACTION Provider, Abstract 09/28/2024 External Device Data ST[facility] ABSTRACTION Provider, Abstract 09/27/2024 External Device Data ST[facility] ABSTRACTION Provider, Abstract 08/31/2024 External Device Data ST[facility] ABSTRACTION Provider, Abstract 08/30/2024 External Device Data ST[facility] ABSTRACTION Provider, Abstract 08/04/2024 External Device Data ST[facility] ABSTRACTION Provider, Abstract 08/03/2024 External Device Data ST[facility] ABSTRACTION Provider, Abstract 08/02/2024 External Device Data STL ABSTRACTION Provider, Abstract 07/25/2024 4:30 PM CDT Telephone Check Up [facility] Oncology and Hematology [facility] [address] [place] [address] Abdifatah Ladd MD from Last 3 Months [...] on file Legal Sex Female 3:33 PM ACCOUNT CLERK Gender Identity Not on file Sexual [...] 10:00 AM CDT Height 157.5 cm (5' 2) 01/26/2023 3:05 PM ACCOUNT CLERK Body Mass Index 21.18 01/26/2023 3:05 PM ACCOUNT CLERK Plan of Treatment Upcoming Encounters Date Type Department Care Team (Late st Contact Info) Description 01/30/2025 11:30 AM ACCOUNT CLERK Office Visit [facility] Oncology and Hematology - [place] [address] [place] [address] Abdifatah Ladd MD [address] [facility] [employer] [address] [place] [address] Health Maintenance Due Date Last Done Comments DTAP/TDAP/TD VACCINES (1 - Tdap) 1962 PNEUMOCOCCAL VACCINE 50+ YEA RS (1 of 1 - PCV) 1993 ZOSTER VACCINE (1 of 2) 1993 RSV VACCINE (60+ or ) (1 - 1-dose 75+ series) 2018 INFLUENZA VACCINE (#1) 2024 12/20/2017 OSTEOPOROSIS SCREENING 12/06/2027 3, 12/03/2020, 11/29/2018 COLORECTAL SCREENING Discontinued 03/12/2023 Colorectal Cancer Screening Discontinued FIT-DNA Q 3 years Discontinued FIT/FOBT Q 1 year Discontinued Flex Sig/CT Colonography Q 5 years Discontinued Insurance [facility] Member Subscriber Plan / Payer (Ef fective 2021-Present) Name:Ngozi Zazueta Relation to Subscriber:Self Name:Ngozi Zazueta Payer ID:Not on file Group ID:Not on file Type:[facility] Address: [address] MEDICARE PART A AND B Care Teams Synthetic Plasterer Relationship Specialty Start Date End Date Alexei Valdez MD [address] [place] [address] PCP - General Internal Medicine 01/26/23
--- OUTSIDE RECORDS SUMMARY | 2024-10-13 07:00 | XMS_ITS | Clinical Summary ---
Author Organization [facility] Address [address] [place] [address] Care Team Providers Care Checker Cashier Name Role Phone Unavailable Primary Care Provider Unavailabl e Source Comments [facility],non-owned Affiliates and Associated Physician Practices is amultiple site organization consisting of ambulatory clinics and hospital sitesin [place], [place], [place] and [place]. This disclosure is being madepursuant to the Care Everywhere program and may not contain all information available regarding this patient. Last updated 17.[facility] Allergies No known active allergies Medications * [...] season) 2023 DEPRESSION SCREENING 03/16/2024 INFLUENZA VACCINE (#1) 2024 12/20/2017 HEPATITIS B VACCINE Aged Out No longe [...] to complete this topic Insurance MEDICARE MEDICARE [facility] [place] [id number] MEDICARE MEDICARE MEDICARE COMMERCIAL [facility] COMMERCIAL GENERIC Member Subscriber Plan / Payer (Ef fective for All Dates) Name:Ngozi Martinez Member ID:Not on file Relation to Subscriber:Self Name:Ngozi Martinez Subscriber ID:Not on file Payer ID:Not on file Group ID:Not on file Type:Commercial Address: [facility] MEDICARE COMMERCIAL GENERIC [facility] SPECIALTY RISK
--- OUTSIDE RECORDS SUMMARY | 2024-10-13 07:00 | XMS_ITS | Encounter Summary ---
Author Organization [facility] Address [facility] [place] [address] Care Team Providers Care General Repairer Name Role Phone Alexei Valdez MD Primary Care Provider [phone] Dano Edwards MD Unavailable [phone] Encounter Details Date Type Department Care Team (Late st Contact Info) Description 11/25/2022 Hospital Orders Only [facility] Anesthesia [address] [place], [place] [phone] Gonsalo Rosales MD [address] [id number] Anesthesia Record Procedure Summary Procedure Name Responsible [...] on file Legal Sex Female 4:20 PM PRIMER INSPECTOR Gender Identity Not on file Sexual Orientation Not on file Occupation Industry Job Start Date Job End Date Not on file Not on file Not on file Not on file documented as of this encounter Functional Status * RETIRED Are you deaf or do you have serious difficulty hearing Answer Date of Assessment Author Status No 05/01/2021 1:10 PM PRIMER INSPECTOR Activ e * RETIRED Are you blind or do you have serious difficulty seeing, even when wearing glasses? Answer Date of Assessment Author Status No 05/01/2021 1:10 PM PRIMER INSPECTOR Activ e * Do you have serious difficulty walking or climbing stairs? Answer Date of Assessment Author Status No 05/01/2021 1:10 PM PRIMER INSPECTOR Yen Guevara RN Active * Do you have difficulty dressing or bathing? Answer Date of Assessment Author Status No 05/01/2021 1:10 PM Yen Carey RN Active * Because of a physical, mental, or emotional condition, do you have difficulty doing errands alone such as visiting a doctor's office or shopping? Answer Date of Assessment Author Status No 05/01/2021 1:10 PM PRIMER INSPECTOR Yen Guevara RN Active * Calculated C-SSRS Risk Score (Lifetime/Recent) Answer Date of Assessment Author Status No Risk Indicated 11/25/2022 8:52 AM CDT Lindsay Schaefer RN Active * [place] Suicide Severity Rating Scale (Screener/Recent Self-Report) Question Answer Date of Assessment Author Status 1. Wish to be (Past 1 Month) No 11/25/2022 8:52 AM JESUST Tammy Schaefer RN Ac tive 2. Non-Specific Active Suicidal Thoughts (Past 1 Month) No 11/25/2022 8:52 AM CDT Tammy Schaefer RN Ac tive 6. Suicidal Behavior (Lifetime) No 11/25/2022 8:52 AM JESUST Tammy Schaefer RN Ac tive documented as of this encounter Mental Status * Because of a physical, mental, or emotional condition, do you have serious difficulty concentrating, remembering, or making decisions? Answer Entry Date Author Status No 05/01/2021 1:10 PM PRIMER INSPECTOR Yen Guevara RN Active documented in this encounter Plan of Treatment Upcoming Encounters Date Type Department Care Team (Late st Contact Info) Description 03/02/2025 10:15 AM PRIMER INSPECTOR Office Visit [facility] THREE [facility], [facility] [address] [place] [address] Sarah Biggs PA 3 [facility] [address] [place] [address] 08/01/2025 9:00 AM CDT Appointment [facility] Non Invasive Cardiology [address] [facility] [place] [address] Halie Zepeda VP DIGITAL MARKETING-C Three [facility]. [facility] [address] [place] [address] 08/29/2025 10:00 AM CDT Office Visit [facility] THREE [facility], [facility] [address] [place], [place] [address] Nahum Guadalupe MD Three [facility]. [address] [place], [place] [phone] documented as of this encounter Goals Goal Patient Goal Type Associated Problems Recent Progress Patient-Stated? Author Health - patient able to perform ADLs independently General Kei Zelaya RN documented as of this encounter Visit Diagnoses Not on filedocumented in this encounter Care Teams General Repairer Relationship Specialty Start Date End Date Alexei Valdez MD [address] [facility] [address] [place] [address] PCP - General INTERNAL MEDICINE 04/12/19 Dano Edwards MD 3 [facility] [address] [place] [phone] Josemanuel Geotechnical Field Technician CARDIOVASCULAR DISEASE 05/25/19 documented as of this encounter
[2024-10-13 08:00] LABS: Hematocrit 35.8 % (37.0-47.0); Hemoglobin 11.9 g/dL (12.0-15.0); Immature Granulocyte Percent A 0.2 % (0-0.5); Lymphocytes Absolute Auto 1.33 K/mm3 (0.9-3.2); Mean Corpuscular HGB Conc 33.2 g/dl (32-36); Mean Corpuscular Hemoglobin 31.5 pg (26-34); Mean Corpuscular Volume 94.7 fl (80-100); Nucleated Red Blood Cells Absolute Auto 0.000 K/mm3 (0.0-0.012); Nucleated Red Blood Cells Perc 0.0 % (0.0-0.2); Platelet Count Result 206 k/mm3 (150-375); Red Blood Count 3.78 M/mm3 (4.2-5.4); White Blood Count 4.8 K/mm3 (4.5-10.0)
[2024-10-13 08:23] LABS: Anion Gap 5 mmol/L (4-12); Blood Urea Nitrogen 14 mg/dL (7-17); Calcium 9.1 mg/dL (8.4-10.2); Carbon Dioxide 27 mmol/L (22-30); Chloride 103 mmol/L (98-107); Cholesterol 143 mg/dL (0-200); Estimated Glomerular Filt Rate > 60; Glucose 93 mg/dL (65-110); HDL Direct 67 mg/dL; Hemoglobin A1C 5.9 % (<5.7); Potassium 4.4 mmol/L (3.4-5.0); Sodium 135 mmol/L (137-145); Triglycerides 45 mg/dL (<150)
[2024-10-13 08:43] LABS: Free T4 Free Thyroxine 1.03 ng/dL (0.78-2.19)
[2024-10-13 08:59] LABS: Thyroid Stimulating Hormone 1.500 uIU/mL (0.465-4.680)
== END 2024-10-13 06:58 | disposition home or self-care (01) ==
LOC: ANHLAB 06:58
PROVIDERS: PCP Internal Medicine; Visit Provider Internal Medicine
DX: E78.2 Mixed hyperlipidemia (principal); R73.03 Prediabetes; I10 Essential (primary) hypertension; E55.9 Vitamin D deficiency, unspecified; Z13.29 Encounter for screening for other suspected endocrine disorder; Z79.899 Other long term (current) drug therapy
CPT/HCPCS: 36415; 80048; 80061; 82306; 83036; 84439; 84443; 85025

== ENCOUNTER 2024-12-06 08:44 | Outpatient (CLI) | payer MEDICARE, OTHER, SELFPAY ==
--- NOTE | ~2024-12-06 | DEXA_ITS ---
Bone Density Report Name: VINNY MARTINEZ Age: 79 Sex: Female Ethnicity: White Date of : 1945 Indication: osteopenia; parental hip fracture; prior fracture; cancer; Referring Provider: LUCITA BASS Study: Bone densitometry was performed. Exam Date: December 06, 2024 Accession number: [id number] Bone Density: Region BMD T-score Z-score Classification AP Spine(L1-L4) 0.930 -1.1 1.7 Osteopenia Femoral Neck (Right) 0.725 -1.1 1.3 Osteopenia Total Hip (Right) 0.830 -0.9 1.2 Normal World Health Organization criteria for BMD impression classify patients as: Normal (T-score at or above -1.0), Osteopenia (T-score between -1.0 and -2.5), or Osteoporosis (T-score at or below -2.5). 10-year Fracture Risk: FRAX not reported because: Prior hip or vertebral fracture Previous Exams: -- Region Exam Age BMD T-score BMD Change BMD Change Date g/cm2 vs Baseline vs Previous -- AP Spine (L1-L4) 12/06/2024 79 0.930 -1.1 -1.3%# 3.7%* 12/05/2022 77 0.896 -1.4 -4.8%# -0.4%# 11/29/2018 73 0.899 -1.3 -4.5%* 3.4%* 02/26/2016 70 0.870 -1.6 -7.6%* 1.5% 09/20/2012 67 0.857 -1.7 -9.0%* -5.5%* 03/02/2010 64 0.907 -1.3 -3.7%* -3.7%* 06/23/2007 62 0.941 -1.0 Total Hip(Right) 12/06/2024 79 0.830 -0.9 -13.4%# -0.8% 12/05/2022 77 0.836 -0.9 -12.7%# -6.6%# 11/29/2018 73 0.896 -0.4 -6.5%* -2.1% 02/26/2016 70 0.915 -0.2 -4.5%* -1.3% 09/20/2012 67 0.927 -0.1 -3.2%* -1.9% 03/02/2010 64 0.945 0.0 -1.4% -1.4% 06/23/2007 62 0.958 0.1 -- *Denotes significance at 95% confidence level, LSC for AP Spine = 0.022 g/cm2, LSC for Total Hip = 0.027 g/cm2 # Denotes dissimilar scan types or analysis methods Clinical Information Provided by Patient: Have had a previous hip or vertebral fracture Has had a low trauma fracture Parent has had a hip fracture Has used the following medications: Vitamin D, Calcium Has the following medical conditions: Cancer Patient maximum height was 62 Menopause Age: 48 Drinks caffeinated beverages Onset of menses at age 12 Number of children 1 Impression: The patient has low bone mass, based on the Total Spine T-score. The patient has risk factors, including: parental hip fracture, previous fracture. No significant bone loss was observed. Discussion: INCREASED RISK OF FRACTURE DUE TO HISTORY OF FRACTURE. The patient's previous fracture puts the patient at high risk of a future fracture. In untreated patients, the risk of osteoporotic fracture increases approximately two-fold for each 1.0 SD decrease in T-score. Low bone density is not the only risk factor for fracture; also consider factors such as patient's age, frailty or poor health, risk of falling, risk of injury, previous osteoporotic fracture, family history of osteoporosis, cigarette smoking, low body weight, etc. Not everyone with a low trauma fracture has osteoporosis; osteomalacia and other metabolic bone disorders should also be considered. Patients who have osteoporosis should be evaluated for specific diseases and conditions (secondary causes) that may cause or contribute to bone loss and fracture risk. National Osteoporosis Foundation (NOF) recommends pharmacologic intervention for patients with a prior hip or vertebral fracture regardless of BMD T-score. The patient should follow a healthful lifestyle (good nutrition with adequate calcium and vitamin D, and appropriate weight-bearing exercise). Follow-Up: Consider a repeat BMD and Vertebral Fracture Assessment (VFA) exam in 2 years or sooner if medically necessary, to reassess this patient's status. Reported by: RUPERT on 12/06/2024 9:44:00 AM. Reviewed, dictated and finalized at location A.
== END 2024-12-06 08:45 | disposition home or self-care (01) ==
LOC: MICIMG 08:45
PROVIDERS: PCP Internal Medicine; Visit Provider Nurse Practitioner Obstetrics & Gynecology
DX: M85.88 Other specified disorders of bone density and structure, other site (principal); Z78.0 Asymptomatic menopausal state
CPT/HCPCS: 77080

== ENCOUNTER 2025-01-19 10:45 | Outpatient (CLI) | payer MEDICARE, OTHER, SELFPAY ==
--- NOTE | ~2025-01-19 | US_ITS ---
EXAMINATION: US breast RT complete HISTORY: 79-year-old female with prior history of right breast cancer presents with changes of the skin texture. She has had some redness in the past in this area. COMPARISON: None FINDINGS: Targeted ultrasound at the area of the patient's skin redness in the upper outer right breast was completed. No suspicious sonographic abnormality seen in the area of concern. Post surgical bed at 11:00 position did not demonstrate any suspicious abnormality. IMPRESSION: No suspicious sonographic abnormality seen in the area of skin change in the right breast. Recommend continued annual mammography. Further evaluation of patient's findings should be based on clinical impression. BI-RADS 2, BENIGN Reviewed, dictated and finalized at location B. H ATTENDANT IMPRESSION: No suspicious sonographic abnormality seen in the area of skin change in the ri ght breast. Recommend continued annual mammography. Further evaluation of patient's findings should be based on clinical impression . BI-RADS 2, BENIGN
--- NOTE | ~2025-01-19 | MM_ITS ---
EXAMINATION: MM screening [facility] BI w thu INDICATION: Asymptomatic, referred for screening mammogram. History of Right partial mastectomy 2022. COMPARISON: 01/27/2024 through 04/06/2017 TECHNIQUE: Digital Breast Tomosynthesis CC, MLO views were obtained of Both breasts with computer-aided detection to assist in interpretation of the study. FINDINGS: The breasts are heterogeneously dense, which may obscure small masses. Posttreatment changes in Right breast are stable. No new focal dominant mass, architectural distortion, or suspicious microcalcifications are identified. There are no features to suggest malignancy. IMPRESSION: Stable benign mammogram. No evidence of malignancy in the breast. Recommend annual screening mammography in 12 months. BI-RADS 2, BENIGN Reviewed, dictated and finalized at location B. FACTORY WORKER
--- OUTSIDE RECORDS SUMMARY | 2025-01-19 18:49 | XMS_ITS | Encounter Summary ---
Author Organization [facility] Address [facility] [facility] [place] [address] Care Team Providers Care Shipfitter Name Role Phone Unavailable Primary Care Provider Unavailabl e Encounter Details Date Type Department Care Team (Late st Contact Info) Description 11/10/2023 Lab Requisition [facility] - DermPath Lab [address] [place] [address] Bhumi Saavedra PA [address] [place] [address] Social History Tobacco Use Types Packs/Day Years [...] AM CDT) Case Report Dermatopathology Report Case: [id number] Authorizing Provider: Bhumi Saavedra PA Collected: 11/10/2023 09:24 AM Ordering Location: [facility] - Received: 11/11/2023 11:28 AM [...] determined by the Dermatopathology Laboratory at [facility], directed by Dr. Dee Dee Myles. These tests need not be, and therefore are not, approved by the [place] Food and Drug Administration. The tests are used for clinical purposes. Billing Codes Specimen Charges Stain Charges 72980 1 1:57 PM CDT DERMATOPATHOLOGY LABORATORY Embedded Images 1:57 PM CDT DERMATOPATHOLOGY LABORATORY Pathology/Cytolo gy TISSUE SPECIMEN FROM SKIN / Unknown 11/10/2023 9:24 AM CDT 11/11/2023 11:28 AM CDT us [facility] - PATHOLOGY/CYTOLOGY ORDERAB LES Final Result DERMATOPATHOLOGY LABORATORY [facility] - Department of Dermatology [address], [address] Floor [address] [phone] documented in this encounter Visit Diagnoses Not on filedocumented in this encounter
--- OUTSIDE RECORDS SUMMARY | 2025-01-19 18:49 | XMS_ITS | Clinical Summary ---
Author Organization [facility] Aly Gaona Address [address] [place] [address] Care Team Providers Care Furniture Inspector Name Role Phone Alexei Valdez MD [...] Pain. Active fluticasone propionate (FLONASE) 50 mcg/spray [place], Suspension nasal inhaler Administer 2 Sprays in each nostril daily. Active Active Problems No known active problems Encounters Date Type Department Care Team Description 01/11/2025 External Device Data STL ABSTRACTION Provider, Abstract 01/10/2025 External Device Data STL ABSTRACTION Provider, Abstract 01/03/2025 External Device Data STL ABSTRACTION Provider, Abstract 11/15/2024 External Device Data STL ABSTRACTION Provider, Abstract 11/01/2024 External Device Data STL ABSTRACTION Provider, Abstract 10/19/2024 External Device Data STL ABSTRACTION Provider, Abstract [...] on file Legal Sex Female 3:33 PM POLICE CAPTAIN PRECINCT Gender Identity Not on file Sexual Orientation [...] 157.5 cm (5' 2) 01/26/2023 3:05 PM POLICE CAPTAIN PRECINCT Body Mass Index 21.18 01/26/2023 3:05 PM POLICE CAPTAIN PRECINCT Plan of Treatment Upcoming Encounters Date Type Department Care Team (Late st Contact Info) Description 02/23/2025 10:00 AM POLICE CAPTAIN PRECINCT Office Visit [facility] Oncology and Hematology - Son[address] [facility] [address] [address] Abdifatah Ladd MD [address] [facility] [address] [place] [address] Health Maintenance Due Date Last [...] Sig/CT Colonography Q 5 years Discontinued Insurance [facility] Member Subscriber Plan / Payer (Ef fective 2021-Present) Name:Ngozi Zazueta Relation to Subscriber:Self Name:Ngozi Zazueta Payer ID:Not on file Group ID:Not on file Type:[facility] Address: [address] MEDICARE PART A AND B Care Teams Furniture Inspector Relationship Specialty Start Date End Date Alexei Valdez MD [address] [place] [address] PCP - General Internal Medicine 01/26/23
--- OUTSIDE RECORDS SUMMARY | 2025-01-19 18:49 | XMS_ITS | Encounter Summary ---
Author Organization [facility] Address [address] [place] [address] Care Team Providers Care Accounts Payable Bookkeeper Name Role Phone Alexei Valdez MD Primary Care Provider [phone] Dano Edwards MD Unavailable [phone] Encounter Details Date Type Department Care Team (Late Contact Info) Description 06/22/2019 Abstract [facility] at [address] [address] Madie Granados [place] Social History Tobacco Use Types Packs/Day Years [...] on file Legal Sex Female 4:20 PM BUYING AGENT Gender Identity Not on file Sexual Orientation [...] (Late Contact Info) Description 03/02/2025 10:15 AM BUYING AGENT Office Visit [facility] n THREE [facility], [address] [place] [address] Sarah Biggs PA 3 [facility] [address] [place] [address] 08/01/2025 9:00 AM CDT Appointment [facility] Non Invasive Cardiology [address] [facility] [place] [address] Halie Zepeda NP-C Three [facility]. [address] [place] [address] 08/29/2025 10:00 AM CDT [facility] THREE [facility], [address] [place] [address] Nahum Guadalupe MD Three [facility]. [address] [place], [place] [address] documented as of this encounter Procedures Procedure [...] * THYROID STIM HORMONE, TSH (06/05/2017) Pathologist [facility] TSH 1.280 0.45 - 4.500 06/05/2017 us Doc [facility] Abstract LABORATORY Edited Resul t - Final * PROTIME (OUTSIDE LAB) (06/05/2017) Pathologist [facility] PROTIME 10.5 INR 1.0 06/05/2017 us [facility] Abstract LAB-OUTSIDE/ABSTRACTED Edite d Result [...] on filedocumented in this encounter Care Teams Accounts Payable Bookkeeper Relationship Specialty Start Date End Date Alexei Valdez MD [address] [address] PCP - General INTERNAL MEDICINE 04/12/19 Dano Edwards MD [address] [place] [phone] Josemanuel Business Assistant CARDIOVASCULAR DISEASE 05/25/19 documented as of this encounter
--- OUTSIDE RECORDS SUMMARY | 2025-01-19 18:49 | XMS_ITS | Clinical Summary ---
Author Organization [facility] Address [address] [place] [address] Care Team Providers Care Commercial Real Estate Lender Name Role Phone Unavailable Primary Care Provider Unavailabl e Source Comments [facility],non-owned Affiliates and Associated Physician Practices is amultiple site organization consisting of ambulatory clinics and hospital sitesin [place], [place], [place] and [place]. This disclosure is being madepursuant to the Care Everywhere program and may not contain all information available regarding this patient. Last updated 17.[facility] Allergies No known active allergies Medications * [...] yrs (1 - 1-dose 75+ series) 2018 DEPRESSION SCREENING 03/16/2024 COVID-19 VACCINE ( - 2023-2 5 season) 2024 INFLUENZA VACCINE (#1) 2024 12/20/2017 HEPATITIS B [...] to complete this topic Insurance MEDICARE MEDICARE [facility] [place] [id number] MEDICARE MEDICARE MEDICARE COMMERCIAL [facility] COMMERCIAL GENERIC Member Subscriber Plan / Payer (Ef fective for All Dates) Name:Ngozi Martinez Member ID:Not on file Relation to Subscriber:Self Name:Ngozi Martinez Subscriber ID:Not on file Payer ID:Not on file Group ID:Not on file Type:Commercial Address: [facility] MEDICARE COMMERCIAL GENERIC [facility] SPECIALTY RISK
--- OUTSIDE RECORDS SUMMARY | 2025-01-19 18:49 | XMS_ITS | Encounter Summary ---
Author Organization [facility] Address [facility] [place] [address] Care Team Providers Care Mathematics Faculty Member Name Role Phone Alexei Valdez MD Primary Care Provider [phone] Dano Edwards MD Unavailable [phone] Encounter Details Date Type Department Care Team (Late st Contact Info) Description 11/25/2022 Hospital Orders Only [facility] [place], [place] [address] Gonsalo Rosales MD [address] [phone] Anesthesia Record Procedure Summary Procedure Name Responsible [...] on file Legal Sex Female 4:20 PM ROUTE DELIVERY CLERK Gender Identity Not on file Sexual Orientation Not on file Occupation Industry Job Start Date Job End Date Not on file Not on file Not on file Not on file documented as of this encounter Functional Status * RETIRED Are you deaf or do you have serious difficulty hearing Answer Date of Assessment Author Status No 05/01/2021 1:10 PM ROUTE DELIVERY CLERK Activ e * RETIRED Are you blind or do you have serious difficulty seeing, even when wearing glasses? Answer Date of Assessment Author Status No 05/01/2021 1:10 PM ROUTE DELIVERY CLERK Activ e * Do you have serious difficulty walking or climbing stairs? Answer Date of Assessment Author Status No 05/01/2021 1:10 PM ROUTE DELIVERY CLERK Yen Guevara RN Active * Do you have difficulty dressing or bathing? Answer Date of Assessment Author Status No 05/01/2021 1:10 PM Yen Carey RN Active * Because of a physical, mental, or emotional condition, do you have difficulty doing errands alone such as visiting a doctor's office or shopping? Answer Date of Assessment Author Status No 05/01/2021 1:10 PM ROUTE DELIVERY CLERK Yen Guevara RN Active * Calculated C-SSRS Risk Score (Lifetime/Recent) Answer Date of Assessment Author Status No Risk Indicated 11/25/2022 8:52 AM CDT Lindsay Schaefer RN Active * [place] Suicide Severity Rating Scale (Screener/Recent Self-Report) Question [...] Date Author Status No 05/01/2021 1:10 PM ROUTE DELIVERY CLERK Yen Guevara RN Active documented in this encounter Plan of Treatment Upcoming Encounters Date Type Department Care Team (Late st Contact Info) Description 03/02/2025 10:15 AM ROUTE DELIVERY CLERK Office Visit [facility] THREE [facility] [address] [place] [address] Sarah Biggs PA 3 [facility] [address] [place] [address] 08/01/2025 9:00 AM CDT Appointment [facility] Non Invasive Cardiology ONE [facility] [address] Halie Zepeda AIR QUALITY CONSULTANT-C Three [facility]. [facility] [address] [place] [address] 08/29/2025 10:00 AM CDT Office Visit [facility] THREE [facility], [facility] [address] [place], [place] [address] Nahum Guadalupe MD [address] [place], [place] [id number] documented as of this encounter Goals Goal Patient Goal Type Associated Problems Recent Progress Patient-Stated? Author Health - patient able to perform ADLs independently General Kei Zelaya RN documented as of this encounter Visit Diagnoses Not on filedocumented in this encounter Care Teams Mathematics Faculty Member Relationship Specialty Start Date End Date Alexei Valdez MD [address] [place] [phone] PCP - General INTERNAL MEDICINE 04/12/19 Dano Edwards MD 3 [facility] [address] [place] [phone] Josemanuel Collection Systems Modeler CARDIOVASCULAR DISEASE 05/25/19 documented as of this encounter
--- OUTSIDE RECORDS SUMMARY | 2025-01-19 18:49 | XMS_ITS | Clinical Summary ---
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 11/25/2022 Primary hypertension 05/17/2021 Dyslipidemia 05/17/2021 Atrial fibrillation status post cardioversion Paroxysmal atrial fibrillation 06/10/2019 Bilateral carotid artery stenosis 06/10/2019 Precordial pain 06/10/2019 Immunizations Immunization Administration Dates Next Due Fluzone High Dose - >Age 65 (Prefilled Syringe) 11/13/2019,12/12/2018,12/20/2017 Influenza (Generic) 12/27/2016, 4,12/13/2012,2011 Influenza Adult (Generic) 11/04/2020,,12/20/2017,2015,12/23/2014 Pneumococcal (Generic) 12/04/2013 Pneumococcal (Pneumovax 23) 12/27/2016 Pneumococcal (Prevnar 13) 12/23/2014 Shingrix 08/13/2018 Zoster (Zostavax) [address] Unt/0.65Ml 04/19/2018, Family History Medical History Relation [...] on file Legal Sex Female 4:20 PM DRAWING BOX TENDER Gender Identity Not on file Sexual Orientation Not on file Occupation Industry Job Start Date Job End Date Not on file Not on file Not on file Not on file Last Filed Vital Signs Vital Sign Reading Time Taken Comments Blood Pressure 140/68 08/19/2024 10:19 AM CDT Pulse 60 08/19/2024 10:19 AM CDT Temperature 37.1 C (98.7 F) 05/17/2023 4:13 PM DRAWING BOX TENDER Respiratory Rate 27 05/17/2023 7:40 PM DRAWING BOX TENDER Oxygen Saturation 98% 08/19/2024 10:19 AM CDT Inhaled Oxygen Concentration - - Weight 52.2 kg (115 lb) 08/19/2024 10:19 AM CDT Height 157.5 cm (5' 2) 08/19/2024 10:19 AM CDT Body Mass Index 21.03 08/19/2024 10:19 AM CDT Plan of Treatment Upcoming Encounters Date Type Department Care Team (Late st Contact Info) Description 03/02/2025 10:15 AM DRAWING BOX TENDER Office [facility] THREE [facility], [address] [address] Sarah Biggs PA 3 [facility] [address] [place], [place] [address] 08/01/2025 9:00 AM CDT Appointment [facility] Non Invasive Cardiology ONE [facility] [place] [address] Halie Zepeda WIRE COILER-C Three [facility]. [facility] [place] [address] [place] [address] 08/29/2025 10:00 AM CDT Office Visit [facility] THREE [facility], [facility] [place] [address] [place] [address] Nahum Guadalupe MD Three [facility]. [facility] [address] [place], [place] [address] Health Maintenance Due Date Last Done Comments DTaP, Tdap and Td Vaccines (1 - Tdap) 1964 Annual Medicare Wellness Visit 2008 Dexa Scan (General) 2008 RSV Immunization or 60+ Years (1 - 1-dose 75+ series) 2018 Zoster Vaccines (3 of 3) 10/08/2018 019, 04/19/2018, 12/25/2010 COVID-19 Vaccine ( - season) 2024 01/04/2021, 05/15/2020, 04/12/2020 Influenza Adult (#1) 2024 11/04/2020, 11/13/2019, 12/12/2018, Additional history exists Pneumococcal Vaccine: 50+ Years Completed 12/27/2016, 12/23/2014 Hepatitis A Vaccines Aged Out No long er eligible based on patient's age to complete this topic Meningococcal B Vaccine Aged Out No l [...] perform ADLs independently General No Kei Jc, JENNIFER Medical Devices Implanted Type Area Managed Care Director Device Identifier Shelf Expiration Date Model / Serial / Lot Watchman Flx [place] Closure 20mm-11/25/2022 Implanted:Qty: 1 on 11/25/2022 by Steven Hollingsworth MD Closure Device [employer] [id number] / / Insurance MEDICARE MEDICARE [facility] Advance Directives Documents on File Type Date Recorded Patient Certified Green Building Engineer Expl anation Power of Nylon Hot Wire Cutter 05/30/2021 POA FOR HE ALTHCARE 2021 * Full Code (Latest Code Status on File) Date Activated Date Inactivated Comments 05/01/2021 4:12 PM 05/02/2021 12:20 PM * Full Code Date Activated Date Inactivated Comments 05/01/2021 8:54 AM 05/01/2021 4:12 PM Care Teams Finishing Pan Operator Relationship Specialty Start Date End Date Alexei Valdez MD [address] [facility] [address] [place] [phone] PCP - General INTERNAL MEDICINE 04/12/19 Dano Edwards MD 3 [facility] [address] [place] [phone] Drasco Paper Rewinder Operator CARDIOVASCULAR DISEASE 05/25/19
--- OUTSIDE RECORDS SUMMARY | 2025-01-19 18:49 | XMS_ITS | Clinical Summary ---
Author Organization [facility] Address [address] [place] [address] Care Team Providers Care Green Belt Name Role Phone Alexei Valdez MD Primary Care Provider [phone] Allergies No known active allergies Medications carvediloL [...] on file Legal Sex Female 8:37 PM PICK REMOVER Gender Identity Not on file Sexual Orientation [...] 06/14/2018 04/19/2018, 12/25 Covid-19 Vaccine (7 - 5-2 6 season) 2024 12/02/2022, 12/12/2021, 08/06/2021, Additional history exists Influenza Vaccine (#1) 2024 , 12/07/2021, 11/04/2020, Additional history exists DTaP/Tdap/Td Vaccine (2 - Td or Tdap) 01/13/2032 01/12/2022 Pneumococcal vaccine 65+ Completed 017, 12/23/2014, 12/04/2013 Insurance MEDICARE [facility] [place] [address] Care Teams Green Belt Relationship Specialty Start Date End Date Alexei Valdez MD PCP - General Internal Medicine 10/05/23
== END 2025-01-19 10:46 | disposition home or self-care (01) ==
LOC: ANHFOHIMG 10:47
PROVIDERS: PCP Internal Medicine; Visit Provider Surgery
DX: Z12.31 Encounter for screening mammogram for malignant neoplasm of breast (principal); C50.911 Malignant neoplasm of unspecified site of right female breast
CPT/HCPCS: 76641; 77063; 77067

== ENCOUNTER 2025-02-23 09:48 | Outpatient (CLI) | payer MEDICARE, OTHER, SELFPAY ==
[2025-02-23 10:02] LABS: Hematocrit 37.1 % (37.0-47.0); Hemoglobin 12.0 g/dL (12.0-15.0); Immature Granulocyte Percent A 0.2 % (0-0.5); Lymphocytes Absolute Auto 1.34 K/mm3 (0.9-3.2); Mean Corpuscular HGB Conc 32.3 g/dl (32-36); Mean Corpuscular Hemoglobin 31.7 pg (26-34); Mean Corpuscular Volume 97.9 fl (80-100); Nucleated Red Blood Cells Absolute Auto 0.000 K/mm3 (0.0-0.012); Nucleated Red Blood Cells Perc 0.0 % (0.0-0.2); Platelet Count Result 204 k/mm3 (150-375); Red Blood Count 3.79 M/mm3 (4.2-5.4); White Blood Count 4.4 K/mm3 (4.5-10.0)
[2025-02-23 10:04] LABS: Blood Urea Nitrogen 9 mg/dL (8-26); Carbon Dioxide 31 mmol/L (22-30); Chloride 101 mmol/L (98-109); Estimated Glomerular Filt Rate > 60; Glucose 102 mg/dL (70-105); Ionized Calcium (POC) 1.22 mmol/L (1.11-1.31); Potassium 4.2 mmol/L (3.5-4.9); Sodium 140 mmol/L (138-146)
== END 2025-02-23 09:49 | disposition home or self-care (01) ==
LOC: ANHLAB 09:49
PROVIDERS: PCP Internal Medicine; Visit Provider Internal Medicine Hematology & Oncology
DX: D05.11 Intraductal carcinoma in situ of right breast (principal)
CPT/HCPCS: 36415; 80047; 85025

== ENCOUNTER 2025-03-15 10:58 | Outpatient (CLI) | payer MEDICARE, OTHER, SELFPAY ==
--- OUTSIDE RECORDS SUMMARY | 2025-03-15 11:20 | XMS_ITS | Encounter Summary ---
Author Organization [facility] Address [facility] [place] [address] Care Team Providers Care Educational Coordinator Name Role Phone Alexei Valdez MD Primary Care Provider [phone] Dano Edwards MD Unavailable [phone] Encounter Details Date Type Department Care Team (Late st Contact Info) Description 11/25/2022 Hospital Orders Only [facility] Anesthesia ONE [place], [place] [address] Gonsalo Rosales MD [address] [id number] Anesthesia Record Procedure Summary Procedure Name Responsible [...] on file Legal Sex Female 4:20 PM PRECISION INSTRUMENT AND TOOL MAKER Gender Identity Not on file Sexual Orientation Not on file Occupation Industry Job Start Date Job End Date Not on file Not on file Not on file Not on file documented as of this encounter Functional Status * RETIRED Are you deaf or do you have serious difficulty hearing Answer Date of Assessment Author Status No 05/01/2021 1:10 PM PRECISION INSTRUMENT AND TOOL MAKER Activ e * RETIRED Are you blind or do you have serious difficulty seeing, even when wearing glasses? Answer Date of Assessment Author Status No 05/01/2021 1:10 PM PRECISION INSTRUMENT AND TOOL MAKER Activ e * Do you have serious difficulty walking or climbing stairs? Answer Date of Assessment Author Status No 05/01/2021 1:10 PM PRECISION INSTRUMENT AND TOOL MAKER Yen Guevara RN Active * Do you [...] Date Author Status No 05/01/2021 1:10 PM PRECISION INSTRUMENT AND TOOL MAKER Yen uGevara RN Active documented in this encounter Plan of Treatment Upcoming Encounters Date Type Department Care Team (Late st Contact Info) Description 08/01/2025 9:00 AM CDT Appointment [facility] Non Invasive Cardiology ONE [facility] [place] [address] Halie Zepeda, RN DOCUMENT IMPROVEMENT-C Three [facility]. [facility] [address] [place], [place] [address] 08/29/2025 10:00 AM CDT Office Visit [facility] THREE [facility], [facility] [address] [place], [place] [address] Nahum Guadalupe MD Three [facility]. [facility] [address] [place] [address] 03/20/2026 8:30 AM PRECISION INSTRUMENT AND TOOL MAKER Office Visit [place] [facility] THREE [facility], [facility] [address] [place], [place] [address] Ramses Alvarez MD Three [facility]. [facility] [address] [place], [place] [address] documented as of this encounter Goals Goal Patient Goal Type Associated Problems Recent Progress Patient-Stated? Author Health - patient able to perform ADLs independently General No Kei Jc RN documented as of this encounter Visit Diagnoses Not on filedocumented in this encounter Care Teams Educational Coordinator Relationship Specialty Start Date End Date Alexei Valdez MD [address] [id number] PCP - General INTERNAL MEDICINE 04/12/19 Dano Edwards MD 3 [facility] [address] [place] [address] Mobile Evs Attendant CARDIOVASCULAR DISEASE 05/25/19 documented as of this encounter
--- OUTSIDE RECORDS SUMMARY | 2025-03-15 11:20 | XMS_ITS | Clinical Summary ---
Author Organization [facility] [employer] Address [address] [place] [address] Care Team Providers Care Truck Driver Flatbed Name Role Phone Alexei Valdez MD Primary Care Provider [phone] Allergies No known active allergies Medications carvediloL [...] on file Legal Sex Female 8:37 PM STUD BEEF CATTLE FARMER Gender Identity Not on file Sexual Orientation [...] 65+ Completed 017, 12/23/2014, 12/04/2013 Insurance MEDICARE [place] [address] Care Teams Truck Driver Flatbed Relationship Specialty Start Date End Date Alexei Valdez MD PCP - General Internal Medicine 10/05/23
--- OUTSIDE RECORDS SUMMARY | 2025-03-15 11:20 | XMS_ITS | Encounter Summary ---
Author Organization [facility] Address [address] [place] [address] Care Team Providers Care Brass Wind Instruments Tube Bender Name Role Phone Alexei Valdez MD Primary Care Provider [phone] Dano Edwards MD Unavailable [phone] Encounter Details Date Type Department Care Team (Late Contact Info) Description 06/22/2019 Abstract [facility] at [address] [address] Madie [place] Social History Tobacco Use [...] on file Legal Sex Female 4:20 PM MANAGER STATISTICS Gender Identity Not on file Sexual Orientation [...] Department Care Team (Late Contact Info) Description 08/01/2025 9:00 AM CDT Appointment [facility] Non Invasive Cardiology ONE [facility] [address] Halie Zepeda NP-C Three [facility]. [address] [place] [address] 08/29/2025 10:00 AM CDT Office Visit [place] [facility] THREE [facility], [place] [address] [place] [address] Nahum Guadalupe MD Three [facility]. [facility] [address] [place] [address] 03/20/2026 8:30 AM MANAGER STATISTICS Office Visit [facility] THREE [facility], [facility] [address] [place] [address] Ramses Alvarez MD Three [facility]. [facility] [address] [place], [place] [address] documented as of this encounter Procedures Procedure [...] on filedocumented in this encounter Care Teams Brass Wind Instruments Tube Bender Relationship Specialty Start Date End Date Alexei Valdez MD [address] [address] PCP - General INTERNAL MEDICINE 04/12/19 Dano Edwards MD [address] [address] Josemanuel Stripping And Booking Machine Operator CARDIOVASCULAR DISEASE 05/25/19 documented as of this encounter
--- OUTSIDE RECORDS SUMMARY | 2025-03-15 11:20 | XMS_ITS | Clinical Summary ---
Author Organization [facility] Aly Gaona Address [address] [place] [address] Care Team Providers Care Methodologist Name Role Phone Alexei Valdez MD Primary [...] Pain. Active fluticasone propionate (FLONASE) 50 mcg/spray Freedom, Suspension nasal inhaler Administer 2 Sprays in each nostril daily. 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 Orders Only [facility] Oncology and Hematology - [place] [address] [place] [address] Abdifatah Ladd MD Ductal carcinoma in situ (DCIS) of right breast (Primary Dx) 01/11/2025 External Device Data STL ABSTRACTION Provider, [...] on file Legal Sex Female 3:33 PM HEAD CAGER Gender Identity Not on file Sexual Orientation Not on file Last Filed Vital Signs Vital Sign Reading Time Taken Comments Blood Pressure 139/62 02/23/2025 10:12 AM HEAD CAGER Pulse 65 02/23/2025 10:12 AM HEAD CAGER Temperature 36.8 C (98.2 F) 02/23/2025 10:12 AM HEAD CAGER Respiratory Rate 15 02/23/2025 10:12 AM HEAD CAGER Oxygen Saturation 96% 02/23/2025 10:12 AM HEAD CAGER Inhaled Oxygen Concentration - - Weight 51.4 kg (113 lb 6.4 oz) 02/23/2025 10:12 AM HEAD CAGER Height 157.5 cm (5' 2) 01/26/2023 3:05 PM HEAD CAGER Body Mass Index 20.74 01/26/2023 3:05 PM HEAD CAGER Plan of Treatment Upcoming Encounters Date Type Department Care Team (Late st Contact Info) Description 08/25/2025 9:15 AM CDT Office Visit [facility] Oncology and Hematology - [place] [address] [place] [address] Abdifatah Ladd MD [address] [facility] [address] [place] [address] Health Maintenance Due Date Last Done Comments DTAP/TDAP/TD VACCINES (1 - Tdap) 1962 RSV VACCINE (60+ or ) (1 - 1-dose 75+ series) 2018 ZOSTER VACCINE (3 of 3) 10/08/2018 08/14/19 19, 04/19/2018, 12/25/2010 INFLUENZA VACCINE (#1) 2024 0, 12/12/2018, 12/20/2017 OSTEOPOROSIS SCREENING 12/06/2027 3, 12/03/2020, 11/29/2018 PNEUMOCOCCAL VACCINE 50+ YEARS Completed 1 , 12/23/2014, 12/04/2013 COLORECTAL SCREENING Discontinued 03/12/2023 Colorectal Cancer Screening Discontinued FIT-DNA Q 3 years Discontinued FIT/FOBT Q 1 year Discontinued Flex Sig/CT Colonography Q 5 years Discontinued Insurance [facility] [address] [place] [address] [place] [address] MEDICARE PART A AND B Care Teams Methodologist Relationship Specialty Start Date End Date Alexei Valdez MD [address] [place] [address] PCP - General Internal Medicine 01/26/23
--- OUTSIDE RECORDS SUMMARY | 2025-03-15 11:20 | XMS_ITS | Clinical Summary ---
Author Organization [facility] Address [facility] [place] [address] Care Team Providers Care Food Production Associate Name Role Phone Alexei Valdez MD Primary Care Provider [phone] Dano Edwards MD Unavailable [phone] Allergies No known active allergies Medications [...] Encounters Date Type Department Care Team Description 03/02/2025 10:15 AM STERILE SUPERVISOR [facility] THREE [facility], [address] [address] Sarah [place] PA Atrial Fibrillation (Follow up) 03/02/2025 Travel from Last 3 Months Immunizations Immunization Administration Dates Next Due Fluzone High Dose - >Age 65 (Prefilled Syringe) 11/13/2019,12/12/2018,12/20/2017 Influenza (Generic) 12/27/2016, 4,12/13/2012,2011 Influenza Adult (Generic) 11/04/2020,,12/20/2017,2015,12/23/2014 Pneumococcal (Generic) 12/04/2013 Pneumococcal (Pneumovax 23) 12/27/2016 Pneumococcal (Prevnar 13) 12/23/2014 Shingrix 08/13/2018 Zoster (Zostavax) [address] Unt/0.65Ml 04/19/2018, Family History Medical History Relation [...] on file Legal Sex Female 4:20 PM STERILE SUPERVISOR Gender Identity Not on file Sexual Orientation Not on file Occupation Industry Job Start Date Job End Date Not on file Not on file Not on file Not on file Last Filed Vital Signs Vital Sign Reading Time Taken Comments Blood Pressure 140/62 03/02/2025 9:53 AM STERILE SUPERVISOR Pulse 64 03/02/2025 9:53 AM STERILE SUPERVISOR Temperature 37.1 C (98.7 F) 05/17/2023 4:13 PM STERILE SUPERVISOR Respiratory Rate 27 05/17/2023 7:40 PM STERILE SUPERVISOR Oxygen Saturation 96% 03/02/2025 9:53 AM STERILE SUPERVISOR Inhaled Oxygen Concentration - - Weight 53.1 kg (117 lb) 03/02/2025 9:53 AM STERILE SUPERVISOR Height 157.5 cm (5' 2) 03/02/2025 9:53 AM STERILE SUPERVISOR Body Mass Index 21.4 03/02/2025 9:53 AM STERILE SUPERVISOR Plan of Treatment Upcoming Encounters Date Type Department Care Team (Late st Contact Info) Description 08/01/2025 9:00 AM CDT Appointment [facility] [place] [address] Halie Zepeda, BULK PLANT MANAGER-C [address] [facility]. [address] [address] 08/29/2025 10:00 AM CDT Office Visit [place] [facility] THREE [facility], [address] [address] Nahum Guadalupe MD [address] [facility]. [facility] [address] [place] [address] 03/20/2026 8:30 AM STERILE SUPERVISOR Office Visit [place] [facility] THREE [facility], [facility] [address] [place] [address] Ulises Neff MD [facility]. [facility] [address] [place], [place] [address] Health Maintenance Due Date Last Done Comments Annual Medicare Wellness Visit 2008 Dexa Scan (General) 2008 Zoster Vaccines (3 of 3) 10/08/2018 019, 04/19/2018, 12/25/2010, Additional history exists COVID-19 Vaccine ( season) 2024 12/02/2022, 12/12/2021, 08/06/2021, Additional history exists Influenza Adult (#1) 2024 11/04/2020, 11/13/2019, 12/12/2018, Additional history exists DTaP, Tdap and Td Vaccines (2 - Td or Tdap) 01/13/2032 01/12/2022 Pneumococcal Vaccine: 50+ Years Completed 12/27/2016, 12/23/2014, 12/03/2013 RSV Immunization or 60+ Years Completed 12/02/2022 Hepatitis A Vaccines Aged Out No long [...] Jc, RN Medical Devices Implanted Type Area Online Communications Manager Device Identifier Shelf Expiration Date Model / Serial / Lot Watchman Flx [place] Closure 20mm-11/25/2022 Implanted:Qty: 1 on 11/25/2022 by Steven Hollingsworth MD Closure Device Pony Zero [id number] / / Procedures Procedure Name Priority Date/Time Associated Diagnosis Comments ELECTROCARDIOGRAM (NON MIDMARK ACQUIRED) Routine 03/02/2025 9:59 AM STERILE SUPERVISOR Paroxysmal atrial fibrillation ([facility]/HCC HHS/[facility]) from Last 3 Months Results * ELECTROCARDIOGRAM (03/02/2025 9:59 AM STERILE SUPERVISOR) ECG QT 430 [place] [facility] ECG QTC 424 [place] [facility] 03/02/2025 9:59 AM STERILE SUPERVISOR Narrative IGNACIA VELIZ - 03/02/2025 9:56 PM STERILE SUPERVISOR [facility] Test Date: 2025-03-02 Pat Name: NGOZI ZAZUETA Department: 112 Room: Gender: Female Assisted Living Housekeeper: : 1945 Requested By: ULISES NEFF Order Number: [id number] Reading MD: Ulises Neff Measurements Intervals [place] Rate: 58 P: 76 LA: 193 QRS: 101 QRSD: 132 T: 55 QT: 430 QTc: 424 Interpretive Statements SINUS BRADYCARDIA RIGHT AXIS DEVIATION RIGHT BUNDLE BRANCH BLOCK ILE SUPERVISOR Procedure Note Ulises Neff MD - 03/02/2025 [facility]: 2025-03-02 Pat Name: NGOZI ZAZUETA Department: 112 Room: Gender: Female Assisted Living Housekeeper: : 1945 Requested By: ULISES NEFF Order Number: [id number] Reading POP Neff Measurements Intervals [place] Rate: 58 P: 76 LA: 193 QRS: 101 QRSD: 132 T: 55 QT: 430 QTc: 424 Interpretive Statements SINUS BRADYCARDIA RIGHT AXIS DEVIATION RIGHT BUNDLE BRANCH BLOCK ILE SUPERVISOR Ulises Neff MD PROCEDURES-ORDERABLE NO ROBERT RGE Final Result IGNACIA VELIZ from Last 3 [place] [phone] Advance Directives Documents on File Type Date Recorded Patient Stencil Printer Expl anation Power of Knife Cutter 05/30/2021 POA FOR HE ALTHCARE 2021 * Full Code (Latest Code Status on File) Date Activated Date Inactivated Comments 05/01/2021 4:12 PM 05/02/2021 12:20 PM * Full Code Date Activated Date Inactivated Comments 05/01/2021 8:54 AM 05/01/2021 4:12 PM Care Teams Food Production Associate Relationship Specialty Start Date End Date Alexei Valdez MD [address] [address] PCP - General INTERNAL MEDICINE 04/12/19 Dano Edwards MD 3 [facility] [address] [place] [address] Paradise Millwright CARDIOVASCULAR DISEASE 05/25/19
[2025-03-15 11:45] LABS: Add Urine Microscopic? NO; Appearance Urine Clear (Clear); Glucose Urine UA Negative (Negative); Leukocyte Esterase Ur Negative LEU/UL (Negative); Nitrate Urine Negative (Negative); Specific Grav Ur 1.013 (1.001-1.035)
== END 2025-03-15 10:59 | disposition home or self-care (01) ==
PROVIDERS: PCP Internal Medicine; Visit Provider Internal Medicine
DX: R73.03 Prediabetes (principal); I10 Essential (primary) hypertension; R39.89 Other symptoms and signs involving the genitourinary system
CPT/HCPCS: 81003